=== PATIENT | female | born 1945 | race Caucasian/White ===

== ENCOUNTER → 2017-04-22 | Outpatient (CLI) | payer MEDICARE, OTHER ==
--- NOTE | 2017-04-22 19:49 | Diagnostic Imaging Report ---
AP and frog lateral views of the right hip are performed. INDICATION: Right hip pain. FINDINGS: There is moderate narrowing of the right hip joint space. There is mild subchondral sclerosis seen. No fracture or dislocation is seen. No radiopaque foreign body. Mild narrowing of the symphysis pubis and mild sclerotic changes of the SI joints are compatible with degenerative changes. IMPRESSION: Moderate degenerative changes. Dictated by: Dictated on workstation # [id number]
== END ==
LOC: LAB 15:08
PROVIDERS: ATTEND Internal Medicine
DX: M16.11 Unilateral primary osteoarthritis, right hip (principal)
CPT/HCPCS: 73502

== ENCOUNTER → 2017-04-26 | Outpatient (CLI) | payer MEDICARE, OTHER ==
--- NOTE | 2017-04-26 13:06 | Diagnostic Imaging Report ---
PROCEDURE: CT head without contrast. TECHNIQUE: Multiple contiguous axial images were obtained through the brain without the use of intravenous contrast. INDICATION: Headache. FINDINGS: There is no intracranial hemorrhage, edema or mass effect. There is prominent periventricular and deep white matter hypodensities compatible with chronic microvascular ischemic changes. No extra-axial fluid collection is seen. No hydrocephalus. The calvarium, the paranasal sinuses visualized portions and the orbits appear grossly unremarkable. IMPRESSION: White matter findings suggestive of chronic microvascular ischemic changes. Dictated by: Dictated on workstation # [id number]
== END ==
LOC: RAD 12:38
PROVIDERS: ATTEND Internal Medicine
DX: R51 Headache (principal)
CPT/HCPCS: 70450

== ENCOUNTER → 2017-05-17 | Outpatient (CLI) | payer MEDICARE, OTHER ==
--- NOTE | 2017-05-17 14:52 | Diagnostic Imaging Report ---
EXAMINATION: Bilateral screening mammogram 2D views with tomosynthesis. The current study was also evaluated with a Computer Aided Detection (CAD) system. INDICATION: Screening. PERSONAL HISTORY: No current complaints stated on the questionnaire. COMPARISON: 05/15/2016. FINDINGS: The breasts are composed of scattered fibroglandular densities. There are scattered benign-appearing calcifications and there are biopsy clips seen in the right breast. Allowing for technique and positional differences, no suspicious change is seen. IMPRESSION: No significant change. ACR BI-RADS Category 2: Benign findings. Result letter will be mailed to the patient. Note: At least 10% of breast cancer is not imaged by mammography. Dictated by: Dictated on workstation # [id number]
== END ==
LOC: RAD 10:23
PROVIDERS: ATTEND Internal Medicine
DX: Z12.31 Encounter for screening mammogram for malignant neoplasm of breast (principal)
CPT/HCPCS: 77067

== ENCOUNTER → 2018-08-04 | Outpatient (CLI) | payer MEDICARE, OTHER ==
--- NOTE | 2018-08-04 15:55 | Diagnostic Imaging Report ---
INDICATION: Shortness of breath and chronic cough. TIME OF EXAM: 4:10 PM COMPARISON: No prior studies are available for comparison. FINDINGS: The heart is enlarged. No infiltrate or failure is detected. No effusion or pneumothorax is seen. There is hyperinflation suggestive of COPD. IMPRESSION: Cardiomegaly and COPD. No acute abnormalities detected. Dictated by: Dictated on workstation # [id number]
== END ==
LOC: RAD 15:37
PROVIDERS: ATTEND Nurse Practitioner
DX: J44.9 Chronic obstructive pulmonary disease, unspecified (principal); I51.7 Cardiomegaly
CPT/HCPCS: 71046

== ENCOUNTER 2018-08-20 12:30 | Inpatient (IN) | payer MEDICARE, OTHER | END 2018-08-25 14:10 | disposition home or self-care (01) | LOC: 4TH 08-21 14:45 → ER 12:30 → ICU 14:47 | DX: I09.81 Rheumatic heart failure (principal); I11.0 Hypertensive heart disease with heart failure; I50.41 Acute combined systolic (congestive) and diastolic (congestive) heart failure; I08.3 Combined rheumatic disorders of mitral, aortic and tricuspid valves; J44.1 Chronic obstructive pulmonary disease with (acute) exacerbation; R41.82 Altered mental status, unspecified; F17.210 Nicotine dependence, cigarettes, uncomplicated; R82.90 Unspecified abnormal findings in urine; R80.9 Proteinuria, unspecified; R00.0 Tachycardia, unspecified; E78.00 Pure hypercholesterolemia, unspecified; E03.9 Hypothyroidism, unspecified; S51.821A Laceration with foreign body of right forearm, initial encounter; M54.9 Dorsalgia, unspecified; K59.09 Other constipation; R41.3 Other amnesia; D69.59 Other secondary thrombocytopenia; R73.9 Hyperglycemia, unspecified; N28.9 Disorder of kidney and ureter, unspecified; W19.XXXA Unspecified fall, initial encounter ==

== ENCOUNTER → 2018-09-06 | Outpatient (CLI) | payer MEDICARE, OTHER ==
[~2018-09-06] MED LIST: AMIT25TA9 PO; ASA/1TAB3 PO; ASCO-262 PO; ASPI-999 PO; FAMO20TA3 PO; FURO40TA4 PO; LEVO25TA5 PO; METO-395 PO; POTA20TA8 PO; RT-ALBUINH INH; SIMV40TA4 PO; TIOT4MIS2 IH
--- NOTE | 2018-09-06 20:46 | Diagnostic Imaging Report ---
INDICATION: Digital mammogram bilateral screening with 3D tomosynthesis and CAD. The current study was also evaluated with a Computer Aided Detection (CAD) system. The study was compared to the prior exam of 05/17/2017, 05/15/2016 and 10/31/2014. At this time, there are no current complaints. FINDINGS: The fibroglandular tissue in both breasts is heterogeneously dense. This does limit the sensitivity of this exam. The previous study did show a few microcalcifications in the lateral aspect of the right breast. Those calcifications are again evident and do seem somewhat more numerous than on the prior study. These calcifications are most likely benign but I would recommend that a compression/magnification view of these calcifications be obtained in the CC and ML projections for further study. Also, in the interval since the prior exam, a new group of calcifications has developed in the upper-outer aspect of the right breast. These calcifications should be compressed and magnified in the CC and ML projections as well. There are also a few new microcalcifications in the midportion of the left breast. I would recommend that these also be compressed and magnified in the ML and CC projections. There is no primary or secondary sign of malignancy noted otherwise. Stereotactic clip markers are again seen in both breasts. IMPRESSION: Additional mammographic views of both breasts would be recommended for further study. ACR BI-RADS Category 0: Incomplete. (Needs additional imaging evaluation). Result letter will be mailed to the patient. Note: At least 10% of breast cancer is not imaged by mammography. Dictated by: Dictated on workstation # [id number]
== END ==
LOC: RAD 10:07
PROVIDERS: ATTEND Nurse Practitioner
DX: Z12.31 Encounter for screening mammogram for malignant neoplasm of breast (principal)
CPT/HCPCS: 77067

== ENCOUNTER → 2018-09-14 | Outpatient (CLI) | payer MEDICARE, OTHER ==
--- NOTE | 2018-09-14 21:47 | Diagnostic Imaging Report ---
INDICATION: Bilateral breast calcifications. Patient presents for additional views. Correlation is made with recent screening study from 09/06/2018. 2-D and 3-D bilateral diagnostic mammography was performed. This included bilateral magnification CC and ML views as well as conventional and 90-degree lateral views. The current study was also evaluated with a Computer Aided Detection (CAD) system. FINDINGS: Calcifications in the upper and outer aspect of the right breast appear to be fairly coarse and punctate in appearance. These have increased slightly since prior exam but have a fairly benign appearance. No associated soft tissue mass is seen. Calcifications on the left also appear to be fairly benign. There are numerous vascular and parenchymal calcifications. No mass is seen. IMPRESSION: Benign-appearing calcifications bilaterally. Even so, followup bilateral diagnostic mammography in 6 months is recommended to confirm stability. ACR BI-RADS Category 3: Probably benign findings. Result letter will be mailed to the patient. Note: At least 10% of breast cancer is not imaged by mammography. Dictated by: Dictated on workstation # [id number]
== END ==
LOC: RAD 13:31
PROVIDERS: ATTEND Internal Medicine
DX: N64.89 Other specified disorders of breast (principal); R92.8 Other abnormal and inconclusive findings on diagnostic imaging of breast
CPT/HCPCS: 77066

== ENCOUNTER → 2018-11-09 | Outpatient (CLI) | payer MEDICARE, OTHER ==
[2018-11-09 12:33] LABS: HEMOGLOBIN 14.2 G/DL (11.5-16.0); MEAN PLATELET VOLUME 10.6 FL (7.4-10.4); WHITE BLOOD COUNT 8.7 10^3/uL (4.3-11.0)
[2018-11-09 12:47] LABS: BILIRUBIN,URINE NEGATIVE (NEGATIVE); CLARITY,URINE CLEAR; COLOR,URINE YELLOW; GLUCOSE, URINE (UA) NEGATIVE (NEGATIVE); KETONES,URINE NEGATIVE (NEGATIVE); LEUKOCYTE ESTERASE ,URINE 1+ (NEGATIVE); NITRITE,URINE NEGATIVE (NEGATIVE); PH,URINE 5 (5-9); PROTEIN,URINE 1+ (NEGATIVE); UROBILINOGEN,URINE NORMAL (NORMAL)
[2018-11-09 12:55] LABS: ALBUMIN 4.1 GM/DL (3.2-4.5); BILIRUBIN,TOTAL 0.2 MG/DL (0.1-1.0); CALCIUM 9.3 MG/DL (8.5-10.1); CREATININE SERUM 2.21 MG/DL (0.60-1.30); POTASSIUM 4.4 MMOL/L (3.6-5.0); TOTAL PROTEIN 7.4 GM/DL (6.4-8.2)
[2018-11-09 12:58] LABS: ABG BASE EXCESS -2.9 MMOL/L (-2.5-2.5); ABG OXYGEN SATURATION 92 % (94-100); ABG PCO2 32 MMHG (35-45); ABG PH 7.42 (7.37-7.43); ABG PO2 88 MMHG (79-93); ABG TCO2 22.1 MMOL/L (21.0-31.0)
[2018-11-09 13:05] LABS: ALLENS TEST YES-POS; INSPIRED O2 ROOM AIR; PATIENT TEMP 96.4; VENTILATOR NO
[2018-11-09 13:05] LABS: BACTERIA,URINE FEW /HPF; WBC,URINE 0-2 /HPF
--- NOTE | 2018-11-09 14:31 | Diagnostic Imaging Report ---
INDICATION: Preop, valvular insufficiency. FINDINGS: The heart is enlarged but stable from the comparison study of August 2018. No vascular congestion, edema, pneumonia, effusion, or pneumothorax. IMPRESSION: Unchanged cardiomegaly; otherwise, negative. Dictated by: Dictated on workstation # [id number]
== END ==
LOC: CARD 11:53
PROVIDERS: ATTEND Thoracic Surgery (Cardiothoracic Vascular Surgery)
DX: Z01.810 Encounter for preprocedural cardiovascular examination (principal); Z01.811 Encounter for preprocedural respiratory examination; Z01.812 Encounter for preprocedural laboratory examination; Z11.2 Encounter for screening for other bacterial diseases; I35.1 Nonrheumatic aortic (valve) insufficiency; R82.90 Unspecified abnormal findings in urine
CPT/HCPCS: 36415; 36600; 71046; 80053; 81000; 82805; 85027; 87081; 87088

== ENCOUNTER → 2018-12-01 | Outpatient (CLI) | payer MEDICARE, OTHER ==
--- NOTE | 2018-12-01 15:26 | Diagnostic Imaging Report ---
INDICATION: Back pain. TIME OF EXAM: 11:51 a.m. FINDINGS: Curvature and alignment is normal. Thoracic vertebral bodies show normal height. No compression fracture is seen. Pedicles and paraspinous line are intact. There is a mild generalized degenerative disc disease. IMPRESSION: No acute bony abnormality is detected. Dictated by: Dictated on workstation # [id number]
--- NOTE | 2018-12-01 16:44 | Diagnostic Imaging Report ---
Indication: Back pain. Time of exam: 11:52 AM Curvature and alignment of the lumbar spine are normal. Vertebral heights and disc spaces are well-maintained. No fracture or subluxation is seen. The heart size is normal. The pulmonary vascularity is unremarkable. The lungs are clear. No infiltrate, effusion or pneumothorax is detected. Impression: No acute cardiopulmonary process is detected. Atherosclerotic disease of the abdominal aorta noted. Dictated by: Dictated on workstation # [id number]
== END ==
LOC: RAD 11:40
PROVIDERS: ATTEND Nurse Practitioner
DX: I70.0 Atherosclerosis of aorta (principal); M54.6 Pain in thoracic spine; M54.5 Low back pain
CPT/HCPCS: 72072; 72100

== ENCOUNTER → 2018-12-02 | Outpatient (CLI) | payer MEDICARE, OTHER ==
--- NOTE | 2018-12-02 13:07 | Diagnostic Imaging Report ---
Indication: Hypertension. Renal Doppler ultrasound. Right kidney measures 10.2 x 4.2 x 5.0 cm. Left kidney measures 6.0 x 2.6 x 3.1 cm. There is no mass, calculus or hydronephrosis in either kidney. The renal artery to aortic peak systolic ratio in the right proximal renal artery is 3.7, which is elevated suggesting renal artery stenosis. Velocities ratios of the left kidney are diminished consistent with atrophy. Impression: Atrophic left kidney. Right renal artery stenosis. Dictated by: Dictated on workstation # [id number]
== END ==
LOC: RAD 10:43
PROVIDERS: ATTEND Internal Medicine
DX: I70.1 Atherosclerosis of renal artery (principal); I12.9 Hypertensive chronic kidney disease with stage 1 through stage 4 chronic kidney disease, or unspecified chronic kidney disease; N17.9 Acute kidney failure, unspecified; N18.3 Chronic kidney disease, stage 3 (moderate)
CPT/HCPCS: 76770; 93975

== ENCOUNTER 2019-06-20 08:55 | Day surgery (SDC) | payer MEDICARE, OTHER ==
[2019-06-20] VITALS (12 sets, daily range): BP systolic 146–173; BP diastolic 55–71
[~2019-06-20] VITALS: Ht 170 cm; Wt 78.6 kg
[2019-06-20] MEDS ORDERED: NS IV 1000 ML 1,000 ML IV SCH ×2 (09:15→11:33)
[2019-06-20] MEDS ORDERED: HEParin (CATH LAB) 2,000 ML IV ONE (09:15)
[2019-06-20] MEDS ORDERED: LIDOCAINE 1% INJ 20 ML 20 ML VIAL ONE (09:15)
[2019-06-20] MEDS ORDERED: NS IV 1000 ML 1,000 ML ONE ×2 (09:15→11:00)
[2019-06-20 10:00] LABS: HEMOGLOBIN 13.7 G/DL (11.5-16.0); MEAN PLATELET VOLUME 10.3 FL (7.4-10.4); RED CELL DISTRIBUTION WIDTH 13.4 % (10.0-14.5); WHITE BLOOD COUNT 10.1 10^3/uL (4.3-11.0)
[2019-06-20 10:17] LABS: INR 0.9 (0.8-1.4)
[2019-06-20 10:24] LABS: ALBUMIN 4.3 GM/DL (3.2-4.5); BILIRUBIN,TOTAL 0.4 MG/DL (0.1-1.0); CALCIUM 9.5 MG/DL (8.5-10.1); CREATININE SERUM 1.81 MG/DL (0.60-1.30); POTASSIUM 4.7 MMOL/L (3.6-5.0); TOTAL PROTEIN 7.8 GM/DL (6.4-8.2)
[2019-06-20] MEDS ORDERED: AMLO10TA7 PO (10:27)
[2019-06-20] MEDS ORDERED: OMEP20CA13 PO (10:27)
[2019-06-20] MEDS ORDERED: CHOL200012 PO (10:27)
[2019-06-20] MEDS ORDERED: TRAM50TA2 PO (10:27)
[2019-06-20] MEDS ORDERED: MIDAZOLAM 5 MG/5 ML (VERSED) VIAL ONE (10:32)
[2019-06-20] MEDS ORDERED: HEParin 1000 UNIT/ML (10ML VIAL) FOR BOLUS ONE (10:33)
[2019-06-20] MEDS ORDERED: NITRO DRIP 25000 MCG/D5W 0 ML IV ONE (10:33)
[2019-06-20] MEDS ORDERED: fentaNYL INJECTION 100 MCG/2 ML AMP ONE (10:33)
--- NOTE | 2019-06-20 11:33 | Cardiac Procedure Note-CS/ASA ---
Pre-Procedure Note Pre-Op Procedure Note H&P Reviewed The H&P was reviewed, patient examined and no changes noted. Date H&P Reviewed: Jun 20, 2019 Time H&P Reviewed: 10:45 Conscious Sedation Pre-Proced Time 10:45 ASA Score 3 For ASA 3 and 4: Consider anesthesia and medical clearance. Also, for patients with a history of failed moderate sedation consider anesthesia. Airway Lungs Heart ASA score ASA 1: a normal healthy patient ASA 2: a patient with a mild systemic disease (mid diabetes, controlled hypertension, obesity ASA 3: a patient with a severe systemic disease that limits activity (angina, COPD, prior Myocardial infarction) ASA 4: a patient with an incapacitating disease that is a constant threat to life (CHF, renal failure) ASA 5: a moribund patient not expected to survive 24 hrs. (ruptured aneurysm) ASA 6: a declared brain- patient whose organs are being harvested. For emergent operations, add the letter E after the classification Mallampati Classification Grade 2 Sedation Plan Analgesia, Amnesia, Plan communicated to team members, Discussed options with patient/fam, Discussed risks with patient/fam The patient is an appropriate candidate to undergo the planned procedure, sedation, and anesthesia. The patient immediately re-assessed prior to indication. NAIDA WILEY MD FACP FAC CCDS Jun 20, 2019 11:33 POS
--- NOTE | 2019-06-20 11:38 | Discharge Inst-Cardiology ---
Discharge Inst-Cardiac Discharge Medications Continued Medications: Albuterol Sulfate (Proair Hfa) 1 Puff Puff 2 PUFF INH Q4H PRN for SHORTNESS OF BREATH, INHALER Amitriptyline HCl (Amitriptyline HCl) 25 Mg Tablet 50 MG PO HS, TAB TAKES 2 (25MG) TABLETS Amlodipine Besylate (Amlodipine Besylate) 10 Mg Tablet 10 MG PO DAILY, TAB Ascorbate Calcium (Vitamin C) 500 Mg Tablet 1500 MG PO BID, TAB TAKES 3 (500MG) TABLETS Aspirin (Aspirin) 81 Mg Tab.chew 81 MG PO DAILY, #30 TAB 5 Refills Cholecalciferol (Vitamin D3) (D3-2000) 2,000 Unit Capsule 2000 UNIT PO DAILY, CAP Famotidine (Acid Mechanical Engineering Lecturer (FAMOTIDINE)) 20 Mg Tablet 20 MG PO HS, TAB Furosemide (Furosemide) 40 Mg Tablet 40 MG PO DAILY, #30 TAB 5 Refills Levothyroxine Sodium (Levothyroxine Sodium) 25 Mcg Tablet 25 MCG PO DAILY, TAB Metoprolol Succinate (Metoprolol Succinate) 100 Mg Tab.er.24h 100 MG PO DAILY, #30 TAB 5 Refills Omeprazole (Omeprazole) 20 Mg Capsule.dr 20 MG PO DAILY, CAP Potassium Chloride (Klor-Con M20) 20 Meq Tab.er.prt 20 MEQ PO DAILY, #30 TAB 5 Refills Simvastatin (Simvastatin) 40 Mg Tablet 40 MG PO HS, TAB Tramadol HCl (Tramadol HCl) 50 Mg Tablet 50 MG PO PRN, TAB Orders-Post D/C & Referrals Pneu Vac Indicated: Yes NAIDA WILEY MD FACP FACC CCDS Jun 20, 2019 11:38 POS
--- NOTE | 2019-06-20 11:39 | Discharge Inst-Post CATH ---
Discharge Inst-CATH/EP Post Cardiac Cath/EP D/C Inst Follow Up/Plan F/u with Dr Bowser in 1 week ACTIVITY * Go Home directly and rest. * Limit activity of the leg (or wrist if it was used) for 7 days including aerobics, swimming, jogging, bicycling, etc. * Restrict stair-climbing for 7 days if possible, if not, climb up with your no n-cath leg, then bring together on the same step. * Avoid lifting, pushing, pulling or excessive movement of the affected ext remity for 7 days. * Customary sexual activity may be resumed after 2 days-use caution not to use a position that strains or causes pain to the affected extremity. * No driving for 24 hours. * NO SMOKING. * Avoid straining for bowel movements for 7 days. * Gentle walking on level ground is allowed. * Returning to work will depend on the type of procedure and the results. Your doctor will discuss this with you. CALL YOUR DOCTOR FOR ANY OF THE FOLLOWING: *If bleeding from the puncture site occurs- Apply gentle pressure to site with clean cloth and call your doctor or EMS. * If a knot or lump forms under the skin, increases in size, or causes pain. * If bruising appears to be worsening or moving further down your leg instead of disappearing. * Temperature above 101 F. CARE OF YOUR GROIN INCISION; * Bruising or purple discoloration of the skin near the puncture site is common. * You may shower only, no bathtub bathing for 5 days. Be careful to avoid slipping as your leg may feel stiff. * If a closure device was used on your femoral artery, please see the attached guide regarding care of the device and your leg. * Leave dressing on FOR 24 hours. CARE OF YOUR WRIST INCISION; * Bruising or purple discoloration of the skin near the puncture site is common. * You may shower. * DO NOT submerge wrist. * Leave dressing on FOR 24 hours. NAIDA BOWSER MD FACP FAC CCDS Jun 20, 2019 11:39 POS
[2019-06-20] MEDS ORDERED: PATIENT MAY USE OWN MEDS, ALL PO SCH (11:45)
--- NOTE | 2019-06-20 12:11 | OPERATIVE REPORT ---
DATE OF SERVICE: 06/20/2019 PERIPHERAL ANGIOGRAPHY REPORT The patient is a 73-year-old lady who has a chronic renal failure. She is known to have atrophic left kidney. She was found to have considerable ostial and proximal stenosis of the right renal artery on abdominal aortic ultrasonography. Her blueprint trimmer had recommended consideration of intervention to this vessel. Accordingly, she comes in today for evaluation and treatment. Informed consent was obtained. Vigorous perioperative hydration was carried out to reduce risk of contrast nephropathy. She received a liter of normal saline prior to initiation of the procedure. Normal saline was continued during and afterwards. We used the Modified Seldinger technique to advance a 5-Cymraes sheath into the right femoral artery. A wire was difficult to advance across the aortoiliac bifurcation. We used a 5-Cymraes JR4 catheter to carry out angiography of the right iliac artery, which indicated considerable disease at the ostium of the right common iliac. We were able to advance a Storq wire across this lesion. We advanced a 5-Cymraes pigtail catheter over this wire, the pigtail catheter was placed at the level of L1. We then carried out abdominal aortic angiography. ABDOMEN AORTIC ANGIOGRAPHY: Abdominal aortic angiography indicates severe atherosclerotic disease involving the entire abdominal aorta. There is moderate aneurysmal dilatation of the infrarenal abdominal aorta. The left renal artery is chronically occluded. The left kidney is not visualized. The right renal artery does not seem to have significant disease. The right kidney is visualized and appears to be of normal size. At the aortoiliac bifurcation, there is considerable disease, especially of the right common iliac artery, which exhibits approximately 70% to 80% stenosis. The left common iliac artery seems to have approximately 50% stenosis. There is considerable tortuosity of the iliac arterial system, especially on the right side. CONCLUSIONS: 1. Chronically occluded left renal artery. 2. No significant stenosis of the right renal artery. 3. Severe atherosclerotic disease of the abdominal aorta. 4. Moderate infrarenal abdominal aortic aneurysmal dilatation. 5. Moderately severe disease of the of the aortoiliac bifurcation. The ostial right iliac artery has approximately 70% to 80% stenosis. The left ostial common iliac has approximately 50% stenosis. DISCUSSION AND RECOMMENDATIONS: Based on the results of the study, it appears appropriate to continue a conservative regimen. Risk factor modification has been reviewed. Outpatient followup is advised. Job ID: [id number] DocumentID: [id number] Dictated Date: 06/20/2019 11:21:31 Infrastructure Security Architect Date: 06/20/2019 12:09:20 Dictated By: NAIDA WILEY MD, MA, FACP, FACC,
== END 2019-06-20 17:15 | disposition home or self-care (01) ==
LOC: CATH 08:55 → SDC 11:52 → CATH 17:15
PROVIDERS: ATTEND Internal Medicine Cardiovascular Disease
DX: N28.0 Ischemia and infarction of kidney (principal); I70.0 Atherosclerosis of aorta; I70.8 Atherosclerosis of other arteries; J44.9 Chronic obstructive pulmonary disease, unspecified; I27.20 Pulmonary hypertension, unspecified; I50.30 Unspecified diastolic (congestive) heart failure; N18.4 Chronic kidney disease, stage 4 (severe); Z79.82 Long term (current) use of aspirin; Z82.49 Family history of ischemic heart disease and other diseases of the circulatory system; Z83.3 Family history of diabetes mellitus; Z87.891 Personal history of nicotine dependence
CPT/HCPCS: 36415; 75625; 80053; 80061; 85027; 85610; 85730; 87081; 93005

== ENCOUNTER → 2019-07-14 | Outpatient (CLI) | payer MEDICARE, OTHER ==
[~2019-07-14] MED LIST changes: +AMLO10TA7 PO; +CHOL200012 PO; -METO-395 PO; +MTP100TCR PO; +OMEP-280 PO; +SIMV40TA25 PO; -SIMV40TA4 PO; +TRM50T PO
--- NOTE | 2019-07-14 08:49 | Diagnostic Imaging Report ---
INDICATION: Abdominal aortic aneurysm screening. FINDINGS: Proximal abdominal aorta measures 2.2 cm AP by 3.0 cm transverse. Midabdominal aorta measures 2.1 cm AP by 2.4 cm transverse. Distal abdominal aorta measures 1.8 cm AP by 1.9 cm transverse. Right iliac measures 1.2 x 1.1 cm and left iliac measures 1.2 x 1.1 cm. IMPRESSION: Borderline aneurysmal dilatation to the proximal abdominal aorta. The mid and distal abdominal aorta are normal in caliber. Dictated by: Dictated on workstation # [id number]
== END ==
LOC: CARD 07:40
PROVIDERS: ATTEND Internal Medicine Cardiovascular Disease
DX: I71.4 Abdominal aortic aneurysm, without rupture (principal); I50.32 Chronic diastolic (congestive) heart failure; N18.4 Chronic kidney disease, stage 4 (severe); I27.21 Secondary pulmonary arterial hypertension; I34.0 Nonrheumatic mitral (valve) insufficiency; Z72.0 Tobacco use
CPT/HCPCS: 76775; 93306

== ENCOUNTER → 2019-09-21 | Outpatient (CLI) | payer MEDICARE, OTHER | LOC: CARD 14:27 | PROVIDERS: ATTEND Nurse Practitioner Family | DX: I50.32 Chronic diastolic (congestive) heart failure (principal); I77.89 Other specified disorders of arteries and arterioles; I27.20 Pulmonary hypertension, unspecified; N18.4 Chronic kidney disease, stage 4 (severe); I08.3 Combined rheumatic disorders of mitral, aortic and tricuspid valves | CPT/HCPCS: 93306 ==

== ENCOUNTER → 2020-02-15 | Outpatient (CLI) | payer MEDICARE, OTHER ==
[~2020-02-15] MED LIST changes: -OMEP-280 PO; +OMEP20CA18 PO
== END ==
LOC: LABNPT 06:37
DX: Z01.812 Encounter for preprocedural laboratory examination (principal); Z11.59 Encounter for screening for other viral diseases; I08.3 Combined rheumatic disorders of mitral, aortic and tricuspid valves
CPT/HCPCS: 87635

== ENCOUNTER 2021-01-20 19:08 | Emergency (ER) | payer MEDICARE, OTHER ==
[~2021-01-20] VITALS: Ht 170 cm; Wt 90.0 kg
[~2021-01-20 19:08] MED LIST changes: +AMLO-251 PO; -AMLO10TA7 PO
--- NOTE | 2021-01-20 19:25 | ED Fall/Injury ---
General Stated Complaint: FALL/ R WRIST INJ Source: patient History of Present Illness Date Seen by Provider: Jan 20, 2021 Time Seen by Provider: 19:16 Initial Comments PT ARRIVES VIA POV FROM HOME STATES THAT SOMETIME BETWEEN 0300 AND 0500 THIS AM, SHE TRIPPED OVER A FOOT STOOL, WHILE SHE WAS ON HER WAY TO THE BATHROOM, LANDING ON OUTSTRETCHED RIGHT HAND, AND RIGHT HIP C/O MUCH PAIN TO RIGHT WRIST NO PARESTHESIAS OR MOTOR DEFICITS DID NOT HIT HEAD AND NO LOSS OF CONSCIOUSNESS NO NECK OR BACK PAIN STATES SHE ALWAYS HAS HIP PAIN--"ARTHRITIS" --STATES "BUT IT FEELS BETTER NOW THAN IT HAS IN THE LAST 2 YEARS" --PT WALKS WITH A CANE NO PRIOR INJURY TO RIGHT HAND/WRIST/ARM PT IS RIGHT HANDED TOOK EXTRA STRENGTH TYLENOL AND IT HELPED WITH PAIN PCP: DR. CARSON Allergies and Home Medications Allergies Coded Allergies: No Known Drug Allergies (Unverified , 08/20/18) Home Medications Albuterol Sulfate 1 Puff Puff, 2 PUFF INH Q4H PRN for SHORTNESS OF BREATH, (Reported) Amitriptyline HCl 25 Mg Tablet, 50 MG PO HS, (Reported) TAKES 2 (25MG) TABLETS Amlodipine Besylate 10 Mg Tablet, 10 MG PO DAILY, (Reported) Ascorbate Calcium 500 Mg Tablet, 1,500 MG PO BID, (Reported) TAKES 3 (500MG) TABLETS Aspirin 81 Mg Tab.chew, 81 MG PO DAILY Prescribed by: ANNA RADFORD on 08/24/181511 Cholecalciferol (Vitamin D3) 2,000 Unit Capsule, 2,000 UNIT PO DAILY, (Reported) Famotidine 20 Mg Tablet, 20 MG PO HS, (Reported) Furosemide 40 Mg Tablet, 40 MG PO DAILY Prescribed by: ANNA RADFORD on 08/24/181511 Hydrocodone/Acetaminophen 1 Each Tablet, 1 EACH PO Q4-6 HOURS PRN for PAIN Prescribed by: AMI DURHAM on 01/20/212000 Levothyroxine Sodium 25 Mcg Tablet, 25 MCG PO DAILY, (Reported) Metoprolol Succinate 100 Mg Tab.er.24h, 100 MG PO DAILY Prescribed by: ANNA RADFORD on 08/24/181511 Omeprazole 20 Mg Capsule.dr, 20 MG PO DAILY, (Reported) Potassium Chloride 20 Meq Tab.er.prt, 20 MEQ PO DAILY Prescribed by: ANNA RADFORD on 08/25/18 0951 Simvastatin 40 Mg Tablet, 40 MG PO HS, (Reported) Tramadol HCl 50 Mg Tablet, 50 MG PO PRN, (Reported) Patient Home Medication List Home Medication List Reviewed: Yes Review of Systems Review of Systems Constitutional: no symptoms reported Ears, Nose, Mouth, Throat: no symptoms reported Respiratory: no symptoms reported Cardiovascular: no symptoms reported Gastrointestinal: no symptoms reported Genitourinary: no symptoms reported Musculoskeletal: see HPI Skin: no symptoms reported Psychiatric/Neurological: No Symptoms Reported Past Qsozmjb-Djaujs-Oogyjn Hx Past Med/Social Hx: Reviewed and Corrections made Patient Social History Alcohol Use: Denies Use Smoking Status: Former Smoker (QUIT 2019) Type Used: Cigarettes Recent Hopitalizations: No Immunizations Up To Date Date of Influenza Vaccine: May 30, 2019 Seasonal Allergies Seasonal Allergies: No Past Medical History Surgeries: Yes Tonsillectomy, Tubal Ligation Respiratory: Yes COPD Currently Using CPAP: No Currently Using BIPAP: No Cardiac: Yes (CHF) Coronary Artery Disease, High Cholesterol, Peripheral Vascular, Valvular Heart Disease Neurological: No 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 7.0oz. [id number]; 27.19 BMI Method:Stated General Appearance: WD/WN, no apparent distress, other (WALKS IN ON HER OWN WITH A CANE) Neck: non-tender, full range of motion, normal inspection Cardiovascular: regular rate, rhythm, systolic murmur (2-/6) Respiratory: chest non-tender, normal breath sounds, no respiratory distress, no accessory muscle use Peripheral Pulses: 2+ Dorsalis Pedis (R), 2+ Left Dors-Pedis (L) Gastrointestinal: non tender, soft Back: normal inspection, no CVA tenderness, no vertebral tenderness Extremities: other (PT HAS FOAM TAPE WRAPPED TIGHTLY AROUND RIGHT WRIST, WITH MODERATE SWELLING OF HAND AND FINGERS DISTALLY. MODERATE SWELLING OF WRIST, MODERATE SWELLING OF WRIST AND HAND. DISTAL MOTOR/SENSORY/VASCULAR INTACT. LIMITED ROM OF WRIST. VERY MILD TENDERNESS TO RIGHT HIP--PT STATES IT ALWAYS HURTS. LOWER EXTREMITIES OTHERWISE NORMAL. 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 II-XII nml as tested, no motor/sensory deficits, alert, normal mood/affect, oriented x 3 Skin: normal color, warm/dry, ecchymosis Procedures/Interventions Splinting and Joint Reduction : Arm Sling: Fisher Hand-Made Type: orthoglass Splint Application: Short Arm Progress/Results/Core Measures Results/Orders My Orders Orders - AMI DURHAM DO Forearm, Right, 2 Views (01/20/21 19:19) Wrist, Right, 3 Views Or More (01/20/21 19:19) Hand, Right, 3 Views (01/20/21 19:19) Pelvis With Right Hip 2-3views (01/20/21 19:19) Ed Ortho/Other Supplies Order (01/20/21 19:55) Ortho Glass (01/20/21 19:55) Hydrocodone/Apap 5/325 Tablet (Lortab 5 (01/20/21 20:00) Rx-Hydrocodone/Apap 5-325 Mg (Rx-Vicodin (01/20/21 20:00) Medications Given in ED Current Medications Medications Dose Ordered Sig/Tip Route Start Time Stop Time Status Last Admin Dose Admin Acetaminophen/ Hydrocodone Bitart 1 ea ONCE ONCE PO 01/20/21 20:00 01/20/21 20:01 DC 01/20/21 20:18 1 EA Vital Signs/I&O 01/20/21 19:29 Temp 36.4 Pulse 87 Resp 18 B/P (MAP) 134/55 (81) Pulse Ox 93 O2 Delivery Room Air Diagnostic Imaging Comments XRAYS--ALL PER RADIOLOGIST REPORTS AT 2024 PELVIS AND RIGHT HIP-- FINDINGS: AP view of the pelvis and two views of the right hip demonstrate interval development of degenerative changes of the right hip with loss of the joint space and sclerosis along both sides of the articular surface and lateral osteophytes. Subchondral cysts present. 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 IMPRESSION: There is a mildly displaced radial diaphyseal fracture. RIGHT WRIST-- FINDINGS: 4 views of the right wrist again demonstrate the radial metaphyseal fracture and ulnar styloid fracture. The fracture does not appear to enter the joint space. RIGHT HAND-- FINDINGS: Three views of the right hand demonstrate a transverse fracture through the radial diaphysis and a nondisplaced fracture through the ulnar styloid. Osteopenia is present. IMPRESSION: There is a mildly displaced fracture through the right radial metaphysis and a well aligned ulnar styloid fracture. Reviewed: Reviewed by Me Departure Impression Primary Impression: S/P FALL FROM SANDING Additional Impressions: CLOSED FRACTURE RIGHT DISTAL RADIUS AND ULNAR STYLOID Contusion of right hip Disposition: HOME, SELF-CARE Condition: Stable Departure-Patient Inst. Decision time for Depature: 19:53 Referrals: GRABIEL MANRIQUEZ MD, JOHN D MD (PCP/Family) Primary Care Physician Patient Instructions: Contusion (DC), How to Use a Shoulder Sling, Splint Care ED, Wrist Fracture (DC) Add. Discharge Instructions: ICE TO AREA AT 20 MINUTE INTERVALS WEAR SPLINT AND SLING AT ALL TIMES ELEVATE RIGHT HAND AND ARM MUCH POSSIBLE FOLLOW UP WITH DR. MANRIQUEZ THIS WEEK FOR FURTHER CARE--CALL IN AM TO SCHEDULE APPOINTMENT Scripts Hydrocodone/Acetaminophen (Hydrocodone-Acetamin 5-325 mg) 1 Each Tablet 1 EACH PO Q4-6 HOURS PRN for PAIN, #20 TAB Prov: AMI DURHAM DO 01/20/21 AMI DURHAM DO Jan 20, 2021 19:25
--- NOTE | 2021-01-20 19:59 | Diagnostic Imaging Report ---
INDICATION: Fell, right forearm pain FINDINGS: Two views of the right forearm demonstrate a transverse fracture through the radial diaphysis with mild displacement. IMPRESSION: There is a mildly displaced radial diaphyseal fracture. Dictated by: Dictated on workstation # [id number]
[2021-01-20] MEDS ORDERED: HYDROcodone/APAP 5 MG/325 MG (LORTAB) TAB PO ONE (20:00)
[2021-01-20] MEDS ORDERED: ACHD5005 PO (20:01)
--- NOTE | 2021-01-20 20:03 | Diagnostic Imaging Report ---
INDICATION: Right hip pain. COMPARISON STUDY: Right hip from 04/22/2017. FINDINGS: AP view of the pelvis and two views of the right hip demonstrate interval development of degenerative changes of the right hip with loss of the joint space and sclerosis along both sides of the articular surface and lateral osteophytes. Subchondral cysts present. 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 Dictated by: Dictated on workstation # [id number]
--- NOTE | 2021-01-20 20:05 | Diagnostic Imaging Report ---
INDICATION: Fell, right hand pain FINDINGS: Three views of the right hand demonstrate a transverse fracture through the radial diaphysis and a nondisplaced fracture through the ulnar styloid. Osteopenia is present. IMPRESSION: There is a mildly displaced fracture through the right radial metaphysis and a well aligned ulnar styloid fracture. Dictated by: Dictated on workstation # [id number]
--- NOTE | 2021-01-20 20:18 | Diagnostic Imaging Report ---
INDICATION: Right wrist pain FINDINGS: 4 views of the right wrist again demonstrate the radial metaphyseal fracture and ulnar styloid fracture. The fracture does not appear to enter the joint space. IMPRESSION: A radial metaphyseal normal styloid fractures is again identified. Dictated by: Dictated on workstation # [id number]
[2021-01-20 22:40] VITALS: BP 134/55
== END 2021-01-20 20:40 | disposition home or self-care (01) ==
LOC: EDUNIT# 19:08 → ER 19:09
DX: S52.611A Displaced fracture of right ulna styloid process, initial encounter for closed fracture (principal); S52.501A Unspecified fracture of the lower end of right radius, initial encounter for closed fracture; S70.01XA Contusion of right hip, initial encounter; J44.9 Chronic obstructive pulmonary disease, unspecified; E03.9 Hypothyroidism, unspecified; E78.00 Pure hypercholesterolemia, unspecified; I25.10 Atherosclerotic heart disease of native coronary artery without angina pectoris; I50.9 Heart failure, unspecified; Z79.890 Hormone replacement therapy; Z87.891 Personal history of nicotine dependence; Z79.82 Long term (current) use of aspirin; Z79.899 Other long term (current) drug therapy; W01.0XXA Fall on same level from slipping, tripping and stumbling without subsequent striking against object, initial encounter
CPT/HCPCS: 29105; 73090; 73110; 73130

== ENCOUNTER → 2021-01-22 | Outpatient (CLI) | payer MEDICARE, OTHER ==
[~2021-01-22] MED LIST changes: +ACHD5005 PO
== END ==
LOC: ORTHO 09:45
PROVIDERS: ATTEND Orthopaedic Surgery
DX: S52.531A Colles' fracture of right radius, initial encounter for closed fracture (principal); I13.0 Hypertensive heart and chronic kidney disease with heart failure and stage 1 through stage 4 chronic kidney disease, or unspecified chronic kidney disease; I50.32 Chronic diastolic (congestive) heart failure; N18.4 Chronic kidney disease, stage 4 (severe); I27.21 Secondary pulmonary arterial hypertension; X58.XXXA Exposure to other specified factors, initial encounter
CPT/HCPCS: 29065; G0463

== ENCOUNTER → 2021-02-03 | Outpatient (CLI) | payer MEDICARE, OTHER ==
--- NOTE | 2021-02-03 09:42 | Diagnostic Imaging Report ---
Indication: Fracture recheck. Comparison: 01/20/2021 Findings: 2 views of the right wrist with overlying plaster cast demonstrate the stable appearing distal radial fracture. Alignment is unchanged. Impression: Stable distal radial fracture Dictated by: Dictated on workstation # [id number]
== END ==
LOC: ORTHO 08:40
PROVIDERS: ATTEND Orthopaedic Surgery
DX: S52.531A Colles' fracture of right radius, initial encounter for closed fracture (principal); X58.XXXA Exposure to other specified factors, initial encounter
CPT/HCPCS: 73100

== ENCOUNTER → 2021-02-17 | Outpatient (CLI) | payer MEDICARE, OTHER ==
--- NOTE | 2021-02-17 11:32 | Diagnostic Imaging Report ---
INDICATION: Followup fracture. COMPARISON: 02/03/2021 FINDINGS: Frontal and lateral radiographic views of the right wrist were obtained. In the interim, radiopaque cast material has since been removed. Again identified is nonacute transverse oriented fracture through the distal radius. There is moderate impaction of the posterior fracture site resulting in mild angulation with the apex projecting anteriorly. Overall, alignment is stable. Nondisplaced ulnar styloid fracture is also noted. Radiocarpal joint space remains intact. No unexpected radiopaque foreign bodies are seen. IMPRESSION: 1. Redemonstration nonacute fracture of the right wrist as described above. Dictated by: Dictated on workstation # [id number]
== END ==
LOC: ORTHO 10:50
PROVIDERS: ATTEND Orthopaedic Surgery
DX: S52.531D Colles' fracture of right radius, subsequent encounter for closed fracture with routine healing (principal); S52.614D Nondisplaced fracture of right ulna styloid process, subsequent encounter for closed fracture with routine healing; X58.XXXD Exposure to other specified factors, subsequent encounter
CPT/HCPCS: 29075; 73100; G0463

== ENCOUNTER → 2021-03-03 | Outpatient (CLI) | payer MEDICARE, OTHER ==
--- NOTE | 2021-03-03 11:19 | Diagnostic Imaging Report ---
INDICATION: Right wrist fracture. AP and lateral views of the right wrist are obtained with comparison made to study of 02/17/2021. FINDINGS: Mildly angulated and mildly impacted fracture of distal radius has similar overall alignment. There is mild increasing density which could be due to early stages of callus formation. Otherwise, there is no evidence of new fracture. No intra-articular extension or disruption is identified. There is a nondisplaced fracture at the base of the ulnar styloid process. IMPRESSION: Mild developing callus about distal radial fracture with otherwise no change in alignment. No complication is seen. Dictated by: Dictated on workstation # [id number]
== END ==
LOC: ORTHO 10:25
PROVIDERS: ATTEND Orthopaedic Surgery
DX: S62.101A Fracture of unspecified carpal bone, right wrist, initial encounter for closed fracture (principal); X58.XXXA Exposure to other specified factors, initial encounter
CPT/HCPCS: 73100

== ENCOUNTER 2021-03-11 19:38 | Emergency (ER) | payer MEDICARE, OTHER ==
[~2021-03-11] VITALS: Ht 170 cm; Wt 90.0 kg
--- NOTE | 2021-03-11 20:13 | ED Back Pain ---
General Chief Complaint: Back Problems Stated Complaint: FALL, HIP PAIN Nursing Triage Note: PT ARRIVES TO ED FT3 VIA W/C C/O R HIP PAIN THAT HAS BEEN PROGRESSIVELY WORSENING SINCE SHE SUFFERED A FALL ON January. PT VERBALIZES THAT PAIN RADIATES TO HER BACK, AND THAT SHE HAS NOTICED FOUL SMELLING URINE FOR THE LAST 2-3 DAYS, PT DENIES PAIN WITH URINATION OR URINARY FREQUENCY Source of Information: Patient Exam Limitations: No Limitations History of Present Illness Date Seen by Provider: Mar 11, 2021 Time Seen by Provider: 20:11 Initial Comments Her with low back pain that radiates occasionally all the way down to the ankle on the right side. No fevers or chills. No injury though she did fall several weeks ago. She states that she has had about back for a long time. She also has some foul-smelling urine but denies any dysuria frequency or nausea no fevers or chills. No loss of sensation of her genitals. Location: Lumbar Spine Timing/Duration: Getting Worse, Other (Several weeks) Severity: Moderate Method of Injury: Unknown Associated Symptoms: lower back pain Allergies and Home Medications Allergies Coded Allergies: No Known Drug Allergies (Unverified , 08/20/18) Home Medications Albuterol Sulfate 1 Puff Puff, 2 PUFF INH Q4H PRN for SHORTNESS OF BREATH, (Reported) Amitriptyline HCl 25 Mg Tablet, 50 MG PO HS, (Reported) TAKES 2 (25MG) TABLETS Amlodipine Besylate 10 Mg Tablet, 10 MG PO DAILY, (Reported) Ascorbate Calcium 500 Mg Tablet, 1,500 MG PO BID, (Reported) TAKES 3 (500MG) TABLETS Aspirin 81 Mg Tab.chew, 81 MG PO DAILY Prescribed by: ANNA RADFORD on 08/24/181511 Cholecalciferol (Vitamin D3) 2,000 Unit Capsule, 2,000 UNIT PO DAILY, (Reported) Famotidine 20 Mg Tablet, 20 MG PO HS, (Reported) Furosemide 40 Mg Tablet, 40 MG PO DAILY Prescribed by: ANNA RADFORD on 08/24/181511 Hydrocodone/Acetaminophen 1 Each Tablet, 1 EACH PO Q4-6 HOURS PRN for PAIN Prescribed by: AMI DURHAM on 01/20/212000 Levothyroxine Sodium 25 Mcg Tablet, 25 MCG PO DAILY, (Reported) Metoprolol Succinate 100 Mg Tab.er.24h, 100 MG PO DAILY Prescribed by: ANNA RADFORD on 08/24/18 1512 Omeprazole 20 Mg Capsule.dr, 20 MG PO DAILY, (Reported) Potassium Chloride 20 Meq Tab.er.prt, 20 MEQ PO DAILY Prescribed by: ANNA RADFORD on 08/25/18 0951 Simvastatin 40 Mg Tablet, 40 MG PO HS, (Reported) Tramadol HCl 50 Mg Tablet, 50 MG PO PRN, (Reported) Patient Home Medication List Home Medication List Reviewed: Yes Review of Systems Constitutional: see HPI EENTM: see HPI Respiratory: no symptoms reported Cardiovascular: no symptoms reported Genitourinary: no symptoms reported Musculoskeletal: see HPI, back pain Skin: no symptoms reported Psychiatric/Neurological: No Symptoms Reported Past Voaoimb-Ztcnnk-Qcswrw Hx Patient Social History Tobacco Use?: No Smoking Status: Former Smoker Substance use?: No Alcohol Use?: No Immunizations Up To Date Tetanus Booster (TDap): Unknown Influenza Vaccine Up-to-Date: Yes; Up-to-Date Seasonal Allergies Seasonal Allergies: No Past Medical History Surgery/Hospitalization HX: TUBAL AND TONSILS. 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 7.0oz. 62.669424kf; 31.00 BMI Method:Stated General Appearance: No Apparent Distress, WD/WN HEENT: PERRL/EOMI, TMs Normal Respiratory: No Accessory Muscle Use, No Respiratory Distress Gastrointestinal: Normal Bowel Sounds, Non Tender, Soft; No Tenderness Back: Normal Inspection, Vertebral Tenderness Extremity: Normal Capillary Refill, Normal Inspection Neurologic/Psychiatric: Alert, Oriented x3 Skin: Normal Color, Warm/Dry Progress/Results/Core Measures Results/Orders Lab Results Laboratory Tests Test 03/11/21 20:03 Range/Units Urine Color YELLOW Urine Clarity SL CLOUDY Urine pH 5.5 5-9 Urine Specific [place] 1.020 1.016-1.022 Urine Protein NEGATIVE NEGATIVE Urine Glucose (UA) NEGATIVE NEGATIVE Urine Ketones NEGATIVE NEGATIVE Urine Nitrite NEGATIVE NEGATIVE Urine Bilirubin NEGATIVE NEGATIVE Urine Urobilinogen 0.2 < = 1.0 MG/DL Urine Leukocyte Esterase TRACE H NEGATIVE Urine RBC (Auto) NEGATIVE NEGATIVE Urine RBC NONE /HPF Urine WBC 2-5 /HPF Urine Squamous Epithelial Cells 0-2 /HPF Urine Crystals NONE /LPF Urine Bacteria MODERATE H /HPF Urine Casts PRESENT /LPF Urine Hyaline Casts RARE /LPF Urine Mucus NEGATIVE /LPF Urine Culture Indicated YES My Orders Orders - JESSICA HOBSON APRN Ct Lumbar Spine Wo (03/11/21 20:05) Ua Culture If Indicated (03/11/21 20:05) Ketorolac Injection (Toradol Injection) (03/11/21 20:15) Hydrocodone/Apap 5/325 Tablet (Lortab 5 (03/11/21 20:15) Ketorolac Injection (Toradol Injection) (03/11/21 20:15) Hydrocodone/Apap 5/325 Tablet (Lortab 5 (03/11/21 21:00) Prednisone Tablet (Deltasone Tablet) (03/11/21 21:00) Urine Culture (03/11/21 20:03) Levofloxacin Tablet (Levaquin Tablet) (03/11/21 21:15) Medications Given in ED Current Medications Medications Dose Ordered Sig/Tip Route Start Time Stop Time Status Last Admin Dose Admin Acetaminophen/ Hydrocodone Bitart 1 ea ONCE ONCE PO 03/11/21 20:15 03/11/21 20:16 DC 03/11/21 20:15 1 EA Ketorolac Tromethamine 30 mg ONCE ONCE IM 03/11/21 20:15 03/11/21 20:16 DC 03/11/21 20:15 30 MG Vital Signs/I&O 03/11/21 19:45 Temp 36.7 Pulse 61 Resp 18 B/P (MAP) 134/58 (83) Pulse Ox 97 O2 Delivery Room Air Blood Pressure Mean: 83 Diagnostic Imaging Diagonstic Imaging: CT Comments NAME: ABIGAIL CONNOLLY [facility] REC#: [id number] PT STATUS: REG ER : 1945 PHYSICIAN: JESSICA HOBSON APRN ADMIT DATE: 03/11/21/ER Draft Date of Exam:03/11/21 CT LUMBAR SPINE WO PROCEDURE: CT lumbar spine without contrast. TECHNIQUE: Multiple contiguous axial images were obtained through the lumbar spine without the use of intravenous contrast. Sagittal and coronal reformations were then performed. Auto Exposure Controls were utilized during the CT exam to meet ALARA standards for radiation dose reduction. INDICATION: 75-year-old female, right hip pain that has been progressively worsening since fall on January 20. CORRELATION STUDY: Radiographs 12/01/2018 FINDINGS: Lumbar spinal alignment is anatomic. There is generalized bony demineralization. Lumbar vertebral body heights are maintained. There is no acute appearing compression deformity. While soft tissue assessment is limited, there does appear to be perhaps mild areas of disc bulge through the majority of the lumbar spine most severe at L3-L4 and L4-L5 levels. Likely at least mild bilateral foraminal narrowing is present. More focal moderate narrowing at the L4-L5 level owing to disc bulge particularly in the right foramina. Posterior elements appear to be intact and without evidence for spondylolysis. Scattered mild to moderate hypertrophic facet arthropathy along with ligamentum flavum hypertrophy. This results in what appears to be mild to moderate trefoil-type spinal canal narrowing at L3-L4 and moderate narrowing at L4-L5 levels. Likely disc protrusion to the right of midline at the L5-S1 level. Aortoiliac vascular calcifications. There is at least ectasia of the abdominal aorta, partially visualized. Maximum measurements up to 2.5 cm. Asymmetric atrophic changes of the left kidney which appears rather small. IMPRESSION: 1. No acute bony abnormality about the lumbar spine. 2. Does appear to be multilevel degenerative changes along with ligamentum facet hypertrophy resulting in various degrees of canal and foraminal narrowing. If further assessment is desired, nonemergent follow-up MRI would be recommended. 3. Prominent calcification of the abdominal aorta. There appears to be at least ectasia. The abdominal aorta is incompletely imaged, the visualized maximum dimension is up to 2.5 cm. 4. Rather pronounced atrophic changes of the left kidney. Dictated on workstation # [id number] Dict: 03/11/212032 Trans: 03/11/212047 [facility] [id number] Interpreted by: CARMEN GUZMÁN DO Electronically signed by: Departure Impression Primary Impression: UTI (urinary tract infection) Additional Impression: Lumbar radicular pain Disposition: HOME, SELF-CARE Condition: Stable Departure-Patient Inst. Decision time for Depature: 21:07 Referrals: GRABIEL MANRIQUEZ MD (PCP/Family) Primary Care Physician Patient Instructions: Urinary Tract Infections in Adults, Radiculopathy Add. Discharge Instructions: 1. Steroids and antibiotics and pain medication as directed. Return to ER for any concerns. Follow-up with your doctor next week. All discharge instructions reviewed with patient and/or family. Voiced understanding. Scripts Hydrocodone/Acetaminophen (Hydrocodone-Acetamin 5-325 mg) 1 Each Tablet 1 TAB PO Q6H PRN for PAIN-MODERATE (5-7), #14 TAB Prov: JESSICA HOBSON APRN 03/11/21 Prednisone (Prednisone) 20 Mg Tab 40 MG PO DAILY, #6 TAB 0 Refills Prov: JESSICA HOBSON APRN 03/11/21 JESSICA HOBSON APRN Mar 11, 2021 20:13
[2021-03-11] MEDS ORDERED: KETOROLAC 30 MG/ML VIAL IM ONE (20:15)
[2021-03-11] MEDS ORDERED: HYDROcodone/APAP 5 MG/325 MG (LORTAB) TAB PO ONE ×2 (20:15→21:00)
[2021-03-11] MEDS ORDERED: KETOROLAC 60 MG/2 ML VIAL IM ONE (20:15)
--- NOTE | 2021-03-11 20:49 | Diagnostic Imaging Report ---
PROCEDURE: CT lumbar spine without contrast. TECHNIQUE: Multiple contiguous axial images were obtained through the lumbar spine without the use of intravenous contrast. Sagittal and coronal reformations were then performed. Auto Exposure Controls were utilized during the CT exam to meet ALARA standards for radiation dose reduction. INDICATION: 75-year-old female, right hip pain that has been progressively worsening since fall on January 20. CORRELATION STUDY: Radiographs 12/01/2018 FINDINGS: Lumbar spinal alignment is anatomic. There is generalized bony demineralization. Lumbar vertebral body heights are maintained. There is no acute appearing compression deformity. While soft tissue assessment is limited, there does appear to be perhaps mild areas of disc bulge through the majority of the lumbar spine most severe at L3-L4 and L4-L5 levels. Likely at least mild bilateral foraminal narrowing is present. More focal moderate narrowing at the L4-L5 level owing to disc bulge particularly in the right foramina. Posterior elements appear to be intact and without evidence for spondylolysis. Scattered mild to moderate hypertrophic facet arthropathy along with ligamentum flavum hypertrophy. This results in what appears to be mild to moderate trefoil-type spinal canal narrowing at L3-L4 and moderate narrowing at L4-L5 levels. Likely disc protrusion to the right of midline at the L5-S1 level. Aortoiliac vascular calcifications. There is at least ectasia of the abdominal aorta, partially visualized. Maximum measurements up to 2.5 cm. Asymmetric atrophic changes of the left kidney which appears rather small. IMPRESSION: 1. No acute bony abnormality about the lumbar spine. 2. Does appear to be multilevel degenerative changes along with ligamentum facet hypertrophy resulting in various degrees of canal and foraminal narrowing. If further assessment is desired, nonemergent follow-up MRI would be recommended. 3. Prominent calcification of the abdominal aorta. There appears to be at least ectasia. The abdominal aorta is incompletely imaged, the visualized maximum dimension is up to 2.5 cm. 4. Rather pronounced atrophic changes of the left kidney. Dictated by: Dictated on workstation # [id number]
[2021-03-11 20:53] LABS: BILIRUBIN,URINE NEGATIVE (NEGATIVE); COLOR,URINE YELLOW; GLUCOSE, URINE (UA) NEGATIVE (NEGATIVE); KETONES,URINE NEGATIVE (NEGATIVE); LEUKOCYTE ESTERASE ,URINE TRACE (NEGATIVE); NITRITE,URINE NEGATIVE (NEGATIVE); PH,URINE 5.5 (5-9); PROTEIN,URINE NEGATIVE (NEGATIVE)
[2021-03-11 21:00] LABS: CLARITY,URINE SL CLOUDY
[2021-03-11] MEDS ORDERED: predniSONE 20 MG TAB PO ONE (21:00)
[2021-03-11 21:01] LABS: BACTERIA,URINE MODERATE /HPF; HYALINE CASTS, URINE RARE /LPF; SQUAMOUS EPITHELIAL CELL,UR 0-2 /HPF
[2021-03-11] MEDS ORDERED: ACHD5005 PO (21:08)
[2021-03-11] MEDS ORDERED: PRD20T PO (21:08)
[2021-03-11 21:14] VITALS: BP 134/58
== END 2021-03-11 21:14 | disposition home or self-care (01) ==
LOC: EDUNIT# 19:38 → ER 19:40
DX: N39.0 Urinary tract infection, site not specified (principal); M54.16 Radiculopathy, lumbar region; J44.9 Chronic obstructive pulmonary disease, unspecified; I50.9 Heart failure, unspecified; E78.00 Pure hypercholesterolemia, unspecified; E03.9 Hypothyroidism, unspecified; I25.10 Atherosclerotic heart disease of native coronary artery without angina pectoris; Z79.899 Other long term (current) drug therapy; Z79.890 Hormone replacement therapy; Z79.82 Long term (current) use of aspirin
CPT/HCPCS: 72131; 81000; 87077; 87088

== ENCOUNTER → 2021-03-31 | Outpatient (CLI) | payer MEDICARE, OTHER ==
[~2021-03-31] MED LIST changes: +PRD20T PO
--- NOTE | 2021-03-31 09:39 | Diagnostic Imaging Report ---
EXAMINATION: Right wrist radiographs, 2 views. COMPARISON: March 03, 2021. HISTORY: 75-year-old female, followup wrist fracture. FINDINGS: The bones appear potentially demineralized. There is a redemonstrated distal radial metaphyseal fracture with unchanged fracture alignment. There is a mild interval increase in bone sclerosis and bony callus bridging at the prior fracture site. There is no complete bone remodeling. The joint spaces appear well-preserved. There does appear to be a prior fracture deformity involving the base of the ulnar styloid. IMPRESSION: 1. Partial interval incomplete healing changes at site of distal radial metaphyseal fracture. 2. Remote prior fracture extending through the base of the ulnar styloid. Dictated by: Dictated on workstation # [id number]
== END ==
LOC: ORTHO 08:31
PROVIDERS: ATTEND Orthopaedic Surgery
DX: S52.531D Colles' fracture of right radius, subsequent encounter for closed fracture with routine healing (principal); X58.XXXD Exposure to other specified factors, subsequent encounter
CPT/HCPCS: 73100

== ENCOUNTER 2023-06-16 09:20 | Inpatient (IN) | payer MEDICARE, OTHER ==
[~2023-06-16] VITALS: Ht 170.1 cm; Wt 68.0 kg
[~2023-06-16 09:20] MED LIST changes: +ALBU8.5H6 INH; +FAMO-356 PO; -FAMO20TA3 PO; +POTA-169 PO; -POTA20TA8 PO; -RT-ALBUINH INH
--- NOTE | 2023-06-16 09:40 | ED Respiratory ---
General Chief Complaint: Respiratory Problems Stated Complaint: DIFFICULTY BREATHING Nursing Triage Note: PT TO [facility]. STATES STARTED 2 DAYS AGO. DENIES COUGH OR FEVERS. Source: patient, family Exam Limitations: no limitations History of Present Illness Date Seen by Provider: Jun 16, 2023 Time Seen by Provider: 09:22 Initial Comments 77-year-old female with past medical history of severe aortic regurgitation and COPD most notably coming in due to shortness of breath. She states she has been short of breath for very long time, but worsening over the past 2 days. She is unsure if she is on a water pill, but does states she "urinates all the time". She denies any fluid gain in her legs or anywhere else that she knows of. Also denies any cough, new fever, abdominal pain, vomiting, diarrhea, focal weakness or numbness. Denies any prior history of DVT or PE, no lower extremity swelling or pain, no recent surgery, no recent long travel, no hormone use, no hemoptysis. She quit smoking about 3 months ago. She states she moved into a new home roughly 2 weeks ago, and her daughter noted that the filter for the air was very dirty. Allergies and Home Medications Allergies Coded Allergies: Penicillins (Verified Allergy, Unknown, 06/16/23) Patient Home Medication List Home Medication List Reviewed: Yes Albuterol Sulfate (Ventolin Hfa) 1 Puff Puff, 2 PUFF INH Q4H PRN for SHORTNESS OF BREATH, (Reported) Entered as Reported by: FIORDALIZA WOODWARD on 08/22/18 1112 Amitriptyline HCl (Amitriptyline HCl) 25 Mg Tablet, 50 MG PO HS, (Reported) Entered as Reported by: RICKY JOYCE on 08/20/18 1306 Amlodipine Besylate (Amlodipine Besylate) 10 Mg Tablet, 10 MG PO DAILY, (Reported) Entered as Reported by: MARLEY ASHBY on 06/20/19 1027 Ascorbate Calcium (Vitamin C) 500 Mg Tablet, 1,500 MG PO BID, (Reported) Entered as Reported by: FIORDALIZA WOODWARD on 08/22/18 1112 Aspirin (Aspirin) 81 Mg Tab.chew, 81 MG PO DAILY Prescribed by: ANNA RADFORD on 08/24/18 1512 Cholecalciferol (Vitamin D3) (D3-2000) 2,000 Unit Capsule, 2,000 UNIT PO DAILY, (Reported) Entered as Reported by: MARLEY ASHBY on 06/20/19 1027 Famotidine (Acid [facility] (FAMOTIDINE)) 20 Mg Tablet, 20 MG PO HS, (Reported) Entered as Reported by: FIORDALIZA WOODWARD on 08/22/18 111 Furosemide (Furosemide) 40 Mg Tablet, 40 MG PO DAILY Prescribed by: ANNA RADFORD on 08/24/18 151 Hydrocodone/Acetaminophen (Hydrocodone-Acetamin 5-325 mg) 1 Each Tablet, 1 EACH PO Q4-6 HOURS PRN for PAIN Prescribed by: AMI DURHAM on 01/20/212000 Hydrocodone/Acetaminophen (Hydrocodone-Acetamin 5-325 mg) 1 Each Tablet, 1 TAB PO Q6H PRN for PAIN-MODERATE (5-7) Prescribed by: JESSICA HOBSON on 03/11/212107 Levothyroxine Sodium (Levothyroxine Sodium) 25 Mcg Tablet, 25 MCG PO DAILY, (Reported) Entered as Reported by: RICKY JOYCE on 08/20/18 1306 Metoprolol Succinate (Metoprolol Succinate) 100 Mg Tab.er.24h, 100 MG PO DAILY Prescribed by: ANNA RADFORD on 08/24/18 151 Omeprazole (Omeprazole) 20 Mg Capsule.dr, 20 MG PO DAILY, (Reported) Entered as Reported by: MARLEY ASHBY on 06/20/19 1027 Potassium Chloride (Klor-Con M20) 20 Meq Tab.er.prt, 20 MEQ PO DAILY Prescribed by: ANNA RADFORD on 08/25/18 0951 Prednisone (Prednisone) 20 Mg Tab, 40 MG PO DAILY Prescribed by: JESSICA HOBSON on 03/11/212107 Simvastatin (Simvastatin) 40 Mg Tablet, 40 MG PO HS, (Reported) Entered as Reported by: RICKY JOYCE on 08/20/18 1306 Tramadol HCl (Tramadol HCl) 50 Mg Tablet, 50 MG PO PRN, (Reported) Entered as Reported by: MARLEY ASHBY on 06/20/19 1027 Review of Systems Review of Systems Constitutional: No fever EENTM: no symptoms reported Respiratory: see HPI Cardiovascular: see HPI Gastrointestinal: no symptoms reported Genitourinary: no symptoms reported Musculoskeletal: no symptoms reported Skin: no symptoms reported Psychiatric/Neurological: No Symptoms Reported Hematologic/Lymphatic: No Symptoms Reported Past Mqcbctz-Lbuqwf-Woysbv Hx Patient Social History Tobacco Use?: No Tobacco type used: Cigarettes Smoking Status: Former Smoker Substance use?: No Alcohol Use?: No Pt feels they are or have been: No Immunizations Up To Date Tetanus Booster (TDap): Unknown Influenza Vaccine Up-to-Date: No; Not Current First/Initial COVID19 Vaccinat: YES Second COVID19 Vaccination Dexter: YES Seasonal Allergies Seasonal Allergies: No Past Medical History Surgery/Hospitalization HX: TUBAL AND TONSILS. KIDNEY DISEASE HX, COPD HX, LEAKING MITRAL VALVE Surgeries: Yes Tonsillectomy, Tubal Ligation Respiratory: Yes COPD Currently Using CPAP: No Currently Using BIPAP: No Cardiac: Yes (CHF) Coronary Artery Disease, High Cholesterol, Peripheral Vascular, Valvular Heart Disease Neurological: No NEEDLE MOLDER History: Menopausal Genitourinary: Yes Renal Failure Gastrointestinal: Yes Chronic Constipation Musculoskeletal: Yes (CHRONIC HIP PAIN) Arthritis Endocrine: Yes Hypothyroidsim HEENT: No (GLASSES ) Cancer: No Psychosocial: No Integumentary: No Blood Disorders: No Family Medical History ADDITIONAL PAST MEDICAL HISTORY: -CARDIAC CATH 08/24/18--MILD CAD, MODERATE TO SEVERE MR, PULMONARY ARTERY HTN, EF 50-55% -PERIPHERAL ANGIOGRAM 06/[address] 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 7.0oz. 62.881316nn; 31.00 BMI Method:Stated General Appearance: WD/WN, mild distress Eyes: Bilateral Eye Normal Inspection HEENT: PERRL/EOMI, normal ENT inspection, pharynx normal Neck: non-tender, full range of motion, supple, normal inspection Respiratory: chest non-tender, crackles Cardiovascular: tachycardia Gastrointestinal: normal bowel sounds, non tender, soft; No distended, No guarding, No rebound Extremities: normal range of motion, non-tender, normal inspection, no pedal edema, no calf tenderness, normal capillary refill Neurologic/Psychiatric: no motor/sensory deficits, alert, normal mood/affect, oriented x 3 Skin: normal color, warm/dry Progress/Results/Core Measures Suspected Sepsis SIRS Temperature: Pulse: 111 Respiratory Rate: 28 Laboratory Tests 06/16/23 09:32: White Blood Count 7.7 Blood Pressure 130 /93 Mean: 105 Laboratory Tests 06/16/23 09:32: Creatinine 1.81H, INR Comment 1.2, Platelet Count 94L, Total Bilirubin 1.0 Results/Orders Lab Results Laboratory Tests Test 06/16/23 09:32 Range/Units White Blood Count 7.7 4.3-11.0 10^3/uL Red Blood Count 3.73 L 3.80-5.11 10^6/uL Hemoglobin 13.7 11.5-16.0 g/dL Hematocrit 42 35-52 % Mean Corpuscular Volume 113 H 80-99 fL Mean Corpuscular Hemoglobin 37 H 25-34 pg Mean Corpuscular Hemoglobin Concent 33 32-36 g/dL Red Cell Distribution Width 17.8 H 10.0-14.5 % Platelet Count 94 L 130-400 10^3/uL Mean Platelet Volume 12.3 H 9.0-12.2 fL Immature Granulocyte % (Auto) 0 % Neutrophils (%) (Auto) 76 H 42-75 % Lymphocytes (%) (Auto) 16 12-44 % Monocytes (%) (Auto) 7 0-12 % Eosinophils (%) (Auto) 0 0-10 % Basophils (%) (Auto) 1 0-10 % Neutrophils # (Auto) 5.8 1.8-7.8 10^3/uL Lymphocytes # (Auto) 1.3 1.0-4.0 10^3/uL Monocytes # (Auto) 0.5 0.0-1.0 10^3/uL Eosinophils # (Auto) 0.0 0.0-0.3 10^3/uL Basophils # (Auto) 0.1 0.0-0.1 10^3/uL Immature Granulocyte # (Auto) 0.0 0.0-0.1 10^3/uL Percent Immature Platelet Fraction 8.2 H 0.0-7.6 % Prothrombin Time 15.7 H 12.2-14.7 SEC INR Comment 1.2 0.8-1.4 Activated Partial Thromboplast Time 32 24-35 SEC D-Dimer 6.12 H 0.00-0.49 UG/ML Sodium Level 141 135-145 MMOL/L Potassium Level 4.3 3.6-5.0 MMOL/L Chloride Level 117 H 98-107 MMOL/L Carbon Dioxide Level 11 L 21-32 MMOL/L Anion Gap 13 5-14 MMOL/L Blood Urea Nitrogen 21 H 7-18 MG/DL Creatinine 1.81 H 0.60-1.30 MG/DL Estimat Glomerular Filtration Rate 28 BUN/Creatinine Ratio 12 Glucose Level 148 H 70-105 MG/DL Calcium Level 9.6 8.5-10.1 MG/DL Corrected Calcium 9.6 8.5-10.1 MG/DL Magnesium Level 1.9 1.6-2.4 MG/DL Total Bilirubin 1.0 0.1-1.0 MG/DL Aspartate Amino Transf (AST/SGOT) 23 5-34 U/L Alanine Aminotransferase (ALT/SGPT) 16 0-55 U/L Alkaline Phosphatase 108 40-136 U/L Troponin I 0.214 H <0.028 NG/ML B-Type Natriuretic Peptide 4180.6 H <100.0 PG/ML Total Protein 7.1 6.4-8.2 GM/DL Albumin 4.0 3.2-4.5 GM/DL Lipase 16 8-78 U/L Smear Scan YES My Orders Orders - RACHAEL STOKES MD Ekg-Prn For Chest Pain Or Rhyt (06/16/23 09:36) Cbc And Automated Diff (06/16/23 09:35) Magnesium (06/16/23 09:35) Chest 1 View, Ap/Pa Only (06/16/23:35) Ekg Tracing (06/16/23 09:35) Comprehensive Metabolic Panel (06/16/23:35) Protime With Inr (06/16/23:35) Partial Thromboplastin Time (06/16/23:35) O2 (06/16/23:35) Monitor-Rhythm Ecg Trace Only (06/16/23:35) Ed Iv/Invasive Line Start (06/16/23 09:35) Lipase (06/16/23 09:35) Bnp Parmer (06/16/23 09:35) Fibrin Degradation Products (06/16/23 09:35) Troponin I Parmer (06/16/23 09:35) Furosemide Injection (Furosemide Injec (06/16/23 09:45) Ipratropium/Albuterol Inh Soln (Ipratrop (06/16/23 09:45) Ekg Tracing (06/16/23 09:42) Enoxaparin Injection (Enoxaparin Injecti (06/16/23 10:15) Aspirin Chewable Tablet (Aspirin Chewabl (06/16/23 10:15) Medications Given in ED Current Medications Medications Dose Ordered Sig/Tip Route Start Time Stop Time Status Last Admin Dose Admin Albuterol/ Ipratropium 3 ml ONCE ONCE INH 06/16/23 09:45 06/16/23 09:46 DC 06/16/23 09:58 3 ML Aspirin 324 mg ONCE ONCE PO 06/16/23 10:15 06/16/23 10:16 DC 06/16/23 10:21 324 MG Enoxaparin Sodium 70 mg ONCE ONCE SC 06/16/23 10:15 06/16/23 10:16 DC 06/16/23 10:21 70 MG Furosemide 40 mg ONCE ONCE IVP 06/16/23 09:45 06/16/23 09:46 DC 06/16/23 09:54 40 MG Vital Signs/I&O 06/16/23 06/16/23 06/16/23 09:25 09:33 09:59 Temp 35.6 Pulse 111 Resp 28 B/P (MAP) 130/93 (105) Pulse Ox 92 94 O2 Delivery Room Air Room Air Room Air Capillary Refill : Less Than 3 Seconds Blood Pressure Mean: 105 Progress Note : Progress Note 69-year-old female with above history coming in due to shortness of breath. ABCs were intact and vitals were stable on presentation although on the monitor she did appear to be in intermittent A-fib with RVR rate around 110. She would then go down to the 90s sometimes in the sinus. She has no history of A-fib that she knows of. In fact, she says she has not seen a doctor in years, and does not take any medicines despite having severe aortic regurgitation known since at least 2019. Chest x-ray ordered and interpreted by me showing no acute abnormalities. She did have some faint crackles, gave her IV Lasix. EKG ordered and interpreted by me initially showing sinus tach, later showing A-fib. An IV was placed and basic labs were obtained and were significant for an NSTEMI with a troponin around 0.2, elevated BNP around 4000, elevated D-dimer greater than 6, and elevated creatinine around 1.8. Based on her creatinine clearance, I did not want to do a CTA. She likely would need a VQ scan at least. I will treat her as if she has a PE with 1 mg/kg of Lovenox for now which can be dosed daily based on her creatinine clearance. I contacted Dr. Branch for consultation. The patient also received aspirin. I then contacted Dr. London who will admit the patient to the stepdown unit under inpatient status for further evaluation and management. ECG Initial ECG Impression Date: Jun 16, 2023 Initial ECG Impression Time: 09:38 Initial ECG Rate: 103 Initial ECG Rhythm: S.Tach Comment Narrow QRS, normal axis, T wave inversions in some of the inferior leads with some lateral ST depression which is nonspecific, no STEMI Diagnostic Imaging Diagonstic Imaging: Xray (chest) Departure Impression Primary Impression: NSTEMI (non-ST elevated myocardial infarction) Additional Impression: SOB (shortness of breath) Disposition: 09 ADMITTED INPATIENT Condition: Stable Admissions Decision to Admit Reason: Admit from ER (General) Decision to Admit/Date: Jun 16, 2023 Time/Decision to Admit Time: 10:15 Departure-Patient Inst. Referrals: NO,LOCAL PHYSICIAN (PCP/Family) Primary Care Physician RACHAEL STOKES MD Jun 16, 2023 09:40
[2023-06-16 09:43] LABS: BASOPHILS # (AUTO) 0.1 10^3/uL (0.0-0.1); BASOPHILS % (AUTO) 1 % (0-10); EOSINOPHILS % (AUTO) 0 % (0-10); HEMOGLOBIN 13.7 g/dL (11.5-16.0)
[2023-06-16 09:45] LABS: HEMATOCRIT 42 % (35-52); LYMPHOCYTES # (AUTO) 1.3 10^3/uL (1.0-4.0); LYMPHOCYTES % (AUTO) 16 % (12-44); MEAN CORPUSCULAR HEMOGLOBIN 37 pg (25-34); MEAN CORPUSCULAR HGB CONC 33 g/dL (32-36); MEAN CORPUSCULAR VOLUME 113 fL (80-99); MEAN PLATELET VOLUME 12.3 fL (9.0-12.2); MONOCYTES # (AUTO) 0.5 10^3/uL (0.0-1.0); MONOCYTES % (AUTO) 7 % (0-12); NEUTROPHILS # (AUTO) 5.8 10^3/uL (1.8-7.8); NEUTROPHILS % (AUTO) 76 % (42-75); PLATELET COUNT 94 10^3/uL (130-400); WHITE BLOOD COUNT 7.7 10^3/uL (4.3-11.0)
[2023-06-16] MEDS ORDERED: RT-Ipratropium/Albuterol NEB 3 ML VIAL INH ONE (09:45)
[2023-06-16] MEDS ORDERED: FUROSEMIDE INJECTION 40 MG/4 ML VIAL IVP ONE (09:45)
[2023-06-16 09:49] LABS: POTASSIUM 4.3 MMOL/L (3.6-5.0)
[2023-06-16 09:50] LABS: CALCIUM 9.6 MG/DL (8.5-10.1)
[2023-06-16 09:51] LABS: INR 1.2 (0.8-1.4); PROTHROMBIN TIME PATIENT 15.7 SEC (12.2-14.7)
[2023-06-16 09:52] LABS: TOTAL PROTEIN 7.1 GM/DL (6.4-8.2)
[2023-06-16 09:55] LABS: CREATININE SERUM 1.81 MG/DL (0.60-1.30)
[2023-06-16 09:58] LABS: MAGNESIUM 1.9 MG/DL (1.6-2.4)
[2023-06-16 10:01] LABS: FIBRIN DEGRADATION PRODUCTS 6.12 UG/ML (0.00-0.49)
[2023-06-16 10:14] LABS: SMEAR SCAN COMMENT YES
[2023-06-16] MEDS ORDERED: ASPIRIN 81 MG CHEWABLE TABLET PO ONE (10:15)
[2023-06-16] MEDS ORDERED: ENOXAPARIN 80 MG/0.8 ML SYRINGE SC ONE (10:15)
--- NOTE | 2023-06-16 10:18 | Diagnostic Imaging Report ---
INDICATION: Chest pain. COMPARISON: 08/25/2018. FINDINGS: Heart size upper limits but stable from prior. Some mild prominence of the venous structures as well as some mild interstitial densities correlate for mild interstitial edema. No consolidating pneumonia. No pleural fluid. No pneumothorax. IMPRESSION: Similar cardiomegaly, however increased venous caliber and suspicion for mild interstitial type edema. Dictated by: Dictated on workstation # [id number]
--- NOTE | 2023-06-16 10:49 | Consultation-Cardiology ---
HPI-Cardiology Cardiology Consultation: Date of Consultation 06/16/23 Time Seen by a Provider: 10:45 Date of Admission 06-16-23 Attending Physician No,Local Physician Admitting Physician Admitting Physician: Attending Physician: Consulting Physician Marc Bowser MD HPI: Chief Complaint: Progressive dyspnea Ms. Valentine is a 77 yr old female who I have seen in the ED d/t progressive dyspnea. She reports she recently moved back to the area from [place], [place]. She is a poor historian. She has a family member at the bedside. She states she started to have increasing dyspnea yesterday that progressed through the night. She denies any c/o CP, palpitations, syncope or near syncope. No c/o LE swelling. She reports she has not established care with a PCP since moving back 3 months ago She reports she has not had cardiology f/u since 2019. She states she does not take any Rx medications at home. Review of Systems-Cardiology Review of Systems Constitutional: No chills, No fever, No malaise Eyes: No vision change Ears/Nose/Throat: No epistaxis, No recent hearing loss Respiratory: As described under HPI Cardiovascular: As described under HPI Gastrointestinal: diarrhea; No nausea, No vomiting Genitourinary: No dysuria, No hematuria Musculoskeletal: back pain Skin: No rash on exposed areas, No ulcerations on exposed areas Psychiatric/Neurological: No seizure, No focal weakness, No syncope Hematologic: No bleeding abnormalities IGO-Lgvhgr-Cppkur Hx Patient Social History Smoking Status: Former Smoker 2nd Hand Smoke Exposure: Yes Alcohol Use?: No Pt feels they are or have been: No Tobacco type used: Cigarettes Immunizations Up To Date Tetanus Booster (TDap): Unknown Date of Influenza Vaccine: May 30, 2019 Past Medical History PMH As described under Assessment. Family Medical History Family Medical History: She reports her mother had CAD with CABG. She reports her sister had a CVA. Allergies and Home Medications Allergies Coded Allergies: Penicillins (Verified Allergy, Unknown, 06/16/23) Patient Home Medication List Albuterol Sulfate (Ventolin Hfa) 1 Puff Puff, 2 PUFF INH Q4H PRN for SHORTNESS OF BREATH, (Reported) Entered as Reported by: FIORDALIZA WOODWARD on 08/22/18 1112 Amitriptyline HCl (Amitriptyline HCl) 25 Mg Tablet, 50 MG PO HS, (Reported) Entered as Reported by: RICKY JOYCE on 08/20/18 1306 Amlodipine Besylate (Amlodipine Besylate) 10 Mg Tablet, 10 MG PO DAILY, (Reported) Entered as Reported by: MARLEY ASHBY on 06/20/19 1027 Ascorbate Calcium (Vitamin C) 500 Mg Tablet, 1,500 MG PO BID, (Reported) Entered as Reported by: FIORDALIZA WOODWARD on 08/22/18 111 Aspirin (Aspirin) 81 Mg Tab.chew, 81 MG PO DAILY Prescribed by: ANNA RADFORD on 08/24/18 151 Cholecalciferol (Vitamin D3) (D3-2000) 2,000 Unit Capsule, 2,000 UNIT PO DAILY, (Reported) Entered as Reported by: MARLEY ASHBY on 06/20/19 1027 Famotidine (Acid Pole [employer] (FAMOTIDINE)) 20 Mg Tablet, 20 MG PO HS, (Reported) Entered as Reported by: FIORDALIZA WOODWARD on 08/22/18 111 Furosemide (Furosemide) 40 Mg Tablet, 40 MG PO DAILY Prescribed by: ANNA RADFORD on 08/24/18 151 Hydrocodone/Acetaminophen (Hydrocodone-Acetamin 5-325 mg) 1 Each Tablet, 1 EACH PO Q4-6 HOURS PRN for PAIN Prescribed by: AMI DURHAM on 01/20/212000 Hydrocodone/Acetaminophen (Hydrocodone-Acetamin 5-325 mg) 1 Each Tablet, 1 TAB PO Q6H PRN for PAIN-MODERATE (5-7) Prescribed by: JESSICA HOBSON on 03/11/212107 Levothyroxine Sodium (Levothyroxine Sodium) 25 Mcg Tablet, 25 MCG PO DAILY, ( Reported) Entered as Reported by: RICKY JOYCE on 08/20/18 1306 Metoprolol Succinate (Metoprolol Succinate) 100 Mg Tab.er.24h, 100 MG PO DAILY Prescribed by: ANNA RADFORD on 08/24/18 151 Omeprazole (Omeprazole) 20 Mg Capsule.dr, 20 MG PO DAILY, (Reported) Entered as Reported by: MARLEY ASHBY on 06/20/19 102 Potassium Chloride (Klor-Con M20) 20 Meq Tab.er.prt, 20 MEQ PO DAILY Prescribed by: ANNA RADFORD on 08/25/18 0951 Prednisone (Prednisone) 20 Mg Tab, 40 MG PO DAILY Prescribed by: JESSICA HOBSON on 03/11/212107 Simvastatin (Simvastatin) 40 Mg Tablet, 40 MG PO HS, (Reported) Entered as Reported by: RICKY JOYCE on 08/20/18 1306 Tramadol HCl (Tramadol HCl) 50 Mg Tablet, 50 MG PO PRN, (Reported) Entered as Reported by: MARLEY ASHBY on 06/20/19 1027 Physical Exam-Cardiology Physical Exam Vital Signs/I&O 06/16/23 06/16/23 06/16/23 06/16/23 09:25 09:33 09:59 11:04 Temp 35.6 Pulse 111 88 Resp 28 18 B/P (MAP) 130/93 (105) 133/78 Pulse Ox 92 94 91 O2 Delivery Room Air Room Air Room Air Room Air Capillary Refill : Less Than 3 Seconds Constitutional: AAO x 3, well-developed, well-nourished HEENT: PERRL, hearing is well preserved Neck: No carotid bruit; carotid pulses are 2 + bilaterally Respiratory: No accessory muscle use, No respiratory distress; chest expansion is symmetric, chest is bilaterally symmetric, other (diminished lower lobes bilat) Cardiovascular: regular rate-rhythm; No JVD; S1 and S2, systolic murmur Gastrointestinal: No tender; soft; No guarding; audible bowel sounds Extremities: no lower extremity edema bilateral Neurologic/Psychiatric: other (moves all extremities) Skin: No rash on exposed areas, No ulcerations on exposed areas Data Review Labs Laboratory Tests 06/16/23 09:32: White Blood Count 7.7, Red Blood Count 3.73L, Hemoglobin 13.7, Hematocrit 42, Mean Corpuscular Volume 113H, Mean Corpuscular Hemoglobin 37H, Mean Corpuscular Hemoglobin Concent 33, Red Cell Distribution Width 17.8H, Platelet Count 94L, Mean Platelet Volume 12.3H, Immature Granulocyte % (Auto) 0, Neutrophils (%) (Auto) 76H, Lymphocytes (%) (Auto) 16, Monocytes (%) (Auto) 7, Eosinophils (%) (Auto) 0, Basophils (%) (Auto) 1, Neutrophils # (Auto) 5.8, Lymphocytes # (Auto) 1.3, Monocytes # (Auto) 0.5, Eosinophils # (Auto) 0.0, Basophils # (Auto) 0.1, Immature Granulocyte # (Auto) 0.0, Percent Immature Platelet Fraction 8.2H, Prothrombin Time 15.7H, INR Comment 1.2, Activated Partial Thromboplast Time 32, D-Dimer 6.12H, Sodium Level 141, Potassium Level 4.3, Chloride Level 117H, Carbon Dioxide Level 11L, Anion Gap 13, Blood Urea Nitrogen 21H, Creatinine 1.81H, Estimat Glomerular Filtration Rate 28, BUN/Creatinine Ratio 12, Glucose Level 148H, Calcium Level 9.6, Corrected Calcium 9.6, Magnesium Level 1.9, Total Bilirubin 1.0, Aspartate Amino Transf (AST/SGOT) 23, Alanine Aminotransferase (ALT/SGPT) 16, Alkaline Phosphatase 108, Troponin I 0.214H, B-Type Natriuretic Peptide 4180.6H, Total Protein 7.1, Albumin 4.0, Lipase 16, Smear Scan YES Radiology NAME: [facility] REC#: [id number] PT STATUS: REG ER : 1945 PHYSICIAN: RACHAEL STOKES MD ADMIT DATE: 06/16/23/ER Draft Date of Exam:06/16/23 CHEST 1 VIEW, AP/PA ONLY INDICATION: Chest pain. COMPARISON: 08/25/2018. FINDINGS: Heart size upper limits but stable from prior. Some mild prominence of the venous structures as well as some mild interstitial densities correlate for mild interstitial edema. No consolidating pneumonia. No pleural fluid. No pneumothorax. IMPRESSION: Similar cardiomegaly, however increased venous caliber and suspicion for mild interstitial type edema. Dictated on workstation # [id number] Dict: 06/16/23 1001 Trans: 06/16/23 1018 [id number] Interpreted by: NATASHA MENDOZA Electronically signed by: A/P-Cardiology Assessment/Admission Diagnosis Progressive TOMAS - likely d/t acute on chronic diastolic CHF/valvular dz Advanced valvular heart disease and pulm hypertension. - Echo of 08/21/18: Mod to severe MRand TR, modAI, LVEF 45-50%, pulmonary hypertension with PASP 70 mmHg. Echo of 09/21/19: mod conc LVH, [id number]%, grade 1 reynoso dysfunction, mod dilated LA, mod MR, severe AI, mod TR, RVSP 44 mmHg. Has mod to sev MR and AI. Dr Nieto at [facility] - she reports she was told she is not a surgical candidate - Echocardiogram of 09-21-2019 showed LVEF 60-65%. Grade 1 diastolic dysfunction. LA mod dilated. Mod MR. Severe AoR. Mod TR. RVSP 44 mmHg - was seen at [facility] in [place] in 2019 - she reports no intervention that she can recall AAA Sono of July 14, 2019 showed borderline aneurysmal dilatation to the prox abd aorta. Mid and distal abd aorta are normal COPD Card cath of 08/23/18: mild CAD, mod to sev MR, pulmonary hypertension with mean pulmonary artery pressure 36 mmHg, LVEDP 8 mmHg, LVEF 50-55% CKD 4. Worsening of renal function post diuretic therapy and post card cath (Cr on 08/31/18 was 2.1 and eGFR was 25) previously followed with Dr. English of [facility] - has not seen anyone recently Renal artery stenosis Renal u/s of November 2018 showed atrophic left kidney with right renal artery stenosis. Abd aortic angio of 06/20/19 showed chronically occluded L renal artery, no significant stenosis of the R renal artery, severe atherosclerosis of the abd aorta mod infrarenal AAA, mod-sev dz of the aortoiliac bifurcation (70-80 ostial R iliac and approx 50% ostial L iliac) Not suitable for LOUANN-inhib or ARB due to above-noted renal issues Hypertension Cigarette smoking - quit 3 weeks ago Carotid u/s of July 10, 2019 shows less than 40% R ICA stenosis. 60-79% L ICA stenosis Thrombocytopenia Discussion and Recomendations Progressive TOMAS - treat HF with diuretics ? PE - management per medical services - d/t CKD she is not a suitable candidate for IV dye - advise VQ scan - advise OAC with Eliquis d/t CKD if allowed by Dr. London Thrombocytopenia - advise consideration of hematology consult H/O Severe aortic stenosis - previously had been a non-surgical candidate - has had no follow up in several years - echocardiogram today Advise continuation of ASA d/t known h/o CAD and carotid dz Advise continuation of smoking cessation Monitor lab closely Further recs will be based on her hospital course We would like to thank medical services for this consult ANNA RADFORD Jun 16, 2023 10:49
[2023-06-16 11:39] VITALS: BP 135/118
[2023-06-16] MEDS ORDERED: MILK OF MAGNESIA 400 MG/5 ML 30 ML UDC PO PRN (11:45)
[2023-06-16] MEDS ORDERED: ONDANSETRON 4 MG ORAL DISSOLVE TABLET PO PRN (11:45)
[2023-06-16] MEDS ORDERED: ONDANSETRON INJECTION 4 MG/2 ML (SDV) IV PRN (11:45)
[2023-06-16] MEDS ORDERED: BISACODYL 10 MG SUPPOSITORY PR PRN (11:45)
[2023-06-16] MEDS ORDERED: CALCIUM CARBONATE 500 MG CHEW TABLET PO PRN (11:45)
[2023-06-16] MEDS ORDERED: MELATONIN 3 MG TABLET PO PRN (11:45)
[2023-06-16] MEDS ORDERED: ENOXAPARIN 100 MG/1 ML SYRINGE SC SCH (11:45)
[2023-06-16] MEDS ORDERED: ANTACID SUSPENSION 30 ML UDC PO PRN (11:45)
[2023-06-16] MEDS ORDERED: LACTULOSE SYRUP 10GM/15ML 30ML UDC PO PRN (11:45)
[2023-06-16 12:00] VITALS: BP 125/83
[2023-06-16] MEDS ORDERED: ENOXAPARIN 80 MG/0.8 ML SYRINGE SC SCH (12:00)
[2023-06-16] MEDS ORDERED: FLU HIGH DOSE (65+ YOA) 240 MCG/0.7 ML 2023-24 (FLUZONE) IM ONE (12:15)
[2023-06-16 14:01] VITALS: BP 125/83
[2023-06-16] MEDS ORDERED: RT-Ipratropium/Albuterol NEB 3 ML VIAL INH PRN (14:15)
[2023-06-16] MEDS ORDERED: ASPI325T32 PO (14:43)
[2023-06-16] MEDS ORDERED: CHOL20002 PO (14:43)
[2023-06-16] MEDS ORDERED: ACET-3075 PO (14:43)
[2023-06-16] MEDS ORDERED: FERR-84 PO (14:43)
[2023-06-16] MEDS ORDERED: POTA99CA PO (14:43)
[2023-06-16 16:00] VITALS: BP 122/82
--- NOTE | 2023-06-16 16:23 | History & Physical-Hospitalist ---
History of Present Illness HPI/Chief Complaint Kvng Valentine (Beanie) is a 77 year old female with PMH HTN, HLD, CKD 4, COPD, tobacco abuse, who presented with shortness of breath. Her symptoms started a couple days ago. She says they have slowly worsened. She has had chest pain across her chest without radiation. She denies nausea and vomiting. She reports diaphoresis associated with symptoms. She has not taken any medications for many years. She does not have a primary doctor. She quit smoking a few weeks ago. Source: patient Exam Limitations: no limitations Date Seen 06/16/23 Time Seen by a Provider: 11:30 Attending Physician No,Local Physician PCP Admitting Physician: Torri Figueroa MD Attending Physician: Torri Figueroa MD Referring Physician Date of Admission Jun 16, 2023 at 11:07 Home Medications & Allergies Home Medications Reviewed patient Home Medication Reconciliation performed by pharmacy medication reconciliations infectious waste technician and/or nursing. Patients Allergies have been reviewed. Allergies Allergies Coded Allergies Penicillins (Verified Allergy, Unknown, 06/16/23) Past Xsvyxqc-Nsyzeo-Vbirtn Hx Patient Social History Tobacco Use?: No Tobacco type used: Cigarettes Smoking Status: Former Smoker Smokeless Tobacco Frequency: Former User Use of E-Cig and/or Vaping dev: No Substance use?: No Alcohol Use?: No Pt feels they are or have been: No Immunizations Up To Date Date of Influenza Vaccine: May 30, 2019 First/Initial COVID19 Vaccinat: YES Second COVID19 Vaccination Dexter: YES Tetanus Booster (TDap): Less Than 5 Years Seasonal Allergies Seasonal Allergies: No Current Status Advance Directives: Yes Advance Directive Location: Home Communicates: Verbally Primary Language: Kenyan Preferred Spoken Language: Kenyan Is interpretation needed?: No Implanted or Applied Medical D: None Past Medical History Surgeries: Tonsillectomy, Tubal Ligation COPD Currently Using CPAP: No Currently Using BIPAP: No Coronary Artery Disease, High Cholesterol, Peripheral Vascular, 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 7.0oz. [id number]; 24.19 BMI Method:Stated General Appearance: No Apparent Distress, WD/WN HEENT: PERRL/EOMI, Pharynx Normal Neck: Normal Inspection, Supple Respiratory: Lungs Clear, Normal Breath Sounds, No Respiratory Distress Cardiovascular: Regular Rate, Rhythm, Systolic Murmur Gastrointestinal: Normal Bowel Sounds, Non Tender, Soft Extremity: Normal Inspection; No Inflammation; Pedal Edema Neurologic/Psychiatric: Alert, No Motor/Sensory Deficits, Normal Mood/Affect Skin: Normal Color, Warm/Dry Results Results/Procedures Labs Laboratory Tests 06/16/23 09:32 Patient resulted labs reviewed. Imaging: Reviewed Imaging Report Assessment/Plan Admission Diagnosis NSTEMI Admission Status: Inpatient Order (span 2 midnights) Reason for Inpatient Admission: Possible PE Assessment and Plan NSTEMI Atrial fibrillation Dyspnea Possible pulmonary embolism Elevated d-dimer HTN HLD Cardiology consulted EKG with AFib, mild ST depression Troponin elevated, trend D-dimer elevated CT angio deferred due to renal failure VQ scan ordered Given Lovenox in ER Starting Eliquis ASA daily Echo ordered CKD 4 Metabolic acidosis Begin sodium bicarb Avoid nephrotoxins Monitor Thrombocytopenia Appears chronic, monitor Tobacco abuse Recent cessation Nicotine patch offered, refused Diagnosis/Problems Diagnosis/Problems (1) NSTEMI (non-ST elevation myocardial infarction) Status: Acute (2) SOB (shortness of breath) Status: Acute (3) Elevated d-dimer Status: Acute (4) HTN (hypertension) (5) CKD (chronic kidney disease) stage 4, GFR 15-29 ml/min Status: Chronic (6) Metabolic acidosis Status: Acute (7) Tobacco abuse Status: Chronic (8) Thrombocytopenia Status: Acute (9) COPD (chronic obstructive pulmonary disease) Status: Chronic (10) Afib Status: Acute Qualifiers: Atrial fibrillation type: paroxysmal Qualified Codes: I48.0 - Paroxysmal atrial fibrillation (11) Valvular heart disease Status: Chronic TORRI FIGUEROA MD Jun 16, 2023 16:23
--- NOTE | 2023-06-16 17:26 | Diagnostic Imaging Report ---
Indication: Elevated D-dimer, shortness of air. Perfusion imaging performed following administration of 5.5 mCi technetium 99 MAA. Findings: There is no pleural-based wedged configured or suspicious perfusion defects to suggest pulmonary arterial embolism. Impression: No suspicious defect, low probability. Dictated by: Dictated on workstation # [id number]
[2023-06-16 19:52] VITALS: BP 110/91
[2023-06-16] MEDS: APIXABAN 5 MG TABLET PO SCH (21:25)
[2023-06-16] MEDS: SENNOSIDES 8.6 MG TABLET PO SCH (21:27)
[2023-06-16] MEDS: DOCUSATE SODIUM 100 MG CAPSULE PO SCH (21:27)
[2023-06-16] MEDS: SODIUM BICARBONATE 650 MG TABLET PO SCH (21:28)
[2023-06-16] MEDS: RT-Ipratropium/Albuterol NEB 3 ML VIAL INH SCH (22:13)
--- NOTE | 2023-06-16 22:46 | Consultation-Cardiology ---
HPI-Cardiology Cardiology Consultation: Date of Consultation 06/16/23 Time Seen by a Provider: 17:45 Date of Admission Attending Physician No,Local Physician Admitting Physician Admitting Physician: Torri London MD Attending Physician: Torri London MD Consulting Physician NAIDA WILEY MD, MA, FACP, FACC, [facility], CCDS HPI: Chief Complaint: Progressive dyspnea Ms. Valentine is a 77 yr old female who I have seen in the ED d/t progressive dyspnea. She reports she recently moved back to the area from [place], [place]. She is a poor historian. She has a family member at the bedside. She states she started to have increasing dyspnea yesterday that progressed through the night. She denies any c/o CP, palpitations, syncope or near syncope. No c/o LE swelling. She reports she has not established care with a PCP since moving back 3 months ago She reports she has not had cardiology f/u since 2019. She states she does not take any Rx medications at home. Review of Systems-Cardiology Review of Systems Constitutional: No chills, No fever, No malaise Eyes: No vision change Ears/Nose/Throat: No epistaxis, No recent hearing loss Respiratory: As described under HPI Cardiovascular: As described under HPI Gastrointestinal: diarrhea; No nausea, No vomiting Genitourinary: No dysuria, No hematuria Musculoskeletal: back pain Skin: No rash on exposed areas, No ulcerations on exposed areas Psychiatric/Neurological: No seizure, No focal weakness, No syncope Hematologic: No bleeding abnormalities WWB-Redfuo-Yiulmk Hx Patient Social History Smoking Status: Former Smoker 2nd Hand Smoke Exposure: Yes Alcohol Use?: No Pt feels they are or have been: No Tobacco type used: Cigarettes Immunizations Up To Date Tetanus Booster (TDap): Unknown Date of Influenza Vaccine: May 30, 2019 Past Medical History PMH As described under Assessment. Family Medical History Family Medical History: She reports her mother had CAD with CABG. She reports her sister had a CVA. Allergies and Home Medications Allergies Coded Allergies: Penicillins (Verified Allergy, Unknown, 06/16/23) Patient Home Medication List Home Medication List Reviewed: Yes Acetaminophen/Diphenhydramine (Tylenol Pm Ex-Strength Caplet) 500 Mg-25 Mg Tablet, 2 EACH PO HS, (Reported) Entered as Reported by: ARMANI BOYD on 06/16/231442 Last Action: Reviewed Aspirin (Aspirin EC) 325 Mg Tablet.dr, 1,625 MG PO BID, (Reported) Entered as Reported by: ARMANI BOYD on 06/16/231442 Last Action: Reviewed Cholecalciferol (Vitamin D3) (Vitamin D3) 50 Mcg (2000 Unit) Capsule, 50 MCG PO DAILY, (Reported) Entered as Reported by: ARMANI BOYD on 06/16/231442 Last Action: Reviewed Ferrous Sulfate (Iron) 325 Mg (65 Mg Iron) Tablet, 325 MG PO DAILY, (Reported) Entered as Reported by: ARMANI BOYD on 06/16/231442 Last Action: Reviewed Potassium Citrate (Potassium) 99 Mg Capsule, 99 MG PO DAILY, (Reported) Entered as Reported by: ARMANI BOYD on 06/16/231442 Last Action: Reviewed Discontinued Medications Albuterol Sulfate (Ventolin Hfa) 1 Puff Puff, 2 PUFF INH Q4H PRN for SHORTNESS OF BREATH, (Reported) Discontinued Reason: No Longer Taking Entered as Reported by: FIORDALIZA WOODWARD on 08/22/18 111 Last Action: Discontinued Amitriptyline HCl (Amitriptyline HCl) 25 Mg Tablet, 50 MG PO HS, (Reported) Discontinued Reason: No Longer Taking Entered as Reported by: RICKY JOYCE on 08/20/18 1306 Last Action: Discontinued Amlodipine Besylate (Amlodipine Besylate) 10 Mg Tablet, 10 MG PO DAILY, (Reported) Discontinued Reason: No Longer Taking Entered as Reported by: MARLEY ASHBY on 06/20/19 1027 Last Action: Discontinued Ascorbate Calcium (Vitamin C) 500 Mg Tablet, 1,500 MG PO BID, (Reported) Discontinued Reason: No Longer Taking Entered as Reported by: FIORDALIZA WOODWARD on 08/22/18 1112 Last Action: Discontinued Aspirin (Aspirin) 81 Mg Tab.chew, 81 MG PO DAILY Discontinued Reason: No Longer Taking Prescribed by: ANNA RADFORD on 08/24/18 1512 Last Action: Discontinued Cholecalciferol (Vitamin D3) (D3-2000) 2,000 Unit Capsule, 2,000 UNIT PO DAILY, (Reported) Discontinued Reason: No Longer Taking Entered as Reported by: MARLEY ASHBY on 06/20/19 1027 Last Action: Discontinued Famotidine (Acid [employer] (FAMOTIDINE)) 20 Mg Tablet, 20 MG PO HS, (Reported) Discontinued Reason: No Longer Taking Entered as Reported by: FIORDALIZA WOODWARD on 08/22/18 1112 Last Action: Discontinued Furosemide (Furosemide) 40 Mg Tablet, 40 MG PO DAILY Discontinued Reason: No Longer Taking Prescribed by: ANNA RADFORD on 08/24/181511 Last Action: Discontinued Hydrocodone/Acetaminophen (Hydrocodone-Acetamin 5-325 mg) 1 Each Tablet, 1 EACH PO Q4-6 HOURS PRN for PAIN Discontinued Reason: No Longer Taking Prescribed by: AMI DURHAM on 01/20/212000 Last Action: Discontinued Hydrocodone/Acetaminophen (Hydrocodone-Acetamin 5-325 mg) 1 Each Tablet, 1 TAB PO Q6H PRN for PAIN-MODERATE (5-7) Discontinued Reason: No Longer Taking Prescribed by: JESSICA HOBSON on 03/11/212107 Last Action: Discontinued Levothyroxine Sodium (Levothyroxine Sodium) 25 Mcg Tablet, 25 MCG PO DAILY, (Reported) Discontinued Reason: No Longer Taking Entered as Reported by: RICKY JOYCE on 08/20/18 130 Last Action: Discontinued Metoprolol Succinate (Metoprolol Succinate) 100 Mg Tab.er.24h, 100 MG PO DAILY Discontinued Reason: No Longer Taking Prescribed by: ANNA RADFORD on 08/24/181511 Last Action: Discontinued Omeprazole (Omeprazole) 20 Mg Capsule.dr, 20 MG PO DAILY, (Reported) Discontinued Reason: No Longer Taking Entered as Reported by: MARLEY ASHBY on 06/20/19 1027 Last Action: Discontinued Potassium Chloride (Klor-Con M20) 20 Meq Tab.er.prt, 20 MEQ PO DAILY Discontinued Reason: No Longer Taking Prescribed by: ANNA RADFORD on 08/25/18 0951 Last Action: Discontinued Prednisone (Prednisone) 20 Mg Tab, 40 MG PO DAILY Discontinued Reason: No Longer Taking Prescribed by: JESSICA HOBSON on 03/11/212107 Last Action: Discontinued Simvastatin (Simvastatin) 40 Mg Tablet, 40 MG PO HS, (Reported) Discontinued Reason: No Longer Taking Entered as Reported by: RICKY JOYCE on 08/20/18 1306 Last Action: Discontinued Tramadol HCl (Tramadol HCl) 50 Mg Tablet, 50 MG PO PRN, (Reported) Discontinued Reason: No Longer Taking Entered as Reported by: MARLEY ASHBY on 06/20/19 1027 Last Action: Discontinued Physical Exam-Cardiology Physical Exam Vital Signs/I&O 06/16/23 06/16/23 06/16/23 06/16/23 11:04 11:24 11:39 12:00 Temp 36.0 Pulse 88 109 101 92 Resp 18 16 25 B/P (MAP) 133/78 135/118 (124) 125/83 (97) Pulse Ox 91 99 O2 Delivery Room Air Room Air Room Air 06/16/23 06/16/23 06/16/23 06/16/23 12:22 12:50 14:01 16:00 Temp 36.7 Pulse 86 92 89 Resp 22 B/P (MAP) 122/82 (95) Pulse Ox 99 94 O2 Delivery Room Air Room Air 06/16/23 06/16/23 06/16/23 06/16/23 19:00 19:45 19:52 22:13 Temp 36.5 Pulse 96 98 Resp 23 B/P (MAP) 110/91 (97) Pulse Ox 96 92 96 O2 Delivery Room Air Room Air Room Air Capillary Refill : Less Than 3 Seconds Constitutional: AAO x 3, well-developed, well-nourished HEENT: PERRL, hearing is well preserved Neck: No carotid bruit; carotid pulses are 2 + bilaterally Respiratory: No accessory muscle use, No respiratory distress; chest expansion is symmetric, chest is bilaterally symmetric, other (diminished lower lobes bilat) Cardiovascular: regular rate-rhythm; No JVD; S1 and S2, systolic murmur Gastrointestinal: No tender; soft; No guarding; audible bowel sounds Extremities: no lower extremity edema bilateral Neurologic/Psychiatric: other (moves all extremities) Skin: No rash on exposed areas, No ulcerations on exposed areas Data Review Labs Laboratory Tests 06/16/23 09:32: White Blood Count 7.7, Red Blood Count 3.73L, Hemoglobin 13.7, Hematocrit 42, Mean Corpuscular Volume 113H, Mean Corpuscular Hemoglobin 37H, Mean Corpuscular Hemoglobin Concent 33, Red Cell Distribution Width 17.8H, Platelet Count 94L, Mean Platelet Volume 12.3H, Immature Granulocyte % (Auto) 0, Neutrophils (%) (Auto) 76H, Lymphocytes (%) (Auto) 16, Monocytes (%) (Auto) 7, Eosinophils (%) (Auto) 0, Basophils (%) (Auto) 1, Neutrophils # (Auto) 5.8, Lymphocytes # (Auto) 1.3, Monocytes # (Auto) 0.5, Eosinophils # (Auto) 0.0, Basophils # (Auto) 0.1, Immature Granulocyte # (Auto) 0.0, Percent Immature Platelet Fraction 8.2H, Prothrombin Time 15.7H, INR Comment 1.2, Activated Partial Thromboplast Time 32, D-Dimer 6.12H, Sodium Level 141, Potassium Level 4.3, Chloride Level 117H, Carbon Dioxide Level 11L, Anion Gap 13, Blood Urea Nitrogen 21H, Creatinine 1.81H, Estimat Glomerular Filtration Rate 28, BUN/Creatinine Ratio 12, Glucose Level 148H, Calcium Level 9.6, Corrected Calcium 9.6, Magnesium Level 1.9, Total Bilirubin 1.0, Aspartate Amino Transf (AST/SGOT) 23, Alanine Aminotransferase (ALT/SGPT) 16, Alkaline Phosphatase 108, Troponin I 0.214H, B-Type Natriuretic Peptide 4180.6H, Total Protein 7.1, Albumin 4.0, Lipase 16, Smear Scan YES 06/16/23 15:29: Troponin I 0.222H A/P-Cardiology Assessment/Admission Diagnosis Acute pulm embolism - Echo of 06/16/23 shows acute cor pulmonale, mod regurg of aortic and mitral and tricuspid valves, severe pulm htn, normal LV function Minimally elevated troponin due to PE (type 2 TX) AAA Sono of July 14, 2019 showed borderline aneurysmal dilatation to the prox abd aorta. Mid and distal abd aorta are normal COPD Card cath of 08/23/18: mild CAD, mod to sev MR, pulmonary hypertension with mean pulmonary artery pressure 36 mmHg, LVEDP 8 mmHg, LVEF 50-55% CKD 4. Worsening of renal function post diuretic therapy and post card cath (Cr on 08/31/18 was 2.1 and eGFR was 25) previously followed with Dr. English of [facility] - has not seen anyone recently Renal artery stenosis Renal u/s of November 2018 showed atrophic left kidney with right renal artery stenosis. Abd aortic angio of 06/20/19 showed chronically occluded L renal artery, no significant stenosis of the R renal artery, severe atherosclerosis of the abd aorta mod infrarenal AAA, mod-sev dz of the aortoiliac bifurcation (70-80 ostial R iliac and approx 50% ostial L iliac) Not suitable for LOUANN-inhib or ARB due to above-noted renal issues Hypertension Cigarette smoking - quit 3 weeks ago Carotid u/s of July 10, 2019 shows less than 40% R ICA stenosis. 60-79% L ICA stenosis Thrombocytopenia Discussion and Recomendations PE - management per medical services - d/t CKD she is not a suitable candidate for IV dye - advise VQ scan - advise OAC with Eliquis d/t CKD if allowed by Dr. London Progressive TOMAS - treat HF with diuretics Thrombocytopenia - advise consideration of hematology consult Advise continuation of ASA d/t known h/o CAD and carotid dz Advise continuation of smoking cessation Monitor lab closely Further recs will be based on her hospital course NAIDA WILEY MD FACP FACC CCDS Jun 16, 2023 22:46
[2023-06-16 23:44] VITALS: BP 133/93
[2023-06-17] VITALS (7 sets, daily range): BP systolic 91–117; BP diastolic 56–87
[2023-06-17 04:45] LABS: BASOPHILS # (AUTO) 0.1 10^3/uL (0.0-0.1); BASOPHILS % (AUTO) 1 % (0-10); HEMOGLOBIN 12.8 g/dL (11.5-16.0); MONOCYTES # (AUTO) 0.4 10^3/uL (0.0-1.0); MONOCYTES % (AUTO) 5 % (0-12)
[2023-06-17 04:47] LABS: EOSINOPHILS # (AUTO) 0.1 10^3/uL (0.0-0.3); EOSINOPHILS % (AUTO) 1 % (0-10); HEMATOCRIT 39 % (35-52); LYMPHOCYTES # (AUTO) 0.5 10^3/uL (1.0-4.0); LYMPHOCYTES % (AUTO) 6 % (12-44); MEAN CORPUSCULAR HEMOGLOBIN 37 pg (25-34); MEAN CORPUSCULAR HGB CONC 33 g/dL (32-36); MEAN CORPUSCULAR VOLUME 111 fL (80-99); NEUTROPHILS % (AUTO) 87 % (42-75); PLATELET COUNT 78 10^3/uL (130-400); WHITE BLOOD COUNT 8.1 10^3/uL (4.3-11.0)
[2023-06-17 05:06] LABS: POTASSIUM 3.5 MMOL/L (3.6-5.0)
[2023-06-17 05:07] LABS: CALCIUM 8.6 MG/DL (8.5-10.1)
[2023-06-17 05:11] LABS: PHOSPHORUS 3.3 MG/DL (2.3-4.7)
[2023-06-17 05:12] LABS: CREATININE SERUM 1.69 MG/DL (0.60-1.30)
[2023-06-17 05:16] LABS: ANISOCYTOSIS MODERATE; BAND NEUTROPHILS 0 %; BASOPHILS % (MANUAL) 0 %; EOSINOPHILS % (MANUAL) 0 %; LYMPHOCYTES % (MANUAL) 4 %; MONOCYTES % (MANUAL) 2 %; NEUTROPHILS % (MANUAL) 94 %; POLYCHROMASIA SLIGHT
[2023-06-17] MEDS: RT-Ipratropium/Albuterol NEB 3 ML VIAL INH SCH ×2 (07:32→21:09)
[2023-06-17] MEDS ORDERED: FUROSEMIDE INJECTION 40 MG/4 ML VIAL IVP SCH (09:00)
[2023-06-17] MEDS ORDERED: ASPIRIN 81 MG CHEWABLE TABLET PO SCH (09:00)
[2023-06-17] MEDS: APIXABAN 5 MG TABLET PO SCH ×2 (09:00→19:58)
[2023-06-17] MEDS: SODIUM BICARBONATE 650 MG TABLET PO SCH ×3 (09:00→19:58)
[2023-06-17] MEDS: ACETAMINOPHEN 325 MG TABLET PO PRN (09:01)
[2023-06-17] MEDS: ASPIRIN 81 MG CHEWABLE TABLET PO SCH (09:01)
[2023-06-17] MEDS: SENNOSIDES 8.6 MG TABLET PO SCH ×2 (09:01→19:58)
[2023-06-17] MEDS: DOCUSATE SODIUM 100 MG CAPSULE PO SCH ×2 (09:01→19:58)
[2023-06-17] MEDS ORDERED: ENOXAPARIN 80 MG/0.8 ML SYRINGE SC SCH (10:00)
--- NOTE | 2023-06-17 14:24 | Progress Note - Hospitalist ---
Subjective HPI/CC On Admission Date Seen by Provider: Jun 17, 2023 Time Seen by Provider: 10:20 Kvng Valentine (Beanie) is a 77 year old female with PMH HTN, HLD, CKD 4, COPD, tobacco abuse, who presented with shortness of breath. Her symptoms started a couple days ago. She says they have slowly worsened. She has had chest pain across her chest without radiation. She denies nausea and vomiting. She reports diaphoresis associated with symptoms. She has not taken any medications for many years. She does not have a primary doctor. She quit smoking a few weeks ago. Subjective/Events-last exam She is still short of breath. She denies pain. She has no other complaints. Objective Exam Vital Signs Vital Signs Date Time Temp Pulse Resp B/P (MAP) Pulse Ox O2 Delivery O2 Flow Rate FiO2 06/17/23 12:24 110 06/17/23 11:50 36.4 58 113/56 (75) 96 Room Air Capillary Refill : Less Than 3 Seconds General Appearance: No Apparent Distress, WD/WN Respiratory: Lungs Clear, No Respiratory Distress Cardiovascular: Regular Rate, Rhythm, No Murmur Gastrointestinal: Normal Bowel Sounds, Soft Extremity: Normal Inspection, No Pedal Edema Neurologic/Psychiatric: Alert, Normal Mood/Affect Skin: Normal Color, Warm/Dry Results/Procedures Lab Laboratory Tests 06/17/23 04:38 Patient resulted labs reviewed. Imaging: Reviewed Imaging Report Assessment/Plan Assessment and Plan Assess & Plan/Chief Complaint NSTEMI Atrial fibrillation Dyspnea Presumed pulmonary embolism Elevated d-dimer HTN HLD Cardiology following EKG with AFib, mild ST depression Troponin elevated, trend D-dimer elevated CT angio deferred due to renal failure VQ scan with low probability PE Echo with normal EF, severely elevated PASP Continue Eliquis due to likely PE despite low probability VQ scan ASA daily Supplemental oxygen as needed CKD 4 Metabolic acidosis Continue sodium bicarb Avoid nephrotoxins Monitor Thrombocytopenia Appears chronic, monitor Tobacco abuse Recent cessation Nicotine patch offered, refused Diagnosis/Problems Diagnosis/Problems (1) NSTEMI (non-ST elevation myocardial infarction) Status: Acute (2) SOB (shortness of breath) Status: Acute (3) Elevated d-dimer Status: Acute (4) HTN (hypertension) (5) CKD (chronic kidney disease) stage 4, GFR 15-29 ml/min Status: Chronic (6) Metabolic acidosis Status: Acute (7) Tobacco abuse Status: Chronic (8) Thrombocytopenia Status: Acute (9) COPD (chronic obstructive pulmonary disease) Status: Chronic (10) Afib Status: Acute Qualifiers: Atrial fibrillation type: paroxysmal Qualified Codes: I48.0 - Paroxysmal atrial fibrillation (11) Valvular heart disease Status: Chronic PATRICK FIGUEROA MD Jun 17, 2023 14:24
--- NOTE | 2023-06-17 15:05 | Physical Therapy Evaluation ---
PT Evaluation-General Medical Diagnosis Admission Date Jun 16, 2023 at 11:07 Medical Diagnosis: NSTEMI Onset Date: Jun 16, 2023 Therapy Diagnosis Therapy Diagnosis: debility Height/Weight Height (Feet): 5 Height (Inches): 7.00 Weight (Pounds): 138 Weight (Ounces): 7.0 Precautions Precautions/Isolations: Fall Prevention, Standard Precautions Referral Physician: Surya Reason for Referral: Evaluation/Treatment Medical History Pertinent Medical History: CAD, COPD, Hypothroidism, PVD, Smoking Current History ER secondary to difficulty breathing Reviewed History: Yes Social History Home: Single Level Current Living Status: Alone Prior Prior Level of Function SCALE: Activities may be completed with or without assistive devices. 4-Ochdbcwmqq-hdipbfg completes the activity by him/herself with no assistance from a helper. 5-Set-up or Clean-up Assistance-helper sets up or cleans up; patient completes activity. [place] assists only prior to or following the activity. 4-Supervision or Touching Assistance-helper provides verbal cues and/or touching/steadying and/or contact guard assistance as patient completes activity. Assistance may be provided throughout the activity or intermittently. 3-Partial/Moderate Assistance-helper does LESS THAN HALF the effort. [place] lifts, holds or supports trunk or limbs, but provides less than half the effort. 2-Substantial/Maximal Assistance-helper does MORE THAN HALF the effort. [place] lifts or holds trunk or limbs and provides more than half the effort. 2-Yeqbcbbsl-nkrafy does ALL the effort. Patient does none of the effort to complete the activity. Or, the assistance of 2 or more helpers is required for the patient to complete the activity. If activity was not attempted, code reason: 7-Patient Refused. 9-Not Applicable-not attempted and the patient did not perform the activity before the current illness, exacerbation or injury. 10-Not Attempted due to Environmental Limitations-(lack of equipment, weather restraints, etc.). 88-Not Attempted due to Medical Conditions or Safety Concerns. Bed Mobility: 6 Transfers (B,C,W/C): 6 Gait: 6 Indoor Mobility (Ambulation): Independent Prior Devices Use: Walker (4WW PRN) PT Evaluation-Current Subjective Patient agrees to PT. ROM/Strength ROM Lower Extremities bilateral LE WFL Strength Lower Extremities 4/5 grossly bilateral LE all planes Integumentary/Posture Bowel Incontinence: No Bladder Incontinence: No Posture kyphotic Neuromuscular (Tone, Coordination, Reflexes) grossly intact Sensory Vision: Wears Glasses Hearing: Functional Transfers Lying to Sitting/Side of Bed(Q: 6 Sit to Stand (QC): 6 Chair/Vmd-zu-Kyujo Xfer(QC): 6 Toilet Transfer (QC): 6 Gait Mode of Locomotion: Walk Anticipated Mode of Locomotion: Walk Walk 10 feet (QC): 6 Walk 50 ft with 2 Turns(QC): 6 Walk 150 ft (QC): 6 Distance: 200' Gait Assistive Device: Walker 4 Wheeled Comments/Gait Description slow, steady, functional gait sequence Balance Sitting Static: Normal Sitting Dynamic: Normal Standing Static: Normal Standing Dynamic: Normal Assessment/Needs Patient is currently at independent LOF with all gross motor skills safely and does not require skilled PT intervention at this time. Rehab Potential: Fair PT Plan Treatment/Plan Treatment Plan: Discontinue PT Treatment Duration: Jun 17, 2023 Frequency: 1 time per week Estimated Hrs Per Day: .25 hour per day Patient and/or Family Agrees t: Yes Time Time In: 1445 Time Out: 1500 DATE: Jun 17, 2023 Total Billed Treatment Time: 15 Total Billed Treatment 1 visit EVMod 15 min DAVE THAO PT Jun 17, 2023 15:05
--- NOTE | 2023-06-17 15:54 | Diagnostic Imaging Report ---
PROCEDURE: US Venous Lower Ext Ismael. TECHNIQUE: Multiple real-time grayscale images were obtained over the lower extremities in various projections, bilaterally. Additional duplex Doppler and color Doppler images were also obtained. INDICATION: Elevated D-dimer, leg swelling. The veins of the lower extremities have good color filling and compressibility. There is phasic flow and a normal response to augmentation. IMPRESSION: Negative venous Doppler lower extremities. Dictated by: Dictated on workstation # [id number]
--- NOTE | 2023-06-17 16:45 | Progress Note - Cardiology ---
Cardiology SOAP Progress Note Subjective: Still short of breath No cp or palp or syncope No n/v/d Gen weakness and malaise No focal weakness Objective: I&O/Vital Signs 06/17/23 06/17/23 06/17/23 06/17/23 06:57 07:32 08:50 09:06 Temp 36.6 Pulse 95 112 Resp 24 B/P (MAP) 116/75 (89) Pulse Ox 96 93 O2 Delivery Room Air Room Air Room Air 06/17/23 06/17/23 11:50 12:24 Temp 36.4 Pulse 100 110 Resp 58 B/P (MAP) 113/56 (75) Pulse Ox 96 O2 Delivery Room Air 06/17/23 00:00 Intake Total 440 ml Balance 440 ml Weight (Pounds): 138 Weight (Ounces): 7.0 Weight (Calculated Kilograms): 62.012215 Constitutional: AAO x 3, well-developed, well-nourished Respiratory: No accessory muscle use, No respiratory distress; chest expansion is symmetric, chest is bilaterally symmetric, other (diminished lower lobes bilat) Cardiovascular: regular rate-rhythm; No JVD; S1 and S2, systolic murmur Gastrointestional: No tender; soft; No guarding; audible bowel sounds Extremities: no lower extremity edema bilateral Neurologic/Psychiatric: other (moves all extremities) Skin: No rash on exposed areas, No ulcerations on exposed areas Results/Procedures: Labs Laboratory Tests 06/17/23 04:38: White Blood Count 8.1, Red Blood Count 3.48L, Hemoglobin 12.8, Hematocrit 39, Mean Corpuscular Volume 111H, Mean Corpuscular Hemoglobin 37H, Mean Corpuscular Hemoglobin Concent 33, Red Cell Distribution Width 17.4H, Platelet Count 78L, Mean Platelet Volume 12.0, Immature Granulocyte % (Auto) 0, Neutrophils (%) (A uto) 87H, Lymphocytes (%) (Auto) 6L, Monocytes (%) (Auto) 5, Eosinophils (%) (Auto) 1, Basophils (%) (Auto) 1, Neutrophils # (Auto) 7.0, Lymphocytes # (Auto) 0.5L, Monocytes # (Auto) 0.4, Eosinophils # (Auto) 0.1, Basophils # (Auto) 0.1, Immature Granulocyte # (Auto) 0.0, Neutrophils % (Manual) 94, Lymphocytes % (Manual) 4, Monocytes % (Manual) 2, Eosinophils % (Manual) 0, Basophils % (Manual) 0, Band Neutrophils 0, Percent Immature Platelet Fraction 7.8H, Polychromasia SLIGHT, Anisocytosis MODERATE, Macrocytosis MODERATE, Sodium Level 140, Potassium Level 3.5L, Chloride Level 114H, Carbon Dioxide Level 14L, Anion Gap 12, Blood Urea Nitrogen 22H, Creatinine 1.69H, Estimat Glomerular Filtration Rate 31, BUN/Creatinine Ratio 13, Glucose Level 173H, Calcium Level 8.6, Phosphorus Level 3.3 Laboratory Tests 06/16/23 09:32 06/17/23 04:38 A/P: Assessment: Acute pulm embolism - Echo of 06/16/23 shows LVEF 60-65%, acute cor pulmonale, mod regurg of aortic and mitral and tricuspid valves, severe pulm htn (110-115 mmHg) Minimally elevated troponin due to PE (type 2 FL) Thrombocytopenia of undetermined etiology Hypokalemia due to diuretic therapy AAA Sono of July 14, 2019 showed borderline aneurysmal dilatation to the prox abd aorta. Mid and distal abd aorta are normal COPD Card cath of 08/23/18: mild CAD, mod to sev MR, pulmonary hypertension with mean pulmonary artery pressure 36 mmHg, LVEDP 8 mmHg, LVEF 50-55% CKD 4. Worsening of renal function post diuretic therapy and post card cath (Cr on 08/31/18 was 2.1 and eGFR was 25) previously followed with Dr. English of [facility] - has not seen anyone recently Renal artery stenosis Renal u/s of November 2018 showed atrophic left kidney with right renal artery stenosis. Abd aortic angio of 06/20/19 showed chronically occluded L renal artery, no significant stenosis of the R renal artery, severe atherosclerosis of the abd aorta mod infrarenal AAA, mod-sev dz of the aortoiliac bifurcation (70-80 ostial R iliac and approx 50% ostial L iliac) Not suitable for LOUANN-inhib or ARB due to above-noted renal issues Hypertension Cigarette smoking - quit 3 weeks ago Carotid u/s of July 10, 2019 shows less than 40% R ICA stenosis. 60-79% L ICA stenosis Plan: * D/c Lovenox because of thrombocytopenia * Continue apixaban in PE treatment dose * D/c diuretic * Replenish K * Monitor labs closely * Discussed with NAIDA Hill MD FACP FAC CCDS Jun 17, 2023 16:45
[2023-06-17] MEDS ORDERED: POTASSIUM CHLORIDE 20 MEQ TABLET PO NR ×2 (17:00→18:00)
[2023-06-17] MEDS ORDERED: DIGOXIN INJECTION 0.25 MG/ML 2 ML AMPULE ONE (17:29)
[2023-06-17] MEDS ORDERED: DIGOXIN INJECTION 0.25 MG/ML 2 ML AMPULE IV ONE (17:30)
[2023-06-17] MEDS ORDERED: DIGOXIN INJECTION 0.25 MG/ML 2 ML AMPULE IV NR (19:45)
[2023-06-18] VITALS (11 sets, daily range): BP systolic 92–121; BP diastolic 58–77
[2023-06-18 05:18] LABS: BASOPHILS # (AUTO) 0.1 10^3/uL (0.0-0.1); BASOPHILS % (AUTO) 1 % (0-10); EOSINOPHILS # (AUTO) 0.1 10^3/uL (0.0-0.3); EOSINOPHILS % (AUTO) 2 % (0-10); HEMATOCRIT 41 % (35-52); HEMOGLOBIN 13.3 g/dL (11.5-16.0); LYMPHOCYTES # (AUTO) 0.8 10^3/uL (1.0-4.0); LYMPHOCYTES % (AUTO) 14 % (12-44); MEAN CORPUSCULAR HEMOGLOBIN 37 pg (25-34); MEAN CORPUSCULAR HGB CONC 33 g/dL (32-36); MEAN CORPUSCULAR VOLUME 112 fL (80-99); MONOCYTES # (AUTO) 0.6 10^3/uL (0.0-1.0); MONOCYTES % (AUTO) 10 % (0-12); NEUTROPHILS # (AUTO) 4.5 10^3/uL (1.8-7.8); NEUTROPHILS % (AUTO) 74 % (42-75); PLATELET COUNT 72 10^3/uL (130-400); WHITE BLOOD COUNT 6.1 10^3/uL (4.3-11.0)
[2023-06-18 05:33] LABS: POTASSIUM 4.4 MMOL/L (3.6-5.0)
[2023-06-18 05:34] LABS: CALCIUM 8.4 MG/DL (8.5-10.1)
[2023-06-18 05:38] LABS: CREATININE SERUM 1.55 MG/DL (0.60-1.30)
[2023-06-18] MEDS: DOCUSATE SODIUM 100 MG CAPSULE PO SCH ×2 (08:42→21:05)
[2023-06-18] MEDS: ASPIRIN 81 MG CHEWABLE TABLET PO SCH (08:43)
[2023-06-18] MEDS: SENNOSIDES 8.6 MG TABLET PO SCH ×2 (08:43→21:05)
[2023-06-18] MEDS: APIXABAN 5 MG TABLET PO SCH ×2 (08:43→21:05)
[2023-06-18] MEDS: SODIUM BICARBONATE 650 MG TABLET PO SCH ×3 (08:43→21:05)
[2023-06-18] MEDS: RT-Ipratropium/Albuterol NEB 3 ML VIAL INH SCH ×2 (08:57→20:48)
[2023-06-18] MEDS ORDERED: DIGOXIN 0.125 MG TABLET PO ONE (09:45)
--- NOTE | 2023-06-18 09:45 | Progress Note - Cardiology ---
Cardiology SOAP Progress Note Subjective: No cp or palp or syncope Notes improvement of shortness of breath No n/v/d No focal weakness Gen weakness better Objective: I&O/Vital Signs 06/17/23 06/18/23 06/18/23 06/18/23 23:42 00:00 00:04 01:00 Temp 35.9 Pulse 90 91 Resp 16 B/P (MAP) 97/68 (78) Pulse Ox 99 O2 Delivery Nasal Cannula Nasal Cannula O2 Flow Rate 2.00 2.00 06/18/23 06/18/23 06/18/23 06/18/23 01:00 02:00 03:00 03:52 Temp 36.5 Pulse 82 89 79 Resp 18 18 16 B/P (MAP) 121/74 (90) 104/65 (78) 95/66 (76) Pulse Ox 97 99 98 O2 Delivery Nasal Cannula Nasal Cannula Nasal Cannula O2 Flow Rate 2.00 2.00 2.00 06/18/23 06/18/23 06/18/23 06/18/23 04:00 05:00 06:00 07:00 Pulse 79 86 78 80 Resp 17 12 18 B/P (MAP) 92/58 (69) 99/69 (79) 101/66 (78) Pulse Ox 97 100 97 O2 Delivery Nasal Cannula Nasal Cannula Nasal Cannula O2 Flow Rate 2.00 2.00 2.00 06/18/23 06/18/23 06/18/23 06/18/23 08:00 08:00 08:57 09:07 Temp 36.4 Pulse 77 Resp 16 B/P (MAP) 119/76 (90) Pulse Ox 97 93 97 94 O2 Delivery Nasal Cannula Room Air Nasal Cannula Room Air O2 Flow Rate 2.00 2.00 0.00 06/18/23 09:11 O2 Delivery Room Air 06/18/23 00:00 Intake Total 575 ml Output Total 200 ml Balance 375 ml Weight (Pounds): 138 Weight (Ounces): 7.0 Weight (Calculated Kilograms): 62.661237 Constitutional: AAO x 3, well-developed, well-nourished Respiratory: No accessory muscle use, No respiratory distress; chest expansion is symmetric, chest is bilaterally symmetric, other (diminished lower lobes bilat) Cardiovascular: regular rate-rhythm; No JVD; S1 and S2, systolic murmur Gastrointestional: No tender; soft; No guarding; audible bowel sounds Extremities: no lower extremity edema bilateral Neurologic/Psychiatric: other (moves all extremities) Skin: No rash on exposed areas, No ulcerations on exposed areas Results/Procedures: Labs Laboratory Tests 06/18/23 05:07: White Blood Count 6.1, Red Blood Count 3.63L, Hemoglobin 13.3, Hematocrit 41, Mean Corpuscular Volume 112H, Mean Corpuscular Hemoglobin 37H, Mean Corpuscular Hemoglobin Concent 33, Red Cell Distribution Width 17.4H, Platelet Count 72L, Mean Platelet Volume 12.0, Immature Granulocyte % (Auto) 0, Neutrophils (%) (Auto) 74, Lymphocytes (%) (Auto) 14, Monocytes (%) (Auto) 10, Eosinophils (%) (Auto) 2, Basophils (%) (Auto) 1, Neutrophils # (Auto) 4.5, Lymphocytes # (Auto) 0.8L, Monocytes # (Auto) 0.6, Eosinophils # (Auto) 0.1, Basophils # (Auto) 0.1, Immature Granulocyte # (Auto) 0.0, Sodium Level 142, Potassium Level 4.4, Chloride Level 114H, Carbon Dioxide Level 17L, Anion Gap 11, Blood Urea Nitrogen 21H, Creatinine 1.55H, Estimat Glomerular Filtration Rate 34, BUN/Creatinine Ratio 14, Glucose Level 127H, Calcium Level 8.4L Laboratory Tests 06/17/23 04:38 06/18/23 05:07 A/P: Assessment: Acute pulm embolism - Echo of 06/16/23 shows LVEF 60-65%, acute cor pulmonale, mod regurg of aortic and mitral and tricuspid valves, severe pulm htn (110-115 mmHg) Minimally elevated troponin due to PE (type 2 MD) Thrombocytopenia of undetermined etiology COPD Card cath of 08/23/18: mild CAD, mod to sev MR, pulmonary hypertension with mean pulmonary artery pressure 36 mmHg, LVEDP 8 mmHg, LVEF 50-55% CKD 4. previously followed with Dr. English of [facility] - has not seen anyone recently Renal artery stenosis - Renal u/s of November 2018 showed atrophic left kidney with right renal artery stenosis. - Abd aortic angio of 06/20/19 showed chronically occluded L renal artery, no significant stenosis of the R renal artery, severe atherosclerosis of the abd aorta mod infrarenal AAA, mod-sev dz of the aortoiliac bifurcation (70-80 ostial R iliac and approx 50% ostial L iliac) - AAA Sono of July 14, 2019 showed borderline aneurysmal dilatation to the prox abd aorta. Mid and distal abd aorta are normal Not suitable for LOUANN-inhib or ARB due to above-noted renal issues H/o hypertension Cigarette smoking - quit 3 weeks ago Carotid u/s of July 10, 2019 shows less than 40% R ICA stenosis, 60-79% L ICA stenosis Plan: * Continue apixaban in PE treatment dose * BB and dig added to control heart rate during A Fib episodes * Increase ambulation * Monitor labs closely * Monitor thrombocytopenia, Hospitalist service managing * Discussed with Dr London * Dr Martinez covering Card svce beginning tomorrow NAIDA WILEY MD [facility] CCDS Jun 18, 2023 09:45
[2023-06-18] MEDS ORDERED: DIGO125T18 PO (10:50)
[2023-06-18] MEDS ORDERED: NF-SODBICA PO (10:50)
[2023-06-18] MEDS ORDERED: MTP25TSR PO (10:50)
[2023-06-18] MEDS ORDERED: APIX5TAB PO (10:50)
[2023-06-18] MEDS ORDERED: ASPI81TA64 PO (10:50)
--- NOTE | 2023-06-18 10:58 | Progress Note - Hospitalist ---
Subjective HPI/CC On Admission Date Seen by Provider: Jun 18, 2023 Time Seen by Provider: 09:05 Kvng Valentine (Beanie) is a 77 year old female with PMH HTN, HLD, CKD 4, COPD, tobacco abuse, who presented with shortness of breath. Her symptoms started a couple days ago. She says they have slowly worsened. She has had chest pain acro ss her chest without radiation. She denies nausea and vomiting. She reports diaphoresis associated with symptoms. She has not taken any medications for many years. She does not have a primary doctor. She quit smoking a few weeks ago. Subjective/Events-last exam She is feeling well. She has no complaints. She is hoping to go home soon. She denies chest pain. She denies shortness of breath. Objective Exam Vital Signs Vital Signs Date Time Temp Pulse Resp B/P (MAP) Pulse Ox O2 Delivery O2 Flow Rate FiO2 06/18/23 09:11 Room Air 06/18/23 09:07 94 0.00 06/18/23 08:00 36.4 77 16 119/76 (90) Capillary Refill : Less Than 3 Seconds General Appearance: No Apparent Distress, WD/WN Respiratory: Lungs Clear, No Respiratory Distress Cardiovascular: No Murmur, Irregularly Irregular Gastrointestinal: Normal Bowel Sounds, Soft Extremity: Normal Inspection, No Pedal Edema Neurologic/Psychiatric: Alert, Normal Mood/Affect Skin: Normal Color, Warm/Dry Results/Procedures Lab Laboratory Tests 06/18/23 05:07 Patient resulted labs reviewed. Imaging: Reviewed Imaging Report Assessment/Plan Assessment and Plan Assess & Plan/Chief Complaint Atrial fibrillation with RVR Presumed pulmonary embolism Elevated d-dimer Severe pulmonary HTN Acute respiratory failure with hypoxia, resolved NSTEMI, type II HTN HLD Continue Eliquis for presumed PE CTA deferred due to renal failure Cardiology following Continue aspirin, likely type II NSTEMI due to PE Started on Metoprolol and Digoxin for AFib rate control, improved Supplemental oxygen as needed, now on room air Add on lipid panel CKD 4 Metabolic acidosis Stop home potassium Continue sodium bicarb Avoid nephrotoxins Monitor Thrombocytopenia Appears acute on chronic, monitor Tobacco abuse Recent cessation Nicotine patch offered, refused Diagnosis/Problems Diagnosis/Problems (1) Pulmonary embolism Status: Acute (2) NSTEMI (non-ST elevation myocardial infarction) Status: Acute (3) SOB (shortness of breath) Status: Acute (4) Elevated d-dimer Status: Acute (5) HTN (hypertension) (6) CKD (chronic kidney disease) stage 4, GFR 15-29 ml/min Status: Chronic (7) Metabolic acidosis Status: Acute (8) Tobacco abuse Status: Chronic (9) Thrombocytopenia Status: Acute (10) COPD (chronic obstructive pulmonary disease) Status: Chronic (11) Afib Status: Acute Qualifiers: Atrial fibrillation type: paroxysmal Qualified Codes: I48.0 - Paroxysmal atrial fibrillation (12) Valvular heart disease Status: Chronic (13) Severe pulmonary hypertension Status: Acute PATRICK FIGUEROA MD Jun 18, 2023 10:58
[2023-06-18 11:12] LABS: CHOLESTEROL 142 MG/DL (< 200); HDL CHOLESTEROL 29 MG/DL (40-60); TRIGLYCERIDES 114 MG/DL (<150); VLDL CHOLESTEROL 23 MG/DL (5-40)
--- NOTE | 2023-06-18 15:56 | Occupational Therapy Eval ---
OT Evaluation-General/PLF Medical Diagnosis Admission Date Jun 16, 2023 at 11:07 Medical Diagnosis: NSTEMI Onset Date: Jun 16, 2023 Therapy Diagnosis Therapy Diagnosis: decr activity tolerance Height/Weight Height (Feet): 5 Height (Inches): 7.00 Weight (Pounds): 138 Weight (Ounces): 7.0 Precautions Precautions/Isolations: Fall Prevention, Standard Precautions Referral Physician: Surya Referral Reason: Evaluation/Treatment Medical History Pertinent Medical History: Atrial Fib, CAD, COPD, Hypothroidism, PVD, Renal Insufficiency, Smoking Additional Medical History Mitral valve leaking. Hyperlipidemia. Severe aortic regurgitation. Chronic hip pain. Current History Difficulty breathing. NSTEMI. PE. Weakness Reviewed History: Yes Social History Home: Single Level Current Living Status: Alone Family close by to help ADL-Prior Level of Function SCALE: Activities may be completed with or without assistive devices. 0-Yeispywkom-muwomyq completes the activity by him/herself with no assistance from a helper. 5-Set-up or Clean-up Assistance-helper sets up or cleans up; patient completes activity. [place] assists only prior to or following the activity. 4-Supervision or Touching Assistance-helper provides verbal cues and/or touching/steadying and/or contact guard assistance as patient completes activity. Assistance may be provided throughout the activity or intermittently. 3-Partial/Moderate Assistance-helper does LESS THAN HALF the effort. [place] lifts, holds or supports trunk or limbs, but provides less than half the effort. 2-Substantial/Maximal Assistance-helper does MORE THAN HALF the effort. [place] lifts or holds trunk or limbs and provides more than half the effort. 1-Gghugmrpk-gpogrq does ALL the effort. Patient does none of the effort to complete the activity. Or, the assistance of 2 or more helpers is required for the patient to complete the activity. If activity was not attempted, code reason: 7-Patient Refused. 9-Not Applicable-not attempted and the patient did not perform the activity before the current illness, exacerbation or injury. 10-Not Attempted due to Environmental Limitations-(lack of equipment, weather restraints, etc.). 88-Not Attempted due to Medical Conditions or Safety Concerns. ADL PLOF Comments Pt reported that she is able to care for herself and her home without assistance. She did give up driving. Self Care: Independent Functional Cognition: Independent OT Current Status Subjective Pt seen in room, up in bed, agreeable to OT. No pain reported Appearance Alert, cooperative Mental Status/Objective Attachments: Telemetry Current Glasses/Contacts: Yes Hand Dominance: Right Upper Extremity ROM Grossly WFL bilat Upper Extremity Strength Grossly WFL bilat ADL-Treatment ADL-Current Pt currently is able to feed herself without difficulty. She has bathroom privileges so is toileting herself. She walked 200 feet with 4WW with PT and transfers independently. She said that she is able to dress herself and tie her shoes. No skilled OT needs identified. Pt left up in bed, all needs met. Education OT Patient Education: Purpose of tx/functional activities, Rehab process Teaching Recipient: Patient Teaching Methods: Discussion Response to Teaching: Verbalize Understanding OT Snf Goals Forensic Psychologist Goals Time Frame: Jun 18, 2023 DC OT 1=Demonstrate adherence to instructed precautions during ADL tasks. 2=Patient will verbalize/demonstrate understanding of assistive devices/modifications for ADL. 3=Patient will improve strength/tolerance for activity to enable patient to perform ADL's. OT Education/Plan Problem List/Assessment Assessment: No Skilled OT Needs ID'd Pt is independent in mobility and self care. No skilled OT needs identified Discharge Recommendations Plan/Recommendations: Discontinue OT Treatment Plan/Plan of Care Treatment,Training & Education: No Patient would benefit from OT for education, treatment and training to promote independence in ADL's, mobility, safety and/or upper extremity function for ADL's. Plan of Care: OTHER (DC OT) Treatment Duration: Jun 18, 2023 Frequency: 1 time per week Estimated Hrs Per Day: .25 hour per day Agreement: Yes Rehab Potential: Good Time Start Time: 15:04 Stop Time: 15:11 DATE: Jun 18, 2023 Total Time Billed (hr/min): 7 Billed Treatment Time visit, 7 minutes OT evaluation low intensity FLORES YEPEZ OT Jun 18, 2023 15:56
[2023-06-18] MEDS ORDERED: POTASSIUM CHLORIDE 20 MEQ TABLET PO NR (17:00)
[2023-06-19] VITALS: BP 98/57
[2023-06-19 04:00] VITALS: BP 98/65
[2023-06-19 04:08] LABS: BASOPHILS % (AUTO) 1 % (0-10); EOSINOPHILS # (AUTO) 0.1 10^3/uL (0.0-0.3); EOSINOPHILS % (AUTO) 2 % (0-10); HEMATOCRIT 39 % (35-52); HEMOGLOBIN 12.8 g/dL (11.5-16.0); LYMPHOCYTES # (AUTO) 1.1 10^3/uL (1.0-4.0); LYMPHOCYTES % (AUTO) 16 % (12-44); MEAN CORPUSCULAR HEMOGLOBIN 37 pg (25-34); MEAN CORPUSCULAR HGB CONC 33 g/dL (32-36); MEAN CORPUSCULAR VOLUME 111 fL (80-99); MEAN PLATELET VOLUME 12.7 fL (9.0-12.2); MONOCYTES # (AUTO) 0.7 10^3/uL (0.0-1.0); MONOCYTES % (AUTO) 11 % (0-12); NEUTROPHILS # (AUTO) 4.8 10^3/uL (1.8-7.8); NEUTROPHILS % (AUTO) 70 % (42-75); PLATELET COUNT 85 10^3/uL (130-400); WHITE BLOOD COUNT 6.8 10^3/uL (4.3-11.0)
[2023-06-19 04:20] LABS: POTASSIUM 4.3 MMOL/L (3.6-5.0)
[2023-06-19 04:21] LABS: CALCIUM 8.4 MG/DL (8.5-10.1)
[2023-06-19 04:26] LABS: CREATININE SERUM 1.58 MG/DL (0.60-1.30)
[2023-06-19] MEDS ORDERED: DIGOXIN 0.125 MG TABLET PO SCH (09:00)
--- NOTE | 2023-06-19 09:22 | Tele-ICU Progress Note ---
Progress Note video rounds completed 77 y/o female with COPD and smoking hx presents to ED with SOB and a fib. Considering PEbut VQ shows low prob, which is highly reliable when negative Being followed by cardiology for CAD and a fib Currently on apixaban PE: comfortably lying bed HR varaible, a fib, intermittent sinus BP: 86/69 O2 sat: 98% IMP: A fib, SOB PLAN: cardiology following On apixabanLaboratory Tests 06/16/23 09:32: Red Blood Count 3.73L, Mean Corpuscular Volume 113H, Mean Corpuscular Hemoglobin 37H, Red Cell Distribution Width 17.8H, Platelet Count 94L, Mean Platelet Volume 12.3H, Neutrophils (%) (Auto) 76H, Percent Immature Platelet Fraction 8.2H, Prothrombin Time 15.7H, D-Dimer 6.12H, Chloride Level 117H, Carbon Dioxide Level 11L, Blood Urea Nitrogen 21H, Creatinine 1.81H, Glucose Level 148H, Troponin I 0.214H, B-Type Natriuretic Peptide 4180.6H 06/16/23 15:29: Troponin I 0.222H 06/17/23 04:38: Red Blood Count 3.48L, Mean Corpuscular Volume 111H, Mean Corpuscular Hemoglobin 37H, Red Cell Distribution Width 17.4H, Platelet Count 78L, Neutrophils (%) (Auto) 87H, Percent Immature Platelet Fraction 7.8H, Chloride Level 114H, Carbon Dioxide Level 14L, Blood Urea Nitrogen 22H, Creatinine 1.69H, Glucose Level 173H , Lymphocytes (%) (Auto) 6L, Lymphocytes # (Auto) 0.5L, Potassium Level 3.5L 06/18/23 05:07: Red Blood Count 3.63L, Mean Corpuscular Volume 112H, Mean Corpuscular Hemoglobin 37H, Red Cell Distribution Width 17.4H, Platelet Count 72L, Chloride Level 114H, Carbon Dioxide Level 17L, Blood Urea Nitrogen 21H, Creatinine 1.55H, Glucose Level 127H, Lymphocytes # (Auto) 0.8L, Calcium Level 8.4L, HDL Cholesterol 29L 06/19/23 03:50: Red Blood Count 3.50L, Mean Corpuscular Volume 111H, Mean Corpuscular Hemoglobin 37H, Red Cell Distribution Width 17.2H, Platelet Count 85L, Mean Platelet Volume 12.7H, Chloride Level 109H, Carbon Dioxide Level 17L, Blood Urea Nitrogen 28H, Creatinine 1.58H, Glucose Level 120H, Calcium Level 8.4L Focused Exam Height, Weight, BMI Height: 5'7.00" Weight: 138lbs. 7.0oz. 62.739277sb; 23.25 BMI Method:Stated Labs Laboratory Tests 06/19/23 03:50 Results Results/Procedures Labs Laboratory Tests 06/18/23 05:07 06/19/23 03:50 Patient resulted labs reviewed. Imaging: Reviewed Imaging Report Results Labs Labs Laboratory Tests 06/19/23 03:50: White Blood Count 6.8, Red Blood Count 3.50L, Hemoglobin 12.8, Hematocrit 39, Mean Corpuscular Volume 111H, Mean Corpuscular Hemoglobin 37H, Mean Corpuscular Hemoglobin Concent 33, Red Cell Distribution Width 17.2H, Platelet Count 85L, Mean Platelet Volume 12.7H, Immature Granulocyte % (Auto) 0, Neutrophils (%) (Auto) 70, Lymphocytes (%) (Auto) 16, Monocytes (%) (Auto) 11, Eosinophils (%) (Auto) 2, Basophils (%) (Auto) 1, Neutrophils # (Auto) 4.8, Lymphocytes # (Auto) 1.1, Monocytes # (Auto) 0.7, Eosinophils # (Auto) 0.1, Basophils # (Auto) 0.0, Immature Granulocyte # (Auto) 0.0, Sodium Level 137, Potassium Level 4.3, Chloride Level 109H, Carbon Dioxide Level 17L, Anion Gap 11, Blood Urea Nitrogen 28H, Creatinine 1.58H, Estimat Glomerular Filtration Rate 33, BUN/Creatinine Ratio 18, Glucose Level 120H, Calcium Level 8.4L JIM KARIMI MD Jun 19, 2023 09:22
[2023-06-19] MEDS: ACETAMINOPHEN 325 MG TABLET PO PRN (09:41)
[2023-06-19] MEDS: ASPIRIN 81 MG CHEWABLE TABLET PO SCH (09:42)
[2023-06-19] MEDS: APIXABAN 5 MG TABLET PO SCH (09:42)
[2023-06-19] MEDS: SODIUM BICARBONATE 650 MG TABLET PO SCH (09:42)
[2023-06-19] MEDS: RT-Ipratropium/Albuterol NEB 3 ML VIAL INH SCH (09:51)
[2023-06-19] MEDS: SENNOSIDES 8.6 MG TABLET PO SCH (09:52)
[2023-06-19] MEDS: DOCUSATE SODIUM 100 MG CAPSULE PO SCH (09:52)
[2023-06-19 11:10] VITALS: BP 98/65
--- NOTE | 2023-06-19 19:51 | Discharge Summary ---
Discharge Summary Hospital Course Problems/Dx: (1) Pulmonary embolism Status: Acute (2) NSTEMI (non-ST elevation myocardial infarction) Status: Acute (3) SOB (shortness of breath) Status: Acute (4) Elevated d-dimer Status: Acute (5) HTN (hypertension) (6) CKD (chronic kidney disease) stage 4, GFR 15-29 ml/min Status: Chronic (7) Metabolic acidosis Status: Acute (8) Tobacco abuse Status: Chronic (9) Thrombocytopenia Status: Acute (10) COPD (chronic obstructive pulmonary disease) Status: Chronic (11) Afib Status: Acute Qualifiers: Qualified Codes: I48.0 - Paroxysmal atrial fibrillation (12) Valvular heart disease Status: Chronic (13) Severe pulmonary hypertension Status: Acute Hospital Course Date of Admission: Jun 16, 2023 at 11:07 Admission Diagnosis : NSTEMI Family Physician/Provider: Tran Porras Physician Date of Discharge: 06/19/23 Discharge Diagnosis: Presumed pulmonary embolism, NSTEMI, AFib with RVR Hospital Course: Kvng Nguyễn is a 77 year old female who presented with shortness of breath and was admitted with suspected pulmonary embolism. She was found to have an elevated troponin. Cardiology was consulted and assisted with her care. Her troponin level remained stable. This was thought to be a type II VA due to pu lmonary embolism. She had an elevated d-dimer. Her echo showed severe pulmonary hypertension. She was unable to undergo CT angio due to chronic kidney disease. She had a VQ scan which indicated low risk for PE. Despite her low probability VQ scan, all other workup indicated pulmonary embolism. She was treated with Lovenox and then transitiioned to [facility]. Her course was complicated by AFib with RVR. She was started on Metoprolol and Digoxin. She was also started on sodium bicarb due to metabolic acidosis associated with renal failure. She also had thrombocytopenia which was slighty lower than her chronically low platelet levels. She has not been taking any medications and has not been following with a physician. She was referred to [facility] to establish care. She will also follow up with Dr. Bowser. She was discharged home in stable condition. Labs and Pending Lab Test: Laboratory Tests 06/19/23 03:50: White Blood Count 6.8, Red Blood Count 3.50L, Hemoglobin 12.8, Hematocrit 39, Mean Corpuscular Volume 111H, Mean Corpuscular Hemoglobin 37H, Mean Corpuscular Hemoglobin Concent 33, Red Cell Distribution Width 17.2H, Platelet Count 85L, Mean Platelet Volume 12.7H, Immature Granulocyte % (Auto) 0, Neutrophils (%) (Auto) 70, Lymphocytes (%) (Auto) 16, Monocytes (%) (Auto) 11, Eosinophils (%) (Auto) 2, Basophils (%) (Auto) 1, Neutrophils # (Auto) 4.8, Lymphocytes # (Auto) 1.1, Monocytes # (Auto) 0.7, Eosinophils # (Auto) 0.1, Basophils # (Auto) 0.0, Immature Granulocyte # (Auto) 0.0, Sodium Level 137, Potassium Level 4.3, Chloride Level 109H, Carbon Dioxide Level 17L, Anion Gap 11, Blood Urea Nitrogen 28H, Creatinine 1.58H, Estimat Glomerular Filtration Rate 33, BUN/Creatinine Ratio 18, Glucose Level 120H, Calcium Level 8.4L Home Meds Active Eliquis (Apixaban) 5 Mg Tablet 5 Mg PO BID 30 Days TAKE 2 TABLETS BID X 7 DAYS, THEN 1 TABLET BID Digox (Digoxin) 125 Mcg (0.125 Mg) Tablet 0.125 Mg PO DAILY 30 Days Metoprolol Succinate 25 Mg Tab.er.24h 25 Mg PO DAILY 30 Days Children's Aspirin (Aspirin) 81 Mg Tab.chew 81 Mg PO DAILY 30 Days Sodium Bicarbonate 650 Mg Tablet 650 Mg PO TID 30 Days Reported Tylenol Pm Ex-Strength Caplet (Acetaminophen/Diphenhydramine) 500 Mg-25 Mg Tablet 2 Each PO HS Iron (Ferrous Sulfate) 325 Mg (65 Mg Iron) Tablet 325 Mg PO DAILY Vitamin D3 (Cholecalciferol (Vitamin D3)) 50 Mcg (2000 Unit) Capsule 50 Mcg PO DAILY Assessment/Pt Instructions Take medications as prescribed. Establish with a primary care physician. Return with worsening shortness of breath, chest pain, or if you feel like you are getting worse. Discharge Planning: >30 minutes discharge planning Discharge Instructions Discharge Diet: Low Sodium Diet Activity as Tolerated: Yes Consultations Cardiology Discharge Physical Examination Vital Signs Vital Signs Date Time Temp Pulse Resp B/P (MAP) Pulse Ox O2 Delivery O2 Flow Rate FiO2 06/19/23 11:10 36.6 79 23 98/65 96 Room Air 2.00 General Appearance: No Apparent Distress, WD/WN Respiratory: Lungs Clear, No Respiratory Distress Cardiovascular: Regular Rate, Rhythm, No Murmur Gastrointestinal: Normal Bowel Sounds, Soft Extremity: Normal Inspection, Pedal Edema Skin: Normal Color, Warm/Dry Neurologic/Psychiatric: Alert, Normal Mood/Affect Allergies: Coded Allergies: Penicillins (Verified Allergy, Unknown, 06/16/23) Discharge Summary Date of Admission Jun 16, 2023 at 11:07 Date of Discharge Jun 19, 2023 at 11:15 Discharge Date: Jun 19, 2023 Discharge Time: 11:15 Admission Diagnosis NSTEMI Consults/Procedures Consulations Cardiology Discharge Diagnosis Atrial fibrillation with RVR Presumed pulmonary embolism Elevated d-dimer Severe pulmonary HTN Acute respiratory failure with hypoxia, resolved NSTEMI, type II HTN HLD CKD 4 Metabolic acidosis Thrombocytopenia Tobacco abuse (1) Pulmonary embolism Status: Acute (2) NSTEMI (non-ST elevation myocardial infarction) Status: Acute (3) SOB (shortness of breath) Status: Acute (4) Elevated d-dimer Status: Acute (5) HTN (hypertension) (6) CKD (chronic kidney disease) stage 4, GFR 15-29 ml/min Status: Chronic (7) Metabolic acidosis Status: Acute (8) Tobacco abuse Status: Chronic (9) Thrombocytopenia Status: Acute (10) COPD (chronic obstructive pulmonary disease) Status: Chronic (11) Afib Status: Acute Qualifiers: Qualified Codes: I48.0 - Paroxysmal atrial fibrillation (12) Valvular heart disease Status: Chronic (13) Severe pulmonary hypertension Status: Acute PATRICK FIGUEROA MD Jun 19, 2023 19:50
[2023-06-23] MEDS ORDERED: APIXABAN 5 MG TABLET PO SCH (21:00)
== END 2023-06-19 11:15 | disposition home or self-care (01) | DRG 175 ==
LOC: EDUNIT# 09:20 → ER 09:23 → CSD 11:07 → ICU 06-17 18:00
PROVIDERS: ADMIT Internal Medicine; ATTEND Internal Medicine
DX: I26.99 Other pulmonary embolism without acute cor pulmonale (principal); I21.A1 Myocardial infarction type 2; J96.01 Acute respiratory failure with hypoxia; I50.33 Acute on chronic diastolic (congestive) heart failure; E87.21 Acute metabolic acidosis; I13.0 Hypertensive heart and chronic kidney disease with heart failure and stage 1 through stage 4 chronic kidney disease, or unspecified chronic kidney disease; N18.4 Chronic kidney disease, stage 4 (severe); I27.20 Pulmonary hypertension, unspecified; I08.3 Combined rheumatic disorders of mitral, aortic and tricuspid valves; J44.9 Chronic obstructive pulmonary disease, unspecified; I70.1 Atherosclerosis of renal artery; I70.0 Atherosclerosis of aorta; I70.8 Atherosclerosis of other arteries; I65.23 Occlusion and stenosis of bilateral carotid arteries; D69.6 Thrombocytopenia, unspecified; I48.91 Unspecified atrial fibrillation; E87.6 Hypokalemia; I25.10 Atherosclerotic heart disease of native coronary artery without angina pectoris; E78.00 Pure hypercholesterolemia, unspecified; K59.09 Other constipation; E03.9 Hypothyroidism, unspecified; Z87.891 Personal history of nicotine dependence; Z23 Encounter for immunization; Z79.52 Long term (current) use of systemic steroids; Z79.82 Long term (current) use of aspirin
CPT/HCPCS: 36415; 71045; 78580; 80048; 80053; 80061; 83690; 83735; 83880; 84100; 84484; 85007; 85025; 85027; 85379; 85610; 85730; 90662; 93005; 93041; 93306; 93970; 94640; 94760; 96372; 96374

== ENCOUNTER 2023-07-06 07:33 | Inpatient (IN) | payer MEDICARE, OTHER ==
[~2023-07-06] VITALS: Ht 170.2 cm; Wt 72.2 kg
[~2023-07-06 07:33] MED LIST changes: +ACET-3075 PO; +APIX5TAB PO; +ASPI325T32 PO; +ASPI81TA64 PO; +CHOL20002 PO; +DIGO125T18 PO; +FERR-84 PO; +MTP25TSR PO; +NF-SODBICA PO; +POTA99CA PO
--- NOTE | 2023-07-06 07:47 | ED General ---
General Chief Complaint: Respiratory Problems Stated Complaint: SOB Nursing Triage Note: PT TO RM 5 BY WC WITH COMPLAINT OF WORSENING SOA. STATES PT HAS BEEN SOA FOR A WEEK AND WORSENED THIS MORNING. Source of Information: Patient, Family, Old Records Exam Limitations: Other (Mildly disoriented/confused) History of Present Illness Date Seen by Provider: Jul 06, 2023 Time Seen by Provider: 07:34 Initial Comments This 77-year-old woman presents to the emergency room via private vehicle accompanied by her niece with complaints of confusion and significant shortness of breath. She has not been feeling well for couple of days, and symptoms became more severe this morning. She had been admitted on June 16 for NSTEMI. She is noted to be significantly short of air on arrival with oxygen saturations of 85 to 91% on room air. She does not normally require oxygen support at home. She does have some wheezing as well. Review of her chart reve als multiple medical problems including COPD, mild coronary artery disease, left renal artery stenosis with total occlusion and atrophic left kidney, atrial fibrillation on anticoagulation, moderate to severe mitral regurgitation, mild aortic stenosis with mild to moderate aortic regurgitation, severe tricuspid regurgitation, and pulmonary artery hypertension. Echocardiogram on June 16 revealed EF of 60 to 65% with the above valvular disease descriptions. Pulmonary artery pressure was 110 to 115 mmHg. Patient is also confused today which is not her baseline according to her niece. Patient's niece is Dawna Black who has medical power of assistant city attorney. Dawna's number is [phone]. Patient denies cough or fever. She reports some mild edema in her legs. On prior admission she had a significantly elevated D-dimer. VQ scan and lower extremity Doppler studies did not reveal any pulmonary embolus. Patient denies any chest pain. She reports recently moving back from [place] and not being able to establish with a primary care provider yet. They were trying to get in with Dr. Oseguera but have not been excepted by his office at this point. Dr. Bowser is her primary negative assembler. Patient is alert and conversational but somewhat disoriented. Her niece provides much of the history. Chart from prior admission was reviewed. Allergies and Home Medications Allergies Coded Allergies: Penicillins (Verified Allergy, Unknown, 06/16/23) Patient Home Medication List Home Medication List Reviewed: Yes Acetaminophen/Diphenhydramine (Tylenol Pm Ex-Strength Caplet) 500 Mg-25 Mg Tablet, 2 EACH PO HS PRN for SLEEP, (Reported) Entered as Reported by: ARMANI BOYD on 06/16/231442 Last Action: Reviewed Apixaban (Eliquis) 5 Mg Tablet, 5 MG PO BID, (Reported) Entered as Reported by: ARMANI BOYD on 07/06/231342 Last Action: Reviewed Aspirin (Aspirin) 81 Mg Tab.chew, 81 MG PO DAILY, (Reported) Entered as Reported by: ARMANI BOYD on 07/06/231342 Last Action: Continued Cholecalciferol (Vitamin D3) (Vitamin D3) 50 Mcg (2000 Unit) Capsule, 50 MCG PO DAILY, (Reported) Entered as Reported by: ARMANI BOYD on 06/16/231442 Last Action: Reviewed Digoxin (Digoxin) 125 Mcg (0.125 Mg) Tablet, 125 MCG PO DAILY, (Reported) Entered as Reported by: ARMANI BOYD on 07/06/231342 Last Action: Continued Ferrous Sulfate (Iron) 325 Mg (65 Mg Iron) Tablet, 325 MG PO DAILY, (Reported) Entered as Reported by: ARMANI BOYD on 06/16/231442 Last Action: Reviewed Metoprolol Succinate (Metoprolol Succinate) 25 Mg Tab.er.24h, 25 MG PO DAILY, (Reported) Entered as Reported by: ARMANI BOYD on 07/06/231342 Last Action: Reviewed Sodium Bicarbonate (Sodium Bicarbonate) 650 Mg Tablet, 650 MG PO TID, (Reported) Entered as Reported by: ARMANI BOYD on 07/06/231342 Last Action: Continued Discontinued Medications Apixaban (Eliquis) 5 Mg Tablet, 5 MG PO BID Discontinued Reason: No Longer Taking Prescribed by: PATRICK FIGUEROA on 06/18/231049 Last Action: Discontinued Aspirin (Children's Aspirin) 81 Mg Tab.chew, 81 MG PO DAILY Discontinued Reason: No Longer Taking Prescribed by: PATRICK FIGUEROA on 06/18/231049 Last Action: Discontinued Digoxin (Digox) 125 Mcg (0.125 Mg) Tablet, 0.125 MG PO DAILY Discontinued Reason: No Longer Taking Prescribed by: PATRICK FIGUEROA on 06/18/231049 Last Action: Discontinued Metoprolol Succinate (Metoprolol Succinate) 25 Mg Tab.er.24h, 25 MG PO DAILY Discontinued Reason: No Longer Taking Prescribed by: PATRICK FIGUEROA on 06/18/23 105 Last Action: Discontinued Sodium Bicarbonate (Sodium Bicarbonate) 650 Mg Tablet, 650 MG PO TID Discontinued Reason: No Longer Taking Prescribed by: PATRICK FIGUEROA on 06/18/23 105 Last Action: Discontinued Review of Systems Review of Systems Constitutional: no symptoms reported EENTM: no symptoms reported Respiratory: see HPI Cardiovascular: see HPI Gastrointestinal: no symptoms reported Genitourinary: no symptoms reported : No Musculoskeletal: no symptoms reported Skin: no symptoms reported Psychiatric/Neurological: See HPI Hematologic/Lymphatic: No Symptoms Reported Immunological/Allergic: no symptoms reported Past Ekozxss-Ffloee-Disezi Hx Patient Social History Tobacco Use?: No Smoking Status: Former Smoker Use of E-Cig and/or Vaping dev: No Substance use?: No Alcohol Use?: No Pt feels they are or have been: No Immunizations Up To Date Tetanus Booster (TDap): Unknown First/Initial COVID19 Vaccinat: YES Second COVID19 Vaccination Dexter: YES Third COVID19 Vaccination Date: YES Seasonal Allergies Seasonal Allergies: No Past Medical History Surgery/Hospitalization HX: TUBAL AND TONSILS. 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 BOWSER--RIGHT RENAL ARTERY STENOSIS, COMPLETE CHRONIC OCCLUSION OF LEFT RENAL ARTERY WITH ATROPHIC LEFT KINDEY, SEVERE DIFFUSE ASVD OF ABDOMINAL AORTA, MODERATE ABDOMINAL AORTIC ANEURYSM PT HAS BEEN DETERMINED TO NOT BE A SURGICAL CANDIDATE FOR VALVULAR HEART SURGERY Physical Exam Vital Signs Vital Signs - First Documented Capillary Refill : Height, Weight, BMI Height: 5'7.00" Weight: 138lbs. 7.0oz. 62.924819ap; 23.25 BMI Method:Stated General Appearance: No Apparent Distress, WD/WN HEENT: PERRL/EOMI, Normal ENT Inspection Neck: Normal Inspection Respiratory: No Accessory Muscle Use, No Respiratory Distress, Decreased Breath Sounds, Wheezing Cardiovascular: No Murmur, Irregularly Irregular, Other (Rate controlled, trace lower extremity edema) Progress/Results/Core Measures Suspected Sepsis SIRS Temperature: Pulse: 97 Respiratory Rate: 30 Laboratory Tests 07/06/23 07:40: White Blood Count 8.2 Blood Pressure 125 /85 Mean: 98 Laboratory Tests 07/06/23 07:40: Creatinine 1.64H, Platelet Count 91L, Total Bilirubin 2.0H Results/Orders Lab Results Laboratory Tests Test 07/06/23 07:40 07/06/23 09:42 Range/Units White Blood Count 8.2 4.3-11.0 10^3/uL Red Blood Count 3.61 L 3.80-5.11 10^6/uL Hemoglobin 13.3 11.5-16.0 g/dL Hematocrit 42 35-52 % Mean Corpuscular Volume 116 H 80-99 fL Mean Corpuscular Hemoglobin 37 H 25-34 pg Mean Corpuscular Hemoglobin Concent 32 32-36 g/dL Red Cell Distribution Width 16.5 H 10.0-14.5 % Platelet Count 91 L 130-400 10^3/uL Mean Platelet Volume 13.1 H 9.0-12.2 fL Immature Granulocyte % (Auto) 1 % Neutrophils (%) (Auto) 76 H 42-75 % Lymphocytes (%) (Auto) 14 12-44 % Monocytes (%) (Auto) 8 0-12 % Eosinophils (%) (Auto) 0 0-10 % Basophils (%) (Auto) 1 0-10 % Neutrophils # (Auto) 6.2 1.8-7.8 10^3/uL Lymphocytes # (Auto) 1.2 1.0-4.0 10^3/uL Monocytes # (Auto) 0.7 0.0-1.0 10^3/uL Eosinophils # (Auto) 0.0 0.0-0.3 10^3/uL Basophils # (Auto) 0.1 0.0-0.1 10^3/uL Immature Granulocyte # (Auto) 0.1 0.0-0.1 10^3/uL Percent Immature Platelet Fraction 11.2 H 0.0-7.6 % Sodium Level 143 135-145 MMOL/L Potassium Level 4.3 3.6-5.0 MMOL/L Chloride Level 106 98-107 MMOL/L Carbon Dioxide Level 21 21-32 MMOL/L Anion Gap 16 H 5-14 MMOL/L Blood Urea Nitrogen 22 H 7-18 MG/DL Creatinine 1.64 H 0.60-1.30 MG/DL Estimat Glomerular Filtration Rate 32 BUN/Creatinine Ratio 13 Glucose Level 139 H 70-105 MG/DL Calcium Level 8.8 8.5-10.1 MG/DL Corrected Calcium 9.1 8.5-10.1 MG/DL Magnesium Level 2.3 1.6-2.4 MG/DL Total Bilirubin 2.0 H 0.1-1.0 MG/DL Aspartate Amino Transf (AST/SGOT) 34 5-34 U/L Alanine Aminotransferase (ALT/SGPT) 20 0-55 U/L Alkaline Phosphatase 119 40-136 U/L Troponin I 0.151 H 0.147 H <0.028 NG/ML C-Reactive Protein High Sensitivity 2.25 H 0.00-0.50 MG/DL B-Type Natriuretic Peptide 4977.8 H <100.0 PG/ML Total Protein 6.9 6.4-8.2 GM/DL Albumin 3.6 3.2-4.5 GM/DL Digoxin Level 1.00 0.80-2.00 NG/ML Influenza Type A (RT-PCR) Not Detected Not Detecte Influenza Type B (RT-PCR) Not Detected Not Detecte SARS-CoV-2 RNA (RT-PCR) Not Detected Not Detecte Procalcitonin 0.08 <0.10 NG/ML My Orders Orders - THEA RÍOS MD Ekg Tracing (07/06/23 07:40) Bnp Robson (07/06/23 07:44) Cbc And Automated Diff (07/06/23 07:44) Comprehensive Metabolic Panel (07/06/23 07:44) Hs C Reactive Protein (07/06/23 07:44) Magnesium (07/06/23 07:44) Troponin I Robson (07/06/23 07:44) Covid 19 Inhouse Test (07/06/23 07:44) Influenza A And B By Pcr (07/06/23 07:44) Ed Iv/Invasive Line Start (07/06/23 07:44) Monitor-Rhythm Ecg Trace Only (07/06/23 07:44) O2 (07/06/23 07:44) Chest 1 View, Ap/Pa Only (07/06/23 07:46) Furosemide Injection (Furosemide Injec (07/06/23 08:45) Potassium Chloride (Tablet) (Potassium C (07/06/23 08:45) Ipratropium/Albuterol Inh Soln (Ipratrop (07/06/23 08:45) Svn Small Volume Nebulizer (07/06/23 08:38) Ua Culture If Indicated (07/06/23 08:39) Troponin I Robson (07/06/23 09:40) Digoxin (07/06/23 09:21) Ed Admission (Communication) (07/06/23 09:21) Code/Resuscitation (07/06/23 09:21) Medications Given in ED Vital Signs/I&O 07/06/23 07/06/23 07/06/23 07/06/23 07:34 07:34 07:34 09:10 Temp 35.5 Pulse 97 Resp 30 B/P (MAP) 125/85 (98) Pulse Ox 92 95 O2 Delivery Nasal Cannula Nasal Cannula Nasal Cannula Nasal Cannula O2 Flow Rate 2.00 2.00 2.00 Capillary Refill : Blood Pressure Mean: 98 Progress Note #1: Progress Note Patient was interviewed and examined. Labs were reviewed and interpreted by me. CBC was notable for decrease in platelets at 91. Chemistry was notable for creatinine elevation at 1.64 and BUN of 22. Glucose was mildly elevated at 139. Troponin was elevated at 0.151 which was a decrease from prior admission. A 2- hour repeat was 0.147 which demonstrated stability. CRP was negligibly elevated at 2.25. BNP was notably elevated at 4977.8. COVID and influenza swabs were negative. ECG demonstrated atrial fibrillation with some minimal ST depression as noted below. Chest x-ray showed signs of failure. X-ray was viewed by me and radiologist's report reviewed as below. Progress Note #2: Time: 09:22 Progress Note Based on the workup in the ER today and prior history, patient appears to have some degree of congestive heart failure, likely caused by moderate to severe valvular disease. Prior notations states she is not a valvular surgical candidate. She is receiving Lasix 40 mg IV with oral potassium 10 mEq in the ER. DuoNeb treatment is being administered. I have discussed the case with Dr. Wang, admitting hospitalist. She accepts admission. I discussed CODE STATUS with patient. Although her niece had stated patient previously requested DNR, Abigail currently states she would prefer initial resuscitation efforts to be attempted, but she does not want to be maintained long-term on life support. She would like to discuss with her niece further when Dawna returns to the hospital. Until then, she will remain full code based on my most recent conversation. Patient's disorientation may also play a role in her decision making, but she does seem much more lucid now than she did upon arrival when she was hypoxic. Patient is presently stable on 2 L nasal cannula. Progress Note #3: Time: 10:15 Progress Note Discussed with Dr. Bowser, negative assembler. Patient may eat. No other orders given at this time. ECG Initial ECG Impression Date: Jul 06, 2023 Initial ECG Impression Time: 07:45 Initial ECG Rate: 82 Initial ECG Rhythm: A Fib/Flutter Comment Atrial fibrillation with no ST elevation. ST depression is minimal and most noted in lead I, V4, V5, and V6. No significant abnormal intervals or axis deviation. Diagnostic Imaging Diagonstic Imaging: Xray Plain Films/CT/US/NM/MRI: chest Comments NAME: ABGIAIL CONNOLLY [facility] REC#: [id number] PT STATUS: REG ER : 1945 PHYSICIAN: THEA RÍOS MD ADMIT DATE: 07/06/23/ER Draft Date of Exam:07/06/23 CHEST 1 VIEW, AP/PA ONLY Clinical indication: Patient complains of worsening shortness of air for a week and worse this morning. EXAM: Portable chest x-ray upright view. COMPARISON: Chest x-ray dated 06/16/2023. FINDINGS: There is cardiomegaly with mild pulmonary vascular congestion again noted. There are increased lung markings throughout both lungs. There is slight progression of mild right basilar atelectasis versus infiltrate. There is no pleural effusion or pneumothorax. IMPRESSION: 1: Again seen cardiomegaly with mild pulmonary vascular congestion which can be seen with congestive heart failure. 2: There is development of mild right basilar atelectasis versus infiltrate. Dictated on workstation # [id number] Dict: 07/06/23823 Trans: 07/06/23831 [id number] Interpreted by: MILAGROS GUPTA MD Departure Communication (Admissions) Time/Spoke to Admitting Phy: 09:05 Dr. Wang Time/Spoke to Consulting Phy: 10:15 Dr. Bowser Impression Primary Impression: Congestive heart failure Qualified Codes: I50.9 - Heart failure, unspecified Additional Impressions: Valvular heart disease COPD exacerbation Hypoxia Disposition: ADMITTED INPATIENT Condition: Improved Admissions Decision to Admit Reason: Admit from ER (General) Decision to Admit/Date: Jul 06, 2023 Time/Decision to Admit Time: 09:05 Departure-Patient Inst. Referrals: NO,LOCAL PHYSICIAN (PCP/Family) Primary Care Physician THEA RÍOS MD Jul 06, 2023 07:47
[2023-07-06 07:51] LABS: HEMOGLOBIN 13.3 g/dL (11.5-16.0)
[2023-07-06 07:53] LABS: BASOPHILS # (AUTO) 0.1 10^3/uL (0.0-0.1); BASOPHILS % (AUTO) 1 % (0-10); EOSINOPHILS % (AUTO) 0 % (0-10); HEMATOCRIT 42 % (35-52); LYMPHOCYTES # (AUTO) 1.2 10^3/uL (1.0-4.0); LYMPHOCYTES % (AUTO) 14 % (12-44); MEAN CORPUSCULAR HEMOGLOBIN 37 pg (25-34); MEAN CORPUSCULAR HGB CONC 32 g/dL (32-36); MEAN CORPUSCULAR VOLUME 116 fL (80-99); MEAN PLATELET VOLUME 13.1 fL (9.0-12.2); MONOCYTES # (AUTO) 0.7 10^3/uL (0.0-1.0); MONOCYTES % (AUTO) 8 % (0-12); NEUTROPHILS # (AUTO) 6.2 10^3/uL (1.8-7.8); NEUTROPHILS % (AUTO) 76 % (42-75); WHITE BLOOD COUNT 8.2 10^3/uL (4.3-11.0)
[2023-07-06 07:54] LABS: PLATELET COUNT 91 10^3/uL (130-400)
[2023-07-06 08:00] LABS: ALBUMIN 3.6 GM/DL (3.2-4.5); POTASSIUM 4.3 MMOL/L (3.6-5.0)
[2023-07-06 08:01] LABS: CALCIUM 8.8 MG/DL (8.5-10.1)
[2023-07-06 08:03] LABS: TOTAL PROTEIN 6.9 GM/DL (6.4-8.2)
[2023-07-06 08:06] LABS: CREATININE SERUM 1.64 MG/DL (0.60-1.30)
[2023-07-06 08:09] LABS: MAGNESIUM 2.3 MG/DL (1.6-2.4)
--- NOTE | 2023-07-06 08:32 | Diagnostic Imaging Report ---
Clinical indication: Patient complains of worsening shortness of air for a week and worse this morning. EXAM: Portable chest x-ray upright view. COMPARISON: Chest x-ray dated 06/16/2023. FINDINGS: There is cardiomegaly with mild pulmonary vascular congestion again noted. There are increased lung markings throughout both lungs. There is slight progression of mild right basilar atelectasis versus infiltrate. There is no pleural effusion or pneumothorax. IMPRESSION: 1: Again seen cardiomegaly with mild pulmonary vascular congestion which can be seen with congestive heart failure. 2: There is development of mild right basilar atelectasis versus infiltrate. Dictated by: Dictated on workstation # [id number]
[2023-07-06] MEDS ORDERED: FUROSEMIDE INJECTION 40 MG/4 ML VIAL IVP ONE (08:45)
[2023-07-06] MEDS ORDERED: POTASSIUM CHLORIDE 10 MEQ TABLET PO ONE (08:45)
[2023-07-06] MEDS ORDERED: RT-Ipratropium/Albuterol NEB 3 ML VIAL INH ONE (08:45)
--- NOTE | 2023-07-06 10:33 | Consultation-Cardiology ---
HPI-Cardiology Cardiology Consultation: Date of Consultation 07/06/23 Time Seen by a Provider: 11:30 Date of Admission 07-06-23 Attending Physician No,Local Physician Admitting Physician Admitting Physician: Attending Physician: Consulting Physician ANNA ZUNIGA HPI: Chief Complaint: Progressive dyspnea Ms. Valentine is a 77 yr old female admitted to 508 from the ED with c/o progressive dyspnea and confusion over the course of the last few days per the ED report. She is a poor historian and states she does not know for sure why she is here. She reports she has been more short of air and increasing fatigue. No c/o CP or palpitations. No c/o LE swelling. She states he niece makes sure she takes all of her medications so she believes she has been taking them. There is no family at the bedside. Review of Systems-Cardiology Review of Systems Constitutional: No chills, No fever; malaise Eyes: No vision change Ears/Nose/Throat: No epistaxis, No recent hearing loss Respiratory: As described under HPI Cardiovascular: As described under HPI Gastrointestinal: No diarrhea, No nausea, No vomiting Genitourinary: No dysuria, No hematuria : No Skin: No rash on exposed areas, No ulcerations on exposed areas Psychiatric/Neurological: No seizure, No focal weakness, No syncope Hematologic: No bleeding abnormalities ILK-Hnmube-Uqatzy Hx Patient Social History Smoking Status: Former Smoker 2nd Hand Smoke Exposure: Yes Alcohol Use?: No Pt feels they are or have been: No Immunizations Up To Date Tetanus Booster (TDap): Unknown Date of Influenza Vaccine: May 30, 2019 Past Medical History PMH As described under Assessment. Family Medical History Family Medical History: She reports her mother had CAD with CABG. She reports her sister had a CVA. Allergies and Home Medications Allergies Coded Allergies: Penicillins (Verified Allergy, Unknown, 06/16/23) Patient Home Medication List Acetaminophen/Diphenhydramine (Tylenol Pm Ex-Strength Caplet) 500 Mg-25 Mg Tablet, 2 EACH PO HS PRN for SLEEP, (Reported) Entered as Reported by: ARMANI BOYD on 06/16/23 1443 Last Action: Reviewed Apixaban (Eliquis) 5 Mg Tablet, 5 MG PO BID, (Reported) Entered as Reported by: ARMANI BOYD on 07/06/23 1343 Last Action: Reviewed Aspirin (Aspirin) 81 Mg Tab.chew, 81 MG PO DAILY, (Reported) Entered as Reported by: ARMANI BOYD on 07/06/231342 Last Action: Continued Cholecalciferol (Vitamin D3) (Vitamin D3) 50 Mcg (2000 Unit) Capsule, 50 MCG PO DAILY, (Reported) Entered as Reported by: ARMANI BOYD on 06/16/231442 Last Action: Reviewed Digoxin (Digoxin) 125 Mcg (0.125 Mg) Tablet, 125 MCG PO DAILY, (Reported) Entered as Reported by: ARMANI BOYD on 07/06/231342 Last Action: Continued Ferrous Sulfate (Iron) 325 Mg (65 Mg Iron) Tablet, 325 MG PO DAILY, (Reported) Entered as Reported by: ARMANI BOYD on 06/16/231442 Last Action: Reviewed Metoprolol Succinate (Metoprolol Succinate) 25 Mg Tab.er.24h, 25 MG PO DAILY, (Reported) Entered as Reported by: ARMANI BOYD on 07/06/231342 Last Action: Reviewed Sodium Bicarbonate (Sodium Bicarbonate) 650 Mg Tablet, 650 MG PO TID, (Reported) Entered as Reported by: ARMANI BOYD on 07/06/231342 Last Action: Continued Discontinued Medications Apixaban (Eliquis) 5 Mg Tablet, 5 MG PO BID Discontinued Reason: No Longer Taking Prescribed by: PATRICK FIGUEROA on 06/18/231049 Last Action: Discontinued Aspirin (Children's Aspirin) 81 Mg Tab.chew, 81 MG PO DAILY Discontinued Reason: No Longer Taking Prescribed by: PATRICK FIGUEROA on 06/18/231049 Last Action: Discontinued Digoxin (Digox) 125 Mcg (0.125 Mg) Tablet, 0.125 MG PO DAILY Discontinued Reason: No Longer Taking Prescribed by: PATRICK FIGUEROA on 06/18/231049 Last Action: Discontinued Metoprolol Succinate (Metoprolol Succinate) 25 Mg Tab.er.24h, 25 MG PO DAILY Discontinued Reason: No Longer Taking Prescribed by: PATRICK FIGUEROA on 06/18/231049 Last Action: Discontinued Sodium Bicarbonate (Sodium Bicarbonate) 650 Mg Tablet, 650 MG PO TID Discontinued Reason: No Longer Taking Prescribed by: PATRICK FIGUEROA on 06/18/231049 Last Action: Discontinued Physical Exam-Cardiology Physical Exam Vital Signs/I&O 07/06/23 07/06/23 07/06/23 07/06/23 07:34 07:34 07:34 09:10 Temp 35.5 Pulse 97 Resp 30 B/P (MAP) 125/85 (98) Pulse Ox 92 95 O2 Delivery Nasal Cannula Nasal Cannula Nasal Cannula Nasal Cannula O2 Flow Rate 2.00 2.00 2.00 07/06/23 07/06/23 07/06/23 07/06/23 10:40 11:04 11:04 11:57 Temp 36.3 Pulse 101 108 118 113 Resp 12 36 17 B/P (MAP) 116/99 133/62 (85) 123/97 (106) Pulse Ox 93 95 95 O2 Delivery Nasal Cannula Nasal Cannula Nasal Cannula O2 Flow Rate 3.00 2.00 3.50 07/06/23 13:00 Pulse 106 Capillary Refill : Constitutional: AAO x 3 (poor historian - she does not recall her hospital admission from earlier this month) HEENT: PERRL, hearing is well preserved Neck: carotid bruit, carotid pulses are 2 + bilaterally Respiratory: No accessory muscle use, No respiratory distress; chest expansion is symmetric, chest is bilaterally symmetric, other (diminished lower lobes with prolonged exp phase) Cardiovascular: irregularly irregular, S1 and S2 Gastrointestinal: No tender; soft; No guarding; audible bowel sounds Extremities: no lower extremity edema bilateral Neurologic/Psychiatric: other (moves all extremities) Skin: No rash on exposed areas, No ulcerations on exposed areas Data Review Labs Laboratory Tests 07/06/23 07:40: White Blood Count 8.2, Red Blood Count 3.61L, Hemoglobin 13.3, Hematocrit 42, Mean Corpuscular Volume 116H, Mean Corpuscular Hemoglobin 37H, Mean Corpuscular Hemoglobin Concent 32, Red Cell Distribution Width 16.5H, Platelet Count 91L, Mean Platelet Volume 13.1H, Immature Granulocyte % (Auto) 1, Neutrophils (%) (Auto) 76H, Lymphocytes (%) (Auto) 14, Monocytes (%) (Auto) 8, Eosinophils (%) (Auto) 0, Basophils (%) (Auto) 1, Neutrophils # (Auto) 6.2, Lymphocytes # (Auto) 1.2, Monocytes # (Auto) 0.7, Eosinophils # (Auto) 0.0, Basophils # (Auto) 0.1, Immature Granulocyte # (Auto) 0.1, Percent Immature Platelet Fraction 11.2H, Sodium Level 143, Potassium Level 4.3, Chloride Level 106, Carbon Dioxide Level 21, Anion Gap 16H, Blood Urea Nitrogen 22H, Creatinine 1.64H, Estimat Glomerular Filtration Rate 32, BUN/Creatinine Ratio 13, Glucose Level 139H, Calcium Level 8.8, Corrected Calcium 9.1, Magnesium Level 2.3, Total Bilirubin 2.0H, Aspartate Amino Transf (AST/SGOT) 34, Alanine Aminotransferase (ALT/SGPT) 20, Alkaline Ph osphatase 119, Troponin I 0.151H, C-Reactive Protein High Sensitivity 2.25H, B- Type Natriuretic Peptide 4977.8H, Total Protein 6.9, Albumin 3.6, Digoxin Level 1.00, Influenza Type A (RT-PCR) Not Detected, Influenza Type B (RT-PCR) Not Detected, SARS-CoV-2 RNA (RT-PCR) Not Detected 07/06/23 09:42: Troponin I 0.147H, Procalcitonin 0.08 Radiology NAME: ABIGAIL VALENTINE [facility] REC#: [id number] PT STATUS: REG ER : 1945 PHYSICIAN: THEA RÍOS MD ADMIT DATE: 07/06/23/ER Draft Date of Exam:07/06/23 CHEST 1 VIEW, AP/PA ONLY Clinical indication: Patient complains of worsening shortness of air for a week and worse this morning. EXAM: Portable chest x-ray upright view. COMPARISON: Chest x-ray dated 06/16/2023. FINDINGS: There is cardiomegaly with mild pulmonary vascular congestion again noted. There are increased lung markings throughout both lungs. There is slight progression of mild right basilar atelectasis versus infiltrate. There is no pleural effusion or pneumothorax. IMPRESSION: 1: Again seen cardiomegaly with mild pulmonary vascular congestion which can be seen with congestive heart failure. 2: There is development of mild right basilar atelectasis versus infiltrate. Dictated on workstation # [id number] Dict: 07/06/23 0824 Trans: 07/06/23 0832 [id number] Interpreted by: MILAGROS GUPTA MD Electronically signed by: ECG Impression ECG Initial ECG Impression: Atrial Fibrillation A/P-Cardiology Assessment/Admission Diagnosis Hypoxia - multi-factorial d/t acute on chronic exacerbation of COPD, pulmonary HTN, recent PE, diastolic CHF Recent Acute pulm embolism on 06-17-23 - Echo of 06/16/23 shows LVEF 60-65%, acute cor pulmonale, mod regurg of aortic and mitral and tricuspid valves, severe pulm htn (110-115 mmHg) - has been maintained on Eliquis Chronic minimally elevated troponin following PE in early Jun 2023 and hypoxia (type 2 CT) PAF - first dx on tele during hospitalization on 06-17-23 - currently in a-fib Thrombocytopenia of undetermined etiology - management per medical services COPD Card cath of 08/23/18: mild CAD, mod to sev MR, pulmonary hypertension with mean pulmonary artery pressure 36 mmHg, LVEDP 8 mmHg, LVEF 50-55% CKD 4. previously followed with Dr. English of [facility] - has not seen anyone recently Renal artery stenosis - Renal u/s of November 2018 showed atrophic left kidney with right renal artery stenosis. - Abd aortic angio of 06/20/19 showed chronically occluded L renal artery, no significant stenosis of the R renal artery, severe atherosclerosis of the abd aorta mod infrarenal AAA, mod-sev dz of the aortoiliac bifurcation (70-80 ostial R iliac and approx 50% ostial L iliac) - AAA Sono of July 14, 2019 showed borderline aneurysmal dilatation to the prox abd aorta. Mid and distal abd aorta are normal Not suitable for LOUANN-inhib or ARB due to above-noted renal issues H/o hypertension Cigarette smoking - quit approx 2 months ago Carotid u/s of July 10, 2019 shows less than 40% R ICA stenosis, 60-79% L ICA stenosis Discussion and Recomendations Hypoxia - multi-factorial for reasons noted above PAF - currently a-fib - HR not well controlled - has not had medications - start Toprol XL 50mg (hold Digoxin for now and augment BB regimen) - continue OAC Recent dx with PE in early Jun 2023 - continue OAC - management per medical services Acute on chronic exacerbation of COPD - management per medical services Diastolic CHF - treat with diuretics CKD 4 - monitor lab closely Thrombocytopenia - management per medical services Carotid stenosis - low dose ASA Further recs will be based on her hospital course We would like to thank medical services for this consult ANNA RADFORD Jul 06, 2023 10:33
[2023-07-06] MEDS ORDERED: ONDANSETRON INJECTION 4 MG/2 ML (SDV) IV PRN (10:45)
[2023-07-06] MEDS ORDERED: MILK OF MAGNESIA 400 MG/5 ML 30 ML UDC PO PRN (10:45)
[2023-07-06] MEDS ORDERED: ANTACID SUSPENSION 30 ML UDC PO PRN (10:45)
[2023-07-06] MEDS ORDERED: BISACODYL 10 MG SUPPOSITORY PR PRN (10:45)
[2023-07-06] MEDS ORDERED: CALCIUM CARBONATE 500 MG CHEW TABLET PO PRN (10:45)
[2023-07-06 11:04] VITALS: BP 133/62
--- NOTE | 2023-07-06 11:27 | History & Physical-Hospitalist ---
SEGUNDO REESE 07/06/23 1127: History of Present Illness HPI/Chief Complaint Pt is a 77 y/o female who presents to the ER with worsening SOB and confusion. She is joined by her niece who gives much of her hx d/t confusion. Pt presented to the hospital on 06/16 with an NSTEMI and her niece states that she has not been the same since. She states that the pt has been feeling sick for the last week with increasingly worsening sxs this AM. In the ER, her O2 was 85-91% on room air and she was struggling to breath with an elevated respiratory rate. States that she is not on O2 at home normally. Denies any sick contacts. Denies cough or fever. Pt reports that she has been feeling weak with increasing dyspnea and shakiness. Niece states that she has had some diarrhea the last few days but pt denies any abd pain or blood in stool. Denies vomiting or nausea. In the ER, pt was given Lasix 40 mg IV and duonab and denies any improvement in how she feels. Niece thinks she has more color in her face compared to when she first came in. Pt has a Pmhx significant for COPD, Afib, renal artery stenosis of L renal artery- CKD, MR, , severe TR, pulmonary HTN, HTN, NSTEMI. Source: patient, family Exam Limitations: no limitations Date Seen 07/06/23 Time Seen by a Provider: 11:15 Attending Physician No,Local Physician PCP Admitting Physician: Elayne Wang MD Attending Physician: Elayne Wang MD Referring Physician Date of Admission Jul 06, 2023 at 10:37 Home Medications & Allergies Home Medications Reviewed patient Home Medication Reconciliation performed by pharmacy medication reconciliations orthophotography technician and/or nursing. Patients Allergies have been reviewed. Allergies Allergies Coded Allergies Penicillins (Verified Allergy, Unknown, 06/16/23) Past Ixdjqfg-Diyrgq-Qvdvzq Hx Patient Social History Tobacco Use?: No Smoking Status: Former Smoker (quit 1 year ago) Use of E-Cig and/or Vaping dev: No Substance use?: No Alcohol Use?: No Pt feels they are or have been: No Immunizations Up To Date Date of Influenza Vaccine: May 30, 2019 First/Initial COVID19 Vaccinat: YES Second COVID19 Vaccination Dexter: YES Tetanus Booster (TDap): Less Than 5 Years Seasonal Allergies Seasonal Allergies: No Current Status status: No Advance Directives: No Primary Language: Nepalese Preferred Spoken Language: Nepalese Past Medical History Surgeries: Tonsillectomy, Tubal Ligation Pulmonary Embolism, COPD Currently Using CPAP: No Currently Using BIPAP: No Coronary Artery Disease, Heart Attack (NSTEMI 06/16/2023), Heart Murmur, High Cholesterol, Irregular Heartbeat, Palpitations, Peripheral Vascular, Valvular Heart Disease 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 WILEY--RIGHT RENAL ARTERY STENOSIS, COMPLETE CHRONIC OCCLUSION OF LEFT RENAL ARTERY WITH ATROPHIC LEFT KINDEY, SEVERE DIFFUSE ASVD OF ABDOMINAL AORTA, MODERATE ABDOMINAL AORTIC ANEURYSM PT HAS BEEN DETERMINED TO NOT BE A SURGICAL CANDIDATE FOR VALVULAR HEART SURGERY Review of Systems ROS-Unable to Obtain: aided by niece d/t confusion Constitutional: No chills, No fever; weakness EENTM: No hearing loss, No blurred vision, No vision loss Respiratory: dyspnea on exertion; No hemoptysis; orthopnea, short of breath, wheezing Cardiovascular: No chest pain; edema, palpitations Gastrointestinal: No abdominal pain; diarrhea; No melena, No nausea, No vomiting Genitourinary: No dysuria, No frequency : No Musculoskeletal: back pain, joint pain Skin: No pruritus, No rash Psychiatric/Neurological: Denies Emotional Problems, Denies Headache Physical Exam Physical Exam Vital Signs Vital Signs - First Documented Capillary Refill : Height, Weight, BMI Height: 5'7.00" Weight: 138lbs. 7.0oz. [id number]; 23.25 BMI Method:Stated General Appearance: Chronically ill, Mild Distress Eyes: Bilateral Eye Normal Inspection HEENT: Normal ENT Inspection, Pharynx Normal Neck: Normal Inspection, Non Tender Respiratory: Chest Non Tender, Accessory Muscle Use, Crackles, Respiratory Distress Cardiovascular: Diastolic Murmur, Systolic Murmur, Gallop/S3, Irregularly Irregular Gastrointestinal: Normal Bowel Sounds, Non Tender, Soft Extremity: No Calf Tenderness, Pedal Edema (1+ b/l) Neurologic/Psychiatric: Alert, No Motor/Sensory Deficits, Normal Mood/Affect, Disoriented Skin: Normal Color, Warm/Dry Lymphatic: No Adenopathy Results Results/Procedures Labs Laboratory Tests 07/06/23 07:40 Patient resulted labs reviewed. Imaging: Reviewed Imaging Report Assessment/Plan Admission Diagnosis Acute hypoxic respiratory failure secondary to COPD and/or CHF. Possible pneumonia Admission Status: Inpatient Order (span 2 midnights) Reason for Inpatient Admission: Acute hypoxic respiratory failure secondary to COPD and/or CHF. Possible pneumonia Assessment and Plan Acute hypoxic respiratory failure - secondary to COPD and/or CHF. - Unclear if developing a R lower lobe pneumonia- diff on Xray = atelectasis vs pneumonia. Normal WBC and obtaining procalcitonin to determine whether antibiotics should be added - Obtain ABG - Continue O2 via nasal cannula maintain O2 sat 90-92% - Continue duoneb - Add methylprednisone 62.5 mg IV Hx of STEMI/PE - Troponin elevated today at 0.151 but trending down from when she was last in the hospital 06/16 for an NSTEMI. Delayed clearance likely d/t renal failure - Cardiology consulted, appreciate recommendations CHF - Continue Lasix 40 mg IV/d - Continue metoprolol 25 mg PO/d - Cardiology consulted, appreciate recommendations Afib - Continue metoprolol 25 mg PO/d - Continue Eliquis 5 mg PO BID - Cardiology consulted, appreciate recommendations ELAYNE WANG MD 07/06/23 1507: Assessment/Plan Assessment and Plan Pt admitted with multifacotiral acute hypoxic respiratory failure. Has baseline COPD and appears to be slightly fluid overloaded. Will start on steroids and continue IV lasix. Cardiology consulted. Continue home meds when med rec done. MAT protocol. Checked procalcitonin and it's negative so will defer abx for now as she is afebrile and has no leukocytosis. If that changes will have a low threshold for abx. Supervisory-Addendum Brief Verification & Attestation Participated in pt care: history, MDM, physical Personally performed: exam, history, MDM, supervision of care Care discussed with: Medical Student Procedures: n/a Results interpretation: Verified all documentation Verification and Attestation of Medical Student E/M Service A medical student performed and documented this service in my presence. I reviewed and verified all information documented by the medical student and made modifications to such information, when appropriate. I personally performed the physical exam and medical decision making. Elayne Wang, Jul 06, 2023,15:03 SEGUNDO REESE Jul 06, 2023 11:27 ELAYNE WANG MD Jul 06, 2023 15:07
[2023-07-06] MEDS ORDERED: FLU HIGH DOSE (65+ YOA) 240 MCG/0.7 ML 2023-24 (FLUZONE) IM ONE (11:30)
[2023-07-06 11:57] VITALS: BP 123/97
[2023-07-06] MEDS ORDERED: ASPIRIN 81 MG CHEWABLE TABLET PO NR (12:15)
[2023-07-06] MEDS ORDERED: APIXABAN 5 MG TABLET PO NR (12:15)
--- NOTE | 2023-07-06 12:48 | Physical Therapy Evaluation ---
PT Evaluation-General Medical Diagnosis Admission Date Jul 06, 2023 at 10:37 Medical Diagnosis: CHF Onset Date: Jul 06, 2023 Therapy Diagnosis Therapy Diagnosis: generalized weakness/debility Height/Weight Height (Feet): 5 Height (Inches): 7.00 Weight (Pounds): 138 Weight (Ounces): 7.0 Precautions Precautions/Isolations: Fall Prevention, Standard Precautions, Pressure Ulcer Referral Physician: Felipe Reason for Referral: Evaluation/Treatment Medical History Pertinent Medical History: Atrial Fib, CAD, COPD, Hypothroidism, VA, PVD, Renal Insufficiency, Smoking Current History ER secondary to confusion and SOA/hypoxia Reviewed History: Yes Social History Home: Apartment Current Living Status: Alone Entry Into Home: Level Entry Prior Prior Level of Function SCALE: Activities may be completed with or without assistive devices. 5-Jkwgrjxxuy-ebpezvt completes the activity by him/herself with no assistance from a helper. 5-Set-up or Clean-up Assistance-helper sets up or cleans up; patient completes activity. [place] assists only prior to or following the activity. 4-Supervision or Touching Assistance-helper provides verbal cues and/or poppy anel/steadying and/or contact guard assistance as patient completes activity. Assistance may be provided throughout the activity or intermittently. 3-Partial/Moderate Assistance-helper does LESS THAN HALF the effort. [place] lifts, holds or supports trunk or limbs, but provides less than half the effort. 2-Substantial/Maximal Assistance-helper does MORE THAN HALF the effort. [place] lifts or holds trunk or limbs and provides more than half the effort. 3-Lgvyoliwz-kkmfdy does ALL the effort. Patient does none of the effort to complete the activity. Or, the assistance of 2 or more helpers is required for the patient to complete the activity. If activity was not attempted, code reason: 7-Patient Refused. 9-Not Applicable-not attempted and the patient did not perform the activity before the current illness, exacerbation or injury. 10-Not Attempted due to Environmental Limitations-(lack of equipment, weather restraints, etc.). 88-Not Attempted due to Medical Conditions or Safety Concerns. Bed Mobility: 6 Transfers (B,C,W/C): 6 Gait: 6 Indoor Mobility (Ambulation): Independent Prior Devices Use: Walker PT Evaluation-Current Subjective Patient agrees to therapy. Objective Patient Orientation: Person, Confused, Place, Situation Attachments: Oxygen (3L) ROM/Strength ROM Lower Extremities bilateral LE WFL Strength Lower Extremities 3/5 grossly bilateral LE all planes Integumentary/Posture Bowel Incontinence: No Bladder Incontinence: No Posture WFL Neuromuscular (Tone, Coordination, Reflexes) slightly diminished coordination Sensory Vision: Wears Glasses Hearing: Functional Transfers Sit to Lying (QC): 4 Lying to Sitting/Side of Bed(Q: 4 Sit to Stand (QC): 4 Gait Mode of Locomotion: Walk Anticipated Mode of Locomotion: Walk Walk 10 feet (QC): 88 Walk 50 ft with 2 Turns(QC): 88 Distance: 3 side steps Gait Assistive Device: FWW Balance Sitting Static: Normal Sitting Dynamic: Normal Standing Static: Fair Standing Dynamic: Fair Assessment/Needs Patient will benefit from skilled PT to address functional strength and mobility to improve current LOF to safely return to home at maximum LOF. Rehab Potential: Fair PT Instrument Shop Supervisor Goals Senior Care Goals PT Instrument Shop Supervisor Goals Time Frame: Jul 17, 2023 Roll Left & Right (QC): 6 Sit to Lying (QC): 6 Lying-Sitting on Side/Bed(QC): 6 Sit to Stand (QC): 6 Chair/Fcy-mu-Uptsb Xfer(QC): 6 Toilet Transfer (QC): 6 Walk 10 feet (QC): 5 Walk 50ft with 2 Turns (QC): 5 Walk 150 ft (QC): 5 PT Plan Problem List Problem List: Activity Tolerance, Functional Strength, Safety, Balance, Gait, Transfer, Bed Mobility Treatment/Plan Treatment Plan: Continue Plan of Care Treatment Plan: Bed Mobility, Education, Functional Activity Gely, Functional Strength, Gait, Safety, Therapeutic Exercise, Transfers Treatment Duration: Jul 17, 2023 Frequency: 5 times per week Estimated Hrs Per Day: .25 hour per day Time Time In: 1230 Time Out: 1241 DATE: Jul 06, 2023 Total Billed Treatment Time: 11 Total Billed Treatment 1 visit [facility] 11 min DAVE THAO PT Jul 06, 2023 12:48
--- NOTE | 2023-07-06 12:55 | Occupational Therapy Eval ---
OT Evaluation-General/PLF Medical Diagnosis Admission Date Jul 06, 2023 at 10:37 Medical Diagnosis: CHF Onset Date: Jul 06, 2023 Therapy Diagnosis Therapy Diagnosis: weakness, confusion, low activity tolerance Height/Weight Height (Feet): 5 Height (Inches): 7.00 Weight (Pounds): 138 Weight (Ounces): 7.0 Precautions Precautions/Isolations: Fall Prevention, Standard Precautions, Pressure Ulcer Referral Physician: Felipe Referral Reason: Self Care, Evaluation/Treatment Medical History Pertinent Medical History: Atrial Fib, CAD, COPD, Hypothroidism, AR, PVD, Renal Insufficiency, Smoking Additional Medical History Recent hospitalization 06/16-06/19 and DC home w/ discharge dx acute respiratory failure with hypoxia, NSTEMI unknown is patient seen for f/u appointment 07/02/23 Current History Unable to repeat back 1 minute lapse BLUE. SOCK. BED w/o cues. Unable to report day of week (Wednesday) and delayed month Reviewed History: Yes Social History Home: Apartment ([facility] [place]) Current Living Status: Alone Entry Into Home: Level Entry ADL-Prior Level of Function SCALE: Activities may be completed with or without assistive devices. 4-Eqkzzyjokb-etqnduc completes the activity by him/herself with no assistance from a helper. 5-Set-up or Clean-up Assistance-helper sets up or cleans up; patient completes activity. [place] assists only prior to or following the activity. 4-Supervision or Touching Assistance-helper provides verbal cues and/or touching/steadying and/or contact guard assistance as patient completes activi ty. Assistance may be provided throughout the activity or intermittently. 3-Partial/Moderate Assistance-helper does LESS THAN HALF the effort. [place] lifts, holds or supports trunk or limbs, but provides less than half the effort. 2-Substantial/Maximal Assistance-helper does MORE THAN HALF the effort. [place] lifts or holds trunk or limbs and provides more than half the effort. 9-Pgcnhyouz-igobmm does ALL the effort. Patient does none of the effort to complete the activity. Or, the assistance of 2 or more helpers is required for the patient to complete the activity. If activity was not attempted, code reason: 7-Patient Refused. 9-Not Applicable-not attempted and the patient did not perform the activity before the current illness, exacerbation or injury. 10-Not Attempted due to Environmental Limitations-(lack of equipment, weather restraints, etc.). 88-Not Attempted due to Medical Conditions or Safety Concerns. ADL PLOF Comments reports having caregiver, also reports no need for assistance Self Care: Independent Functional Cognition: Independent Drive Self: No OT Current Status Subjective Therapy returning from earlier attempt, patient agrees to participate and wishes to nap after Pain Numeric Pain Scale: 0-No Pain Mental Status/Objective Patient Orientation: Person ( [facility]), Confused, Place ([facility]), Situation Attachments: Oxygen, Telemetry Current Glasses/Contacts: Yes Hand Dominance: Right Upper Extremity ROM BUE ROM WFLS Upper Extremity Coordination intact Upper Extremity Strength +3/5 grossly, fatiques quickly, 02 86-92% ADL-Treatment Eating (QC): 5 Oral Hygiene (QC): 5 Shower/Bathe Self (QC): 7 Upper Body Dressing (QC): 4 Lower Body Dressing (QC): 4 On/Off Footwear (QC): 4 Toileting Hygiene (QC): 4 slow responses, delayed problem solving Education OT Patient Education: Correct positioning, Modified ADL techniques, Progress toward Goal/Update tx plan, Purpose of tx/functional activities, Reviewed precautions, Rehab process, Safety issues, Transfer techniques, Use of adapted equipment Teaching Recipient: Patient Teaching Methods: Demonstration, Discussion Response to Teaching: Reinforcement Needed OT Electrophysiologist Goals Electrophysiologist Goals Eating (QC): 6 Oral Hygiene (QC): 6 Toileting Hygiene (QC): 6 Shower/Bathe Self (QC): 6 Upper Body Dressing (QC): 6 Lower Body Dressing (QC): 6 On/Off Footwear (QC): 6 1=Demonstrate adherence to instructed precautions during ADL tasks. 2=Patient will verbalize/demonstrate understanding of assistive devices/modifications for ADL. 3=Patient will improve strength/tolerance for activity to enable patient to perform ADL's. OT Education/Plan Problem List/Assessment Assessment: Decreased Activ Tolerance, Decreased Safety Aware, Impaired Cognition, Impaired Coordination, Impaired Self-Care Skills Discharge Recommendations Plan/Recommendations: Continue POC Therapy Discharge Recommendati: Post Acute OT Treatment Plan/Plan of Care Treatment,Training & Education: Yes Patient would benefit from OT for education, treatment and training to promote independence in ADL's, mobility, safety and/or upper extremity function for ADL's. Plan of Care: ADL Retraining, Functional Mobility, Group Exercise/Act as Ind, UE Funct Exercise/Act Treatment Duration: Jul 16, 2023 Frequency: 3 times per week (3-5 times per week) Estimated Hrs Per Day: .25 hour per day Agreement: Yes Rehab Potential: Fair remain in bed w/ all needs met Time Start Time: 12:40 Stop Time: 12:58 DATE: Jul 06, 2023 Total Time Billed (hr/min): 18 Billed Treatment Time EVM 18 min RONALD CHEEMA OT Jul 06, 2023 12:55
[2023-07-06] MEDS ORDERED: methylPREDNISolone INJ 125 MG VIAL IVP NR (13:30)
[2023-07-06] MEDS ORDERED: MTP25TSR PO (13:43)
[2023-07-06] MEDS ORDERED: ASPI-999 PO (13:43)
[2023-07-06] MEDS ORDERED: DIGO125T3 PO (13:43)
[2023-07-06] MEDS ORDERED: APIX5TAB PO (13:43)
[2023-07-06] MEDS ORDERED: NF-SODBICA PO (13:43)
--- NOTE | 2023-07-06 14:55 | Consultation-Cardiology ---
HPI-Cardiology Cardiology Consultation: Date of Consultation 07/06/23 Time Seen by a Provider: 14:45 Date of Admission Attending Physician No,Local Physician Admitting Physician Admitting Physician: Elayne Wang MD Attending Physician: Elayne Wang MD Consulting Physician NAIDA WILEY MD, MA, FACP, FACC, FSCAI, CCDS HPI: Chief Complaint: Progressive dyspnea Ms. Valentine is a 77 yr old female admitted to 508 from the ED with c/o progressive dyspnea and confusion over the course of the last few days per the ED report. She is a poor historian and states she does not know for sure why she is here. She reports she has been more short of air and increasing fatigue. No c/o CP or palpitations. No c/o LE swelling. She states he niece makes sure she takes all of her medications so she believes she has been taking them. Ther e is no family at the bedside. Review of Systems-Cardiology Review of Systems Constitutional: No chills, No fever; malaise Eyes: No vision change Ears/Nose/Throat: No epistaxis, No recent hearing loss Respiratory: As described under HPI Cardiovascular: As described under HPI Gastrointestinal: No diarrhea, No nausea, No vomiting Genitourinary: No dysuria, No hematuria : No Skin: No rash on exposed areas, No ulcerations on exposed areas Psychiatric/Neurological: No seizure, No focal weakness, No syncope Hematologic: No bleeding abnormalities DVE-Rsfgwv-Aahmvq Hx Patient Social History Smoking Status: Former Smoker (quit 1 year ago) 2nd Hand Smoke Exposure: Yes Alcohol Use?: No Pt feels they are or have been: No Immunizations Up To Date Tetanus Booster (TDap): Unknown Date of Influenza Vaccine: May 30, 2019 Past Medical History PMH As described under Assessment. Family Medical History Family Medical History: She reports her mother had CAD with CABG. She reports her sister had a CVA. Allergies and Home Medications Allergies Coded Allergies: Penicillins (Verified Allergy, Unknown, 06/16/23) Patient Home Medication List Home Medication List Reviewed: Yes Acetaminophen/Diphenhydramine (Tylenol Pm Ex-Strength Caplet) 500 Mg-25 Mg Tablet, 2 EACH PO HS PRN for SLEEP, (Reported) Entered as Reported by: ARMANI BOYD on 06/16/23 7718 Last Action: Reviewed Apixaban (Eliquis) 5 Mg Tablet, 5 MG PO BID, (Reported) Entered as Reported by: ARMANI BOYD on 07/06/231342 Last Action: Reviewed Aspirin (Aspirin) 81 Mg Tab.chew, 81 MG PO DAILY, (Reported) Entered as Reported by: ARMANI BOYD on 07/06/231342 Last Action: Reviewed Cholecalciferol (Vitamin D3) (Vitamin D3) 50 Mcg (2000 Unit) Capsule, 50 MCG PO DAILY, (Reported) Entered as Reported by: ARMANI BOYD on 06/16/231442 Last Action: Reviewed Digoxin (Digoxin) 125 Mcg (0.125 Mg) Tablet, 125 MCG PO DAILY, (Reported) Entered as Reported by: ARMANI BOYD on 07/06/231342 Last Action: Reviewed Ferrous Sulfate (Iron) 325 Mg (65 Mg Iron) Tablet, 325 MG PO DAILY, (Reported) Entered as Reported by: ARMANI BOYD on 06/16/231442 Last Action: Reviewed Metoprolol Succinate (Metoprolol Succinate) 25 Mg Tab.er.24h, 25 MG PO DAILY, (Reported) Entered as Reported by: ARMANI BOYD on 07/06/231342 Last Action: Reviewed Sodium Bicarbonate (Sodium Bicarbonate) 650 Mg Tablet, 650 MG PO TID, (Reported) Entered as Reported by: ARMANI BOYD on 07/06/231342 Last Action: Reviewed Discontinued Medications Apixaban (Eliquis) 5 Mg Tablet, 5 MG PO BID Discontinued Reason: No Longer Taking Prescribed by: PATRICK FIGUEROA on 06/18/231049 Last Action: Discontinued Aspirin (Children's Aspirin) 81 Mg Tab.chew, 81 MG PO DAILY Discontinued Reason: No Longer Taking Prescribed by: PATRICK FIGUEROA on 06/18/231049 Last Action: Discontinued Digoxin (Digox) 125 Mcg (0.125 Mg) Tablet, 0.125 MG PO DAILY Discontinued Reason: No Longer Taking Prescribed by: PATRICK FIGUEROA on 06/18/231049 Last Action: Discontinued Metoprolol Succinate (Metoprolol Succinate) 25 Mg Tab.er.24h, 25 MG PO DAILY Discontinued Reason: No Longer Taking Prescribed by: PATRICK FIGUEROA on 06/18/231049 Last Action: Discontinued Sodium Bicarbonate (Sodium Bicarbonate) 650 Mg Tablet, 650 MG PO TID Discontinued Reason: No Longer Taking Prescribed by: PATRICK FIGUEROA on 06/18/23 1050 Last Action: Discontinued Physical Exam-Cardiology Physical Exam Vital Signs/I&O 07/06/23 07/06/23 07/06/23 07/06/23 07:34 07:34 07:34 09:10 Temp 35.5 Pulse 97 Resp 30 B/P (MAP) 125/85 (98) Pulse Ox 92 95 O2 Delivery Nasal Cannula Nasal Cannula Nasal Cannula Nasal Cannula O2 Flow Rate 2.00 2.00 2.00 07/06/23 07/06/23 07/06/23 07/06/23 10:40 11:04 11:04 11:57 Temp 36.3 Pulse 101 108 118 113 Resp 12 36 17 B/P (MAP) 116/99 133/62 (85) 123/97 (106) Pulse Ox 93 95 95 O2 Delivery Nasal Cannula Nasal Cannula Nasal Cannula O2 Flow Rate 3.00 2.00 3.50 07/06/23 13:00 Pulse 106 Capillary Refill : Constitutional: AAO x 3 (poor historian - she does not recall her hospital admission from earlier this month) HEENT: PERRL, hearing is well preserved Neck: carotid bruit, carotid pulses are 2 + bilaterally Respiratory: No accessory muscle use, No respiratory distress; chest expansion is symmetric, chest is bilaterally symmetric, other (diminished lower lobes with prolonged exp phase) Cardiovascular: irregularly irregular, S1 and S2 Gastrointestinal: No tender; soft; No guarding; audible bowel sounds Extremities: no lower extremity edema bilateral Neurologic/Psychiatric: other (moves all extremities) Skin: No rash on exposed areas, No ulcerations on exposed areas Data Review Labs Laboratory Tests 07/06/23 07:40: White Blood Count 8.2, Red Blood Count 3.61L, Hemoglobin 13.3, Hematocrit 42, Mean Corpuscular Volume 116H, Mean Corpuscular Hemoglobin 37H, Mean Corpuscular Hemoglobin Concent 32, Red Cell Distribution Width 16.5H, Platelet Count 91L, Mean Platelet Volume 13.1H, Immature Granulocyte % (Auto) 1, Neutrophils (%) (Auto) 76H, Lymphocytes (%) (Auto) 14, Monocytes (%) (Auto) 8, Eosinophils (%) (Auto) 0, Basophils (%) (Auto) 1, Neutrophils # (Auto) 6.2, Lymphocytes # (Auto) 1.2, Monocytes # (Auto) 0.7, Eosinophils # (Auto) 0.0, Basophils # (Auto) 0.1, Immature Granulocyte # (Auto) 0.1, Percent Immature Platelet Fraction 11.2H, Sodium Level 143, Potassium Level 4.3, Chloride Level 106, Carbon Dioxide Level 21, Anion Gap 16H, Blood Urea Nitrogen 22H, Creatinine 1.64H, Estimat Glomerular Filtration Rate 32, BUN/Creatinine Ratio 13, Glucose Level 139H, Calcium Level 8.8, Corrected Calcium 9.1, Magnesium Level 2.3, Total Bilirubin 2.0H, Aspartate Amino Transf (AST/SGOT) 34, Alanine Aminotransferase (ALT/SGPT) 20, Alkaline Phosphatase 119, Troponin I 0.151H, C-Reactive Protein High Sensitivity 2.25H, B-Type Natriuretic Peptide 4977.8H, Total Protein 6.9, Albumin 3.6, Digoxin Level 1.00, Influenza Type A (RT-PCR) Not Detected, Influenza Type B (RT-PCR) Not Detected, SARS-CoV-2 RNA (RT-PCR) Not Detected 07/06/23 09:42: Troponin I 0.147H, Procalcitonin 0.08 A/P-Cardiology Assessment/Admission Diagnosis Hypoxia - multi-factorial d/t acute on chronic exacerbation of COPD, pulmonary HTN, recent PE, diastolic CHF Recent Acute pulm embolism on 06-17-23 - Echo of 06/16/23 shows LVEF 60-65%, acute cor pulmonale, mod regurg of aortic and mitral and tricuspid valves, severe pulm htn (110-115 mmHg) - has been maintained on Eliquis Chronic minimally elevated troponin following PE in early Jun 2023 and hypoxia (type 2 [place]) PAF - first dx on tele during hospitalization on 06-17-23 - currently in a-fib Thrombocytopenia of undetermined etiology - management per medical services COPD Card cath of 08/23/18: mild CAD, mod to sev MR, pulmonary hypertension with mean pulmonary artery pressure 36 mmHg, LVEDP 8 mmHg, LVEF 50-55% CKD 4. previously followed with Dr. English of [facility] - has not seen anyone recently Renal artery stenosis - Renal u/s of November 2018 showed atrophic left kidney with right renal artery stenosis. - Abd aortic angio of 11/12/19 showed chronically occluded L renal artery, no significant stenosis of the R renal artery, severe atherosclerosis of the abd aorta mod infrarenal AAA, mod-sev dz of the aortoiliac bifurcation (70-80 ostial R iliac and approx 50% ostial L iliac) - AAA Sono of July 14, 2019 showed borderline aneurysmal dilatation to the prox abd aorta. Mid and distal abd aorta are normal Not suitable for LOUANN-inhib or ARB due to above-noted renal issues H/o hypertension Cigarette smoking - quit approx 2 months ago Carotid u/s of July 10, 2019 shows less than 40% R ICA stenosis, 60-79% L ICA stenosis Discussion and Recomendations Hypoxia - multi-factorial for reasons noted above PAF - currently a-fib - HR not well controlled - has not had medications - start Toprol XL 50mg (hold Digoxin for now and augment BB regimen) - continue OAC Recent dx with PE in early Jun 2023 - continue OAC - management per medical services Acute on chronic exacerbation of COPD - management per medical services Diastolic CHF - treat with diuretics CKD 4 - monitor lab closely Thrombocytopenia - management per medical services Carotid stenosis - low dose ASA Further recs will be based on her hospital course We would like to thank medical services for this consult NAIDA WILEY MD FACP FACC CCDS Jul 06, 2023 14:55
[2023-07-06 16:00] VITALS: BP 111/65
[2023-07-06 16:29] VITALS: BP 123/97
[2023-07-06] MEDS ORDERED: RT-Ipratropium/Albuterol NEB 3 ML VIAL INH PRN (16:45)
[2023-07-06] MEDS: methylPREDNISolone INJ 125 MG VIAL IVP SCH (18:18)
[2023-07-06] MEDS: RT-Ipratropium/Albuterol NEB 3 ML VIAL INH SCH ×2 (18:31→21:30)
[2023-07-06 20:01] VITALS: BP 108/69
[2023-07-06] MEDS: FUROSEMIDE INJECTION 40 MG/4 ML VIAL IV SCH (21:21)
[2023-07-06] MEDS: SODIUM BICARBONATE 650 MG TABLET PO SCH (21:21)
[2023-07-06] MEDS: APIXABAN 5 MG TABLET PO SCH (21:21)
[2023-07-06 22:00] VITALS: BP 109/80
[2023-07-06 23:44] LABS: CLARITY,URINE CLEAR; COLOR,URINE YELLOW; GLUCOSE, URINE (UA) NEGATIVE (NEGATIVE); KETONES,URINE NEGATIVE (NEGATIVE); NITRITE,URINE NEGATIVE (NEGATIVE); PH,URINE 5.5 (5-9); PROTEIN,URINE TRACE (NEGATIVE)
[2023-07-06 23:45] LABS: AMORPHOUS SEDIMENT,UR RARE AMOR URATES /LPF; BACTERIA,URINE NEGATIVE /HPF; BILIRUBIN,URINE NEGATIVE (NEGATIVE); LEUKOCYTE ESTERASE ,URINE NEGATIVE (NEGATIVE)
[2023-07-07] VITALS: BP 109/70
[2023-07-07] MEDS: methylPREDNISolone INJ 125 MG VIAL IVP SCH ×5 (00:11→23:25)
[2023-07-07] MEDS: ACETAMINOPHEN 325 MG TABLET PO PRN ×3 (00:14→16:20)
[2023-07-07] MEDS: RT-Ipratropium/Albuterol NEB 3 ML VIAL INH SCH ×6 (02:15→22:26)
[2023-07-07 04:00] VITALS: BP 109/67
[2023-07-07 04:46] LABS: HEMOGLOBIN 12.1 g/dL (11.5-16.0); MEAN PLATELET VOLUME 12.8 fL (9.0-12.2); WHITE BLOOD COUNT 4.6 10^3/uL (4.3-11.0)
[2023-07-07 05:24] LABS: CALCIUM 8.6 MG/DL (8.5-10.1); CREATININE SERUM 1.77 MG/DL (0.60-1.30); POTASSIUM 3.2 MMOL/L (3.6-5.0)
[2023-07-07 08:00] VITALS: BP 126/73
--- NOTE | 2023-07-07 08:24 | Progress Note - Cardiology ---
Cardiology SOAP Progress Note Subjective: Drowsy this morning, but does awaken and answers questions She denies any pain, but when asked if her breathing is better she states "I don't know" Breathing appears less labored this morning Objective: I&O/Vital Signs 07/07/23 07/07/23 07/08/23 07/08/23 22:26 23:13 00:00 00:05 Temp 36.8 Pulse 137 93 Resp 19 B/P (MAP) 92/68 (76) Pulse Ox 96 98 O2 Delivery Nasal Cannula Nasal Cannula O2 Flow Rate 5.00 2.00 07/08/23 07/08/23 07/08/23 07/08/23 00:25 03:16 04:00 06:25 Pulse 109 86 Resp 15 B/P (MAP) 105/73 (84) Pulse Ox 99 99 98 O2 Delivery Nasal Cannula Nasal Cannula Nasal Cannula O2 Flow Rate 3.00 3.00 4.00 07/08/23 07/08/23 07/08/23 08:08 08:10 08:10 Temp 36.0 Pulse 100 86 Resp 22 B/P (MAP) 90/65 (73) Pulse Ox 96 96 O2 Delivery Nasal Cannula Nasal Cannula O2 Flow Rate 3.00 3.00 07/07/23 23:59 Intake Total 350 ml Output Total 1700 ml Balance -1350 ml Weight (Pounds): 138 Weight (Ounces): 7.0 Weight (Calculated Kilograms): 62.775233 Constitutional: AAO x 3 (poor historian) Respiratory: No accessory muscle use, No respiratory distress; chest expansion is symmetric, chest is bilaterally symmetric, other (diminished lower lobes with prolonged exp phase) Cardiovascular: irregularly irregular, S1 and S2 Gastrointestional: No tender; soft; No guarding; audible bowel sounds Extremities: no lower extremity edema bilateral Neurologic/Psychiatric: other (moves all extremities) Skin: No rash on exposed areas, No ulcerations on exposed areas Results/Procedures: Labs Laboratory Tests 07/07/23 09:56: Arterial Blood pH 7.56H, Arterial Blood Partial Pressure CO2 38, Arterial Blood Partial Pressure O2 67L, Arterial Blood HCO3 34H, Arterial Blood Total CO2 35.2H , Arterial Blood Oxygen Saturation 94, Arterial Blood Base Excess 11.0H, Blood Gas Ventilator Setting NO, Blood Gas Inspired Oxygen 2 07/08/23 04:05: White Blood Count 14.6H, Red Blood Count 3.27L, Hemoglobin 11.8, Hematocrit 37, Mean Corpuscular Volume 113H, Mean Corpuscular Hemoglobin 36H, Mean Corpuscular Hemoglobin Concent 32, Red Cell Distribution Width 15.7H, Platelet Count 76L, Mean Platelet Volume 12.9H, Percent Immature Platelet Fraction 12.7H, Sodium Level 138, Potassium Level 3.6, Chloride Level 99, Carbon Dioxide Level 26, Anion Gap 13, Blood Urea Nitrogen 37H, Creatinine 1.87H, Estimat Glomerular Filtration Rate 27, BUN/Creatinine Ratio 20, Glucose Level 202H, Calcium Level 8.7 A/P: Assessment: Hypoxia - multi-factorial d/t acute on chronic exacerbation of COPD, pulmonary HTN, recent PE, diastolic CHF Recent Acute pulm embolism on 06-17-23 - Echo of 06/16/23 shows LVEF 60-65%, acute cor pulmonale, mod regurg of aortic and mitral and tricuspid valves, severe pulm htn (110-115 mmHg) - has been maintained on Eliquis Chronic minimally elevated troponin following PE in early Jun 2023 and hypoxia (type 2 [place]) PAF - first dx on tele during hospitalization on 06-17-23 - currently in SR with controlled rate Thrombocytopenia of undetermined etiology - management per medical services COPD Card cath of 08/23/18: mild CAD, mod to sev MR, pulmonary hypertension with mean pulmonary artery pressure 36 mmHg, LVEDP 8 mmHg, LVEF 50-55% CKD 4. previously followed with Dr. English of [facility] - has not seen anyone recently Renal artery stenosis - Renal u/s of November 2018 showed atrophic left kidney with right renal artery stenosis. - Abd aortic angio of 06/20/19 showed chronically occluded L renal artery, no significant stenosis of the R renal artery, severe atherosclerosis of the abd aorta mod infrarenal AAA, mod-sev dz of the aortoiliac bifurcation (70-80 ostial R iliac and approx 50% ostial L iliac) - AAA Sono of July 14, 2019 showed borderline aneurysmal dilatation to the prox abd aorta. Mid and distal abd aorta are normal Not suitable for LOUANN-inhib or ARB due to above-noted renal issues H/o hypertension Cigarette smoking - quit approx 2 months ago Carotid u/s of July 10, 2019 shows less than 40% R ICA stenosis, 60-79% L ICA stenosis ?Dementia Plan: Hypoxia - multi-factorial for reasons noted above - improving PAF - currently SR - continue Toprol XL - continue OAC Recent dx with PE in early Jun 2023 - continue OAC - management per medical services Acute on chronic exacerbation of COPD - management per medical services Diastolic CHF - treat with diuretics - improving CKD 4 - monitor lab closely Thrombocytopenia - management per medical services - platelet count down from yesterday Carotid stenosis - low dose ASA Continue to monitor lab closely ANNA RADFORD Jul 07, 2023 08:24
[2023-07-07] MEDS ORDERED: DIGOXIN 0.125 MG TABLET PO SCH (09:00)
[2023-07-07] MEDS ORDERED: ASPIRIN 81 MG CHEWABLE TABLET PO SCH (09:00)
[2023-07-07] MEDS ORDERED: POTASSIUM CHLORIDE 20 MEQ TABLET PO ONE (09:15)
[2023-07-07] MEDS: ASPIRIN 81 MG CHEWABLE TABLET PO SCH (09:32)
[2023-07-07] MEDS: APIXABAN 5 MG TABLET PO SCH ×2 (09:32→20:53)
[2023-07-07] MEDS: SODIUM BICARBONATE 650 MG TABLET PO SCH ×2 (09:32→13:10)
[2023-07-07] MEDS: FUROSEMIDE INJECTION 40 MG/4 ML VIAL IV SCH ×2 (09:32→20:53)
[2023-07-07 10:12] LABS: ABG OXYGEN SATURATION 94 % (94-100); ABG PCO2 38 MMHG (35-45); ABG PH 7.56 (7.37-7.43); ABG PO2 67 MMHG (79-93); ABG TCO2 35.2 MMOL/L (21.0-31.0)
[2023-07-07 10:13] LABS: INSPIRED O2 2; VENTILATOR NO
--- NOTE | 2023-07-07 10:19 | Progress Note - Hospitalist ---
SEGUNDO REESE 07/07/23 1019: Subjective HPI/CC On Admission Date Seen by Provider: Jul 07, 2023 Time Seen by Provider: 10:13 Pt is a 77 y/o female who presents to the ER with worsening SOB and confusion. She is joined by her niece who gives much of her hx d/t confusion. Pt presented to the hospital on 06/16 with an NSTEMI and her niece states that she has not been the same since. She states that the pt has been feeling sick for the last week with increasingly worsening sxs this AM. In the ER, her O2 was 85-91% on room air and she was struggling to breath with an elevated respiratory rate. States that she is not on O2 at home normally. Denies any sick contacts. Denies cough or fever. Pt reports that she has been feeling weak with increasing dyspnea and shakiness. Niece states that she has had some diarrhea the last few days but pt denies any abd pain or blood in stool. Denies vomiting or nausea. In the ER, pt was given Lasix 40 mg IV and duonab and denies any improvement in how she feels. Niece thinks she has more color in her face compared to when she first came in. Pt has a Pmhx significant for COPD, Afib, renal artery stenosis of L renal artery- CKD, MR, , severe TR, pulmonary HTN, HTN, NSTEMI. Subjective/Events-last exam Pt is drowsy this morning and is more confused than when she was seen in the ER yesterday. Does not know why she is here in the hospital, where she lives, and asks the same questions repeatedly during a conversation. She often repeats herself. She states that she thinks her breathing is no different than yesterday, although she appears far less out of breath this AM compared to yesterday. Nurse states that she gets short of breath when moving around. Denies CP. She is normally joined by her niece, Dawna, but she is not present this morning. Objective Exam Vital Signs Vital Signs Date Time Temp Pulse Resp B/P (MAP) Pulse Ox O2 Delivery O2 Flow Rate FiO2 07/07/23 09:44 93 Nasal Cannula 2.00 07/07/23 08:00 80 36 126/73 (90) 07/07/23 03:59 36.5 Capillary Refill : General Appearance: Anxious, Chronically ill, Other (very confused) HEENT: PERRL/EOMI, Normal ENT Inspection Neck: Normal Inspection, Non Tender Respiratory: No Respiratory Distress, Crackles, Decreased Breath Sounds Cardiovascular: Diastolic Murmur, Systolic Murmur, Gallop/S3, Irregularly Irregular Gastrointestinal: Normal Bowel Sounds, Non Tender, Soft Extremity: Normal Inspection, Non Tender, No Calf Tenderness, No Pedal Edema Neurologic/Psychiatric: Disoriented, Other (very confused. often repeating herself. ) Skin: Normal Color, Warm/Dry Lymphatic: No Adenopathy Results/Procedures Lab Laboratory Tests 07/07/23 03:40 Patient resulted labs reviewed. Imaging: Reviewed Imaging Report Assessment/Plan Assessment and Plan Assess & Plan/Chief Complaint Acute hypoxic respiratory failure secondary to COPD and/or CHF. - ABG ordered - O2 via nasal cannula if needed - Continue duoneb - Continue methylprednisone 62.5 mg IV - Continue Lasix 40 mg IV BID - Continue metoprolol 25 mg PO/d - Cardiology consulted, appreciate recommendations Hx of STEMI/PE - Troponin elevated but trending down from when she was last in the hospital 06/16 for an NSTEMI. Delayed clearance likely d/t renal failure - Cardiology consulted, appreciate recommendations Afib - Continue metoprolol 25 mg PO/d - Continue Eliquis 5 mg PO BID - Cardiology consulted, appreciate recommendations JAYLYN WANG MD 07/07/23 1133: Assessment/Plan Assessment and Plan Assess & Plan/Chief Complaint Pt more confused this morning. Speaking clearly but not sure on where she is or why she is here. When explained to her she seems to understand. No family at bedside. 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 Spoke with Dr Bowser, will continue diuresis. Wean oxygen as able. Supervisory-Addendum Brief Verification & Attestation Participated in pt care: history, MDM, physical Personally performed: exam, history, MDM, supervision of care Care discussed with: Medical Student Procedures: n/a Results interpretation: Verified all documentation Verification and Attestation of Medical Student E/M Service A medical student performed and documented this service in my presence. I reviewed and verified all information documented by the medical student and made modifications to such information, when appropriate. I personally performed the physical exam and medical decision making. Jaylyn Wang, Jul 07, 2023,11:28 SEGUNDO REESE Jul 07, 2023 10:19 JAYLYN WANG MD Jul 07, 2023 11:33
--- NOTE | 2023-07-07 11:53 | Occupational Ther Daily Note ---
OT Current Status-Daily Note Subjective Remains mildly confused, agrees to therapy, questions where he niece is Pain Location: No Pain Reported Mental Status/Objective Patient Orientation: Person, Place (Mahendra Waddell) Attachments: IV, Oxygen, Telemetry Does not know why she is here ADL-Treatment Dons sock in bed, transfers from bed to BSC to recliner CGA. Perform toilet hygiene and clothing management CGA, limited safety awareness and problem solving Therapy Code Descriptions/Definitions Functional [place] Measure: 0=Not Assessed/NA 4=Minimal Assistance 1=Total Assistance 5=Supervision or Setup 2=Maximal Assistance 6=Modified [place] 3=Moderate Assistance 7=Complete IndependenceSCALE: Activities may be completed with or without assistive devices. 8-Chnvjuabzz-wmhktjn completes the activity by him/herself with no assistance from a helper. 5-Set-up or Clean-up Assistance-helper sets up or cleans up; patient completes activity. [place] assists only prior to or following the activity. 4-Supervision or Touching Assistance-helper provides verbal cues and/or touching/steadying and/or contact guard assistance as patient completes activity. Assistance may be provided throughout the activity or intermittently. 3-Partial/Moderate Assistance-helper does LESS THAN HALF the effort. [place] lifts, holds or supports trunk or limbs, but provides less than half the effort. 2-Substantial/Maximal Assistance-helper does MORE THAN HALF the effort. [place] lifts or holds trunk or limbs and provides more than half the effort. 9-Iyqogvcxg-zcpzss does ALL the effort. Patient does none of the effort to complete the activity. Or, the assistance of 2 or more helpers is required for the patient to complete the activity. If activity was not attempted, code reason: 7-Patient Refused. 9-Not Applicable-not attempted and the patient did not perform the activity before the current illness, exacerbation or injury. 10-Not Attempted due to Environmental Limitations-(lack of equipment, weather restraints, etc.). 88-Not Attempted due to Medical Conditions or Safety Concerns. Eating (QC): 5 Oral Hygiene (QC): 5 (set up denture care) On/Off Footwear: 5 Toileting Hygiene (QC): 4 Toilet Transfer (QC): 4 Education OT Patient Education: Correct positioning, Modified ADL techniques, Progress toward Goal/Update tx plan, Purpose of tx/functional activities, Reviewed precautions, Rehab process, Safety issues, Transfer techniques Teaching Recipient: Patient Teaching Methods: Demonstration, Discussion Response to Teaching: Reinforcement Needed OT Residential Goals Character Impersonator Goals Eating (QC): 6 Oral Hygiene (QC): 6 Toileting Hygiene (QC): 6 Shower/Bathe Self (QC): 6 Upper Body Dressing (QC): 6 Lower Body Dressing (QC): 6 On/Off Footwear (QC): 6 1=Demonstrate adherence to instructed precautions during ADL tasks. 2=Patient will verbalize/demonstrate understanding of assistive devices/modifications for ADL. 3=Patient will improve strength/tolerance for activity to enable patient to perform ADL's. OT Education/Plan Discharge Recommendations Plan/Recommendations: Continue POC Treatment Plan/Plan of Care Patient would benefit from OT for education, treatment and training to promote independence in ADL's, mobility, safety and/or upper extremity function for ADL's. Plan of Care: ADL Retraining, Functional Mobility, Group Exercise/Act as Ind, UE Funct Exercise/Act Treatment Duration: Jul 16, 2023 Frequency: 3 times per week (3-5 times per week) Estimated Hrs Per Day: .25 hour per day Agreement: Yes Rehab Potential: Fair Time Start Time: 11:30 Stop Time: 11:46 DATE: Jul 07, 2023 Total Time Billed (hr/min): 16 Billed Treatment Time ADL 16 min RONALD CHEEMA OT Jul 07, 2023 11:53
[2023-07-07 12:00] VITALS: BP 107/74
--- NOTE | 2023-07-07 13:17 | Progress Note - Cardiology ---
Cardiology SOAP Progress Note Subjective: Gen malaise present No cp No palp No syncope Shortness of breath better Objective: I&O/Vital Signs 07/07/23 07/07/23 07/07/23 07/07/23 02:15 03:59 04:00 07:00 Temp 36.5 Pulse 92 81 B/P (MAP) 109/67 (91) Pulse Ox 96 93 O2 Delivery Nasal Cannula Nasal Cannula O2 Flow Rate 4.00 2.00 07/07/23 07/07/23 07/07/23 07/07/23 07:03 08:00 08:00 09:44 Pulse 80 Resp 36 B/P (MAP) 126/73 (90) Pulse Ox 99 95 91 93 O2 Delivery Nasal Cannula Nasal Cannula Nasal Cannula Nasal Cannula O2 Flow Rate 2.00 3.00 3.00 2.00 07/07/23 12:00 Pulse 61 B/P (MAP) 107/74 (90) Pulse Ox 94 O2 Delivery Nasal Cannula O2 Flow Rate 3.00 07/06/23 23:59 Intake Total 750 ml Output Total 2400 ml Balance -1650 ml Weight (Pounds): 138 Weight (Ounces): 7.0 Weight (Calculated Kilograms): 62.430679 Constitutional: No AAO x 3 (poor historian); other (mildly confused) Respiratory: No accessory muscle use, No respiratory distress; chest expansion is symmetric, chest is bilaterally symmetric, other (diminished lower lobes with prolonged exp phase) Cardiovascular: irregularly irregular, S1 and S2 Gastrointestional: No tender; soft; No guarding; audible bowel sounds Extremities: no lower extremity edema bilateral Neurologic/Psychiatric: other (moves all extremities) Skin: No rash on exposed areas, No ulcerations on exposed areas Results/Procedures: Labs Laboratory Tests 07/06/23 23:20: Urine Color YELLOW, Urine Clarity CLEAR, Urine pH 5.5, Urine Specific [place] 1.010L, Urine Protein TRACEH, Urine Glucose (UA) NEGATIVE, Urine Ketones NEGATIVE, Urine Nitrite NEGATIVE, Urine Bilirubin NEGATIVE, Urine Urobilinogen 0.2, Urine Leukocyte Esterase NEGATIVE, Urine RBC (Auto) TRACEH, Urine RBC NONE, Urine WBC NONE, Urine Squamous Epithelial Cells 2-5, Urine Crystals PRESENTH, Urine Amorphous Sediment RARE SHANE URATESH, Urine Bacteria NEGATIVE, Urine Casts PRESENT, Urine Hyaline Casts 2-5H, Urine Mucus SMALLH, Urine Culture Indicated NO 07/07/23 03:40: White Blood Count 4.6, Red Blood Count 3.29L, Hemoglobin 12.1, Hematocrit 38, Mean Corpuscular Volume 114H, Mean Corpuscular Hemoglobin 37H, Mean Corpuscular Hemoglobin Concent 32, Red Cell Distribution Width 15.8H, Platelet Count 75L, Mean Platelet Volume 12.8H, Percent Immature Platelet Fraction 12.5H, Sodium Level 141, Potassium Level 3.2L, Chloride Level 103, Carbon Dioxide Level 26, Anion Gap 12, Blood Urea Nitrogen 29H, Creatinine 1.77H, Estimat Glomerular Filtration Rate 29, BUN/Creatinine Ratio 16, Glucose Level 198H, Calcium Level 8.6 07/07/23 09:56: Arterial Blood pH 7.56H, Arterial Blood Partial Pressure CO2 38, Arterial Blood Partial Pressure O2 67L, Arterial Blood HCO3 34H, Arterial Blood Total CO2 35.2H , Arterial Blood Oxygen Saturation 94, Arterial Blood Base Excess 11.0H, Blood Gas Ventilator Setting NO, Blood Gas Inspired Oxygen 2 Laboratory Tests 07/06/23 07:40 07/07/23 03:40 A/P: Assessment: Hypoxia - multi-factorial d/t acute on chronic exacerbation of COPD, pulmonary HTN, recent PE, diastolic CHF Recent Acute pulm embolism on 06-17-23 - Echo of 06/16/23 shows LVEF 60-65%, acute cor pulmonale, mod regurg of aortic and mitral and tricuspid valves, severe pulm htn (110-115 mmHg) - has been maintained on Eliquis Chronic minimally elevated troponin following PE in early Jun 2023 and hypoxia (type 2 OK) PAF - first dx on tele during hospitalization on 06-17-23 - currently in SR with controlled rate Thrombocytopenia of undetermined etiology - management per medical services COPD Card cath of 08/23/18: mild CAD, mod to sev MR, pulmonary hypertension with mean pulmonary artery pressure 36 mmHg, LVEDP 8 mmHg, LVEF 50-55% CKD 4. previously followed with Dr. English of [facility] - has not seen anyone recently Renal artery stenosis - Renal u/s of November 2018 showed atrophic left kidney with right renal artery stenosis. - Abd aortic angio of 06/20/19 showed chronically occluded L renal artery, no significant stenosis of the R renal artery, severe atherosclerosis of the abd aorta mod infrarenal AAA, mod-sev dz of the aortoiliac bifurcation (70-80 ostial R iliac and approx 50% ostial L iliac) - AAA Sono of July 14, 2019 showed borderline aneurysmal dilatation to the prox abd aorta. Mid and distal abd aorta are normal Not suitable for LOUANN-inhib or ARB due to above-noted renal issues H/o hypertension Cigarette smoking - quit approx 2 months ago Carotid u/s of July 10, 2019 shows less than 40% R ICA stenosis, 60-79% L ICA stenosis ?Dementia Plan: Hypoxia - multi-factorial for reasons noted above - improving PAF - currently SR - continue Toprol XL - continue OAC Recent dx with PE in early Jun 2023 - continue OAC - management per medical services Acute on chronic exacerbation of COPD - management per medical services Diastolic CHF - treat with diuretics - improving CKD 4 - monitor lab closely Thrombocytopenia - management per medical services - platelet count down from yesterday Carotid stenosis - low dose ASA Replenisk K. Continue to monitor lab closely Discussed with NAIDA Tobias MD FACP FACC CCDS Jul 07, 2023 13:17
--- NOTE | 2023-07-07 15:59 | Physical Therapy Daily Note ---
PT Daily Note-Current Subjective Patient lying supine in bed upon PT arrival, agreeable to treatment. Patient rates pain at 0/10 currently. Pain Section J - Health Conditions 1. Rarely or not at all 2. Occasionally 3. Frequently 4. Almost constantly 8. Unable to answer Pain Effect on Sleep: 1 Pain Interference with Therapy: 1 Pain Interference w/Day-to-Day: 1 Transfers SCALE: Activities may be completed with or without assistive devices. 5-Wfvjarrhnc-amnzcfj completes the activity by him/herself with no assistance from a helper. 5-Set-up or Clean-up Assistance-helper sets up or cleans up; patient completes activity. [place] assists only prior to or following the activity. 4-Supervision or Touching Assistance-helper provides verbal cues and/or touching/steadying and/or contact guard assistance as patient completes activity. Assistance may be provided throughout the activity or intermittently. 3-Partial/Moderate Assistance-helper does LESS THAN HALF the effort. [place] lif ts, holds or supports trunk or limbs, but provides less than half the effort. 2-Substantial/Maximal Assistance-helper does MORE THAN HALF the effort. [place] lifts or holds trunk or limbs and provides more than half the effort. 9-Xzsnlijpv-datdji does ALL the effort. Patient does none of the effort to complete the activity. Or, the assistance of 2 or more helpers is required for the patient to complete the activity. If activity was not attempted, code reason: 7-Patient Refused. 9-Not Applicable-not attempted and the patient did not perform the activity before the current illness, exacerbation or injury. 10-Not Attempted due to Environmental Limitations-(lack of equipment, weather restraints, etc.). 88-Not Attempted due to Medical Conditions or Safety Concerns. Roll Left & Right (QC): 4 Sit to Lying (QC): 4 Lying to Sitting/Side of Bed(Q: 4 Sit to Stand (QC): 4 Gait Training Does the Patient Walk?: Yes Distance: 50' Walk 10 feet (QC): 4 Walk 50 ft with 2 Turns(QC): 4 Gait Assistive Device: None Assessment Current Status: Fair Progress Patient performed all observed bed mobility and transfers with SBA. Patient ambulates 50 feet in the room with CGA, no Assistive device, and verbal cues for safety, progression, balance and conservation of energy. Patient in bed post t reatment with all needs met, nursing notified, call light in hand. PT Nursing Home Goals Clipper Machine Operator Goals PT Nursing Home Goals Time Frame: Jul 17, 2023 Roll Left & Right (QC): 6 Sit to Lying (QC): 6 Lying-Sitting on Side/Bed(QC): 6 Sit to Stand (QC): 6 Chair/Eii-yl-Bizcu Xfer(QC): 6 Toilet Transfer (QC): 6 Walk 10 feet (QC): 5 Walk 50ft with 2 Turns (QC): 5 Walk 150 ft (QC): 5 PT Plan Treatment/Plan Treatment Plan: Continue Plan of Care Treatment Plan: Bed Mobility, Education, Functional Activity Gely, Functional Strength, Gait, Safety, Therapeutic Exercise, Transfers Treatment Duration: Jul 17, 2023 Frequency: 5 times per week Estimated Hrs Per Day: .25 hour per day Safety Risks/Education Patient Education: Gait Training, Transfer Techniques Teaching Recipient: Patient Teaching Methods: Demonstration, Discussion Response to Teaching: Verbalize Understanding, Return Demonstration Time Time In: 1503 Time Out: 1515 DATE: Jul 07, 2023 Total Billed Treatment Time: 12 Total Billed Treatment Visit, GT MARSHA DARLING PT Jul 07, 2023 15:59
[2023-07-07 16:00] VITALS: BP 106/78
[2023-07-07 20:00] VITALS: BP 89/67
[2023-07-07] MEDS: MELATONIN 3 MG TABLET PO PRN (23:25)
[2023-07-08] VITALS (10 sets, daily range): BP systolic 86–152; BP diastolic 54–77
[2023-07-08] MEDS: RT-Ipratropium/Albuterol NEB 3 ML VIAL INH SCH ×5 (03:16→18:58)
[2023-07-08 04:14] LABS: HEMOGLOBIN 11.8 g/dL (11.5-16.0); MEAN PLATELET VOLUME 12.9 fL (9.0-12.2); WHITE BLOOD COUNT 14.6 10^3/uL (4.3-11.0)
[2023-07-08 04:30] LABS: POTASSIUM 3.6 MMOL/L (3.6-5.0)
[2023-07-08 04:31] LABS: CALCIUM 8.7 MG/DL (8.5-10.1)
[2023-07-08 04:36] LABS: CREATININE SERUM 1.87 MG/DL (0.60-1.30)
[2023-07-08] MEDS: methylPREDNISolone INJ 125 MG VIAL IVP SCH (05:57)
[2023-07-08] MEDS: APIXABAN 5 MG TABLET PO SCH ×2 (08:10→19:32)
[2023-07-08] MEDS: FUROSEMIDE INJECTION 40 MG/4 ML VIAL IV SCH (08:10)
[2023-07-08] MEDS: ASPIRIN 81 MG CHEWABLE TABLET PO SCH (08:10)
--- NOTE | 2023-07-08 08:29 | Progress Note - Cardiology ---
Cardiology SOAP Progress Note Subjective: More alert this morning Assisted to sit up for breakfast C/O gen fatigue Continues to c/o shortness of breath Objective: I&O/Vital Signs 07/08/23 07/09/23 07/09/23 07/09/23 23:39 03:32 07:11 08:30 Temp 36.6 36.0 36.2 Pulse 99 91 77 Resp 18 18 16 B/P (MAP) 123/77 (92) 105/65 (78) 133/75 (94) Pulse Ox 96 94 99 O2 Delivery Nasal Cannula Nasal Cannula Nasal Cannula Nasal Cannula O2 Flow Rate 2.00 2.00 1.00 1.00 2.00 2.00 07/09/23 07/09/23 09:38 10:28 B/P (MAP) Pulse Ox 95 O2 Delivery Nasal Cannula O2 Flow Rate 1.00 07/08/23 23:59 Intake Total 1080 ml Output Total 0 ml Balance 1080 ml Weight (Pounds): 138 Weight (Ounces): 7.0 Weight (Calculated Kilograms): 62.253908 Constitutional: other Respiratory: chest expansion is symmetric, chest is bilaterally symmetric, other Cardiovascular: irregularly irregular, S1 and S2 Gastrointestional: soft, audible bowel sounds Extremities: no lower extremity edema bilateral Neurologic/Psychiatric: other Skin: No rash on exposed areas, No ulcerations on exposed areas Results/Procedures: Labs Laboratory Tests 07/09/23 05:19: White Blood Count 16.0H, Red Blood Count 3.32L, Hemoglobin 12.1, Hematocrit 39, Mean Corpuscular Volume 117H, Mean Corpuscular Hemoglobin 36H, Mean Corpuscular Hemoglobin Concent 31L, Red Cell Distribution Width 15.9H, Platelet Count 87L, Mean Platelet Volume 12.7H, Percent Immature Platelet Fraction 11.1H, Sodium Level 138, Potassium Level 3.6, Chloride Level 102, Carbon Dioxide Level 27, Anion Gap 9, Blood Urea Nitrogen 45H, Creatinine 1.85H, Estimat Glomerular Filtration Rate 28, BUN/Creatinine Ratio 24, Glucose Level 176H, Calcium Level 8.7, Magnesium Level 2.0, Digoxin Level 0.86 A/P: Assessment: Hypoxia - multi-factorial d/t acute on chronic exacerbation of COPD, pulmonary HTN, recent PE, diastolic CHF - Recent Acute pulm embolism on 06-17-23 - Echo of 06/16/23 shows LVEF 60-65%, acute cor pulmonale, mod regurg of aortic and mitral and tricuspid valves, severe pulm htn (110-115 mmHg) - has been maintained on Eliquis Chronic minimally elevated troponin following PE in early Jun 2023 and hypoxia (type 2 HI) PAF - first dx on tele during hospitalization on 06-17-23 - currently in SR with controlled rate Thrombocytopenia of undetermined etiology - management per medical services COPD Card cath of 08/23/18: mild CAD, mod to sev MR, pulmonary hypertension with mean pulmonary artery pressure 36 mmHg, LVEDP 8 mmHg, LVEF 50-55% CKD 4. previously followed with Dr. English of [facility] - has not seen anyone recently Renal artery stenosis - Renal u/s of November 2018 showed atrophic left kidney with right renal artery stenosis. - Abd aortic angio of 06/20/19 showed chronically occluded L renal artery, no significant stenosis of the R renal artery, severe atherosclerosis of the abd aorta mod infrarenal AAA, mod-sev dz of the aortoiliac bifurcation (70-80 ostial R iliac and approx 50% ostial L iliac) - AAA Sono of July 14, 2019 showed borderline aneurysmal dilatation to the prox abd aorta. Mid and distal abd aorta are normal Not suitable for LOUANN-inhib or ARB due to above-noted renal issues H/o hypertension Cigarette smoking - quit approx 2 months ago Carotid u/s of July 10, 2019 shows less than 40% R ICA stenosis, 60-79% L ICA stenosis ?Dementia Plan: Hypoxia - multi-factorial for reasons noted above - improving PAF - rates controlled - continue OAC Recent dx with PE in early Jun 2023 - continue OAC - management per medical services Acute on chronic exacerbation of COPD - management per medical services Diastolic CHF - worsening renal function - change to oral starting tomorrow CKD 4 - monitor lab closely Thrombocytopenia - management per medical services - platelet count down from yesterday Carotid stenosis - low dose ASA Replenisk K. Continue to monitor lab closely ANNA RADFORD Jul 08, 2023 08:29
--- NOTE | 2023-07-08 11:14 | Progress Note - Hospitalist ---
SEGUNDO REESE 07/08/23 1114: Subjective HPI/CC On Admission Date Seen by Provider: Jul 08, 2023 Time Seen by Provider: 11:09 Pt is a 77 y/o female who presents to the ER with worsening SOB and confusion. She is joined by her niece who gives much of her hx d/t confusion. Pt presented to the hospital on 06/16 with an NSTEMI and her niece states that she has not been the same since. She states that the pt has been feeling sick for the last week with increasingly worsening sxs this AM. In the ER, her O2 was 85-91% on room air and she was struggling to breath with an elevated respiratory rate. States that she is not on O2 at home normally. Denies any sick contacts. Denies cough or fever. Pt reports that she has been feeling weak with increasing dyspnea and shakiness. Niece states that she has had some diarrhea the last few days but pt denies any abd pain or blood in stool. Denies vomiting or nausea. In the ER, pt was given Lasix 40 mg IV and duonab and denies any improvement in how she feels. Niece thinks she has more color in her face compared to when she first came in. Pt has a Pmhx significant for COPD, Afib, renal artery stenosis of L renal artery- CKD, MR, , severe TR, pulmonary HTN, HTN, NSTEMI. Subjective/Events-last exam Pt is alert and far less confused today than she was yesterday morning. She is still fairly disoriented at times and reports medical hx which is not always accurate. She reports continued dyspnea although she states that it is improved from when she first came into the ER. She states that she gets significantly out of breath when getting up to go to the bathroom. Was able to walk 50 steps in the room with PT without a device. Objective Exam Vital Signs Vital Signs Date Time Temp Pulse Resp B/P (MAP) Pulse Ox O2 Delivery O2 Flow Rate FiO2 07/08/23 08:10 86 07/08/23 08:10 96 Nasal Cannula 3.00 07/08/23 08:08 36.0 22 90/65 (73) Capillary Refill : General Appearance: No Apparent Distress, Chronically ill HEENT: PERRL/EOMI, Normal ENT Inspection Neck: Normal Inspection, Non Tender, Supple Respiratory: Chest Non Tender, Crackles, Expiration Cardiovascular: Gallop/S3, Irregularly Irregular Gastrointestinal: Normal Bowel Sounds, Non Tender, Soft Extremity: Normal Inspection, Non Tender, No Calf Tenderness, No Pedal Edema Neurologic/Psychiatric: Alert, No Motor/Sensory Deficits, Normal Mood/Affect, Disoriented Skin: Normal Color, Warm/Dry Lymphatic: No Adenopathy Results/Procedures Lab Laboratory Tests 07/08/23 04:05 Patient resulted labs reviewed. Imaging: Reviewed Imaging Report Assessment/Plan Assessment and Plan Assess & Plan/Chief Complaint Acute hypoxic respiratory failure secondary to COPD and/or CHF. - O2 via nasal cannula, currently on 4 L - Continue duoneb - Continue methylprednisone 62.5 mg IV for full 5 day course and then convert to prednisone 40 mg PO - Switch Lasix 40 mg from IV to PO BID - Continue metoprolol 25 mg PO/d - PT/OT referral. IRF eval - Cardiology consulted, appreciate recommendations Hx of STEMI/PE - Troponin elevated but trending down from when she was last in the hospital 08/16 for an NSTEMI. Delayed clearance likely d/t renal failure - Cardiology consulted, appreciate recommendations Afib - Continue metoprolol 25 mg PO/d - Continue Eliquis 5 mg PO BID - Cardiology consulted, appreciate recommendations JAYLYN WANG MD 07/08/23 1147: Assessment/Plan Assessment and Plan Assess & Plan/Chief Complaint Pt doing better today. Still SOB but mentation is much improved. Working with PT while I was in the room. No new complaints. Will switch to oral lasix. Continue steroids but switch to prednisone. Transfer to [facility] with tele. Supervisory-Addendum Brief Verification & Attestation Participated in pt care: history, MDM, physical Personally performed: exam, history, MDM, supervision of care Care discussed with: Medical Student Procedures: n/a Results interpretation: Verified all documentation Verification and Attestation of Medical Student E/M Service A medical student performed and documented this service in my presence. I reviewed and verified all information documented by the medical student and made modifications to such information, when appropriate. I personally performed the physical exam and medical decision making. Jaylyn Wang, Jul 08, 2023,11:42 SEGUNDO REESE Jul 08, 2023 11:14 JAYLYN WANG MD Jul 08, 2023 11:47
--- NOTE | 2023-07-08 11:35 | Physical Therapy Daily Note ---
PT Daily Note-Current Subjective Patient agrees to therapy. Patient requires time to wake up and participate. Pain Section J - Health Conditions 1. Rarely or not at all 2. Occasionally 3. Frequently 4. Almost constantly 8. Unable to answer Pain Effect on Sleep: 1 Pain Interference with Therapy: 1 Pain Interference w/Day-to-Day: 1 Transfers SCALE: Activities may be completed with or without assistive devices. 7-Hgryguqaju-pwagwps completes the activity by him/herself with no assistance from a helper. 5-Set-up or Clean-up Assistance-helper sets up or cleans up; patient completes activity. [place] assists only prior to or following the activity. 4-Supervision or Touching Assistance-helper provides verbal cues and/or touching/steadying and/or contact guard assistance as patient completes activity. Assistance may be provided throughout the activity or intermittently. 3-Partial/Moderate Assistance-helper does LESS THAN HALF the effort. [place] lifts, holds or supports trunk or limbs, but provides less than half the effort. 2-Substantial/Maximal Assistance-helper does MORE THAN HALF the effort. [place] l ifts or holds trunk or limbs and provides more than half the effort. 3-Ggmtsieyj-rinukt does ALL the effort. Patient does none of the effort to complete the activity. Or, the assistance of 2 or more helpers is required for the patient to complete the activity. If activity was not attempted, code reason: 7-Patient Refused. 9-Not Applicable-not attempted and the patient did not perform the activity before the current illness, exacerbation or injury. 10-Not Attempted due to Environmental Limitations-(lack of equipment, weather restraints, etc.). 88-Not Attempted due to Medical Conditions or Safety Concerns. Lying to Sitting/Side of Bed(Q: 4 Sit to Stand (QC): 4 Chair/Qsr-uy-Oeeem Xfer(QC): 4 Toilet Transfer (QC): 4 Gait Training Distance: 100' Walk 10 feet (QC): 4 Walk 50 ft with 2 Turns(QC): 4 Gait Assistive Device: FWW extended UE's with FWW use/FWW for stability and energy conservation Assessment Patient requires multiple standing and sitting recovery periods due to SOA. Patient is SBA with all mobility on this date. PT to increase activity as to lerated by patient. PT Fpc Goals Fpc Goals PT Fpc Goals Time Frame: Jul 17, 2023 Roll Left & Right (QC): 6 Sit to Lying (QC): 6 Lying-Sitting on Side/Bed(QC): 6 Sit to Stand (QC): 6 Chair/Hid-rk-Olmbd Xfer(QC): 6 Toilet Transfer (QC): 6 Walk 10 feet (QC): 5 Walk 50ft with 2 Turns (QC): 5 Walk 150 ft (QC): 5 PT Plan Treatment/Plan Treatment Plan: Continue Plan of Care Treatment Plan: Bed Mobility, Education, Functional Activity Gely, Functional Strength, Gait, Safety, Therapeutic Exercise, Transfers Treatment Duration: Jul 17, 2023 Frequency: 5 times per week Estimated Hrs Per Day: .25 hour per day Time Time In: 1035 Time Out: 1058 DATE: Jul 08, 2023 Total Billed Treatment Time: 23 Total Billed Treatment 1 visit FA x 2 23 min DAVE THAO PT Jul 08, 2023 11:35
--- NOTE | 2023-07-08 11:53 | Occupational Ther Daily Note ---
OT Current Status-Daily Note Subjective Slumber sate in bed, easily aroused, slow to mobilize Mental Status/Objective Patient Orientation: Person, Place, Time, Situation Attachments: Oxygen ADL-Treatment toileting tasks w/o FWW d/t patient refusal to use, Education provided for DME and safety, Patient agrees to use w/ ambulation halls Therapy Code Descriptions/Definitions Functional [place] Measure: 0=Not Assessed/NA 4=Minimal Assistance 1=Total Assistance 5=Supervision or Setup 2=Maximal Assistance 6=Modified [place] 3=Moderate Assistance 7=Complete IndependenceSCALE: Activities may be completed with or without assistive devices. 9-Avnqekypwh-nnaacpz completes the activity by him/herself with no assistance from a helper. 5-Set-up or Clean-up Assistance-helper sets up or cleans up; patient completes activity. [place] assists only prior to or following the activity. 4-Supervision or Touching Assistance-helper provides verbal cues and/or touching/steadying and/or contact guard assistance as patient completes activity. Assistance may be provided throughout the activity or intermittently. 3-Partial/Moderate Assistance-helper does LESS THAN HALF the effort. [place] lifts, holds or supports trunk or limbs, but provides less than half the effort. 2-Substantial/Maximal Assistance-helper does MORE THAN HALF the effort. [place] lifts or holds trunk or limbs and provides more than half the effort. 0-Qjqkibott-qfeldq does ALL the effort. Patient does none of the effort to complete the activity. Or, the assistance of 2 or more helpers is required for the patient to complete the activity. If activity was not attempted, code reason: 7-Patient Refused. 9-Not Applicable-not attempted and the patient did not perform the activity before the current illness, exacerbation or injury. 10-Not Attempted due to Environmental Limitations-(lack of equipment, weather restraints, etc.). 88-Not Attempted due to Medical Conditions or Safety Concerns. Eating (QC): 6 Oral Hygiene (QC): 5 Lower Body Dressing (QC): 5 (self limits, delayed mobility to perform no assistance needed, items handed to patient) On/Off Footwear: 5 Toileting Hygiene (QC): 5 Toilet Transfer (QC): 4 (d/t instabiity and refusal to use FWW) Education OT Patient Education: Correct positioning, Modified ADL techniques, Progress toward Goal/Update tx plan, Purpose of tx/functional activities, Reviewed precautions, Rehab process, Safety issues, Transfer techniques, Use of adapted equipment Teaching Recipient: Patient Teaching Methods: Demonstration, Discussion Response to Teaching: Reinforcement Needed OT [facility] Goals [employer] Goals Eating (QC): 6 Oral Hygiene (QC): 6 Toileting Hygiene (QC): 6 Shower/Bathe Self (QC): 6 Upper Body Dressing (QC): 6 Lower Body Dressing (QC): 6 On/Off Footwear (QC): 6 1=Demonstrate adherence to instructed precautions during ADL tasks. 2=Patient will verbalize/demonstrate understanding of assistive devices/modifications for ADL. 3=Patient will improve strength/tolerance for activity to enable patient to perform ADL's. OT Education/Plan Problem List/Assessment Assessment: Decreased Activ Tolerance, Decreased Safety Aware, Impaired Self- Care Skills Discharge Recommendations Plan/Recommendations: Continue POC Treatment Plan/Plan of Care Treatment,Training & Education: Yes Patient would benefit from OT for education, treatment and training to promote independence in ADL's, mobility, safety and/or upper extremity function for ADL's. Plan of Care: ADL Retraining, Functional Mobility, Group Exercise/Act as Ind, UE Funct Exercise/Act Treatment Duration: Jul 16, 2023 Frequency: 3 times per week (3-5 times per week) Estimated Hrs Per Day: .25 hour per day Agreement: Yes Rehab Potential: Fair Time Start Time: 11:00 Stop Time: 11:15 DATE: Jul 08, 2023 Total Time Billed (hr/min): 15 Billed Treatment Time ADL 15 mins RONALD CHEEMA OT Jul 08, 2023 11:53
--- NOTE | 2023-07-08 17:36 | Progress Note - Cardiology ---
Cardiology SOAP Progress Note Subjective: Gen weakness and malaise Shortness of breath better No cp or palp or syncope No n/v/d Objective: I&O/Vital Signs 07/08/23 07/08/23 07/08/23 07/08/23 06:25 08:08 08:10 08:10 Temp 36.0 Pulse 100 86 Resp 22 B/P (MAP) 90/65 (73) Pulse Ox 98 96 96 O2 Delivery Nasal Cannula Nasal Cannula Nasal Cannula O2 Flow Rate 4.00 3.00 3.00 07/08/23 07/08/23 07/08/23 07/08/23 11:12 12:00 12:56 13:30 Temp 36.0 36.7 Pulse 95 84 Resp 20 17 B/P (MAP) 92/61 (71) 86/64 (71) 103/54 (70) Pulse Ox 99 93 94 O2 Delivery Nasal Cannula Nasal Cannula Nasal Cannula O2 Flow Rate 3.00 1.00 1.00 07/08/23 07/08/23 14:17 16:19 Temp 36.5 Pulse 80 Resp 20 B/P (MAP) 146/63 (90) Pulse Ox 92 93 O2 Delivery Nasal Cannula Nasal Cannula O2 Flow Rate 1.00 1.00 07/07/23 23:59 Intake Total 350 ml Output Total 1700 ml Balance -1350 ml Weight (Pounds): 138 Weight (Ounces): 7.0 Weight (Calculated Kilograms): 62.847673 Constitutional: other Respiratory: chest expansion is symmetric, chest is bilaterally symmetric, other Cardiovascular: irregularly irregular, S1 and S2 Gastrointestional: soft, audible bowel sounds Extremities: no lower extremity edema bilateral Neurologic/Psychiatric: other Skin: No rash on exposed areas, No ulcerations on exposed areas Results/Procedures: Labs Laboratory Tests 07/08/23 04:05: White Blood Count 14.6H, Red Blood Count 3.27L, Hemoglobin 11.8, Hematocrit 37, Mean Corpuscular Volume 113H, Mean Corpuscular Hemoglobin 36H, Mean Corpuscular Hemoglobin Concent 32, Red Cell Distribution Width 15.7H, Platelet Count 76L, Mean Platelet Volume 12.9H, Percent Immature Platelet Fraction 12.7H, Sodium Level 138, Potassium Level 3.6, Chloride Level 99, Carbon Dioxide Level 26, Anion Gap 13, Blood Urea Nitrogen 37H, Creatinine 1.87H, Estimat Glomerular Filtration Rate 27, BUN/Creatinine Ratio 20, Glucose Level 202H, Calcium Level 8.7 Laboratory Tests 07/07/23 03:40 07/08/23 04:05 A/P: Assessment: Hypoxia - multi-factorial d/t acute on chronic exacerbation of COPD, pulmonary HTN, recent PE, diastolic CHF - Recent acute pulm embolism (on 06-17-23) - Echo of 06/16/23 shows LVEF 60-65%, acute cor pulmonale, mod regurg of aortic and mitral and tricuspid valves, severe pulm htn (110-115 mmHg) - has been maintained on Eliquis Pulm HTN - echo of 07/08/23: LVEF 60-65%, mild conc LVH, biatrial enlargement, mod MR, mod TR, mild to mod AI, PASP 120-125 mmHg Chronic minimally elevated troponin following PE in early Jun 2023 and hypoxia (type 2 [place]) PAF - first dx on tele during hospitalization on 06-17-23 - currently in SR with controlled rate Thrombocytopenia of undetermined etiology - management per medical services COPD Card cath of 08/23/18: mild CAD, mod to sev MR, pulmonary hypertension with mean pulmonary artery pressure 36 mmHg, LVEDP 8 mmHg, LVEF 50-55% CKD 4. previously followed with Dr. English of [facility] - has not seen anyone recently Renal artery stenosis - Renal u/s of November 2018 showed atrophic left kidney with right renal artery stenosis. - Abd aortic angio of 06/20/19 showed chronically occluded L renal artery, no significant stenosis of the R renal artery, severe atherosclerosis of the abd aorta mod infrarenal AAA, mod-sev dz of the aortoiliac bifurcation (70-80 ostial R iliac and approx 50% ostial L iliac) - AAA Sono of July 14, 2019 showed borderline aneurysmal dilatation to the prox abd aorta. Mid and distal abd aorta are normal Not suitable for LOUANN-inhib or ARB due to above-noted renal issues H/o hypertension Cigarette smoking - quit approx 2 months ago Carotid u/s of July 10, 2019 shows less than 40% R ICA stenosis, 60-79% L ICA stenosis ?Dementia Plan: Hypoxia - multi-factorial for reasons noted above - improving PAF - rates controlled - continue OAC Recent dx with PE in early Jun 2023 - continue OAC - management per medical services Acute on chronic exacerbation of COPD - management per medical services Diastolic CHF - worsening renal function - change to oral starting tomorrow CKD 4 - monitor lab closely Thrombocytopenia - management per medical services Carotid stenosis - low dose ASA Replenisk K. Continue to monitor lab closely NAIDA WILEY MD FACP [facility] CCDS Jul 08, 2023 17:36
[2023-07-08] MEDS: FUROSEMIDE 40 MG TABLET PO SCH (17:42)
[2023-07-08] MEDS: ACETAMINOPHEN 325 MG TABLET PO PRN (17:43)
[2023-07-08] MEDS: MELATONIN 3 MG TABLET PO PRN (23:44)
[2023-07-09 03:32] VITALS: BP 105/65
[2023-07-09 05:48] LABS: HEMOGLOBIN 12.1 g/dL (11.5-16.0); MEAN PLATELET VOLUME 12.7 fL (9.0-12.2)
[2023-07-09 05:55] LABS: POTASSIUM 3.6 MMOL/L (3.6-5.0)
[2023-07-09 05:56] LABS: CALCIUM 8.7 MG/DL (8.5-10.1)
[2023-07-09 06:01] LABS: CREATININE SERUM 1.85 MG/DL (0.60-1.30)
[2023-07-09] MEDS: FUROSEMIDE 40 MG TABLET PO SCH (06:34)
[2023-07-09] MEDS ORDERED: predniSONE 20 MG TABLET PO SCH (07:00)
[2023-07-09 07:11] VITALS: BP 133/75
[2023-07-09] MEDS ORDERED: RT-Ipratropium/Albuterol NEB 3 ML VIAL INH SCH (08:00)
[2023-07-09] MEDS: ACETAMINOPHEN 325 MG TABLET PO PRN (08:44)
[2023-07-09] MEDS: APIXABAN 5 MG TABLET PO SCH (08:44)
[2023-07-09] MEDS: ASPIRIN 81 MG CHEWABLE TABLET PO SCH (08:44)
--- NOTE | 2023-07-09 10:08 | Progress Note - Cardiology ---
Cardiology SOAP Progress Note Subjective: Lying in bed C/O fatigue No c/o CP, SOB or palpitations Objective: I&O/Vital Signs 07/08/23 07/09/23 07/09/23 07/09/23 23:39 03:32 07:11 08:30 Temp 36.6 36.0 36.2 Pulse 99 91 77 Resp 18 18 16 B/P (MAP) 123/77 (92) 105/65 (78) 133/75 (94) Pulse Ox 96 94 99 O2 Delivery Nasal Cannula Nasal Cannula Nasal Cannula Nasal Cannula O2 Flow Rate 2.00 2.00 1.00 1.00 2.00 2.00 07/09/23 07/09/23 09:38 10:28 B/P (MAP) Pulse Ox 95 O2 Delivery Nasal Cannula O2 Flow Rate 1.00 07/08/23 23:59 Intake Total 1080 ml Output Total 0 ml Balance 1080 ml Weight (Pounds): 138 Weight (Ounces): 7.0 Weight (Calculated Kilograms): 62.253705 Constitutional: other Respiratory: chest expansion is symmetric, chest is bilaterally symmetric, other Cardiovascular: irregularly irregular, S1 and S2 Gastrointestional: soft, audible bowel sounds Extremities: no lower extremity edema bilateral Neurologic/Psychiatric: other Skin: No rash on exposed areas, No ulcerations on exposed areas Results/Procedures: Labs Laboratory Tests 07/09/23 05:19: White Blood Count 16.0H, Red Blood Count 3.32L, Hemoglobin 12.1, Hematocrit 39, Mean Corpuscular Volume 117H, Mean Corpuscular Hemoglobin 36H, Mean Corpuscular Hemoglobin Concent 31L, Red Cell Distribution Width 15.9H, Platelet Count 87L, Mean Platelet Volume 12.7H, Percent Immature Platelet Fraction 11.1H, Sodium Level 138, Potassium Level 3.6, Chloride Level 102, Carbon Dioxide Level 27, Anion Gap 9, Blood Urea Nitrogen 45H, Creatinine 1.85H, Estimat Glomerular Filtration Rate 28, BUN/Creatinine Ratio 24, Glucose Level 176H, Calcium Level 8.7, Magnesium Level 2.0, Digoxin Level 0.86 A/P: Assessment: Hypoxia - multi-factorial d/t acute on chronic exacerbation of COPD, pulmonary HTN, recent PE, diastolic CHF - Recent acute pulm embolism (on 06-17-23) - Echo of 06/16/23 shows LVEF 60-65%, acute cor pulmonale, mod regurg of aortic and mitral and tricuspid valves, severe pulm htn (110-115 mmHg) - has been maintained on Eliquis Pulm HTN - echo of 07/08/23: LVEF 60-65%, mild conc LVH, biatrial enlargement, mod MR, mod TR, mild to mod AI, PASP 120-125 mmHg Chronic minimally elevated troponin following PE in early Jun 2023 and hypoxia (type 2 [place]) PAF - first dx on tele during hospitalization on 06-17-23 - currently in SR with controlled rate Thrombocytopenia of undetermined etiology - management per medical services COPD Card cath of 08/23/18: mild CAD, mod to sev MR, pulmonary hypertension with mean pulmonary artery pressure 36 mmHg, LVEDP 8 mmHg, LVEF 50-55% CKD 4. previously followed with Dr. English of [facility] - has not seen anyone recently Renal artery stenosis - Renal u/s of November 2018 showed atrophic left kidney with right renal artery stenosis. - Abd aortic angio of 06/20/19 showed chronically occluded L renal artery, no significant stenosis of the R renal artery, severe atherosclerosis of the abd aorta mod infrarenal AAA, mod-sev dz of the aortoiliac bifurcation (70-80 ostial R iliac and approx 50% ostial L iliac) - AAA Sono of July 14, 2019 showed borderline aneurysmal dilatation to the prox abd aorta. Mid and distal abd aorta are normal Not suitable for LOUANN-inhib or ARB due to above-noted renal issues H/o hypertension Cigarette smoking - quit approx 2 months ago Carotid u/s of July 10, 2019 shows less than 40% R ICA stenosis, 60-79% L ICA stenosis ?Dementia Plan: PAF - rates controlled - continue OAC Recent dx with PE in early Jun 2023 - continue OAC - management per medical services Acute on chronic exacerbation of COPD - management per medical services Diastolic CHF - clinically improving CKD 4 - monitor lab closely Thrombocytopenia - management per medical services Plan is to transfer to IRU today per medical services ANNA RADFORD Jul 09, 2023 10:08
--- NOTE | 2023-07-09 10:10 | Discharge Summary ---
Diagnosis/Chief Complaint Date of Admission Jul 06, 2023 at 10:37 Date of Discharge Discharge Date: Jul 09, 2023 Admission Diagnosis Acute hypoxic respiratory failure secondary to COPD and/or CHF. Possible pneumonia Primary Care No,Local Physician Discharge Summary Discharge Physical Exam Allergies: Coded Allergies: Penicillins (Verified Allergy, Unknown, 06/16/23) Vitals & I&Os Vital Signs Date Time Temp Pulse Resp B/P (MAP) Pulse Ox O2 Delivery O2 Flow Rate FiO2 07/09/23 10:28 07/09/23 09:38 95 Nasal Cannula 1.00 07/09/23 07:11 36.2 77 16 General Appearance: No Apparent Distress, WD/WN, Chronically ill Respiratory: Lungs Clear, No Respiratory Distress Cardiovascular: Regular Rate, Rhythm, No Murmur Neurologic/Psychiatric: Alert, Oriented x3 Hospital Course Patient was admitted to the hospital secondary to mixed respiratory failure but mostly due to CHF exacerbation. She was treated with IV diuretics and did well. She was seen in consultation by cardiology. She does have a history of COPD so was started on steroids as well. She was seen by physical therapy and Occupational Therapy and was somewhat dyspneic with exertion and deemed an appropriate candidate for inpatient rehab. She was discharged there in stable condition to continue with intensive therapies with the goal of returning to home. Labs (last 24 hrs) Patient resulted labs reviewed. Pending Labs Imaging: Reviewed Imaging Report Discussion & Recommendations Discharge Planning: >30 minutes discharge planning Discharge Home Medications: Active Scripts Active Reported Sodium Bicarbonate 650 Mg Tablet 650 Mg PO TID Metoprolol Succinate 25 Mg Tab.er.24h 25 Mg PO DAILY Digoxin 125 Mcg (0.125 Mg) Tablet 125 Mcg PO DAILY Aspirin 81 Mg Tab.chew 81 Mg PO DAILY Eliquis (Apixaban) 5 Mg Tablet 5 Mg PO BID Tylenol Pm Ex-Strength Caplet (Acetaminophen/Diphenhydramine) 500 Mg-25 Mg Tablet 2 Each PO HS PRN Iron (Ferrous Sulfate) 325 Mg (65 Mg Iron) Tablet 325 Mg PO DAILY Vitamin D3 (Cholecalciferol (Vitamin D3)) 50 Mcg (2000 Unit) Capsule 50 Mcg PO DAILY Instructions to patient/family Please see electronic discharge instructions given to patient. JAYLYN YOO MD Jul 09, 2023 10:10
--- NOTE | 2023-07-09 17:32 | Progress Note - Cardiology ---
Cardiology SOAP Progress Note Subjective: Weakness and malaise No shortness of breath at rest No n/v/d No cp or palp or syncope Objective: I&O/Vital Signs 07/09/23 07/09/23 07/09/23 07/09/23 07:11 08:30 09:38 10:28 Temp 36.2 Pulse 77 Resp 16 B/P (MAP) 133/75 (94) Pulse Ox 99 95 O2 Delivery Nasal Cannula Nasal Cannula Nasal Cannula O2 Flow Rate 1.00 1.00 1.00 07/08/23 23:59 Intake Total 1080 ml Output Total 0 ml Balance 1080 ml Weight (Pounds): 138 Weight (Ounces): 7.0 Weight (Calculated Kilograms): 62.168754 Constitutional: other Respiratory: chest expansion is symmetric, chest is bilaterally symmetric, other Cardiovascular: irregularly irregular, S1 and S2 Gastrointestional: soft, audible bowel sounds Extremities: no lower extremity edema bilateral Neurologic/Psychiatric: other Skin: No rash on exposed areas, No ulcerations on exposed areas Results/Procedures: Labs Laboratory Tests 07/09/23 05:19: White Blood Count 16.0H, Red Blood Count 3.32L, Hemoglobin 12.1, Hematocrit 39, Mean Corpuscular Volume 117H, Mean Corpuscular Hemoglobin 36H, Mean Corpuscular Hemoglobin Concent 31L, Red Cell Distribution Width 15.9H, Platelet Count 87L, Mean Platelet Volume 12.7H, Percent Immature Platelet Fraction 11.1H, Sodium Level 138, Potassium Level 3.6, Chloride Level 102, Carbon Dioxide Level 27, Anion Gap 9, Blood Urea Nitrogen 45H, Creatinine 1.85H, Estimat Glomerular Filtration Rate 28, BUN/Creatinine Ratio 24, Glucose Level 176H, Calcium Level 8.7, Magnesium Level 2.0, Digoxin Level 0.86 A/P: Assessment: Hypoxia - multi-factorial d/t acute on chronic exacerbation of COPD, pulmonary HTN, recent PE, diastolic CHF - Recent acute pulm embolism (on 06-17-23) - Echo of 06/16/23 shows LVEF 60-65%, acute cor pulmonale, mod regurg of aortic and mitral and tricuspid valves, severe pulm htn (110-115 mmHg) - has been maintained on Eliquis Pulm HTN - echo of 07/08/23: LVEF 60-65%, mild conc LVH, biatrial enlargement, mod MR, mod TR, mild to mod AI, PASP 120-125 mmHg Chronic minimally elevated troponin following PE in early Jun 2023 and hypoxia (type 2 DE) PAF - first dx on tele during hospitalization on 06-17-23 - currently in SR with controlled rate Thrombocytopenia of undetermined etiology - management per medical services COPD Card cath of 08/23/18: mild CAD, mod to sev MR, pulmonary hypertension with mean pulmonary artery pressure 36 mmHg, LVEDP 8 mmHg, LVEF 50-55% CKD 4. previously followed with Dr. English of [facility] - has not seen anyone recently Renal artery stenosis - Renal u/s of November 2018 showed atrophic left kidney with right renal artery stenosis. - Abd aortic angio of 06/20/19 showed chronically occluded L renal artery, no si gnificant stenosis of the R renal artery, severe atherosclerosis of the abd aorta mod infrarenal AAA, mod-sev dz of the aortoiliac bifurcation (70-80 ostial R iliac and approx 50% ostial L iliac) - AAA Sono of July 14, 2019 showed borderline aneurysmal dilatation to the prox abd aorta. Mid and distal abd aorta are normal Not suitable for LOUANN-inhib or ARB due to above-noted renal issues H/o hypertension Cigarette smoking - quit approx 2 months ago Carotid u/s of July 10, 2019 shows less than 40% R ICA stenosis, 60-79% L ICA stenosis ?Dementia Plan: PAF - rates controlled - continue OAC Recent dx with PE in early Jun 2023 - continue OAC - management per medical services Acute on chronic exacerbation of COPD - management per medical services Diastolic CHF - clinically improving CKD 4 - monitor lab closely Thrombocytopenia - management per medical services Plan is to transfer to IRU today per medical services NAIDA WILEY MD FACP FAC CCDS Jul 09, 2023 17:32
== END 2023-07-09 10:33 | DRG 280 ==
LOC: EDUNIT# 07:33 → ER 07:34 → CSD 10:37 → 4TH 07-08 12:22
PROVIDERS: ADMIT Family Medicine; ATTEND Family Medicine
DX: I13.0 Hypertensive heart and chronic kidney disease with heart failure and stage 1 through stage 4 chronic kidney disease, or unspecified chronic kidney disease (principal); I50.33 Acute on chronic diastolic (congestive) heart failure; I21.4 Non-ST elevation (NSTEMI) myocardial infarction; J96.01 Acute respiratory failure with hypoxia; J44.1 Chronic obstructive pulmonary disease with (acute) exacerbation; N18.4 Chronic kidney disease, stage 4 (severe); I25.10 Atherosclerotic heart disease of native coronary artery without angina pectoris; I48.0 Paroxysmal atrial fibrillation; I70.1 Atherosclerosis of renal artery; I08.3 Combined rheumatic disorders of mitral, aortic and tricuspid valves; I27.20 Pulmonary hypertension, unspecified; E78.00 Pure hypercholesterolemia, unspecified; M25.559 Pain in unspecified hip; G89.29 Other chronic pain; M19.90 Unspecified osteoarthritis, unspecified site; E03.9 Hypothyroidism, unspecified; I70.0 Atherosclerosis of aorta; I71.40 Abdominal aortic aneurysm, without rupture, unspecified; D69.6 Thrombocytopenia, unspecified; I65.23 Occlusion and stenosis of bilateral carotid arteries; N26.1 Atrophy of kidney (terminal); Z87.891 Personal history of nicotine dependence; Z86.711 Personal history of pulmonary embolism; Z88.0 Allergy status to penicillin; Z79.899 Other long term (current) drug therapy
CPT/HCPCS: 36415; 36600; 71045; 80048; 80053; 80162; 81000; 82805; 83735; 83880; 84145; 84484; 85025; 85027; 86141; 87636; 93005; 93041; 93306; 94640; 94760

== ENCOUNTER 2023-07-09 10:25 | Inpatient (IN) | payer MEDICARE, OTHER ==
[~2023-07-09] VITALS: Ht 170.2 cm; Wt 71.6 kg
[~2023-07-09 10:25] MED LIST changes: +DIGO125T3 PO
[2023-07-09 10:50] VITALS: BP 129/60
[2023-07-09] MEDS ORDERED: FLU HIGH DOSE (65+ YOA) 240 MCG/0.7 ML 2023-24 (FLUZONE) IM ONE (11:15)
--- NOTE | 2023-07-09 11:56 | PM&R Post Admission Assessment ---
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 Patient does have some confusion in addition during the morning she needs to be told why she is in the hospital and needing inpatient rehab. She does have a history of diastolic congestive heart failure and COPD with atrial fibrillation and chronic kidney disease so she will require close monitoring for jigh risk for decompensation. Medical course summary: Pt is a 77 y/o female who presents to the ER with worsening SOB and confusion. She is joined by her niece who gives much of her hx d/t confusion. Pt presented to the hospital on 06/16 with an NSTEMI and her niece states that she has not been the same since. She states that the pt has been feeling sick for the last week with increasingly worsening sxs this AM. In the ER, her O2 was 85-91% on room air and she was struggling to breath with an elevated respiratory rate. States that she is not on O2 at home normally. Denies any sick contacts. Denies cough or fever. Pt reports that she has been feeling weak with increasing dyspnea and shakiness. Niece states that she has had some diarrhea the last few days but pt denies any abd pain or blood in stool. Denies vomiting or nausea. In the ER, pt was given Lasix 40 mg IV and duonab and denies any improvement in how she feels. Niece thinks she has more color in her face compared to when she first came in. Past Utdmqfp-Lszqje-Sdvrlz Hx Past Med/Social Hx: Reviewed Nursing Past Med/Soc Hx, Reviewed and Corrections made Patient Social History Marrital Status: single Employed/Student: retired Alcohol Use: Denies Use Smoking Status: Current Everyday Smoker Type Used: Cigarettes 2nd Hand Smoke Exposure: Yes Recent Hopitalizations: No Immunizations Up To Date Tetanus Booster (TDap): Unknown Date of Influenza Vaccine: May 30, 2019 Seasonal Allergies Seasonal Allergies: No Past Medical History Surgeries: Tonsillectomy, Tubal Ligation Respiratory: COPD Currently Using CPAP: No Currently Using BIPAP: No Cardiac: Coronary Artery Disease, Heart Attack, Heart Murmur, High Cholesterol, Irregular Heartbeat, Palpitations, Peripheral Vascular, Valvular Heart Disease Menopausal Genitourinary: Renal Failure Gastrointestinal: Chronic Constipation Musculoskeletal: Arthritis History of Blood Disorders: No Family History No Pertinent Family Hx ADDITIONAL PAST MEDICAL HISTORY: -CARDIAC CATH 08/24/18--MILD CAD, MODERATE TO SEVERE MR, PULMONARY ARTERY HTN, EF 50-55% -PERIPHERAL ANGIOGRAM 06/[address] WILEY--RIGHT RENAL ARTERY STENOSIS, COMPLETE CHRONIC OCCLUSION OF LEFT RENAL ARTERY WITH ATROPHIC LEFT KINDEY, SEVERE DIFFUSE ASVD OF ABDOMINAL AORTA, MODERATE ABDOMINAL AORTIC ANEURYSM PT HAS BEEN DETERMINED TO NOT BE A SURGICAL CANDIDATE FOR VALVULAR HEART SURGERY PM&R Allergy/Meds/Data Review Allergies Coded Allergies: Penicillins (Verified Allergy, Unknown, 06/16/23) Home Medications Scheduled Apixaban (Eliquis), 5 MG PO BID, (Reported) Aspirin (Aspirin), 81 MG PO DAILY, (Reported) Cholecalciferol (Vitamin D3) (Vitamin D3), 50 MCG PO DAILY, (Reported) Digoxin (Digoxin), 125 MCG PO DAILY, (Reported) Ferrous Sulfate (Iron), 325 MG PO DAILY, (Reported) Metoprolol Succinate (Metoprolol Succinate), 25 MG PO DAILY, (Reported) Sodium Bicarbonate (Sodium Bicarbonate), 650 MG PO TID, (Reported) Scheduled PRN Acetaminophen/Diphenhydramine (Tylenol Pm Ex-Strength Caplet), 2 EACH PO HS PRN for SLEEP, (Reported) Discontinued Medications Apixaban (Eliquis), 5 MG PO BID Discontinued Reason: No Longer Taking Aspirin (Children's Aspirin), 81 MG PO DAILY Discontinued Reason: No Longer Taking Digoxin (Digox), 0.125 MG PO DAILY Discontinued Reason: No Longer Taking Metoprolol Succinate (Metoprolol Succinate), 25 MG PO DAILY Discontinued Reason: No Longer Taking Sodium Bicarbonate (Sodium Bicarbonate), 650 MG PO TID Discontinued Reason: No Longer Taking Current Medications Current Medications Reviewed Review of Systems Constitutional: see HPI, malaise, weakness EENTM: no symptoms reported Respiratory: dyspnea on exertion Cardiovascular: no symptoms reported Gastrointestinal: no symptoms reported Genitourinary: no symptoms reported Musculoskeletal: back pain, joint pain Skin: no symptoms reported Psychiatric/Neurological: Anxiety, Depressed, Other (Confusion) All Other Systems Reviewed Negative Unless Noted: Yes Physical Exam Physical Exam Vital Signs Vital Signs - First Documented 07/09/23 10:50 Temp 36.3 Pulse 96 Resp 20 B/P (MAP) 129/60 (83) Pulse Ox 96 O2 Delivery Nasal Cannula O2 Flow Rate 1.00 Capillary Refill : Height, Weight, BMI Height: 5'7.00" Weight: 138lbs. 7.0oz. 62.161941he; 24.06 BMI Method:Stated General Appearance: No Apparent Distress, WD/WN, Chronically ill Eyes: Bilateral Eye Normal Inspection, Bilateral Eye PERRL HEENT: PERRL/EOMI, Normal ENT Inspection, Pharynx Normal Neck: Full Range of Motion, Normal Inspection, Non Tender, Supple, Carotid Bruit Respiratory: Chest Non Tender, Lungs Clear, No Accessory Muscle Use, No Respiratory Distress, Decreased Breath Sounds Cardiovascular: No Edema, No Gallop, No JVD, No Murmur, Normal Peripheral Pulses, Irregularly Irregular Gastrointestinal: Normal Bowel Sounds, No Organomegaly, No Pulsatile Mass, Non Tender, Soft Back: Normal Inspection, No CVA Tenderness, No Vertebral Tenderness Extremity: Normal Capillary Refill, Normal Inspection, Normal Range of Motion, Non Tender, No Calf Tenderness, No Pedal Edema Neurologic/Psychiatric: Alert, Normal Mood/Affect, medication nurse II-XII Norm as Tested, Abnormal Gait, Disoriented, Motor Weakness ( generalized) Skin: Normal Color, Warm/Dry Lymphatic: No Adenopathy PM&R Medical Assessment & Plan REHAB/MEDICAL ASSESSMENT AND PLAN: REHAB IMPAIRMENT GROUP: Neurological condition ETIOLOGIC DIAGNOSIS: Neuromuscular disorders The comorbidities that impact the patients function and/or functional outcome by: continued confusion, COPD, atrial fibrillation, chronic kidney disease, advanced age, continued debility REHAB PLAN: The patient is being admitted to our comprehensive inpatient rehabilitation facility and can tolerate the intensity of service consisting of at least: 180 minutes of therapy a day, 5 out of 7 days a week Rehab treatment will consist of: [ PT and OT will focus on regaining function with use of assistive devices in order to return back to independent living and clear confusion The patient/family has a good understanding of our discharge process and will benefit from an interdisciplinary inpatient rehabilitation program. The patient has potential to make improvement and is in need of at least two of the following multidisciplinary therapies including but not limited to physical, occupational, speech, and prosthetics and orthotics. Additionally the patient will need services from respiratory, nutritional services, wound care, psychology, etc. (Customize this to each patient). Given the patients complex condition and risk of further medical complications, rehabilitation services cannot be safely or effectively provided at a lower level of care such as a jail facility. BARRIERS TO DISCHARGE: confusion ESTIMATED LOS: 7 days DISPOSITION: home RELEVANT CHANGES SINCE PREADMISSION SCREENING: I have compared the patients medical and functional status at the time of the preadmission screening and there are: no changes PROGNOSIS: good REHABILITATION GOALS: 1. [ PT and OT will focus on regaining function with use of assistive devices in order to return back to independent living and clear confusion All the above goals were reviewed with the patient and he/she is in agreement. By signing this document, I acknowledge that I have personally performed a full physical examination on this patient within 24 hours of admission to this inpatient rehabilitation facility and have determined the patient to be able to tolerate the above course of treatment at an intensive level for a reasonable period of time. I will be completing a detailed individualized Plan of Care for this patient by day #4 of the patients stay based upon the Preadmission Screen, the Post-Admission Evaluation, and the therapy evaluations. Admission Dx/Comorbidities: (1) Myopathy ICD Codes: G72.9 - Myopathy, unspecified (2) COPD exacerbation Status: Acute ICD Codes: J44.1 - Chronic obstructive pulmonary disease with (acute) exacerbation (3) Valvular heart disease Status: Chronic ICD Codes: I38 - Endocarditis, valve unspecified (4) Hypoxia Status: Acute ICD Codes: R09.02 - Hypoxemia (5) Congestive heart failure Status: Acute ICD Codes: I50.9 - Heart failure, unspecified (6) Severe pulmonary hypertension Status: Acute ICD Codes: I27.20 - Pulmonary hypertension, unspecified (7) Afib Status: Acute ICD Codes: I48.91 - Unspecified atrial fibrillation (8) NSTEMI (non-ST elevation myocardial infarction) Status: Acute ICD Codes: I21.4 - Non-ST elevation (NSTEMI) myocardial infarction (9) Tobacco abuse Status: Chronic ICD Codes: Z72.0 - Tobacco use Assessment/Plan Assessment and Plan Assess & Plan/Chief Complaint Assessment: Altered mental status Critical illness myopathy Atrial fibrillation NSTEMI Oral anticoagulation Hyperglycemia Carotid stenosis Chronic constipation Chronic kidney disease stage IV Pulmonary hypertension COPD Plan: PT and OT Home meds Aggressive rehab Speech therapy to help with cognition AKUA POLO DO Jul 09, 2023 11:56
[2023-07-09] MEDS ORDERED: guaiFENesin/CODEINE 10ML UDC PO PRN (12:00)
[2023-07-09] MEDS ORDERED: CALCIUM CARBONATE 500 MG CHEW TABLET PO PRN (12:00)
[2023-07-09] MEDS ORDERED: MILK OF MAGNESIA 400 MG/5 ML 30 ML UDC PO PRN (12:00)
[2023-07-09] MEDS ORDERED: ANTACID SUSPENSION 30 ML UDC PO PRN (12:00)
[2023-07-09] MEDS ORDERED: DOCUSATE SODIUM 100 MG CAPSULE PO PRN (12:00)
[2023-07-09] MEDS ORDERED: ONDANSETRON INJECTION 4 MG/2 ML (SDV) IV PRN (12:00)
[2023-07-09] MEDS ORDERED: ACETAMINOPHEN 325 MG TABLET PO PRN (12:00)
[2023-07-09] MEDS ORDERED: BISACODYL 10 MG SUPPOSITORY PR PRN ×2 (12:00)
[2023-07-09] MEDS ORDERED: ONDANSETRON 4 MG ORAL DISSOLVE TABLET PO PRN (12:00)
[2023-07-09] MEDS ORDERED: LOPERAMIDE 2 MG CAPSULE PO PRN (12:00)
[2023-07-09] MEDS ORDERED: MELATONIN 3 MG TABLET PO PRN (12:00)
[2023-07-09] MEDS ORDERED: LACTULOSE SYRUP 10GM/15ML 30ML UDC PO PRN (12:00)
[2023-07-09] MEDS ORDERED: Sodium Phosphate/Sodium Biphosphate ADULT enema PR PRN (12:00)
--- NOTE | 2023-07-09 12:07 | Occupational Therapy Eval ---
OT Evaluation-General/PLF Medical Diagnosis Admission Date Jul 09, 2023 at 10:25 Medical Diagnosis: Critical Illness Myopathy Onset Date: Jul 06, 2023 Therapy Diagnosis Therapy Diagnosis: decreased ADL status, weakness Height/Weight Height (Feet): 5 Height (Inches): 7.00 Weight (Pounds): 138 Weight (Ounces): 7.0 Precautions Precautions/Isolations: Fall Prevention, Standard Precautions Referral Physician: Lala Referral Reason: Evaluation/Treatment Medical History Pertinent Medical History: Atrial Fib, CAD, COPD, Hypothroidism, [place], PVD, Renal Insufficiency, Smoking Additional Medical History COPD, Afib, renal artery stenosis of L renal artery, CKD, HTN, NSTEMI, arthritis Current History 07/05/23 ED with worsening SOB and confusion, recent admit with NSTEMI (06/16). Pt transferred to ARU 07/09/23. Social History Home: Apartment Current Living Status: Alone Entry Into Home: Stairs With Railing Steps Into Home: 1 (curb) ADL-Prior Level of Function SCALE: Activities may be completed with or without assistive devices. 0-Jrkbcjjjot-lehzhtw completes the activity by him/herself with no assistance from a helper. 5-Set-up or Clean-up Assistance-helper sets up or cleans up; patient completes activity. [place] assists only prior to or following the activity. 4-Supervision or Touching Assistance-helper provides verbal cues and/or touching/steadying and/or contact guard assistance as patient completes activity. Assistance may be provided throughout the activity or intermittently. 3-Partial/Moderate Assistance-helper does LESS THAN HALF the effort. [place] lifts, holds or supports trunk or limbs, but provides less than half the effort. 2-Substantial/Maximal Assistance-helper does MORE THAN HALF the effort. [place] lifts or holds trunk or limbs and provides more than half the effort. 4-Tckzmuaex-mdwjcy does ALL the effort. Patient does none of the effort to complete the activity. Or, the assistance of 2 or more helpers is required for the patient to complete the activity. If activity was not attempted, code reason: 7-Patient Refused. 9-Not Applicable-not attempted and the patient did not perform the activity before the current illness, exacerbation or injury. 10-Not Attempted due to Environmental Limitations-(lack of equipment, weather restraints, etc.). 88-Not Attempted due to Medical Conditions or Safety Concerns. ADL PLOF Comments Pt reports IND with ADLs and functional mobility using 4WW at PLOF. Her niece assists with bills, medication management, and grocery shopping. Pt reports IND with cleaning and simple cooking tasks (mainly microwave meals). She has a walk in shower with SC. Self Care: Independent Functional Cognition: Needed Some Help DME/Equipment Comments 4WW, SC OT Current Status Subjective Pt agreeable to OT tx. Noted difficulty retaining new information, asking the same question multiple times throughout tx. Mental Status/Objective Patient Orientation: Person, Place, Time Current Glasses/Contacts: Yes Hearing Aids: Yes Dentures/Partials: Yes Upper Extremity ROM WFL, BUE shoulder flexion to approx 160 degrees Upper Extremity Coordination WFL Upper Extremity Sensation WFL Upper Extremity Strength Grossly 3/5 BUE shoulder, 4-/5 elbow, fair centrifugal extractor operator strength ADL-Treatment Eating (QC): 5 Oral Hygiene (QC): 5 (Assist squeezing fixodent onto dentures.) Shower/Bathe Self (QC): 4 (CGA sponge bath) Upper Body Dressing (QC): 4 (SBA) Lower Body Dressing (QC): 4 (CGA) On/Off Footwear (QC): 4 (SBA) Toileting Hygiene (QC): 4 (CGA) Other Treatments Pt transferred supine to sit EOB, SBA. Pt used 4WW to transfer from EOB to w/c, CGA. Pt completed sponge bath and dressing at recliner as outlined above. Pt on 1L O2 via NC throughout tx, O2 saturation remained above 90% with activity on 1L. [id number] OT/PT cotreat due to skill of 2 clinicians required which a rehab assistant could not perform in order to coordinate UE/LEs, decrease fall risk, and due to pt's limitations in strength, activity tolerance, transfers/mobility. OT focused on UE placement, cues for sequencing and safety and ADLs, PT focused on LE placement, gross overall movement, transfers and mobility. Pt completed functional mobility around [facility] common area/2nd floor using 4WW, including car transfers, even/uneven surface, steps, curb steps. Pt took rest breaks as needed. Pt required CGA-SBA with all mobility/transfers, assistance with managing O2 tank. Pt returned to her room, transferring to recliner. Post tx, pt in recliner, call light in reach and all needs met, chair alarm activated. Education OT Patient Education: Correct positioning, Energy conservation, Modified ADL techniques, Progress toward Goal/Update tx plan, Purpose of tx/functional activities, Rehab process Teaching Recipient: Patient Teaching Methods: Discussion Response to Teaching: Verbalize Understanding, Reinforcement Needed BIMS CAM BIMS Expression of Ideas and Wants: Without Difficulty Understanding Verbal Content: Usually Understands (slight MARY'S IGLOO) Brief Interview/Mental Status: Yes IRF STACIE BIMS: IRF STACIE BIMS Response (Comments) Value Repitition of Three Words Three 3 Recalls Socks Yes, No Cue Required 2 Recalls Blue Yes, No Cue Required 2 Recalls Bed No, Could Not Recall 0 Year Correct 3 Month Accurate Within 5 Days 2 Day Incorrect or No Answer 0 Total 12 Patient Normally Able to Recal: Current Session, That he/she in a hsp Should Staff Asses. Mental St.: No Memory/Recall Ability: Current Season, That He[facility]She in Hospit[facility] Mental Status Change/Baseline: 1 Inattention: 0 Disorganized thinkin Altered level of consciousness: 0 OT Short Term Goals Short Term Goals Time Frame: Jul 14, 2023 Shower/bathe self: 5 Upper body dressin Lower body dressin Putting on/taking off footwear: 5 OT Usp Goals Usp Goals Time Frame: Jul 30, 2023 Eating (QC): 6 Oral Hygiene (QC): 6 Toileting Hygiene (QC): 6 Shower/Bathe Self (QC): 6 Upper Body Dressing (QC): 6 Lower Body Dressing (QC): 6 On/Off Footwear (QC): 6 Additional Goals: 1-Demonstrate ADL Tasks, 2-Verbalize Understanding, 3- ImproveStrength/Gely 1=Demonstrate adherence to instructed precautions during ADL tasks. 2=Patient will verbalize/demonstrate understanding of assistive devices/modifications for ADL. 3=Patient will improve strength/tolerance for activity to enable patient to perform ADL's. OT Education/Plan Problem List/Assessment Assessment: Decreased Activ Tolerance, Decreased Safety Aware, Decreased UE Strength, Impaired Cognition, Impaired Funct Balance, Impaired I ADL's, Impaired Self-Care Skills Discharge Recommendations Plan/Recommendations: Continue POC Treatment Plan/Plan of Care Patient would benefit from OT for education, treatment and training to promote independence in ADL's, mobility, safety and/or upper extremity function for ADL's. Plan of Care: ADL Retraining, Functional Mobility, Group Exercise/Act as Ind, UE Funct Exercise/Act Treatment Duration: Jul 30, 2023 Frequency: At least 5 of 7 days/Wk (IRF) Estimated Hrs Per Day: Other (75 mins per day) Agreement: Yes Rehab Potential: Good Time Start Time: 10:25 Stop Time: 12:00 DATE: Jul 09, 2023 Total Time Billed (hr/min): 80 Billed Treatment Time 5502-0792 OT eval/tx; 6822-1461 Cotreat 45' 1, EVM (15'), ADL (20'), FA 3 (45') VIKTOR MICHAELS OT Jul 09, 2023 12:07
--- NOTE | 2023-07-09 13:04 | ST Cognitive Linguistic Eval ---
Speech Evaluation-General Medical Diagnosis Critical Illness Myopathy Onset Date: Jul 06, 2023 Therapy Diagnosis Therapy Diagnosis: Mental Status change Precautions Precautions: Fall Precautions/Isolations: Standard Precautions Referral Referring Physician: Lala Reason for Referral: Evaluation/Treatment Medical History Pertinent Medical History: Atrial Fib, CAD, COPD, Hypothroidism, [place], PVD, Renal Insufficiency, Smoking Current History 07/05/23 ED with worsening SOB and confusion, recent admit with NSTEMI (06/16). Pt transferred to ARU 07/09/23. Social History Home: Apartment Current Living Status: Alone Speech PLF-Current Status Prior Level of Function Pt reports that she no longer drives and her niece (Dawna) does her grocery shopping and organizes her medications. 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 Pt moved to [place], [place] recently and has yet to unpack. Subjective Pt was sitting in bedside chair and agreeable to session. Language Eval: Auditory Comprehends Simple Yes/No Ques: Functional Follows 1-Step Commands: Functional Follows Complex Directions: Moderate Follows General Conversations: Functional The pt followed simple directions and answered yes/no questions, but demonstrated poor auditory comprehension of various instructions to complete cognitive tasks. Language Eval: Verbal Language Completes Spontaneous Greeting: Functional Word Finding: Mild Requests Basic Needs: Functional States Basic Personal Info: Functional Expresses Complex Ideas: Mild The pt was able to participate in basic conversation with intact verbal fluency and syntax. No anomia or paraphasic errors present. Pt repeated 2/2 sentences accurately and labeled 3/3 pictures without difficulty. Speech was intelligible. No dysarthria present. Voice was appropriate for age/gender. Language Evaluation: Writing Copies/Traces: Functional Cognitive Patient Orientation Pt was oriented to month, JENNY, hospital name, and city. Pt was not oriented to date or year. Pt unable to state reason for hospitalization, stating that she "had no idea." Objective Cognitive Domain Attention: Moderate Memory: Moderate Executive Functions: Moderate Visuospatial Skills: Moderate Clock Drawing Severity Rating: Moderate Objective Formal/Standardized Tests [place] Cognitive Assessment (MoCA) Results The pt was administered the MoCA with the following results: Visuospatial/Executive: 2/5 (Pt completes copying chair task, but unable to complete number/letter tracing and clock drawing. Stating that "it doesn't matter.") Namin/3 Immediate memory (not included in the final score): 3/5; x2 trials (pt says clock and crocodile x2) Attention: 3/6 (Pt completes reading list of digits forwards and backwards and listening for "A," but was unable to complete simple calculations) Language: 2/3 (repeated 2/2 sentences; generated 5 words beginning with s in 1 min, N=11) Abstraction: 0/2 (Pt states differences instead of similarities) Delayed recall: 0/5 (did not improve with multiple choice options or with category cue) Orientation: 4/6 (not oriented to date or year) Total score: 14/30, moderate (N=26/30 or better) Impression The pt presents with moderate cognitive-linguistic impairments in the areas of visuospatial/executive tasks, immediate and delayed recall, attention, and orientation. Speech Intermediate Goals Intermediate Goals Pt will complete simple reasoning tasks to improve problem solving and orientation tasks with 80% accuracy and min cues. Pt will demonstrate recall of functional information following an immediate, short-term, and long-term delay with 80% accuracy and min cues. Pt will demonstrate the ability to follow multi-step directions related to functional living environment with 85% accuracy and min cues. Speech-Plan Patient/Family Goals Patient/Family Goals: To return home Treatment Plan Speech Therapy Treatment Plan: Continue Plan of Care Treatment Duration: Jul 09, 2023 Frequency: At least 5 of 7 days/Wk (IRF) Estimated Hrs Per Day: .5 hour per day Rehab Potential: Fair Barriers to Learning: Self-limiting Pt/Family Agrees to Plan: Yes Time Speech Therapy Time In: 13:00 Speech Therapy Time Out: 13:30 DATE: Jul 09, 2023 Total Billed Time: 30 Billed Treatment Time 1 SPSNDCOMP 30 min Ayesha [place] Jul 09, 2023 13:04
--- NOTE | 2023-07-09 14:15 | Physical Therapy Evaluation ---
PT Evaluation-General Medical Diagnosis Admission Date Jul 09, 2023 at 10:25 Medical Diagnosis: Critical Illness Myopathy Onset Date: Jul 06, 2023 Therapy Diagnosis Therapy Diagnosis: debility, endurance deficit, mild mobility impairment Height/Weight Height (Feet): 5 Height (Inches): 7.00 Weight (Pounds): 138 Weight (Ounces): 7.0 Precautions Precautions/Isolations: Fall Prevention, Standard Precautions O2 precautions Weight Bear Status Right Lower Extremity: Right Full Weight Bearing Left Lower Extremity: Left Full Weight Bearing Referral Physician: Lala Reason for Referral: Evaluation/Treatment Medical History Pertinent Medical History: Atrial Fib, Arthritis, CAD, COPD, Hypothroidism, [place], OA, PVD, Renal Insufficiency, Smoking Additional Medical History mitral and tricuspid valve regurgitation - not a surgical candidate, HLD, chronic constipation. Hx heart cath 2018. Smoker. NSTEMI 06/16/23. Pulmonary HTN. Current History Patient presented to the ER /c SOB and confusion 07/06/23. Social History Home: Apartment (duplex) Current Living Status: Alone Entry Into Home: Stairs With Railing PT Steps Into Home: 1 (curb) Prior Prior Level of Function SCALE: Activities may be completed with or without assistive devices. 2-Xbylhxrzsg-mtusswi completes the activity by him/herself with no assistance from a helper. 5-Set-up or Clean-up Assistance-helper sets up or cleans up; patient completes activity. [place] assists only prior to or following the activity. 4-Supervision or Touching Assistance-helper provides verbal cues and/or touching/steadying and/or contact guard assistance as patient completes activity. Assistance may be provided throughout the activity or intermittently. 3-Partial/Moderate Assistance-helper does LESS THAN HALF the effort. [place] lifts, holds or supports trunk or limbs, but provides less than half the effort. 2-Substantial/Maximal Assistance-helper does MORE THAN HALF the effort. [place] lifts or holds trunk or limbs and provides more than half the effort. 7-Nlcshjxjj-jnkbbi does ALL the effort. Patient does none of the effort to complete the activity. Or, the assistance of 2 or more helpers is required for the patient to complete the activity. If activity was not attempted, code reason: 7-Patient Refused. 9-Not Applicable-not attempted and the patient did not perform the activity before the current illness, exacerbation or injury. 10-Not Attempted due to Environmental Limitations-(lack of equipment, weather restraints, etc.). 88-Not Attempted due to Medical Conditions or Safety Concerns. Bed Mobility: 6 Transfers (B,C,W/C): 6 Gait: 6 (4WW) Stairs: 6 Wheelchair Mobility: 9 Indoor Mobility (Ambulation): Independent Stairs: Independent Prior Devices Use: Walker (4 wheeled-walker) Does NOT have home O2. Sleeps in a regular bed. Has a shower chair. No longer drives. Has a niece that checks on her frequently and does the shopping. Patient cooks (mostly with air fryer) and does the housekeeping. PT Evaluation-Current Subjective Patient c/o fatigue. Does not understand how she got weak this quickly and does not recall why she came to the hospital. Pain Section J - Health Conditions 1. Rarely or not at all 2. Occasionally 3. Frequently 4. Almost constantly 8. Unable to answer Pain Effect on Sleep: 1 Pain Interference with Therapy: 1 Pain Interference w/Day-to-Day: 1 Pt/Family Goals To get stronger and return to her duplex. Objective Patient Orientation: Person Attachments: Oxygen, IV Cannot recall why she came to hospital. Frequent redirection that she is on 2nd floor/ARU at [facility]. Wearing O2 at 1L. Sats 92-95%. ROM/Strength ROM Upper Extremities defer to OT ROM Lower Extremities WFL (B) LE Strength Upper Extremities Defer to OT Strength Lower Extremities MMT sitting in W/C: (B) knees flexion/extension 4/5, hip flexion 3+/5 (B), ankle 4/5 (B), hip abd/add 4/5 (B). Sensory Vision: Wears Glasses Hearing: Functional Sensation Right Lower Extremit: Intact Sensation Left Lower Extremity: Intact Transfers Roll Left & Right (QC): 6 Sit to Lying (QC): 6 Lying to Sitting/Side of Bed(Q: 6 Sit to Stand (QC): 4 (cues for hand placement) Chair/Koz-sv-Qumac Xfer(QC): 4 (CGA /c 4WW) Toilet Transfer (QC): 4 Car Transfer (QC): 3 (Min (A) and cues to sit on seat and not floorboard) Gait Does the Patient Walk?: Yes Walk 10 feet (QC): 4 (CGA /c 4WW and O2 assist) Walk 50 ft with 2 Turns(QC): 4 (CGA /c O2 assist and 4WW) Walk 150 ft (QC): 4 (CGA /c O2 assist and 4WW) Walking 10ft/uneven surface-QC: 4 (/c FWW and O2 assist) Distance: 76', 402' Comments/Gait Description 4-wheeled walker Wheelchair Training Does the Pt Use a Wheelchair?: No Wheel 50 ft with 2 turns (QC): 9 Wheel 150 ft (QC): 9 Stairs 1 Step (curb) (QC): 1 (Min (A) of 2 for safety) 4 Steps (QC): 4 (CGA /c (B) rails ) 12 Steps (QC): 88 (unable due to fatigue) Balance Sitting Static: Good Sitting Dynamic: Good Standing Static: Good Standing Dynamic: Good Picking up an Object (QC): 3 (Min (A) /s AD) Special Test Comments Elderly Mobility Scale: 07/28. Treatment Co-treatment with OT [id number] to work on higher level gait/balance activities. Assessment/Needs Rehab Potential: Good PT Care Home Goals Care Home Goals PT Warp Hauler Goals Time Frame: Jul 23, 2023 Roll Left to Right (QC): 6 Sit to Lying (QC): 6 Lying-Sitting on Side/Bed(QC): 6 Sit to Stand (QC): 6 Chair/Qqo-jg-Zjyum Xfer(QC): 6 Toilet/Commode Transfer (QC): 6 Car Transfer (QC): 6 Does the Patient Walk: Yes Walk 10 feet (QC): 6 (/c 4WW) Walk 10ft-Uneven Surface(QC): 6 (/c 4WW) Walk 50ft with 2 Turns (QC): 6 (/c 4WW) Walk 150 ft (QC): 6 (/c 4WW) Does the Pt use WC or Scooter?: No Wheel 50 feet with 2 turns (QC: 9 Wheel 150 feet: 9 1 Step (curb) (QC): 6 (/c 4WW) 4 Steps (QC): 6 (/c (B) rails) 12 Steps (QC): 6 (/c (B) rails) Picking up an Object (QC): 6 Elderly Mobility Scale: 15/20 PT Plan Problem List Problem List: Activity Tolerance, Functional Strength, Safety, Balance, Gait, Transfer Treatment/Plan Treatment Plan: Continue Plan of Care Treatment Plan: Concurrent Therapy, Education, Functional Activity Gely, Functional Strength, Group Therapy, Gait, Safety, Therapeutic Exercise, Transfers Treatment Duration: Jul 23, 2023 Frequency: At least 5 of 7 days/Wk (IRF) Estimated Hrs Per Day: Other (75 minutes per day) Patient and/or Family Agrees t: Yes Safety Risks/Education Safety Risk Comments: Energy conservation/SOB Teaching Recipient: Patient Teaching Methods: Discussion Response to Teaching: Reinforcement Needed Discharge Recommendations Therapy Discharge Recommendati: Meals on Wheels, Homemaker Support, Home & Family, Post Acute PT Time Time In: 1100 Time Out: 1200 DATE: Jul 09, 2023 Total Billed Treatment Time: 60 Total Billed Treatment 1 EVM 15' from 3195-1852. [place] from 3649-1585 with OT -- 2GT, 1 FA Nguyen Wilburn PT Jul 09, 2023 14:15
--- NOTE | 2023-07-09 14:55 | Physical Therapy Daily Note ---
PT Daily Note-Current Subjective Patient has finished lunch and is fatigued. Agreeable to work with therapy. Pain Section J - Health Conditions 1. Rarely or not at all 2. Occasionally 3. Frequently 4. Almost constantly 8. Unable to answer Pain Effect on Sleep: 1 Pain Interference with Therapy: 1 Pain Interference w/Day-to-Day: 1 Appearance Resting in recliner with feet elevated. O2 at 1L per nc. Mental Status Attachments: Oxygen Transfers SCALE: Activities may be completed with or without assistive devices. 0-Jjgsynpigh-tlsempf completes the activity by him/herself with no assistance from a helper. 5-Set-up or Clean-up Assistance-helper sets up or cleans up; patient completes activity. [place] assists only prior to or following the activity. 4-Supervision or Touching Assistance-helper provides verbal cues and/or touching/steadying and/or contact guard assistance as patient completes activity. Assistance may be provided throughout the activity or intermittently. 3-Partial/Moderate Assistance-helper does LESS THAN HALF the effort. [place] lif ts, holds or supports trunk or limbs, but provides less than half the effort. 2-Substantial/Maximal Assistance-helper does MORE THAN HALF the effort. [place] lifts or holds trunk or limbs and provides more than half the effort. 0-Ilzzgjlit-ybzhue does ALL the effort. Patient does none of the effort to complete the activity. Or, the assistance of 2 or more helpers is required for the patient to complete the activity. If activity was not attempted, code reason: 7-Patient Refused. 9-Not Applicable-not attempted and the patient did not perform the activity before the current illness, exacerbation or injury. 10-Not Attempted due to Environmental Limitations-(lack of equipment, weather restraints, etc.). 88-Not Attempted due to Medical Conditions or Safety Concerns. Sit to Lying (QC): 6 ( without railing after treatment.) Sit to Stand (QC): 4 (SBA from recliner.) Chair/Irk-mz-Llamq Xfer(QC): 4 (SBA-CGA /c 4WW) Weight Bearing Right Lower Extremity: Right Full Weight Bearing Left Lower Extremity: Left Full Weight Bearing Gait Training Walk 150 ft (QC): 4 (SBA-CGA /c O2 tank assist using FWW, no rest break, but mod SOB during gait. O2 sats 93-95% following gait. ) Treatments Discussed energy conservation and pursed lip breathing while walking or performing any upright activity -- will need reinforcement. Patient states "I'd rather just pant". Assessment Needs reinforcement of energy conservation techniques. O2 sats remain in mid- 90's despite moderate SOB with upright tasks and 1L O2. PT Nursing Home Goals Shop Lead Goals PT Shop Lead Goals Time Frame: Jul 23, 2023 Roll Left & Right (QC): 6 Sit to Lying (QC): 6 Lying-Sitting on Side/Bed(QC): 6 Sit to Stand (QC): 6 Chair/Pvv-eb-Azwei Xfer(QC): 6 Toilet Transfer (QC): 6 Car Transfer (QC): 6 Does the Patient Walk: Yes Walk 10 feet (QC): 6 (/c 4WW) Walk 50ft with 2 Turns (QC): 6 (/c 4WW) Walk 150 ft (QC): 6 (/c 4WW) Walking 10ft on Uneven Surface: 6 (/c 4WW) 1 Step (curb) (QC): 6 (/c 4WW) 4 Steps (QC): 6 (/c (B) rails) 12 Steps (QC): 6 (/c (B) rails) Picking up an Object (QC): 6 Does the Pt use WC or Scooter?: No Wheel 50 feet with 2 turns (QC: 9 Wheel 150 feet: 9 PT Plan Treatment/Plan Treatment Plan: Continue Plan of Care Treatment Plan: Concurrent Therapy, Education, Functional Activity Gely, Functional Strength, Group Therapy, Gait, Safety, Therapeutic Exercise, Transfers Treatment Duration: Jul 23, 2023 Frequency: At least 5 of 7 days/Wk (IRF) Estimated Hrs Per Day: Other (75 minutes per day) Patient and/or Family Agrees t: Yes Time Time In: 1335 Time Out: 1350 DATE: Jul 09, 2023 Total Billed Treatment Time: 15 Total Billed Treatment 1, GT Nguyen Wilburn PT Jul 09, 2023 14:55
[2023-07-09] MEDS: FUROSEMIDE 40 MG TABLET PO SCH (16:57)
[2023-07-09] MEDS: SENNA W/DOCUSATE TABLET PO SCH (19:43)
[2023-07-09] MEDS: DOCUSATE SODIUM 100 MG CAPSULE PO SCH (19:44)
[2023-07-09 19:51] VITALS: BP 109/65
[2023-07-09] MEDS: APIXABAN 5 MG TABLET PO SCH (20:03)
[2023-07-09] MEDS: RT-Ipratropium/Albuterol NEB 3 ML VIAL INH SCH (21:11)
[2023-07-10] MEDS: predniSONE 20 MG TABLET PO SCH (06:16)
[2023-07-10] MEDS: FUROSEMIDE 40 MG TABLET PO SCH ×2 (06:16→16:48)
[2023-07-10 06:27] LABS: BASOPHILS % (AUTO) 0 % (0-10); EOSINOPHILS % (AUTO) 0 % (0-10); MEAN CORPUSCULAR HGB CONC 32 g/dL (32-36)
[2023-07-10 06:29] LABS: HEMATOCRIT 41 % (35-52); HEMOGLOBIN 13.1 g/dL (11.5-16.0); LYMPHOCYTES # (AUTO) 0.7 10^3/uL (1.0-4.0); LYMPHOCYTES % (AUTO) 6 % (12-44); MEAN CORPUSCULAR HEMOGLOBIN 36 pg (25-34); MEAN CORPUSCULAR VOLUME 113 fL (80-99); MEAN PLATELET VOLUME 12.2 fL (9.0-12.2); MONOCYTES # (AUTO) 0.7 10^3/uL (0.0-1.0); MONOCYTES % (AUTO) 6 % (0-12); NEUTROPHILS % (AUTO) 88 % (42-75); PLATELET COUNT 89 10^3/uL (130-400); WHITE BLOOD COUNT 12.5 10^3/uL (4.3-11.0)
[2023-07-10 06:41] LABS: ALBUMIN 3.4 GM/DL (3.2-4.5); POTASSIUM 3.7 MMOL/L (3.6-5.0)
[2023-07-10 06:42] LABS: CALCIUM 8.6 MG/DL (8.5-10.1)
[2023-07-10 06:43] LABS: TOTAL PROTEIN 6.1 GM/DL (6.4-8.2)
[2023-07-10 06:45] LABS: BILIRUBIN,TOTAL 0.8 MG/DL (0.1-1.0)
[2023-07-10 06:47] LABS: CREATININE SERUM 2.07 MG/DL (0.60-1.30)
--- NOTE | 2023-07-10 06:57 | Individualized Plan of Care ---
Individualized Plan of Care Rehab Nursing IPOC Order Admission Date Jul 09, 2023 at 10:25 Current Orders Orders Admission Arrival Bed Request (07/09/23 10:37) Flu High Dose Quad [id number] (Fluzone Hi (07/09/23 11:15) Admission Order(Inpt,Obs,Sdc) (07/09/23 11:52) Vital Signs: Per Unit Policy ( 08,16,00 (07/09/23 11:52) Lenin Gallardojames 09, (07/09/23 11:52) Sequential Compression Device [id number] (07/09/23 11:52) Vp Genetic-Inpt Rehab Con (07/09/23 11:52) Rehab Nursing Orders-Ipoc (07/09/23 11:52) Physical Therapy Rehab Orders (07/09/23 11:52) Occupational Therapy Rehab Ord (07/09/23 11:52) Speech Therapy Rehab Orders (07/09/23 11:52) Cbc And Automated Diff (07/10/23 06:00) Comprehensive Metabolic Panel (07/10/23 06:00) Precautions (Aru) (07/09/23 11:52) Weekly Weight WEEK (07/09/23 11:52) Rehab-Intensity Of Therapy (07/09/23 11:52) Initiate Admission Nursing Pro .admission (07/09/23 11:52) Calcium Carbonate Chew Tablet (Calcium C (07/09/23 12:00) Diphenhydramine Tablet (Diphenhydramine (07/09/23 12:00) Docusate Sodium Capsule (Docusate Sodium (07/09/23 21:00) Docusate Sodium Capsule (Docusate Sodium (07/09/23 12:00) Bisacodyl Suppository (Bisacodyl Supposi (07/09/23 12:00) Lactulose Oral Solution (Enulose Oral So (07/09/23 12:00) Na Phos/Na Biphos Adult Enema (Na Phos/N (07/09/23 12:00) Guaifenesin/Codeine Syrup (Guaifenesin/C (07/09/23 12:00) Loperamide Capsule (Loperamide Capsule) (07/09/23 12:00) Melatonin Tablet (Melatonin Tablet) (07/09/23 12:00) Polyethylene Glycol Powder (Polyethylen (07/09/23 21:00) Ondansetron Oral Dissolve Tab (Ondanset (07/09/23 12:00) Senna W/Docusate Tablet (Senna W/Docusat (07/09/23 21:00) Acetaminophen Tablet (Acetaminophen Ta (07/09/23 12:00) Initiate Admission Nursing Pro .admission (07/09/23 11:52) Code/Resuscitation (07/09/23 11:54) Sodium 2g (2000 Mg) (07/09/23 Lunch) Apixaban Tablet (Apixaban Tablet) (07/09/23 21:00) Aspirin Chewable Tablet (Aspirin Chewabl (07/10/23 09:00) Bisacodyl Suppository (Bisacodyl Supposi (07/09/23 12:00) Furosemide Tablet (Furosemide Tablet) (07/09/23 17:00) Ipratropium/Albuterol Inh Soln (Ipratrop (07/09/23 21:00) Melatonin Tablet (Melatonin Tablet) (07/09/23 12:00) Milk Of Magnesia Oral Susp (Milk Of Magn (07/09/23 12:00) Polyethylene Glycol Powder (Polyethylen (07/09/23 12:00) Antacid Suspension (Antacid Suspension (07/09/23 12:00) Calcium Carbonate Chew Tablet (Calcium C (07/09/23 12:00) Acetaminophen Tablet (Acetaminophen Ta (07/09/23 12:00) Ondansetron Injection (Ondansetron Inj (07/09/23 12:00) Metoprolol Succinate (Xl) Tab (Metoprolo (07/10/23 09:00) Prednisone Tablet (Prednisone Tablet) (07/10/23 07:00) Consult Cardiology (07/09/23 11:54) Mat Initiate Protocol (07/09/23 11:54) Svn Small Volume Nebulizer (07/09/23 11:54) Svn Small Volume Nebulizer (07/09/23 11:54) Telemetry (07/09/23 11:54) Telemetry Nursing Assessment ( (07/09/23 11:54) Patient Visit (07/09/23 ) Pt Eval Moderate Complexity (07/09/23 ) Gait Training, Ea 15 Min (07/09/23 ) Functional Activities, Ea 15 (07/09/23 ) Patient Visit (07/09/23 ) Gait Training, Ea 15 Min (07/09/23 ) Patient Visit (07/09/23 ) Speech Sound Lang Comp (07/09/23 ) Manual Differential (07/10/23 06:11) Rehab Nursing Orders: Ongoing Assess. of Cognitive Status, Ongoing Assess. of Function Status, Bladder Management, Bladder Scan, Bladder Training, Bowel Management, Bowel Training, Disease Management & Educaiton, DVT Prophylaxis, Fall Prevention, Fluid/Electrolyte/Nutrition Mgmt, Infection Prevention, Medication Management & Education, Management of Risks & Complications, Manageme nt of Skin Intergrity, Nutrition Management, Pain Management, Patient/Family Support, Safety Management Intensity of Therapy to be met Patient to be seen: Min.3h per day/5 of 7d PT IPOC Problem List: Activity Tolerance, Functional Strength, Safety, Balance, Gait, Transfer Treatment Plan: Continue Plan of Care Concurrent Therapy, Education, Functional Activity Gely, Functional Strength, Group Therapy, Gait, Safety, Therapeutic Exercise, Transfers Treatment Duration: Jul 23, 2023 Frequency: At least 5 of 7 days/Wk (IRF) Estimated Hrs Per Day: Other (75 minutes per day) OT IPOC Problems: Decreased Activ Tolerance, Decreased Safety Aware, Decreased UE Strength, Impaired Cognition, Impaired Funct Balance, Impaired I ADL's, Impaired Self-Care Skills OT Treatment, Training and Edu: Yes Plan of Care: ADL Retraining, Functional Mobility, Group Exercise/Act as Ind, UE Funct Exercise/Act Treatment Duration: Jul 30, 2023 Frequency: At least 5 of 7 days/Wk (IRF) Estimated Hrs Per Day: Other (75 mins per day) IPOC Speech Therapy Treatment Plan: Continue Plan of Care Treatment Duration: Jul 09, 2023 Frequency: At least 5 of 7 days/Wk (IRF) Estimated Hrs Per Day: .5 hour per day Vp Genetic/Case Mgmt Vp Genetic/Case Managemen: Discharge Planning Dietitian/Chip Bin Conveyor Tender Dietitian/Chip Bin Conveyor Tender to monitor nutritional status and make changes and/or recommendations as needed and work with speech pathology on dietary upgrades as the occur. Physician IPOC Medical Issues being managed closely and that require the 24 hour availability of a physician: Recent respiratory failure with cardiac dysfunction will require close monitoring from cardiology and internal medicine due to high risk for decompensation Medical Issues: Bowel/Bladder Function, DVT Prophylaxis, Falls Precautions, Fluid/Electrolyte/Nutrition Balance, Infection Protection, Pain Management Brief Synthesis of Preadmission Screen, Post-Admission Evaluation, and Therapy Evaluations: PT and OT will focus on regaining function with use of assistive devices in order to regain function with increase stamina and ambulation and ADLs Medical Prognosis: Good Anticipated Length of Stay: 7 days AKUA POLO DO Jul 10, 2023 06:57
--- NOTE | 2023-07-10 06:57 | PM&R Progress Note ---
Subjective HPI/CC On Admission Date Seen by Provider: Jul 10, 2023 Time Seen by Provider: 11:30 Subjective/Events-last exam 07/10/2023: Patient doing pretty well Confusion seems to be improved Remains on oxygen Lungs are clear Reviewed meds and labs Review of Systems General: Fatigue, Malaise Objective Exam Vital Signs Vital Signs Date Time Temp Pulse Resp B/P (MAP) Pulse Ox O2 Delivery O2 Flow Rate FiO2 07/10/23 12:27 88 07/10/23 09:21 20 130/71 (90) 96 Nasal Cannula 1.50 07/10/23 08:00 36.3 Capillary Refill : General Appearance: No Apparent Distress, WD/WN, Chronically ill HEENT: PERRL/EOMI, Normal ENT Inspection, Pharynx Normal Neck: Full Range of Motion, Normal Inspection, Non Tender, Supple, Carotid Bruit Respiratory: Chest Non Tender, Lungs Clear, No Accessory Muscle Use, No Respiratory Distress, Decreased Breath Sounds Cardiovascular: No Edema, No Gallop, No JVD, No Murmur, Normal Peripheral Pulses, Irregularly Irregular Gastrointestinal: Normal Bowel Sounds, No Organomegaly, No Pulsatile Mass, Non Tender, Soft Back: Normal Inspection, No CVA Tenderness, No Vertebral Tenderness Extremity: Normal Capillary Refill, Normal Inspection, Normal Range of Motion, Non Tender, No Calf Tenderness, No Pedal Edema Neurologic/Psychiatric: Alert, Normal Mood/Affect, legal billing analyst II-XII Norm as Tested, Abnormal Gait, Disoriented, Motor Weakness ( generalized) Skin: Normal Color, Warm/Dry Lymphatic: No Adenopathy Results/Procedures Lab Laboratory Tests 07/10/23 06:11 Patient resulted labs reviewed. FIM Transfers Therapy Code Descriptions/Definitions Functional [place] Measure: 0=Not Assessed/NA 4=Minimal Assistance 1=Total Assistance 5=Supervision or Setup 2=Maximal Assistance 6=Modified [place] 3=Moderate Assistance 7=Complete IndependenceSCALE: Activities may be completed with or without assistive devices. 5-Hormabkoxu-sblnmbn completes the activity by him/herself with no assistance from a helper. 5-Set-up or Clean-up Assistance-helper sets up or cleans up; patient completes activity. [place] assists only prior to or following the activity. 4-Supervision or Touching Assistance-helper provides verbal cues and/or touching/steadying and/or contact guard assistance as patient completes activity. Assistance may be provided throughout the activity or intermittently. 3-Partial/Moderate Assistance-helper does LESS THAN HALF the effort. [place] li fts, holds or supports trunk or limbs, but provides less than half the effort. 2-Substantial/Maximal Assistance-helper does MORE THAN HALF the effort. [place] lifts or holds trunk or limbs and provides more than half the effort. 8-Tmcwbmxnd-kulbph does ALL the effort. Patient does none of the effort to complete the activity. Or, the assistance of 2 or more helpers is required for the patient to complete the activity. If activity was not attempted, code reason: 7-Patient Refused. 9-Not Applicable-not attempted and the patient did not perform the activity before the current illness, exacerbation or injury. 10-Not Attempted due to Environmental Limitations-(lack of equipment, weather restraints, etc.). 88-Not Attempted due to Medical Conditions or Safety Concerns. Roll Left to Right (QC): 6 Sit to Lying (QC): 6 ( without railing after treatment.) Sit to Stand (QC): 4 (SBA from recliner.) Chair/Hsg-ev-Cpoom Xfer(QC): 4 (SBA-CGA /c 4WW) Car Transfer (QC): 3 (Min (A) and cues to sit on seat and not floorboard) Gait Training Does the Patient Walk?: Yes Walk 10 feet (QC): 4 (CGA /c 4WW and O2 assist) Walk 50 ft with 2 Turns(QC): 4 (CGA /c O2 assist and 4WW) Walk 150 ft (QC): 4 (SBA-CGA /c O2 tank assist using FWW, no rest break, but mod SOB during gait. O2 sats 93-95% following gait. ) Walking 10ft/uneven surface-QC: 4 (/c FWW and O2 assist) Wheelchair Training Does the Pt Use a Wheelchair?: No Wheel 50 ft with 2 turns (QC): 9 Wheel 150 ft (QC): 9 Stair Training 1 Step (curb) (QC): 1 (Min (A) of 2 for safety) 4 Steps (QC): 4 (CGA /c (B) rails ) 12 Steps (QC): 88 (unable due to fatigue) Balance Picking up an Object (QC): 3 (Min (A) /s AD) ADL-Treatment Eating (QC): 5 Oral Hygiene (QC): 5 (Assist squeezing fixodent onto dentures.) Shower/Bathe Self (QC): 4 (CGA sponge bath) Upper Body Dressing (QC): 4 (SBA) Lower Body Dressing (QC): 4 (CGA) On/Off Footwear (QC): 4 (SBA) Toileting Hygiene (QC): 4 (CGA) Assessment/Plan Assessment and Plan Assess & Plan/Chief Complaint Assessment: Altered mental status Critical illness myopathy Atrial fibrillation NSTEMI Oral anticoagulation Hyperglycemia Carotid stenosis Chronic constipation Chronic kidney disease stage IV Pulmonary hypertension COPD Plan: PT and OT Home meds Aggressive rehab Speech therapy to help with cognition 07/10/2023: Supportive care Monitor closely (1) Myopathy (2) COPD exacerbation Status: Acute (3) Valvular heart disease Status: Chronic (4) Hypoxia Status: Acute (5) Congestive heart failure Status: Acute (6) Severe pulmonary hypertension Status: Acute (7) Afib Status: Acute (8) NSTEMI (non-ST elevation myocardial infarction) Status: Acute (9) Tobacco abuse Status: Chronic AKUA POLO DO Jul 10, 2023 06:57
[2023-07-10] MEDS: RT-Ipratropium/Albuterol NEB 3 ML VIAL INH SCH ×2 (07:34→21:21)
[2023-07-10 08:00] VITALS: BP 98/54
[2023-07-10 08:14] LABS: BAND NEUTROPHILS 0 %; BASOPHILS % (MANUAL) 0 %; EOSINOPHILS % (MANUAL) 0 %; LYMPHOCYTES % (MANUAL) 7 %; MONOCYTES % (MANUAL) 4 %; NEUTROPHILS % (MANUAL) 89 %
[2023-07-10 08:15] LABS: ANISOCYTOSIS SLIGHT
[2023-07-10] MEDS: APIXABAN 5 MG TABLET PO SCH ×2 (09:13→20:53)
[2023-07-10] MEDS: ASPIRIN 81 MG CHEWABLE TABLET PO SCH (09:13)
[2023-07-10 09:16] VITALS: BP 100/67
[2023-07-10 09:21] VITALS: BP 130/71
[2023-07-10] MEDS: SENNA W/DOCUSATE TABLET PO SCH ×2 (09:27→20:53)
[2023-07-10] MEDS: DOCUSATE SODIUM 100 MG CAPSULE PO SCH ×2 (09:27→20:53)
[2023-07-10] MEDS: ACETAMINOPHEN 325 MG TABLET PO PRN (14:10)
[2023-07-10 19:48] VITALS: BP 117/62
[2023-07-10] MEDS: MELATONIN 3 MG TABLET PO PRN (20:53)
[2023-07-10] MEDS: CALCIUM CARBONATE 500 MG CHEW TABLET PO PRN (21:00)
--- NOTE | 2023-07-11 06:31 | PM&R Progress Note ---
Subjective HPI/CC On Admission Date Seen by Provider: Jul 11, 2023 Time Seen by Provider: 13:00 Subjective/Events-last exam 07/11/2023: Doing well No issues No pain except chronic back pain Labs due tomorrow 07/10/2023: Patient doing pretty well Confusion seems to be improved Remains on oxygen Lungs are clear Reviewed meds and labs Review of Systems General: Fatigue, Malaise Objective Exam Vital Signs Vital Signs Date Time Temp Pulse Resp B/P (MAP) Pulse Ox O2 Delivery O2 Flow Rate FiO2 07/11/23 12:33 84 07/11/23 09:40 36.5 98 30 07/11/23 09:32 Nasal Cannula 1.50 07/11/23 08:00 18 114/71 (85) Capillary Refill : General Appearance: No Apparent Distress, WD/WN, Chronically ill HEENT: PERRL/EOMI, Normal ENT Inspection, Pharynx Normal Neck: Full Range of Motion, Normal Inspection, Non Tender, Supple, Carotid Bruit Respiratory: Chest Non Tender, Lungs Clear, No Accessory Muscle Use, No Respiratory Distress, Decreased Breath Sounds Cardiovascular: No Edema, No Gallop, No JVD, No Murmur, Normal Peripheral Pulses, Irregularly Irregular Gastrointestinal: Normal Bowel Sounds, No Organomegaly, No Pulsatile Mass, Non Tender, Soft Back: Normal Inspection, No CVA Tenderness, No Vertebral Tenderness Extremity: Normal Capillary Refill, Normal Inspection, Normal Range of Motion, Non Tender, No Calf Tenderness, No Pedal Edema Neurologic/Psychiatric: Alert, Normal Mood/Affect, pediatric allergist II-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 FIM Transfers Therapy Code Descriptions/Definitions Functional [place] Measure: 0=Not Assessed/NA 4=Minimal Assistance 1=Total Assistance 5=Supervision or Setup 2=Maximal Assistance 6=Modified [place] 3=Moderate Assistance 7=Complete IndependenceSCALE: Activities may be completed with or without assistive devices. 2-Ldbnywgbjh-wjvzysr completes the activity by him/herself with no assistance from a helper. 5-Set-up or Clean-up Assistance-helper sets up or cleans up; patient completes a ctivity. [place] assists only prior to or following the activity. 4-Supervision or Touching Assistance-helper provides verbal cues and/or touching/steadying and/or contact guard assistance as patient completes activity. Assistance may be provided throughout the activity or intermittently. 3-Partial/Moderate Assistance-helper does LESS THAN HALF the effort. [place] lifts, holds or supports trunk or limbs, but provides less than half the effort. 2-Substantial/Maximal Assistance-helper does MORE THAN HALF the effort. [place] lifts or holds trunk or limbs and provides more than half the effort. 3-Uexhwbnkv-xuiuek does ALL the effort. Patient does none of the effort to complete the activity. Or, the assistance of 2 or more helpers is required for the patient to complete the activity. If activity was not attempted, code reason: 7-Patient Refused. 9-Not Applicable-not attempted and the patient did not perform the activity before the current illness, exacerbation or injury. 10-Not Attempted due to Environmental Limitations-(lack of equipment, weather restraints, etc.). 88-Not Attempted due to Medical Conditions or Safety Concerns. Roll Left to Right (QC): 6 Sit to Lying (QC): 6 ( without railing after treatment.) Sit to Stand (QC): 4 (SBA from recliner.) Chair/Isw-ar-Zujrv Xfer(QC): 4 (SBA-CGA /c 4WW) Car Transfer (QC): 3 (Min (A) and cues to sit on seat and not floorboard) Gait Training Does the Patient Walk?: Yes Walk 10 feet (QC): 4 (CGA /c 4WW and O2 assist) Walk 50 ft with 2 Turns(QC): 4 (CGA /c O2 assist and 4WW) Walk 150 ft (QC): 4 (SBA-CGA /c O2 tank assist using FWW, no rest break, but mod SOB during gait. O2 sats 93-95% following gait. ) Walking 10ft/uneven surface-QC: 4 (/c FWW and O2 assist) Wheelchair Training Does the Pt Use a Wheelchair?: No Wheel 50 ft with 2 turns (QC): 9 Wheel 150 ft (QC): 9 Stair Training 1 Step (curb) (QC): 1 (Min (A) of 2 for safety) 4 Steps (QC): 4 (CGA /c (B) rails ) 12 Steps (QC): 88 (unable due to fatigue) Balance Picking up an Object (QC): 3 (Min (A) /s AD) ADL-Treatment Eating (QC): 5 Oral Hygiene (QC): 5 (Assist squeezing fixodent onto dentures.) Shower/Bathe Self (QC): 4 (CGA sponge bath) Upper Body Dressing (QC): 4 (SBA) Lower Body Dressing (QC): 4 (CGA) On/Off Footwear (QC): 4 (SBA) Toileting Hygiene (QC): 4 (CGA) Assessment/Plan Assessment and Plan Assess & Plan/Chief Complaint Assessment: Altered mental status Critical illness myopathy Atrial fibrillation NSTEMI Oral anticoagulation Hyperglycemia Carotid stenosis Chronic constipation Chronic kidney disease stage IV Pulmonary hypertension COPD Plan: PT and OT Home meds Aggressive rehab Speech therapy to help with cognition 07/10/2023: Supportive care Monitor closely 07/11/2023: Labs due tomorrow No falls (1) Myopathy (2) COPD exacerbation Status: Acute (3) Valvular heart disease Status: Chronic (4) Hypoxia Status: Acute (5) Congestive heart failure Status: Acute (6) Severe pulmonary hypertension Status: Acute (7) Afib Status: Acute (8) NSTEMI (non-ST elevation myocardial infarction) Status: Acute (9) Tobacco abuse Status: Chronic AKUA POLO DO Jul 11, 2023 06:31
[2023-07-11] MEDS: predniSONE 20 MG TABLET PO SCH (06:40)
[2023-07-11] MEDS: FUROSEMIDE 40 MG TABLET PO SCH ×2 (06:40→17:04)
[2023-07-11 08:00] VITALS: BP 114/71
[2023-07-11] MEDS: DOCUSATE SODIUM 100 MG CAPSULE PO SCH ×2 (08:23→20:20)
[2023-07-11] MEDS: APIXABAN 5 MG TABLET PO SCH ×2 (08:23→20:20)
[2023-07-11] MEDS: ASPIRIN 81 MG CHEWABLE TABLET PO SCH (08:23)
[2023-07-11] MEDS: SENNA W/DOCUSATE TABLET PO SCH ×2 (08:27→20:20)
[2023-07-11] MEDS: RT-Ipratropium/Albuterol NEB 3 ML VIAL INH SCH ×2 (09:32→21:04)
[2023-07-11 09:40] VITALS: BP 114/71
[2023-07-11 19:43] VITALS: BP 110/70
[2023-07-11 20:07] VITALS: BP 110/70
[2023-07-11] MEDS: ACETAMINOPHEN 325 MG TABLET PO PRN (20:20)
[2023-07-11] MEDS: MELATONIN 3 MG TABLET PO PRN (20:21)
--- NOTE | 2023-07-12 04:59 | PM&R Progress Note ---
Subjective HPI/CC On Admission Date Seen by Provider: Jul 12, 2023 Time Seen by Provider: 09:00 Subjective/Events-last exam 07/12/2023: Patient doing much better Remains on O2 Labs reviewed No falls 07/11/2023: Doing well No issues No pain except chronic back pain Labs due tomorrow 07/10/2023: Patient doing pretty well Confusion seems to be improved Remains on oxygen Lungs are clear Reviewed meds and labs Review of Systems General: Fatigue, Malaise Objective Exam Vital Signs Vital Signs Date Time Temp Pulse Resp B/P (MAP) Pulse Ox O2 Delivery O2 Flow Rate FiO2 07/12/23 20:48 97 Nasal Cannula 1.50 07/12/23 20:24 36.3 71 16 107/62 (77) 07/11/23 09:40 30 Capillary Refill : General Appearance: No Apparent Distress, WD/WN, Chronically ill HEENT: PERRL/EOMI, Normal ENT Inspection, Pharynx Normal Neck: Full Range of Motion, Normal Inspection, Non Tender, Supple, Carotid Bruit Respiratory: Chest Non Tender, Lungs Clear, No Accessory Muscle Use, No Respiratory Distress, Decreased Breath Sounds Cardiovascular: No Edema, No Gallop, No JVD, No Murmur, Normal Peripheral Pulses, Irregularly Irregular Gastrointestinal: Normal Bowel Sounds, No Organomegaly, No Pulsatile Mass, Non Tender, Soft Back: Normal Inspection, No CVA Tenderness, No Vertebral Tenderness Extremity: Normal Capillary Refill, Normal Inspection, Normal Range of Motion, Non Tender, No Calf Tenderness, No Pedal Edema Neurologic/Psychiatric: Alert, Normal Mood/Affect, event management consultant II-XII Norm as Tested, Abnormal Gait, Disoriented, Motor Weakness ( generalized) Skin: Normal Color, Warm/Dry Lymphatic: No Adenopathy Results/Procedures Lab Laboratory Tests 07/12/23 05:22 Patient resulted labs reviewed. FIM Transfers Therapy Code Descriptions/Definitions Functional [place] Measure: 0=Not Assessed/NA 4=Minimal Assistance 1=Total Assistance 5=Supervision or Setup 2=Maximal Assistance 6=Modified [place] 3=Moderate Assistance 7=Complete IndependenceSCALE: Activities may be completed with or without assistive devices. 2-Wkzfgmacfe-icrfnjo completes the activity by him/herself with no assistance from a helper. 5-Set-up or Clean-up Assistance-helper sets up or cleans up; patient completes activity. [place] assists only prior to or following the activity. 4-Supervision or Touching Assistance-helper provides verbal cues and/or touching/steadying and/or contact guard assistance as patient completes ac tivity. Assistance may be provided throughout the activity or intermittently. 3-Partial/Moderate Assistance-helper does LESS THAN HALF the effort. [place] lifts, holds or supports trunk or limbs, but provides less than half the effort. 2-Substantial/Maximal Assistance-helper does MORE THAN HALF the effort. [place] lifts or holds trunk or limbs and provides more than half the effort. 9-Aukgqcnlh-yogfrm does ALL the effort. Patient does none of the effort to complete the activity. Or, the assistance of 2 or more helpers is required for the patient to complete the activity. If activity was not attempted, code reason: 7-Patient Refused. 9-Not Applicable-not attempted and the patient did not perform the activity before the current illness, exacerbation or injury. 10-Not Attempted due to Environmental Limitations-(lack of equipment, weather restraints, etc.). 88-Not Attempted due to Medical Conditions or Safety Concerns. Roll Left to Right (QC): 6 Sit to Lying (QC): 6 ( without railing after treatment.) Sit to Stand (QC): 4 (SBA from recliner.) Chair/Qvd-ns-Ebujl Xfer(QC): 4 (SBA-CGA /c 4WW) Car Transfer (QC): 3 (Min (A) and cues to sit on seat and not floorboard) Gait Training Does the Patient Walk?: Yes Walk 10 feet (QC): 4 (CGA /c 4WW and O2 assist) Walk 50 ft with 2 Turns(QC): 4 (CGA /c O2 assist and 4WW) Walk 150 ft (QC): 4 (SBA-CGA /c O2 tank assist using FWW, no rest break, but mod SOB during gait. O2 sats 93-95% following gait. ) Walking 10ft/uneven surface-QC: 4 (/c FWW and O2 assist) Wheelchair Training Does the Pt Use a Wheelchair?: No Wheel 50 ft with 2 turns (QC): 9 Wheel 150 ft (QC): 9 Stair Training 1 Step (curb) (QC): 1 (Min (A) of 2 for safety) 4 Steps (QC): 4 (CGA /c (B) rails ) 12 Steps (QC): 88 (unable due to fatigue) Balance Picking up an Object (QC): 3 (Min (A) /s AD) ADL-Treatment Eating (QC): 5 Oral Hygiene (QC): 5 (Assist squeezing fixodent onto dentures.) Shower/Bathe Self (QC): 4 (CGA sponge bath) Upper Body Dressing (QC): 4 (SBA) Lower Body Dressing (QC): 4 (CGA) On/Off Footwear (QC): 4 (SBA) Toileting Hygiene (QC): 4 (CGA) Assessment/Plan Assessment and Plan Assess & Plan/Chief Complaint Assessment: Altered mental status Critical illness myopathy Atrial fibrillation NSTEMI Oral anticoagulation Hyperglycemia Carotid stenosis Chronic constipation Chronic kidney disease stage IV Pulmonary hypertension COPD Plan: PT and OT Home meds Aggressive rehab Speech therapy to help with cognition 07/10/2023: Supportive care Monitor closely 07/11/2023: Labs due tomorrow No falls 07/12/2023: Supportive care Maintain O2 (1) Myopathy (2) COPD exacerbation Status: Acute (3) Valvular heart disease Status: Chronic (4) Hypoxia Status: Acute (5) Congestive heart failure Status: Acute (6) Severe pulmonary hypertension Status: Acute (7) Afib Status: Acute (8) NSTEMI (non-ST elevation myocardial infarction) Status: Acute (9) Tobacco abuse Status: Chronic AKUA POLO DO Jul 12, 2023 04:59
[2023-07-12 05:31] LABS: BASOPHILS % (AUTO) 0 % (0-10); EOSINOPHILS % (AUTO) 0 % (0-10); LYMPHOCYTES # (AUTO) 1.1 10^3/uL (1.0-4.0); MEAN CORPUSCULAR HGB CONC 33 g/dL (32-36); MONOCYTES # (AUTO) 0.5 10^3/uL (0.0-1.0); NEUTROPHILS % (AUTO) 81 % (42-75)
[2023-07-12 05:34] LABS: HEMATOCRIT 38 % (35-52); HEMOGLOBIN 12.4 g/dL (11.5-16.0); LYMPHOCYTES % (AUTO) 12 % (12-44); MEAN CORPUSCULAR HEMOGLOBIN 36 pg (25-34); MEAN CORPUSCULAR VOLUME 111 fL (80-99); MEAN PLATELET VOLUME 12.3 fL (9.0-12.2); MONOCYTES % (AUTO) 6 % (0-12); NEUTROPHILS # (AUTO) 7.4 10^3/uL (1.8-7.8); PLATELET COUNT 83 10^3/uL (130-400); WHITE BLOOD COUNT 9.1 10^3/uL (4.3-11.0)
[2023-07-12 05:41] LABS: ALBUMIN 3.3 GM/DL (3.2-4.5); POTASSIUM 3.5 MMOL/L (3.6-5.0)
[2023-07-12 05:43] LABS: CALCIUM 8.7 MG/DL (8.5-10.1)
[2023-07-12 05:44] LABS: TOTAL PROTEIN 5.7 GM/DL (6.4-8.2)
[2023-07-12 05:46] LABS: BILIRUBIN,TOTAL 0.8 MG/DL (0.1-1.0)
[2023-07-12 05:47] LABS: CREATININE SERUM 1.91 MG/DL (0.60-1.30)
[2023-07-12] MEDS: FUROSEMIDE 40 MG TABLET PO SCH ×2 (06:39→17:06)
[2023-07-12] MEDS: predniSONE 20 MG TABLET PO SCH (06:39)
[2023-07-12] MEDS: RT-Ipratropium/Albuterol NEB 3 ML VIAL INH SCH ×2 (07:02→20:48)
[2023-07-12 07:59] VITALS: BP 118/56
--- NOTE | 2023-07-12 08:10 | Occupational Ther Daily Note ---
OT Current Status-Daily Note Subjective Pt agreeable to OT tx. Pt states she is very tired today. Pt had decreased recall of information, she was unable to recall if she ate breakfast (she had just finished breakfast ~1 hour prior), and asked the same questions several times during tx. Mental Status/Objective Patient Orientation: Person, Confused, Place Attachments: Oxygen (2L) ADL-Treatment Therapy Code Descriptions/Definitions Functional [place] Measure: 0=Not Assessed/NA 4=Minimal Assistance 1=Total Assistance 5=Supervision or Setup 2=Maximal Assistance 6=Modified [place] 3=Moderate Assistance 7=Complete IndependenceSCALE: Activities may be completed with or without assistive devices. 2-Pbwmftzcdm-vziyasr completes the activity by him/herself with no assistance from a helper. 5-Set-up or Clean-up Assistance-helper sets up or cleans up; patient completes activity. [place] assists only prior to or following the activity. 4-Supervision or Touching Assistance-helper provides verbal cues and/or touching/steadying and/or contact guard assistance as patient completes activity. Assistance may be provided throughout the activity or intermittently. 3-Partial/Moderate Assistance-helper does LESS THAN HALF the effort. [place] lifts, holds or supports trunk or limbs, but provides less than half the effort. 2-Substantial/Maximal Assistance-helper does MORE THAN HALF the effort. [place] lifts or holds trunk or limbs and provides more than half the effort. 4-Zfvybfixb-rjvkvm does ALL the effort. Patient does none of the effort to complete the activity. Or, the assistance of 2 or more helpers is required for the patient to complete the activity. If activity was not attempted, code reason: 7-Patient Refused. 9-Not Applicable-not attempted and the patient did not perform the activity before the current illness, exacerbation or injury. 10-Not Attempted due to Environmental Limitations-(lack of equipment, weather restraints, etc.). 88-Not Attempted due to Medical Conditions or Safety Concerns. Eating (QC): 5 Oral Hygiene (QC): 7 Shower/Bathe Self (QC): 4 (supervision) Upper Body Dressing (QC): 5 Lower Body Dressing (QC): 4 (supervision) On/Off Footwear: 5 Other Treatment Pt in recliner, used 4WW to transfer into bathroom, onto MA. Pt doffed clothes, completed shower, then donned clothes. Pt declined toileting and oral care at this time. Pt required frequent rest breaks due to SOB, O2 saturation remained >95% with 2L O2 with activity. Pt returned to recliner using 4WW, OT assisted with O2 tubing management. Post tx, pt in recliner, call light in reach and all needs met, chair alarm activated. Education OT Patient Education: Correct positioning, Energy conservation, Modified ADL techniques, Progress toward Goal/Update tx plan, Purpose of tx/functional act ivities, Rehab process Teaching Recipient: Patient Teaching Methods: Discussion Response to Teaching: Verbalize Understanding OT Short Term Goals Short Term Goals Time Frame: Jul 14, 2023 Shower/bathe self: 5 Upper body dressin Lower body dressin Putting on/taking off footwear: 5 OT Combustion Analyst Goals Combustion Analyst Goals Time Frame: Jul 30, 2023 Acute change in mental status: 1 Inattention: 0 Disorganized thinkin Altered level of consciousness: 0 Eating (QC): 6 Oral Hygiene (QC): 6 Toileting Hygiene (QC): 6 Shower/Bathe Self (QC): 6 Upper Body Dressing (QC): 6 Lower Body Dressing (QC): 6 On/Off Footwear (QC): 6 Additional Goals: 1-Demonstrate ADL Tasks, 2-Verbalize Understanding, 3- ImproveStrength/Gely 1=Demonstrate adherence to instructed precautions during ADL tasks. 2=Patient will verbalize/demonstrate understanding of assistive devices/modifications for ADL. 3=Patient will improve strength/tolerance for activity to enable patient to perform ADL's. OT Education/Plan Problem List/Assessment Assessment: Decreased Activ Tolerance, Decreased Safety Aware, Decreased UE Strength, Impaired Cognition, Impaired Funct Balance, Impaired I ADL's, Impaired Self-Care Skills Discharge Recommendations Plan/Recommendations: Continue POC Treatment Plan/Plan of Care Patient would benefit from OT for education, treatment and training to promote independence in ADL's, mobility, safety and/or upper extremity function for ADL's. Plan of Care: ADL Retraining, Functional Mobility, Group Exercise/Act as Ind, UE Funct Exercise/Act Treatment Duration: Jul 30, 2023 Frequency: At least 5 of 7 days/Wk (IRF) Estimated Hrs Per Day: Other (75 mins per day) Agreement: Yes Rehab Potential: Good Time Start Time: 07:15 Stop Time: 08:30 DATE: Jul 12, 2023 Total Time Billed (hr/min): 75 Billed Treatment Time 1, ADL 5 VIKTOR MICHAELS OT Jul 12, 2023 08:10
[2023-07-12] MEDS: APIXABAN 5 MG TABLET PO SCH ×2 (08:39→20:02)
[2023-07-12] MEDS: ASPIRIN 81 MG CHEWABLE TABLET PO SCH (08:39)
[2023-07-12] MEDS: DOCUSATE SODIUM 100 MG CAPSULE PO SCH ×2 (08:39→20:02)
[2023-07-12] MEDS: SENNA W/DOCUSATE TABLET PO SCH ×2 (08:39→20:02)
[2023-07-12] MEDS: ACETAMINOPHEN 325 MG TABLET PO PRN ×2 (08:44→18:58)
--- NOTE | 2023-07-12 11:38 | Speech Therapy Daily Note ---
Speech Daily Progress Note Subjective Date Seen by Provider: Jul 12, 2023 Time Seen by Provider: 10:15 Pt was sitting in bedside chair. Pt reports fatigue and appears SOB (pt has nasal cannula in correctly). MAINTENANCE PAINTER APPRENTICE informs nrsing of SOB, nrsing states they are aware. Objective During today's session, pt participates card sorting tasks and is required to recall 2 units of information during activity. Pt completes with 60% accuracy and mod verbal cues. Pt participates in immediate recall task with 2 cards and 3 cards. completes with 100% accuracy and 45% accuracy. Assessment Assessment Current Status: Fair Progress Treatment Plan Continue Plan of Care Speech Insurance Underwriter Sales Goals Intermediate Goals Pt will complete simple reasoning tasks to improve problem solving and orientation tasks with 80% accuracy and min cues. Pt will demonstrate recall of functional information following an immediate, short-term, and long-term delay with 80% accuracy and min cues. Pt will demonstrate the ability to follow multi-step directions related to functional living environment with 85% accuracy and min cues. Speech-Plan Treatment Plan Speech Therapy Treatment Plan: Continue Plan of Care Treatment Duration: Jul 09, 2023 Frequency: At least 5 of 7 days/Wk (IRF) Estimated Hrs Per Day: .5 hour per day Rehab Potential: Good Time Speech Therapy Time In: 10:15 Speech Therapy Time Out: 10:45 DATE: Jul 12, 2023 Total Billed Time: 30 Billed Treatment Time 1 SLTS 30 min Ayesha Richmond Jul 12, 2023 11:38
--- NOTE | 2023-07-12 11:47 | Progress Note ---
SEGUNDO REESE 07/12/23 1147: Progress Note Pt is a 77 y/o F admitted on 07/09 with critical illness myopathy Pt is often confused. Remains on O2. Encourage IS Labs trending in right direction, keep monitoring OT/PT, speech therapy JOSEFINA POLO DO 07/13/23 0450: Supervisory-Addendum Brief Verification & Attestation Participated in pt care: history, MDM, physical Personally performed: exam, history, MDM, supervision of care Care discussed with: Medical Student Procedures: n/a Results interpretation: Verified all documentation Verification and Attestation of Medical Student E/M Service A medical student performed and documented this service in my presence. I reviewed and verified all information documented by the medical student and made modifications to such information, when appropriate. I personally performed the physical exam and medical decision making. Josefina Polo, Jul 13, 2023,04:50 SEGUNDO REESE Jul 12, 2023 11:47 JOSEFINA POLO DO Jul 13, 2023 04:50
--- NOTE | 2023-07-12 13:14 | Physical Therapy Daily Note ---
PT Daily Note-Current Subjective Pt sitting in recliner upon arrival. Pt agrees to PT but reports very tired and didn't sleep well. Pain Location: No Pain Reported Section J - Health Conditions 1. Rarely or not at all 2. Occasionally 3. Frequently 4. Almost constantly 8. Unable to answer Pain Effect on Sleep: 1 Pain Interference with Therapy: 1 Pain Interference w/Day-to-Day: 1 Mental Status Patient Orientation: Person, Place Transfers SCALE: Activities may be completed with or without assistive devices. 0-Jbxuguwzfr-fuzqids completes the activity by him/herself with no assistance from a helper. 5-Set-up or Clean-up Assistance-helper sets up or cleans up; patient completes activity. [place] assists only prior to or following the activity. 4-Supervision or Touching Assistance-helper provides verbal cues and/or touching/steadying and/or contact guard assistance as patient completes activity. Assistance may be provided throughout the activity or intermittently. 3-Partial/Moderate Assistance-helper does LESS THAN HALF the effort. [place] lif ts, holds or supports trunk or limbs, but provides less than half the effort. 2-Substantial/Maximal Assistance-helper does MORE THAN HALF the effort. [place] lifts or holds trunk or limbs and provides more than half the effort. 6-Cpvnuhynf-hwjmpu does ALL the effort. Patient does none of the effort to complete the activity. Or, the assistance of 2 or more helpers is required for the patient to complete the activity. If activity was not attempted, code reason: 7-Patient Refused. 9-Not Applicable-not attempted and the patient did not perform the activity before the current illness, exacerbation or injury. 10-Not Attempted due to Environmental Limitations-(lack of equipment, weather restraints, etc.). 88-Not Attempted due to Medical Conditions or Safety Concerns. Weight Bearing Right Lower Extremity: Right Full Weight Bearing Left Lower Extremity: Left Full Weight Bearing Exercises Supine Ex: Ankle pumps, Quad Set, Glut sets, Heel Slides, Hip abd/add Supine Reps: 15 Seated Therapy Exercises: Ankle pumps, Long arc quads, Hip flexion, Hamstring Curls Seated Reps: 15 Treatments SPRAY GUNNER asks if pt needs to use BR & pt stes too tired for tx. SPRAY GUNNER explains that will explore ways to improve pt's sleep. Benefits of Pt explained and why its important. Pt completes Supine & Seated EX. Pt resting in recliner at end of tx as lunch arrives. All needs met, call light in hand. Assessment Current Status: Fair Progress Pt demonstrates poor retention of information given during tx. Pt fatigues easily and needs encouragement to push self during tx. PT Intermediate Goals Credit Or Loans Officer Goals PT Intermediate Goals Time Frame: Jul 23, 2023 Roll Left & Right (QC): 6 Sit to Lying (QC): 6 Lying-Sitting on Side/Bed(QC): 6 Sit to Stand (QC): 6 Chair/Wpc-ya-Gxodb Xfer(QC): 6 Toilet Transfer (QC): 6 Car Transfer (QC): 6 Does the Patient Walk: Yes Walk 10 feet (QC): 6 (/c 4WW) Walk 50ft with 2 Turns (QC): 6 (/c 4WW) Walk 150 ft (QC): 6 (/c 4WW) Walking 10ft on Uneven Surface: 6 (/c 4WW) 1 Step (curb) (QC): 6 (/c 4WW) 4 Steps (QC): 6 (/c (B) rails) 12 Steps (QC): 6 (/c (B) rails) Picking up an Object (QC): 6 Does the Pt use WC or Scooter?: No Wheel 50 feet with 2 turns (QC: 9 Wheel 150 feet: 9 PT Plan Problem List Problem List: Activity Tolerance, Functional Strength Treatment/Plan Treatment Plan: Continue Plan of Care Treatment Plan: Concurrent Therapy, Education, Functional Activity Gely, Functional Strength, Group Therapy, Gait, Safety, Therapeutic Exercise, Transfers Treatment Duration: Jul 23, 2023 Frequency: At least 5 of 7 days/Wk (IRF) Estimated Hrs Per Day: Other (75 minutes per day) Patient and/or Family Agrees t: Yes Safety Risks/Education Patient Education: Transfer Techniques, Correct Positioning, Safety Issues Teaching Recipient: Patient Teaching Methods: Discussion Response to Teaching: Verbalize Understanding Time Time In: 1115 Time Out: 1200 DATE: Jul 12, 2023 Total Billed Treatment Time: 45 Total Billed Treatment 1, FA (15m) & EX x2 (30m) ESTHER OSWALD PTA Jul 12, 2023 13:14
--- NOTE | 2023-07-12 14:11 | Physical Therapy Daily Note ---
PT Daily Note-Current Subjective Pt laying Supine in bed upon arrival. Pt needs encouragement to participate as she states she is very tired this afternoon. Pain Location: No Pain Reported Section J - Health Conditions 1. Rarely or not at all 2. Occasionally 3. Frequently 4. Almost constantly 8. Unable to answer Pain Effect on Sleep: 1 Pain Interference with Therapy: 1 Pain Interference w/Day-to-Day: 1 Mental Status Patient Orientation: Person, Place Transfers SCALE: Activities may be completed with or without assistive devices. 0-Joasnenpfx-jpcofzq completes the activity by him/herself with no assistance from a helper. 5-Set-up or Clean-up Assistance-helper sets up or cleans up; patient completes activity. [place] assists only prior to or following the activity. 4-Supervision or Touching Assistance-helper provides verbal cues and/or touching/steadying and/or contact guard assistance as patient completes activity. Assistance may be provided throughout the activity or intermittently. 3-Partial/Moderate Assistance-helper does LESS THAN HALF the effort. [place] lifts, holds or supports trunk or limbs, but provides less than half the effort. 2-Substantial/Maximal Assistance-helper does MORE THAN HALF the effort. [place] lifts or holds trunk or limbs and provides more than half the effort. 4-Crsnerquv-cehgav does ALL the effort. Patient does none of the effort to complete the activity. Or, the assistance of 2 or more helpers is required for the patient to complete the activity. If activity was not attempted, code reason: 7-Patient Refused. 9-Not Applicable-not attempted and the patient did not perform the activity before the current illness, exacerbation or injury. 10-Not Attempted due to Environmental Limitations-(lack of equipment, weather restraints, etc.). 88-Not Attempted due to Medical Conditions or Safety Concerns. Lying to Sitting/Side of Bed(Q: 4 Sit to Stand (QC): 4 Weight Bearing Right Lower Extremity: Right Full Weight Bearing Left Lower Extremity: Left Full Weight Bearing Gait Training Does the Patient Walk?: Yes Distance: 153' Walk 10 feet (QC): 5 Walk 50 ft with 2 Turns(QC): 4 Walk 150 ft (QC): 4 Gait Persons Needed: 1 Gait Assistive Device: FWW Treatments TF from Supine to EOB to Standing. Pt amb in hallway w/RB as needed. Pt rests in recliner upon returning to room. All needs met, call light in hand. Assessment Current Status: Fair Progress Pt requires encouragement to participate in afternoon session. Pt reports feeling very tired but agrees to participate. Pt demonstrates cognitive deficits as retention is short. PT Penitentiary Goals Research Librarian Goals PT Penitentiary Goals Time Frame: Jul 23, 2023 Roll Left & Right (QC): 6 Sit to Lying (QC): 6 Lying-Sitting on Side/Bed(QC): 6 Sit to Stand (QC): 6 Chair/Caw-oj-Wmgfv Xfer(QC): 6 Toilet Transfer (QC): 6 Car Transfer (QC): 6 Does the Patient Walk: Yes Walk 10 feet (QC): 6 (/c 4WW) Walk 50ft with 2 Turns (QC): 6 (/c 4WW) Walk 150 ft (QC): 6 (/c 4WW) Walking 10ft on Uneven Surface: 6 (/c 4WW) 1 Step (curb) (QC): 6 (/c 4WW) 4 Steps (QC): 6 (/c (B) rails) 12 Steps (QC): 6 (/c (B) rails) Picking up an Object (QC): 6 Does the Pt use WC or Scooter?: No Wheel 50 feet with 2 turns (QC: 9 Wheel 150 feet: 9 PT Plan Problem List Problem List: Activity Tolerance Treatment/Plan Treatment Plan: Continue Plan of Care Treatment Plan: Concurrent Therapy, Education, Functional Activity Gely, Functional Strength, Group Therapy, Gait, Safety, Therapeutic Exercise, Transfers Treatment Duration: Jul 23, 2023 Frequency: At least 5 of 7 days/Wk (IRF) Estimated Hrs Per Day: Other (75 minutes per day) Patient and/or Family Agrees t: Yes Safety Risks/Education Patient Education: Transfer Techniques, Correct Positioning, Safety Issues Teaching Recipient: Patient Teaching Methods: Discussion Response to Teaching: Verbalize Understanding Time Time In: 1330 Time Out: 1400 DATE: Jul 12, 2023 Total Billed Treatment Time: 30 Total Billed Treatment 1, FA (10m) & GT (20m) ESTHER OSWALD TREE SURGEON Jul 12, 2023 14:11
[2023-07-12 20:24] VITALS: BP 107/62
--- NOTE | 2023-07-13 05:00 | PM&R Progress Note ---
Subjective HPI/CC On Admission Date Seen by Provider: Jul 13, 2023 Time Seen by Provider: 12:00 Subjective/Events-last exam 07/13/2023: Patient doing well Memory recall is improved Maintain on oxygen She will follow-up with me as an outpatient 07/12/2023: Patient doing much better Remains on O2 Labs reviewed No falls 07/11/2023: Doing well No issues No pain except chronic back pain Labs due tomorrow 07/10/2023: Patient doing pretty well Confusion seems to be improved Remains on oxygen Lungs are clear Reviewed meds and labs Review of Systems General: Fatigue, Malaise Objective Exam Vital Signs Vital Signs Date Time Temp Pulse Resp B/P (MAP) Pulse Ox O2 Delivery O2 Flow Rate FiO2 07/13/23 21:02 Nasal Cannula 1.00 07/13/23 19:51 36.2 84 16 141/71 (94) 96 07/11/23 09:40 30 Capillary Refill : General Appearance: No Apparent Distress, WD/WN, Chronically ill HEENT: PERRL/EOMI, Normal ENT Inspection, Pharynx Normal Neck: Full Range of Motion, Normal Inspection, Non Tender, Supple, Carotid Bruit Respiratory: Chest Non Tender, Lungs Clear, No Accessory Muscle Use, No Respiratory Distress, Decreased Breath Sounds Cardiovascular: No Edema, No Gallop, No JVD, No Murmur, Normal Peripheral Pulses, Irregularly Irregular Gastrointestinal: Normal Bowel Sounds, No Organomegaly, No Pulsatile Mass, Non Tender, Soft Back: Normal Inspection, No CVA Tenderness, No Vertebral Tenderness Extremity: Normal Capillary Refill, Normal Inspection, Normal Range of Motion, Non Tender, No Calf Tenderness, No Pedal Edema Neurologic/Psychiatric: Alert, Normal Mood/Affect, 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 FIM Transfers Therapy Code Descriptions/Definitions Functional [place] Measure: 0=Not Assessed/NA 4=Minimal Assistance 1=Total Assistance 5=Supervision or Setup 2=Maximal Assistance 6=Modified [place] 3=Moderate Assistance 7=Complete IndependenceSCALE: Activities may be completed with or without assistive devices. 6-Awauhrpzpq-ypwkzts completes the activity by him/herself with no assistance from a helper. 5-Set-up or Clean-up Assistance-helper sets up or cleans up; patient completes activity. [place] assists only prior to or following the activity. 4-Supervision or Touching Assistance-helper provides verbal cues and/or touching/steadying and/or contact guard assistance as patient completes activity. Assistance may be provided throughout the activity or intermittently. 3-Partial/Moderate Assistance-helper does LESS THAN HALF the effort. [place] lifts, holds or supports trunk or limbs, but provides less than half the effort. 2-Substantial/Maximal Assistance-helper does MORE THAN HALF the effort. [place] lifts or holds trunk or limbs and provides more than half the effort. 5-Pxfpcqzgz-ozjetn does ALL the effort. Patient does none of the effort to complete the activity. Or, the assistance of 2 or more helpers is required for the patient to complete the activity. If activity was not attempted, code reason: 7-Patient Refused. 9-Not Applicable-not attempted and the patient did not perform the activity before the current illness, exacerbation or injury. 10-Not Attempted due to Environmental Limitations-(lack of equipment, weather restraints, etc.). 88-Not Attempted due to Medical Conditions or Safety Concerns. Roll Left to Right (QC): 6 Sit to Lying (QC): 6 ( without railing after treatment.) Sit to Stand (QC): 4 Chair/Nni-ai-Rjwbh Xfer(QC): 4 (SBA-CGA /c 4WW) Car Transfer (QC): 3 (Min (A) and cues to sit on seat and not floorboard) Gait Training Does the Patient Walk?: Yes Distance: 153' Walk 10 feet (QC): 5 Walk 50 ft with 2 Turns(QC): 4 Walk 150 ft (QC): 4 Walking 10ft/uneven surface-QC: 4 (/c FWW and O2 assist) Gait Persons Needed: 1 Gait Assistive Device: FWW Wheelchair Training Does the Pt Use a Wheelchair?: No Wheel 50 ft with 2 turns (QC): 9 Wheel 150 ft (QC): 9 Stair Training 1 Step (curb) (QC): 1 (Min (A) of 2 for safety) 4 Steps (QC): 4 (CGA /c (B) rails ) 12 Steps (QC): 88 (unable due to fatigue) Balance Picking up an Object (QC): 3 (Min (A) /s AD) ADL-Treatment Eating (QC): 5 Oral Hygiene (QC): 7 Shower/Bathe Self (QC): 4 (supervision) Upper Body Dressing (QC): 5 Lower Body Dressing (QC): 4 (supervision) On/Off Footwear (QC): 5 Toileting Hygiene (QC): 4 (CGA) Assessment/Plan Assessment and Plan Assess & Plan/Chief Complaint Assessment: Altered mental status Critical illness myopathy Atrial fibrillation NSTEMI Oral anticoagulation Hyperglycemia Carotid stenosis Chronic constipation Chronic kidney disease stage IV Pulmonary hypertension COPD Plan: PT and OT Home meds Aggressive rehab Speech therapy to help with cognition 07/10/2023: Supportive care Monitor closely 07/11/2023: Labs due tomorrow No falls 07/12/2023: Supportive care Maintain O2 07/13/2023: Supportive care Maintain oxygen (1) Myopathy (2) COPD exacerbation Status: Acute (3) Valvular heart disease Status: Chronic (4) Hypoxia Status: Acute (5) Congestive heart failure Status: Acute (6) Severe pulmonary hypertension Status: Acute (7) Afib Status: Acute (8) NSTEMI (non-ST elevation myocardial infarction) Status: Acute (9) Tobacco abuse Status: Chronic AKUA POLO DO Jul 13, 2023 05:00
[2023-07-13] MEDS: FUROSEMIDE 40 MG TABLET PO SCH ×2 (06:20→17:03)
[2023-07-13] MEDS: predniSONE 20 MG TABLET PO SCH (06:20)
[2023-07-13] MEDS: RT-Ipratropium/Albuterol NEB 3 ML VIAL INH SCH ×2 (07:16→21:01)
--- NOTE | 2023-07-13 07:29 | Occupational Ther Daily Note ---
OT Current Status-Daily Note Subjective Pt in recliner, agreeable to OT tx. c/o 7-03/18 shoulder pain, RN notified Mental Status/Objective Attachments: Oxygen (2L) ADL-Treatment Therapy Code Descriptions/Definitions Functional [place] Measure: 0=Not Assessed/NA 4=Minimal Assistance 1=Total Assistance 5=Supervision or Setup 2=Maximal Assistance 6=Modified [place] 3=Moderate Assistance 7=Complete IndependenceSCALE: Activities may be completed with or without assistive devices. 2-Szyarhwrrw-anhtpvq completes the activity by him/herself with no assistance from a helper. 5-Set-up or Clean-up Assistance-helper sets up or cleans up; patient completes activity. [place] assists only prior to or following the activity. 4-Supervision or Touching Assistance-helper provides verbal cues and/or touching/steadying and/or contact guard assistance as patient completes activity. Assistance may be provided throughout the activity or intermittently. 3-Partial/Moderate Assistance-helper does LESS THAN HALF the effort. [place] lifts, holds or supports trunk or limbs, but provides less than half the effort. 2-Substantial/Maximal Assistance-helper does MORE THAN HALF the effort. [place] lifts or holds trunk or limbs and provides more than half the effort. 9-Sicrpwdmd-wborvz does ALL the effort. Patient does none of the effort to complete the activity. Or, the assistance of 2 or more helpers is required for the patient to complete the activity. If activity was not attempted, code reason: 7-Patient Refused. 9-Not Applicable-not attempted and the patient did not perform the activity before the current illness, exacerbation or injury. 10-Not Attempted due to Environmental Limitations-(lack of equipment, weather restraints, etc.). 88-Not Attempted due to Medical Conditions or Safety Concerns. Eating (QC): 6 Oral Hygiene (QC): 5 Other Treatment Pt in recliner eating breakfast, OT noted pt did not have dentures in her mouth. OT encouraged pt to put in dentures due to c/o increased gum pain. Pt agreeable with slight encouragement, as she states she hasn't worn her dentures in a while. Pt used toothbrush to clean her gums, OT handed pt top dentures with fixo dent applied, and pt able to place into her mouth to continue eating. After breakfast, pt removed dentures and brushed gums after set up. Pt donned LB clothing after set up, multiple rest breaks required due to c/o SOB. Pt O2 saturation 97%. Post tx, pt in recliner, call light in reach and all needs met. Education OT Patient Education: Correct positioning, Modified ADL techniques, Progress toward Goal/Update tx plan, Purpose of tx/functional activities, Rehab process Teaching Recipient: Patient Teaching Methods: Discussion Response to Teaching: Verbalize Understanding OT Short Term Goals Short Term Goals Time Frame: Jul 14, 2023 Shower/bathe self: 5 Upper body dressin Lower body dressin Putting on/taking off footwear: 5 OT Manager Of Recruiting Goals Manager Of Recruiting Goals Time Frame: Jul 30, 2023 Acute change in mental status: 1 Inattention: 0 Disorganized thinkin Altered level of consciousness: 0 Eating (QC): 6 Oral Hygiene (QC): 6 Toileting Hygiene (QC): 6 Shower/Bathe Self (QC): 6 Upper Body Dressing (QC): 6 Lower Body Dressing (QC): 6 On/Off Footwear (QC): 6 Additional Goals: 1-Demonstrate ADL Tasks, 2-Verbalize Understanding, 3- ImproveStrength/Gely 1=Demonstrate adherence to instructed precautions during ADL tasks. 2=Patient will verbalize/demonstrate understanding of assistive devices/modifications for ADL. 3=Patient will improve strength/tolerance for activity to enable patient to perform ADL's. OT Education/Plan Problem List/Assessment Assessment: Decreased Activ Tolerance, Decreased UE Strength, Impaired Funct Balance, Impaired I ADL's, Impaired Self-Care Skills Discharge Recommendations Plan/Recommendations: Continue POC Treatment Plan/Plan of Care Patient would benefit from OT for education, treatment and training to promote independence in ADL's, mobility, safety and/or upper extremity function for ADL's. Plan of Care: ADL Retraining, Functional Mobility, Group Exercise/Act as Ind, UE Funct Exercise/Act Treatment Duration: Jul 30, 2023 Frequency: At least 5 of 7 days/Wk (IRF) Estimated Hrs Per Day: Other (75 mins per day) Agreement: Yes Rehab Potential: Good Time Start Time: 07:15 Stop Time: 08:00 DATE: Jul 13, 2023 Total Time Billed (hr/min): 45 Billed Treatment Time 1, ADL 3 VIKTOR MICHAELS OT Jul 13, 2023 07:29
[2023-07-13] MEDS: ACETAMINOPHEN 325 MG TABLET PO PRN (07:58)
[2023-07-13 08:00] VITALS: BP 137/74
[2023-07-13] MEDS: SENNA W/DOCUSATE TABLET PO SCH ×2 (08:00→20:02)
[2023-07-13] MEDS: APIXABAN 5 MG TABLET PO SCH ×2 (08:00→20:01)
[2023-07-13] MEDS: DOCUSATE SODIUM 100 MG CAPSULE PO SCH ×2 (08:00→20:02)
[2023-07-13] MEDS: ASPIRIN 81 MG CHEWABLE TABLET PO SCH (08:00)
[2023-07-13] MEDS ORDERED: POTASSIUM CHLORIDE 20 MEQ TABLET PO NR (09:00)
[2023-07-13] MEDS: CALCIUM CARBONATE 500 MG CHEW TABLET PO PRN ×2 (10:37→14:13)
--- NOTE | 2023-07-13 12:03 | Physical Therapy Daily Note ---
PT Daily Note-Current Subjective Pt sitting in recliner upon arrival. Pt agrees to PT but advises didn't sleep well last night. Pain Location: No Pain Reported Section J - Health Conditions 1. Rarely or not at all 2. Occasionally 3. Frequently 4. Almost constantly 8. Unable to answer Pain Effect on Sleep: 1 Pain Interference with Therapy: 1 Pain Interference w/Day-to-Day: 1 Mental Status Patient Orientation: Person, Place, Situation Attachments: Oxygen (2L) Transfers SCALE: Activities may be completed with or without assistive devices. 9-Kagfzesnjk-rpgddwa completes the activity by him/herself with no assistance from a helper. 5-Set-up or Clean-up Assistance-helper sets up or cleans up; patient completes activity. [place] assists only prior to or following the activity. 4-Supervision or Touching Assistance-helper provides verbal cues and/or touching/steadying and/or contact guard assistance as patient completes activity. Assistance may be provided throughout the activity or intermittently. 3-Partial/Moderate Assistance-helper does LESS THAN HALF the effort. [place] lifts, holds or supports trunk or limbs, but provides less than half the effort. 2-Substantial/Maximal Assistance-helper does MORE THAN HALF the effort. [place] lifts or holds trunk or limbs and provides more than half the effort. 5-Rjtxbyiwe-upzelj does ALL the effort. Patient does none of the effort to complete the activity. Or, the assistance of 2 or more helpers is required for the patient to complete the activity. If activity was not attempted, code reason: 7-Patient Refused. 9-Not Applicable-not attempted and the patient did not perform the activity before the current illness, exacerbation or injury. 10-Not Attempted due to Environmental Limitations-(lack of equipment, weather restraints, etc.). 88-Not Attempted due to Medical Conditions or Safety Concerns. Sit to Stand (QC): 4 Weight Bearing Right Lower Extremity: Right Full Weight Bearing Left Lower Extremity: Left Full Weight Bearing Gait Training Does the Patient Walk?: Yes Distance: 160' Walk 10 feet (QC): 5 Walk 50 ft with 2 Turns(QC): 5 Walk 150 ft (QC): 4 Gait Assistive Device: Walker 4 Wheeled Exercises NuStep Minutes: 12 NuStep Workload: 3 Treatments Nurse gives morning meds. Pt TF to standing & declines need for BR. Pt amb in hallway before using NuStep for 12m at WL 3. Pt takes RB then amb in hallway, returning to room. Pt resting in recliner w/all needs met, call light in hand. Assessment Current Status: Good Progress Pt fatigues occasionally and needs RB. Pt continues to have difficulty w/retention of info given. PT Half-Way Goals Director Of Curriculum And Instruction Goals PT Director Of Curriculum And Instruction Goals Time Frame: Jul 23, 2023 Roll Left & Right (QC): 6 Sit to Lying (QC): 6 Lying-Sitting on Side/Bed(QC): 6 Sit to Stand (QC): 6 Chair/Krm-bk-Irxez Xfer(QC): 6 Toilet Transfer (QC): 6 Car Transfer (QC): 6 Does the Patient Walk: Yes Walk 10 feet (QC): 6 (/c 4WW) Walk 50ft with 2 Turns (QC): 6 (/c 4WW) Walk 150 ft (QC): 6 (/c 4WW) Walking 10ft on Uneven Surface: 6 (/c 4WW) 1 Step (curb) (QC): 6 (/c 4WW) 4 Steps (QC): 6 (/c (B) rails) 12 Steps (QC): 6 (/c (B) rails) Picking up an Object (QC): 6 Does the Pt use WC or Scooter?: No Wheel 50 feet with 2 turns (QC: 9 Wheel 150 feet: 9 PT Plan Problem List Problem List: Activity Tolerance, Safety Treatment/Plan Treatment Plan: Continue Plan of Care Treatment Plan: Concurrent Therapy, Education, Functional Activity Gely, Functional Strength, Group Therapy, Gait, Safety, Therapeutic Exercise, Transfers Treatment Duration: Jul 23, 2023 Frequency: At least 5 of 7 days/Wk (IRF) Estimated Hrs Per Day: Other (75 minutes per day) Patient and/or Family Agrees t: Yes Safety Risks/Education Patient Education: Safety Issues Teaching Recipient: Patient Teaching Methods: Discussion Response to Teaching: Verbalize Understanding Time Time In: 0845 Time Out: 929 DATE: Jul 13, 2023 Total Billed Treatment Time: 45 Total Billed Treatment 1, GT (15m), EX (15m) & FA (15m) ESTHER OSWALD SENIOR PROJECT CONTROLS SPECIALIST Jul 13, 2023 12:03
--- NOTE | 2023-07-13 13:51 | Speech Therapy Daily Note ---
Speech Daily Progress Note Subjective Date Seen by Provider: Jul 13, 2023 Time Seen by Provider: 08:15 Pt sitting in bedside chair upon clinician arrival, pt agreeable to session. Objective During the session, pt participates in delayed recall tasks. Pt is asked to look at a picture for one minute and then answer questions without looking at the picture. Pt completes 9/10 accurately. Pt states " I don't know, I'm not paying attention." However, pt then answers correctly. Assessment Assessment Current Status: Fair Progress Treatment Plan Continue Plan of Care Speech Penitentiary Goals Penitentiary Goals Pt will complete simple reasoning tasks to improve problem solving and orientation tasks with 80% accuracy and min cues. Pt will demonstrate recall of functional information following an immediate, short-term, and long-term delay with 80% accuracy and min cues. Pt will demonstrate the ability to follow multi-step directions related to functional living environment with 85% accuracy and min cues. Speech-Plan Treatment Plan Speech Therapy Treatment Plan: Continue Plan of Care Treatment Duration: Jul 09, 2023 Frequency: At least 5 of 7 days/Wk (IRF) Estimated Hrs Per Day: .5 hour per day Rehab Potential: Good Time Speech Therapy Time In: 08:15 Speech Therapy Time Out: 08:45 DATE: Jul 13, 2023 Total Billed Time: 30 Billed Treatment Time 1 SLTS 30 min Ayesha Richmond Jul 13, 2023 13:51
--- NOTE | 2023-07-13 14:28 | Therapy Group Daily Note ---
Therapy Daily Group Note Patient Education Topic Home Safety, Exercises Exercises LE Seated Exercise, UE Exercise Session Ratio (pt:therapist): 4:1 Goal of Session: Home Safety Strategies, UE/LE Strengthing Goal Met for this Session: Yes Pt Benefit of Group: Contributions to Others, F/U Use of Strategies @Home, Increased Functional Safety, Increased Functional Strength, Improved Cognition, Recognition of Peers, Socialization Other/Notes Pt ambulated using FWW to therapy gym for group. Group consisted of introductions (name, place living, roll-a-dice topic), socialization, B UE/LE seated exercises, B UE activity for visual perception/B UE strengthening and educational topic over home safety. Pt introduced self appropriately and actively listened to peers. Pt able to complete B UE/LE seated exercises with skilled instruction for correct technique and modifications when needed. Pt verbalized understanding of educational topic and gave personal strategies. Pt able to complete activity without difficulty. After session, pt sitting in recliner with call light/phone in reach. All needs met in room. Start Time: 13:05 Stop Time: 14:05 Total Billed Treatment Time: 60 Total Billed Treatment 1-GRP DEVON MARES Jul 13, 2023 14:28
--- NOTE | 2023-07-13 16:01 | Progress Note ---
WILI SANTOS 07/13/23 1601: Progress Note Kvng Nguyễn is a 77 yo F with a PMH of CAD, COPD, diastolic CHF, pulmonary hypertension, recent PE and dementia who was admitted to [facility] on 07/06 for mixed acute hypoxic respiratory failure primarily due to CHF exacerbation. On 07/09 she was transfered to inpatient rehab in stable condition for improve ment of critical illness myopathy with the goal of returning to home and scores of 6 in all categories. Intially, the patient was fully independent (scoring 6) with rolling left to right and sitting to lying. She received scores of of 4 with sitting to stand, bed to chair transfer and all gait training as well as a score of 3 for car transfer. At this time, the patient's scores for walking 10 feet and 50 feet have improved to 5. She is still scoring 4 on all remaining gait training, sitting to stand, and bed to chair transfer. She is still oxygen dependent. JOSEFINA POLO DO 07/14/23 0458: Supervisory-Addendum Brief Verification & Attestation Participated in pt care: history, MDM, physical Personally performed: exam, history, MDM, supervision of care Care discussed with: Medical Student Procedures: n/a Results interpretation: Verified all documentation Verification and Attestation of Medical Student E/M Service A medical student performed and documented this service in my presence. I reviewed and verified all information documented by the medical student and made modifications to such information, when appropriate. I personally performed the physical exam and medical decision making. Josefina Polo Jul 14, 2023,04:58 WILI SANTOS Jul 13, 2023 16:01 JOSEFINA POLO DO Jul 14, 2023 04:58
[2023-07-13 19:51] VITALS: BP 141/71
[2023-07-13] MEDS: POTASSIUM CHLORIDE 10 MEQ TABLET PO SCH (20:01)
[2023-07-13] MEDS: MELATONIN 3 MG TABLET PO PRN (20:02)
--- NOTE | 2023-07-14 06:02 | PM&R Progress Note ---
Subjective HPI/CC On Admission Date Seen by Provider: Jul 14, 2023 Time Seen by Provider: 13:00 Subjective/Events-last exam 07/14/2023: Patient dramatically improved Moving around really well Cognition is improving Remains on oxygen at discharge 07/13/2023: Patient doing well Memory recall is improved Maintain on oxygen She will follow-up with me as an outpatient 07/12/2023: Patient doing much better Remains on O2 Labs reviewed No falls 07/11/2023: Doing well No issues No pain except chronic back pain Labs due tomorrow 07/10/2023: Patient doing pretty well Confusion seems to be improved Remains on oxygen Lungs are clear Reviewed meds and labs Review of Systems General: Fatigue, Malaise Objective Exam Vital Signs Vital Signs Date Time Temp Pulse Resp B/P (MAP) Pulse Ox O2 Delivery O2 Flow Rate FiO2 07/14/23 21:00 95 Nasal Cannula 2.00 07/14/23 20:23 79 28 07/14/23 20:20 36.3 20 101/58 (72) Capillary Refill : General Appearance: No Apparent Distress, WD/WN, Chronically ill HEENT: PERRL/EOMI, Normal ENT Inspection, Pharynx Normal Neck: Full Range of Motion, Normal Inspection, Non Tender, Supple, Carotid Bruit Respiratory: Chest Non Tender, Lungs Clear, No Accessory Muscle Use, No Respiratory Distress, Decreased Breath Sounds Cardiovascular: No Edema, No Gallop, No JVD, No Murmur, Normal Peripheral Pulses, Irregularly Irregular Gastrointestinal: Normal Bowel Sounds, No Organomegaly, No Pulsatile Mass, Non Tender, Soft Back: Normal Inspection, No CVA Tenderness, No Vertebral Tenderness Extremity: Normal Capillary Refill, Normal Inspection, Normal Range of Motion, Non Tender, No Calf Tenderness, No Pedal Edema Neurologic/Psychiatric: Alert, Normal Mood/Affect, 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 FIM Transfers Therapy Code Descriptions/Definitions Functional [place] Measure: 0=Not Assessed/NA 4=Minimal Assistance 1=Total Assistance 5=Supervision or Setup 2=Maximal Assistance 6=Modified [place] 3=Moderate Assistance 7=Complete IndependenceSCALE: Activities may be completed with or without assistive devices. 0-Najazpqgxh-xnzwjgo completes the activity by him/herself with no assistance from a helper. 5-Set-up or Clean-up Assistance-helper sets up or cleans up; patient completes activity. [place] assists only prior to or following the activity. 4-Supervision or Touching Assistance-helper provides verbal cues and/or touching/steadying and/or contact guard assistance as patient completes activity. Assistance may be provided throughout the activity or intermittently. 3-Partial/Moderate Assistance-helper does LESS THAN HALF the effort. [place] lifts, holds or supports trunk or limbs, but provides less than half the effort. 2-Substantial/Maximal Assistance-helper does MORE THAN HALF the effort. [place] lifts or holds trunk or limbs and provides more than half the effort. 6-Rlkkplbld-xqakmj does ALL the effort. Patient does none of the effort to complete the activity. Or, the assistance of 2 or more helpers is required for the patient to complete the activity. If activity was not attempted, code reason: 7-Patient Refused. 9-Not Applicable-not attempted and the patient did not perform the activity before the current illness, exacerbation or injury. 10-Not Attempted due to Environmental Limitations-(lack of equipment, weather restraints, etc.). 88-Not Attempted due to Medical Conditions or Safety Concerns. Roll Left to Right (QC): 6 Sit to Lying (QC): 6 ( without railing after treatment.) Sit to Stand (QC): 4 Chair/Udz-kf-Pkfou Xfer(QC): 4 (SBA-CGA /c 4WW) Car Transfer (QC): 3 (Min (A) and cues to sit on seat and not floorboard) Gait Training Does the Patient Walk?: Yes Distance: 160' Walk 10 feet (QC): 5 Walk 50 ft with 2 Turns(QC): 5 Walk 150 ft (QC): 4 Walking 10ft/uneven surface-QC: 4 (/c FWW and O2 assist) Gait Persons Needed: 1 Gait Assistive Device: Walker 4 Wheeled Wheelchair Training Does the Pt Use a Wheelchair?: No Wheel 50 ft with 2 turns (QC): 9 Wheel 150 ft (QC): 9 Stair Training 1 Step (curb) (QC): 1 (Min (A) of 2 for safety) 4 Steps (QC): 4 (CGA /c (B) rails ) 12 Steps (QC): 88 (unable due to fatigue) Balance Picking up an Object (QC): 3 (Min (A) /s AD) ADL-Treatment Eating (QC): 6 Oral Hygiene (QC): 5 Shower/Bathe Self (QC): 4 (supervision) Upper Body Dressing (QC): 5 Lower Body Dressing (QC): 4 (supervision) On/Off Footwear (QC): 5 Toileting Hygiene (QC): 4 (CGA) Assessment/Plan Assessment and Plan Assess & Plan/Chief Complaint Assessment: Altered mental status Critical illness myopathy Atrial fibrillation NSTEMI Oral anticoagulation Hyperglycemia Carotid stenosis Chronic constipation Chronic kidney disease stage IV Pulmonary hypertension COPD Plan: PT and OT Home meds Aggressive rehab Speech therapy to help with cognition 07/10/2023: Supportive care Monitor closely 07/11/2023: Labs due tomorrow No falls 07/12/2023: Supportive care Maintain O2 07/13/2023: Supportive care Maintain oxygen 07/14/2023: Home oxygen study Supportive care (1) Myopathy (2) COPD exacerbation Status: Acute (3) Valvular heart disease Status: Chronic (4) Hypoxia Status: Acute (5) Congestive heart failure Status: Acute (6) Severe pulmonary hypertension Status: Acute (7) Afib Status: Acute (8) NSTEMI (non-ST elevation myocardial infarction) Status: Acute (9) Tobacco abuse Status: Chronic AKUA POLO DO Jul 14, 2023 06:02
[2023-07-14] MEDS: FUROSEMIDE 40 MG TABLET PO SCH ×2 (06:38→17:33)
[2023-07-14] MEDS: predniSONE 20 MG TABLET PO SCH (06:38)
[2023-07-14 07:18] VITALS: BP 98/57
[2023-07-14] MEDS: RT-Ipratropium/Albuterol NEB 3 ML VIAL INH SCH ×2 (08:49→19:36)
--- NOTE | 2023-07-14 09:35 | Occupational Ther Daily Note ---
OT Current Status-Daily Note Subjective Pt. alert, sitting in recliner. No c/o pain, pt did voiced swelling in R hand nrsg notified. Pt. feeling tired and fatigue. Pt. agreed to therapy. Mental Status/Objective Patient Orientation: Person, Place, Time, Situation Attachments: Oxygen (2L) ADL-Treatment Pt. agreed to shower. Pt. ambulated using 4WW to gather UB/LB dressing by self. Pt required frequent rest breaks due to SOB, O2 saturation remained 97-100% with 2L of O2 during ADLs and exercise. Pt. IND with functional mobility using 4WW. After session, pt in recliner with call light and phone in reach and all needs met. Therapy Code Descriptions/Definitions Functional [place] Measure: 0=Not Assessed/NA 4=Minimal Assistance 1=Total Assistance 5=Supervision or Setup 2=Maximal Assistance 6=Modified [place] 3=Moderate Assistance 7=Complete IndependenceSCALE: Activities may be completed with or without assistive devices. 9-Avbrieiejm-ixuefix completes the activity by him/herself with no assistance from a helper. 5-Set-up or Clean-up Assistance-helper sets up or cleans up; patient completes activity. [place] assists only prior to or following the activity. 4-Supervision or Touching Assistance-helper provides verbal cues and/or touching/steadying and/or contact guard assistance as patient completes activity. Assistance may be provided throughout the activity or intermittently. 3-Partial/Moderate Assistance-helper does LESS THAN HALF the effort. [place] lifts, holds or supports trunk or limbs, but provides less than half the effort. 2-Substantial/Maximal Assistance-helper does MORE THAN HALF the effort. [place] lifts or holds trunk or limbs and provides more than half the effort. 2-Bjteshgwp-pgqqle does ALL the effort. Patient does none of the effort to complete the activity. Or, the assistance of 2 or more helpers is required for the patient to complete the activity. If activity was not attempted, code reason: 7-Patient Refused. 9-Not Applicable-not attempted and the patient did not perform the activity before the current illness, exacerbation or injury. 10-Not Attempted due to Environmental Limitations-(lack of equipment, weather restraints, etc.). 88-Not Attempted due to Medical Conditions or Safety Concerns. Bathing Location: L Arm, R Arm, L Upper Leg, R Upper Leg, L Lower Leg (including foot), R Lower Leg (including foot), Chest, Abdomen, Buttocks, Perineal Area Shower/Bathe Self (QC): 6 (Pt. able to bathe all areas and stands to clean buttocks and akushik areas using grabbars while sitting on shower bench 95% of time.) Upper Body Dressing (QC): 6 (Pt. able to don/doff UB dressing.) Lower Body Dressing (QC): 6 (Pt. able to don/doff LB dressing using grabbars/4WW to hike with no LOB. ) On/Off Footwear: 6 (Pt. able to don/doff socks. ) Other Treatment Pt. given HEP and completed B UE exercises using light resistance theraband 6 exercise 1 set of 10 reps. Completed arm bike for 5 minutes with 5 naqvi resistance going forward/backwards rest breaks in between to increase strength for daily functional task. Skilled instructions for correct technique and modifications when needed. Education OT Patient Education: Exercise program, Home exercise program, Purpose of tx/functional activities Teaching Recipient: Patient Teaching Methods: Demonstration, Discussion Response to Teaching: Verbalize Understanding, Return Demonstration OT Short Term Goals Short Term Goals Time Frame: Jul 14, 2023 Shower/bathe self: 5 Upper body dressin Lower body dressin Putting on/taking off footwear: 5 OT Contract Clerk Automobile Goals [facility] Goals Time Frame: Jul 30, 2023 Acute change in mental status: 1 Inattention: 0 Disorganized thinkin Altered level of consciousness: 0 Eating (QC): 6 Oral Hygiene (QC): 6 Toileting Hygiene (QC): 6 Shower/Bathe Self (QC): 6 Upper Body Dressing (QC): 6 Lower Body Dressing (QC): 6 On/Off Footwear (QC): 6 Additional Goals: 1-Demonstrate ADL Tasks, 2-Verbalize Understanding, 3-ImproveStrength/Gely 1=Demonstrate adherence to instructed precautions during ADL tasks. 2=Patient will verbalize/demonstrate understanding of assistive devices/modifications for ADL. 3=Patient will improve strength/tolerance for activity to enable patient to perform ADL's. OT Education/Plan Problem List/Assessment Assessment: Decreased Safety Aware, Decreased UE Strength, Impaired Funct Balance, Impaired I ADL's, Impaired Self-Care Skills Discharge Recommendations Plan/Recommendations: Continue POC Treatment Plan/Plan of Care Patient would benefit from OT for education, treatment and training to promote independence in ADL's, mobility, safety and/or upper extremity function for ADL's. Plan of Care: ADL Retraining, Functional Mobility, Group Exercise/Act as Ind, UE Funct Exercise/Act Treatment Duration: Jul 30, 2023 Frequency: At least 5 of 7 days/Wk (IRF) Estimated Hrs Per Day: Other (75 mins per day) Agreement: Yes Rehab Potential: Good Time Start Time: 08:15 Stop Time: 09:30 DATE: Jul 14, 2023 Total Time Billed (hr/min): 75 Billed Treatment Time 1 visit- ADL 3 (45 mins) EX 2 (30 mins) DEVON MARES Jul 14, 2023 09:35
[2023-07-14 09:40] VITALS: BP 108/59
[2023-07-14] MEDS: POTASSIUM CHLORIDE 10 MEQ TABLET PO SCH ×2 (09:41→21:54)
[2023-07-14] MEDS: ASPIRIN 81 MG CHEWABLE TABLET PO SCH (09:41)
[2023-07-14] MEDS: SENNA W/DOCUSATE TABLET PO SCH ×3 (09:41→21:54)
[2023-07-14] MEDS: APIXABAN 5 MG TABLET PO SCH ×2 (09:41→21:54)
[2023-07-14] MEDS: DOCUSATE SODIUM 100 MG CAPSULE PO SCH ×3 (09:42→21:54)
--- NOTE | 2023-07-14 11:15 | Speech Therapy Daily Note ---
Speech Daily Progress Note Subjective Date Seen by Provider: Jul 14, 2023 Time Seen by Provider: 10:30 Pt asleep in chair upon clinician arrival. Pt was roused and agreed to participate in session. Objective Naming wholes from parts: Listing items for tasks: 06/24 Pt required constant re-instruction of tasks, throughout each task. Pt states "I don't do this" and required explanation of purpose of therapy. Assessment Assessment Current Status: Fair Progress Treatment Plan Continue Plan of Care Speech Medical Resident Goals Assisted Goals Pt will complete simple reasoning tasks to improve problem solving and orientation tasks with 80% accuracy and min cues. Pt will demonstrate recall of functional information following an immediate, short-term, and long-term delay with 80% accuracy and min cues. Pt will demonstrate the ability to follow multi-step directions related to functional living environment with 85% accuracy and min cues. Speech-Plan Treatment Plan Speech Therapy Treatment Plan: Continue Plan of Care Treatment Duration: Jul 09, 2023 Frequency: At least 5 of 7 days/Wk (IRF) Estimated Hrs Per Day: .5 hour per day Rehab Potential: Good Time Speech Therapy Time In: 10:30 Speech Therapy Time Out: 11:00 DATE: Jul 14, 2023 Total Billed Time: 30 Billed Treatment Time 1 SLTS 30 min Pt states that she is unsure if she wants to return home. Says she feels like a burden to her niece. Informed social insurance adviser and she states she will discuss this with pt. Ayesha Richmond Jul 14, 2023 11:15
[2023-07-14 11:18] VITALS: BP 107/57
--- NOTE | 2023-07-14 13:31 | Physical Therapy Daily Note ---
PT Daily Note-Current Subjective Pt sitting in recliner upon arrival. Pt agrees to PT. Pain Location: No Pain Reported Section J - Health Conditions 1. Rarely or not at all 2. Occasionally 3. Frequently 4. Almost constantly 8. Unable to answer Pain Effect on Sleep: 1 Pain Interference with Therapy: 1 Pain Interference w/Day-to-Day: 1 Mental Status Attachments: Oxygen (2L during tx) Transfers SCALE: Activities may be completed with or without assistive devices. 1-Frvtjwhcmx-vxemaqx completes the activity by him/herself with no assistance from a helper. 5-Set-up or Clean-up Assistance-helper sets up or cleans up; patient completes activity. [place] assists only prior to or following the activity. 4-Supervision or Touching Assistance-helper provides verbal cues and/or touching/steadying and/or contact guard assistance as patient completes activity. Assistance may be provided throughout the activity or intermittently. 3-Partial/Moderate Assistance-helper does LESS THAN HALF the effort. [place] lifts, holds or supports trunk or limbs, but provides less than half the effort. 2-Substantial/Maximal Assistance-helper does MORE THAN HALF the effort. [place] lifts or holds trunk or limbs and provides more than half the effort. 3-Nivqvjhbd-gvjnaa does ALL the effort. Patient does none of the effort to complete the activity. Or, the assistance of 2 or more helpers is required for the patient to complete the activity. If activity was not attempted, code reason: 7-Patient Refused. 9-Not Applicable-not attempted and the patient did not perform the activity before the current illness, exacerbation or injury. 10-Not Attempted due to Environmental Limitations-(lack of equipment, weather restraints, etc.). 88-Not Attempted due to Medical Conditions or Safety Concerns. Roll Left & Right (QC): 6 Sit to Lying (QC): 6 Lying to Sitting/Side of Bed(Q: 6 Sit to Stand (QC): 6 Chair/Vzt-xd-Bttne Xfer(QC): 6 Toilet Transfer (QC): 6 Car Transfer (QC): 6 Weight Bearing Right Lower Extremity: Right Full Weight Bearing Left Lower Extremity: Left Full Weight Bearing Gait Training Does the Patient Walk?: Yes Distance: 150', 125', 75' Walk 10 feet (QC): 5 Walk 50 ft with 2 Turns(QC): 5 Walk 150 ft (QC): 5 Walking 10ft/uneven surface-QC: 5 Gait Assistive Device: Walker 4 Wheeled Wheelchair Training Does the Pt Use a Wheelchair?: No Stair Training Stair Training: Handrails/: 2 handrails #of Steps: 12 1 Step (curb) (QC): 6 4 Steps (QC): 6 12 Steps (QC): 5 Balance Picking up an Object (QC): 6 Special Test Comments uses incinerator plant laborer Treatments Pt completes QC scoring items listed above. Pt returns to room to use BR and rest in recliner at end of tx for lunch. All needs met, call light in hand. Assessment Current Status: Good Progress PT Longterm Goals Finishing Range Feeder Goals PT Finishing Range Feeder Goals Time Frame: Jul 23, 2023 Roll Left & Right (QC): 6 Sit to Lying (QC): 6 Lying-Sitting on Side/Bed(QC): 6 Sit to Stand (QC): 6 Chair/Epi-dj-Elnzs Xfer(QC): 6 Toilet Transfer (QC): 6 Car Transfer (QC): 6 Does the Patient Walk: Yes Walk 10 feet (QC): 6 (/c 4WW) Walk 50ft with 2 Turns (QC): 6 (/c 4WW) Walk 150 ft (QC): 6 (/c 4WW) Walking 10ft on Uneven Surface: 6 (/c 4WW) 1 Step (curb) (QC): 6 (/c 4WW) 4 Steps (QC): 6 (/c (B) rails) 12 Steps (QC): 6 (/c (B) rails) Picking up an Object (QC): 6 Does the Pt use WC or Scooter?: No Wheel 50 feet with 2 turns (QC: 9 Wheel 150 feet: 9 PT Plan Problem List Problem List: Activity Tolerance Treatment/Plan Treatment Plan: Continue Plan of Care Treatment Plan: Concurrent Therapy, Education, Functional Activity Gely, Functional Strength, Group Therapy, Gait, Safety, Therapeutic Exercise, Transfers Treatment Duration: Jul 23, 2023 Frequency: At least 5 of 7 days/Wk (IRF) Estimated Hrs Per Day: Other (75 minutes per day) Patient and/or Family Agrees t: Yes Safety Risks/Education Patient Education: Safety Issues Teaching Methods: Discussion Response to Teaching: Verbalize Understanding Time Time In: 1115 Time Out: 1200 DATE: Jul 14, 2023 Total Billed Treatment Time: 45 Total Billed Treatment 1, GT x2 (25m) & FA (20m) ESTHER OSWALD SENIOR COMMISSIONS ANALYST Jul 14, 2023 13:31
--- NOTE | 2023-07-14 15:56 | Physical Therapy Daily Note ---
PT Daily Note-Current Subjective Pt sitting in recliner after lunch asleep upon arrival. Pt agrees to PT but asks to return to bed at end of tx. Pain Location: No Pain Reported Section J - Health Conditions 1. Rarely or not at all 2. Occasionally 3. Frequently 4. Almost constantly 8. Unable to answer Pain Effect on Sleep: 1 Pain Interference with Therapy: 1 Pain Interference w/Day-to-Day: 1 Mental Status Patient Orientation: Person, Place Attachments: Oxygen (2L) Transfers SCALE: Activities may be completed with or without assistive devices. 7-Iebyufjudn-eqihlqe completes the activity by him/herself with no assistance from a helper. 5-Set-up or Clean-up Assistance-helper sets up or cleans up; patient completes activity. [place] assists only prior to or following the activity. 4-Supervision or Touching Assistance-helper provides verbal cues and/or touching/steadying and/or contact guard assistance as patient completes activity. Assistance may be provided throughout the activity or intermittently. 3-Partial/Moderate Assistance-helper does LESS THAN HALF the effort. [place] lifts, holds or supports trunk or limbs, but provides less than half the effort. 2-Substantial/Maximal Assistance-helper does MORE THAN HALF the effort. [place] lifts or holds trunk or limbs and provides more than half the effort. 7-Xjkdflplg-gzyfpr does ALL the effort. Patient does none of the effort to complete the activity. Or, the assistance of 2 or more helpers is required for the patient to complete the activity. If activity was not attempted, code reason: 7-Patient Refused. 9-Not Applicable-not attempted and the patient did not perform the activity before the current illness, exacerbation or injury. 10-Not Attempted due to Environmental Limitations-(lack of equipment, weather restraints, etc.). 88-Not Attempted due to Medical Conditions or Safety Concerns. Sit to Lying (QC): 6 Sit to Stand (QC): 6 Toilet Transfer (QC): 6 Weight Bearing Right Lower Extremity: Right Full Weight Bearing Left Lower Extremity: Left Full Weight Bearing Gait Training Does the Patient Walk?: Yes Distance: 150' Walk 10 feet (QC): 6 Walk 50 ft with 2 Turns(QC): 6 Walk 150 ft (QC): 6 Gait Assistive Device: FWW Treatments Pt TF to standing and amb in hallway. Pt uses BR then returns to bed to rest. All needs met, call light in hand. Assessment Current Status: Good Progress Pt reports always being tired and needs VC for safety at times shayan. w/O2 line management. PT Nursing Home Goals Commercial Subcontractor Goals PT Commercial Subcontractor Goals Time Frame: Jul 23, 2023 Roll Left & Right (QC): 6 Sit to Lying (QC): 6 Lying-Sitting on Side/Bed(QC): 6 Sit to Stand (QC): 6 Chair/Fuy-qh-Kzhwa Xfer(QC): 6 Toilet Transfer (QC): 6 Car Transfer (QC): 6 Does the Patient Walk: Yes Walk 10 feet (QC): 6 (/c 4WW) Walk 50ft with 2 Turns (QC): 6 (/c 4WW) Walk 150 ft (QC): 6 (/c 4WW) Walking 10ft on Uneven Surface: 6 (/c 4WW) 1 Step (curb) (QC): 6 (/c 4WW) 4 Steps (QC): 6 (/c (B) rails) 12 Steps (QC): 6 (/c (B) rails) Picking up an Object (QC): 6 Does the Pt use WC or Scooter?: No Wheel 50 feet with 2 turns (QC: 9 Wheel 150 feet: 9 PT Plan Problem List Problem List: Activity Tolerance, Safety Treatment/Plan Treatment Plan: Continue Plan of Care Treatment Plan: Concurrent Therapy, Education, Functional Activity Gely, Functional Strength, Group Therapy, Gait, Safety, Therapeutic Exercise, Transfers Treatment Duration: Jul 23, 2023 Frequency: At least 5 of 7 days/Wk (IRF) Estimated Hrs Per Day: Other (75 minutes per day) Patient and/or Family Agrees t: Yes Safety Risks/Education Patient Education: Safety Issues Teaching Recipient: Patient Teaching Methods: Discussion Response to Teaching: Reinforcement Needed Time Time In: 1300 Time Out: 1330 DATE: Jul 14, 2023 Total Billed Treatment Time: 30 Total Billed Treatment 1, FA (15m) & GT (15m) ESTHER OSWALD PTA Jul 14, 2023 15:56
[2023-07-14] MEDS: diphenhydrAMINE 25 MG TABLET PO PRN (18:35)
[2023-07-14 20:20] VITALS: BP 101/58
[2023-07-15] MEDS: predniSONE 20 MG TABLET PO SCH (07:00)
[2023-07-15] MEDS: FUROSEMIDE 40 MG TABLET PO SCH ×2 (07:00→17:33)
[2023-07-15] MEDS: RT-Ipratropium/Albuterol NEB 3 ML VIAL INH SCH ×2 (08:05→19:29)
[2023-07-15] MEDS: APIXABAN 5 MG TABLET PO SCH ×2 (08:55→20:27)
[2023-07-15] MEDS: POTASSIUM CHLORIDE 10 MEQ TABLET PO SCH ×2 (08:55→20:27)
[2023-07-15] MEDS: ASPIRIN 81 MG CHEWABLE TABLET PO SCH (08:55)
[2023-07-15] MEDS: DOCUSATE SODIUM 100 MG CAPSULE PO SCH ×2 (08:55→21:04)
[2023-07-15] MEDS: SENNA W/DOCUSATE TABLET PO SCH ×2 (08:55→21:04)
[2023-07-15 08:57] VITALS: BP 112/79
--- NOTE | 2023-07-15 09:26 | Occupational Ther Daily Note ---
OT Current Status-Daily Note Subjective Pt. laying in bed asleep, woke to name. No c/o pain at this time. Pt. agreed to therapy. Mental Status/Objective Patient Orientation: Person, Place, Time, Situation Attachments: Oxygen (2L) ADL-Treatment Pt. IND with bed mobility from supine to EOB with HOB flat using bed rails. Pt. IND with functional mobility using 4WW. Pt. able to gather LB dressing and fo otwear on recliner and take back to bed to complete dressing. O2 saturation remained 96-97% with 2L of O2 during OT tx. Pt. educated with tubing management was able to wrap line around handle. After session, pt laying in bed with call light and phone in reach and all needs met. Therapy Code Descriptions/Definitions Functional [place] Measure: 0=Not Assessed/NA 4=Minimal Assistance 1=Total Assistance 5=Supervision or Setup 2=Maximal Assistance 6=Modified [place] 3=Moderate Assistance 7=Complete IndependenceSCALE: Activities may be completed with or without assistive devices. 4-Kkfxmrpkjg-ryyuadc completes the activity by him/herself with no assistance from a helper. 5-Set-up or Clean-up Assistance-helper sets up or cleans up; patient completes activity. [place] assists only prior to or following the activity. 4-Supervision or Touching Assistance-helper provides verbal cues and/or touching/steadying and/or contact guard assistance as patient completes activity. Assistance may be provided throughout the activity or intermittently. 3-Partial/Moderate Assistance-helper does LESS THAN HALF the effort. [place] lifts, holds or supports trunk or limbs, but provides less than half the effort. 2-Substantial/Maximal Assistance-helper does MORE THAN HALF the effort. [place] lifts or holds trunk or limbs and provides more than half the effort. 3-Wcfuvmtno-diofih does ALL the effort. Patient does none of the effort to complete the activity. Or, the assistance of 2 or more helpers is required for the patient to complete the activity. If activity was not attempted, code reason: 7-Patient Refused. 9-Not Applicable-not attempted and the patient did not perform the activity before the current illness, exacerbation or injury. 10-Not Attempted due to Environmental Limitations-(lack of equipment, weather restraints, etc.). 88-Not Attempted due to Medical Conditions or Safety Concerns. Oral Hygiene (QC): 6 (Pt. able to complete grooming/oral hygiene while standing at stink while resting R hand on counter to stabilize.) Lower Body Dressing (QC): 6 (Pt. able to don/doff LB dressing and stand to hike using 4WW) On/Off Footwear: 6 (Pt. able to don/doff socks.) Toileting Hygiene (QC): 6 (Pt. able to complete clothing manipulation using 4WW and grabbars and cleanses self while sitting.) Toilet Transfer (QC): 6 (Pt. able to complete toilet transfers using 4WW and grabbars. ) Other Treatment Pt. completed B UE exercises 6 exercises 1 set of 10 reps using light resistance theraband to increase strength for daily functional task. Skilled instruction for correct technique and modifications when needed. BIMS CAM BIMS Expression of Ideas and Wants: Without Difficulty Understanding Verbal Content: Understands Brief Interview/Mental Status: No IRF STACIE BIMS: IRF STACIE BIMS Response (Comments) Value Repitition of Three Words Three 3 Recalls Socks Yes, No Cue Required 2 Recalls Blue Yes, No Cue Required 2 Recalls Bed Yes, After Cueing 1 Year Correct 3 Month Accurate Within 5 Days 2 Day Incorrect or No Answer (Stated it was Wednesday the . After cueing said the . ) 0 Total 13 Patient Normally Able to Recal: Current Session, Location of own room, Staff Names and faces, That he/she in a [facility] Should Staff Asses. 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 2=Patient will verbalize/demonstrate understanding of assistive device s/modifications for ADL. 3=Patient will improve strength/tolerance for activity to enable patient to perform ADL's. OT Education/Plan Problem List/Assessment Assessment: Decreased UE Strength, Impaired Cognition, Impaired Funct Balance, Impaired I ADL's, Impaired Self-Care Skills Discharge Recommendations Plan/Recommendations: Continue POC Treatment Plan/Plan of Care Patient would benefit from OT for education, treatment and training to promote independence in ADL's, mobility, safety and/or upper extremity function for ADL's. Plan of Care: ADL Retraining, Functional Mobility, Group Exercise/Act as Ind, UE Funct Exercise/Act Treatment Duration: Jul 30, 2023 Frequency: At least 5 of 7 days/Wk (IRF) Estimated Hrs Per Day: Other (75 mins per day) Agreement: Yes Rehab Potential: Good Time Start Time: 08:30 Stop Time: 09:30 DATE: Jul 15, 2023 Total Time Billed (hr/min): 60 Billed Treatment Time 1 visit- ADL 3 (45 mins) EX 1 (15 mins) DEVON MARES Jul 15, 2023 09:26
--- NOTE | 2023-07-15 09:42 | Occupational Ther Daily Note ---
OT Current Status-Daily Note Subjective Pt. alert laying in bed. No c/o pain. Pt. agreed to therapy. Mental Status/Objective Patient Orientation: Person, Place, Time, Situation Attachments: Oxygen (2L) ADL-Treatment Therapy Code Descriptions/Definitions Functional [place] Measure: 0=Not Assessed/NA 4=Minimal Assistance 1=Total Assistance 5=Supervision or Setup 2=Maximal Assistance 6=Modified [place] 3=Moderate Assistance 7=Complete IndependenceSCALE: Activities may be completed with or without assistive devices. 6-Vqdoevmmar-pckenjz completes the activity by him/herself with no assistance from a helper. 5-Set-up or Clean-up Assistance-helper sets up or cleans up; patient completes activity. [place] assists only prior to or following the activity. 4-Supervision or Touching Assistance-helper provides verbal cues and/or touching/steadying and/or contact guard assistance as patient completes activity. Assistance may be provided throughout the activity or intermittently. 3-Partial/Moderate Assistance-helper does LESS THAN HALF the effort. [place] lifts, holds or supports trunk or limbs, but provides less than half the effort. 2-Substantial/Maximal Assistance-helper does MORE THAN HALF the effort. [place] lifts or holds trunk or limbs and provides more than half the effort. 5-Knhcbxdst-xagghm does ALL the effort. Patient does none of the effort to complete the activity. Or, the assistance of 2 or more helpers is required for the patient to complete the activity. If activity was not attempted, code reason: 7-Patient Refused. 9-Not Applicable-not attempted and the patient did not perform the activity before the current illness, exacerbation or injury. 10-Not Attempted due to Environmental Limitations-(lack of equipment, weather restraints, etc.). 88-Not Attempted due to Medical Conditions or Safety Concerns. Eating (QC): 6 (Pt. IND with eating with opening all containers/packages and uses regular untensils.) OT Short Term Goals Short Term Goals Time Frame: Jul 14, 2023 Shower/bathe self: 5 Upper body dressin Lower body dressin Putting on/taking off footwear: 5 OT Chcf Goals Chcf Goals Time Frame: Jul 30, 2023 Acute change in mental status: 0 Inattention: 0 Disorganized thinkin Altered level of consciousness: 0 Eating (QC): 6 Oral Hygiene (QC): 6 Toileting Hygiene (QC): 6 Shower/Bathe Self (QC): 6 Upper Body Dressing (QC): 6 Lower Body Dressing (QC): 6 On/Off Footwear (QC): 6 Additional Goals: 1-Demonstrate ADL Tasks, 2-Verbalize Understanding, 3-Impr oveStrength/Gely 1=Demonstrate adherence to instructed precautions during ADL tasks. 2=Patient will verbalize/demonstrate understanding of assistive devices/modifications for ADL. 3=Patient will improve strength/tolerance for activity to enable patient to perform ADL's. OT Education/Plan Problem List/Assessment Assessment: Decreased UE Strength, Impaired Cognition, Impaired Funct Balance, Impaired I ADL's, Impaired Self-Care Skills Discharge Recommendations Plan/Recommendations: Continue POC Treatment Plan/Plan of Care Patient would benefit from OT for education, treatment and training to promote independence in ADL's, mobility, safety and/or upper extremity function for ADL's. Plan of Care: ADL Retraining, Functional Mobility, Group Exercise/Act as Ind, UE Funct Exercise/Act Treatment Duration: Jul 30, 2023 Frequency: At least 5 of 7 days/Wk (IRF) Estimated Hrs Per Day: Other (75 mins per day) Agreement: Yes Rehab Potential: Good Time Start Time: 07:00 Stop Time: 07:15 DATE: Jul 15, 2023 Total Time Billed (hr/min): 15 Billed Treatment Time 1 visit- ADL 1 (15 mins) DEVON MARES Jul 15, 2023 09:42
--- NOTE | 2023-07-15 10:34 | PM&R Progress Note ---
Subjective HPI/CC On Admission Date Seen by Provider: Jul 15, 2023 Time Seen by Provider: 10:30 Subjective/Events-last exam 07/15/2023: Much improved O2 ordered at DC No pain reported Still weak but improved 07/14/2023: Patient dramatically improved Moving around really well Cognition is improving Remains on oxygen at discharge 07/13/2023: Patient doing well Memory recall is improved Maintain on oxygen She will follow-up with me as an outpatient 07/12/2023: Patient doing much better Remains on O2 Labs reviewed No falls 07/11/2023: Doing well No issues No pain except chronic back pain Labs due tomorrow 07/10/2023: Patient doing pretty well Confusion seems to be improved Remains on oxygen Lungs are clear Reviewed meds and labs Review of Systems General: Fatigue, Malaise Objective Exam Vital Signs Vital Signs Date Time Temp Pulse Resp B/P (MAP) Pulse Ox O2 Delivery O2 Flow Rate FiO2 07/15/23 20:41 36.6 86 16 123/70 (87) 95 Nasal Cannula 1.00 07/14/23 20:23 28 Capillary Refill : General Appearance: No Apparent Distress, WD/WN, Chronically ill HEENT: PERRL/EOMI, Normal ENT Inspection, Pharynx Normal Neck: Full Range of Motion, Normal Inspection, Non Tender, Supple, Carotid Bruit Respiratory: Chest Non Tender, Lungs Clear, No Accessory Muscle Use, No Respiratory Distress, Decreased Breath Sounds Cardiovascular: No Edema, No Gallop, No JVD, No Murmur, Normal Peripheral Pulses, Irregularly Irregular Gastrointestinal: Normal Bowel Sounds, No Organomegaly, No Pulsatile Mass, Non Tender, Soft Back: Normal Inspection, No CVA Tenderness, No Vertebral Tenderness Extremity: Normal Capillary Refill, Normal Inspection, Normal Range of Motion, Non Tender, No Calf Tenderness, No Pedal Edema Neurologic/Psychiatric: Alert, Normal Mood/Affect, screen cutter and trimmer II-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 FIM Transfers Therapy Code Descriptions/Definitions Functional [place] Measure: 0=Not Assessed/NA 4=Minimal Assistance 1=Total Assistance 5=Supervision or Setup 2=Maximal Assistance 6=Modified [place] 3=Moderate Assistance 7=Complete IndependenceSCALE: Activities may be completed with or without assistive devices. 1-Bvrirciztq-svtqvhf completes the activity by him/herself with no assistance from a helper. 5-Set-up or Clean-up Assistance-helper sets up or cleans up; patient completes activity. [place] assists only prior to or following the activity. 4-Supervision or Touching Assistance-helper provides verbal cues and/or touching/steadying and/or contact guard assistance as patient completes activity. Assistance may be provided throughout the activity or intermittently. 3-Partial/Moderate Assistance-helper does LESS THAN HALF the effort. [place] lifts, holds or supports trunk or limbs, but provides less than half the effort. 2-Substantial/Maximal Assistance-helper does MORE THAN HALF the effort. [place] lifts or holds trunk or limbs and provides more than half the effort. 7-Irwwenjaj-psahqq does ALL the effort. Patient does none of the effort to complete the activity. Or, the assistance of 2 or more helpers is required for the patient to complete the activity. If activity was not attempted, code reason: 7-Patient Refused. 9-Not Applicable-not attempted and the patient did not perform the activity before the current illness, exacerbation or injury. 10-Not Attempted due to Environmental Limitations-(lack of equipment, weather restraints, etc.). 88-Not Attempted due to Medical Conditions or Safety Concerns. Roll Left to Right (QC): 6 Sit to Lying (QC): 6 Sit to Stand (QC): 6 Chair/Aoi-eo-Emkbi Xfer(QC): 6 Car Transfer (QC): 6 Gait Training Does the Patient Walk?: Yes Distance: 150' Walk 10 feet (QC): 6 Walk 50 ft with 2 Turns(QC): 6 Walk 150 ft (QC): 6 Walking 10ft/uneven surface-QC: 5 Gait Persons Needed: 1 Gait Assistive Device: FWW Wheelchair Training Does the Pt Use a Wheelchair?: No Wheel 50 ft with 2 turns (QC): 9 Wheel 150 ft (QC): 9 Stair Training Stair Training: Handrails/: 2 handrails #of Steps: 12 1 Step (curb) (QC): 6 4 Steps (QC): 6 12 Steps (QC): 5 Balance Picking up an Object (QC): 6 ADL-Treatment Eating (QC): 6 (Pt. IND with eating with opening all containers/packages and uses regular untensils.) Oral Hygiene (QC): 6 (Pt. able to complete grooming/oral hygiene while standing at stink while resting R hand on counter to stabilize.) Bathing Location: L Arm, R Arm, L Upper Leg, R Upper Leg, L Lower Leg (including foot), R Lower Leg (including foot), Chest, Abdomen, Buttocks, Perineal Area Shower/Bathe Self (QC): 6 (Pt. able to bathe all areas and stands to clean buttocks and kaushik areas using grabbars while sitting on shower bench 95% of time.) Upper Body Dressing (QC): 6 (Pt. able to don/doff UB dressing.) Lower Body Dressing (QC): 6 (Pt. able to don/doff LB dressing and stand to hike using 4WW) On/Off Footwear (QC): 6 (Pt. able to don/doff socks.) Toileting Hygiene (QC): 6 (Pt. able to complete clothing manipulation using 4WW and grabbars and cleanses self while sitting.) Toilet Transfer (QC): 6 (Pt. able to complete toilet transfers using 4WW and grabbars. ) Assessment/Plan Assessment and Plan Assess & Plan/Chief Complaint Assessment: Altered mental status Critical illness myopathy Atrial fibrillation NSTEMI Oral anticoagulation Hyperglycemia Carotid stenosis Chronic constipation Chronic kidney disease stage IV Pulmonary hypertension COPD Plan: PT and OT Home meds Aggressive rehab Speech therapy to help with cognition 07/10/2023: Supportive care Monitor closely 07/11/2023: Labs due tomorrow No falls 07/12/2023: Supportive care Maintain O2 07/13/2023: Supportive care Maintain oxygen 07/14/2023: Home oxygen study Supportive care 07/15/2023: Monitor closely DC tomorrow (1) Myopathy (2) COPD exacerbation Status: Acute (3) Valvular heart disease Status: Chronic (4) Hypoxia Status: Acute (5) Congestive heart failure Status: Acute (6) Severe pulmonary hypertension Status: Acute (7) Afib Status: Acute (8) NSTEMI (non-ST elevation myocardial infarction) Status: Acute (9) Tobacco abuse Status: Chronic AKUA POLO DO Jul 15, 2023 10:34
--- NOTE | 2023-07-15 11:12 | Speech Therapy Daily Note ---
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 Pt will demonstrate recall of functional information following an immediate, short-term, and long-term delay with 80% accuracy and min cues. Pt will demonstrate the ability to follow multi-step directions related to functional living environment with 85% accuracy and min cues. Speech-Plan Treatment Plan Speech Therapy Treatment Plan: Continue Plan of Care Treatment Duration: Jul 09, 2023 Frequency: At least 5 of 7 days/Wk (IRF) Estimated Hrs Per Day: .5 hour per day Rehab Potential: Good Time Speech Therapy Time In: 10:30 Speech Therapy Time Out: 11:00 DATE: Jul 15, 2023 Total Billed Time: 30 Billed Treatment Time 1 SLTS 30 min Ayesha Richmond Jul 15, 2023 11:12
--- NOTE | 2023-07-15 13:06 | Physical Therapy Daily Note ---
PT Daily Note-Current Subjective Pt sitting up in bed upon arrival. Pt agrees to PT for QC scoring. Pain Location: No Pain Reported Section J - Health Conditions 1. Rarely or not at all 2. Occasionally 3. Frequently 4. Almost constantly 8. Unable to answer Pain Effect on Sleep: 1 Pain Interference with Therapy: 1 Pain Interference w/Day-to-Day: 1 Mental Status Patient Orientation: Person, Place Attachments: Oxygen (2L) Transfers SCALE: Activities may be completed with or without assistive devices. 4-Kmmtqrnlhv-ztrjujb completes the activity by him/herself with no assistance from a helper. 5-Set-up or Clean-up Assistance-helper sets up or cleans up; patient completes activity. [place] assists only prior to or following the activity. 4-Supervision or Touching Assistance-helper provides verbal cues and/or touching/steadying and/or contact guard assistance as patient completes activity. Assistance may be provided throughout the activity or intermittently. 3-Partial/Moderate Assistance-helper does LESS THAN HALF the effort. [place] lifts, holds or supports trunk or limbs, but provides less than half the effort. 2-Substantial/Maximal Assistance-helper does MORE THAN HALF the effort. [place] lifts or holds trunk or limbs and provides more than half the effort. 9-Epwaxiyww-ybmhyu does ALL the effort. Patient does none of the effort to complete the activity. Or, the assistance of 2 or more helpers is required for the patient to complete the activity. If activity was not attempted, code reason: 7-Patient Refused. 9-Not Applicable-not attempted and the patient did not perform the activity before the current illness, exacerbation or injury. 10-Not Attempted due to Environmental Limitations-(lack of equipment, weather restraints, etc.). 88-Not Attempted due to Medical Conditions or Safety Concerns. Roll Left & Right (QC): 6 Sit to Lying (QC): 6 Lying to Sitting/Side of Bed(Q: 6 Sit to Stand (QC): 6 Chair/Tdc-zs-Nzuva Xfer(QC): 6 Toilet Transfer (QC): 6 Car Transfer (QC): 6 Weight Bearing Right Lower Extremity: Right Full Weight Bearing Left Lower Extremity: Left Full Weight Bearing Gait Training Does the Patient Walk?: Yes Distance: 175' Walk 10 feet (QC): 6 Walk 50 ft with 2 Turns(QC): 6 Walk 150 ft (QC): 6 Walking 10ft/uneven surface-QC: 6 Gait Assistive Device: FWW Wheelchair Training Does the Pt Use a Wheelchair?: No Wheel 50 ft with 2 turns (QC): 9 Wheel 150 ft (QC): 9 Stair Training Stair Training: Handrails/: 2 handrails #of Steps: 4 1 Step (curb) (QC): 6 4 Steps (QC): 6 12 Steps (QC): 7 Stairs: Pattern: Step to Balance Picking up an Object (QC): 6 Treatments Pt completes QC scoring items listed above. Pt returns to room to rest in recliner at end of tx, all needs met & call light in hand. Assessment Current Status: Good Progress Pt needs occasional VC for safety. 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 PT Shelter Goals Time Frame: Jul 23, 2023 Roll Left & Right (QC): 6 Sit to Lying (QC): 6 Lying-Sitting on Side/Bed(QC): 6 Sit to Stand (QC): 6 Chair/Tto-qc-Trlfu Xfer(QC): 6 Toilet Transfer (QC): 6 Car Transfer (QC): 6 Does the Patient Walk: Yes Walk 10 feet (QC): 6 (/c 4WW) Walk 50ft with 2 Turns (QC): 6 (/c 4WW) Walk 150 ft (QC): 6 (/c 4WW) Walking 10ft on Uneven Surface: 6 (/c 4WW) 1 Step (curb) (QC): 6 (/c 4WW) 4 Steps (QC): 6 (/c (B) rails) 12 Steps (QC): 6 (/c (B) rails) Picking up an Object (QC): 6 Does the Pt use WC or Scooter?: No Wheel 50 feet with 2 turns (QC: 9 Wheel 150 feet: 9 PT Plan Treatment/Plan Treatment Plan: Continue Plan of Care Treatment Plan: Concurrent Therapy, Education, Functional Activity Gely, Functional Strength, Group Therapy, Gait, Safety, Therapeutic Exercise, Transfers Treatment Duration: Jul 23, 2023 Frequency: At least 5 of 7 days/Wk (IRF) Estimated Hrs Per Day: Other (75 minutes per day) Patient and/or Family Agrees t: Yes Safety Risks/Education Patient Education: Steps, Safety Issues Teaching Recipient: Patient Teaching Methods: Discussion Response to Teaching: Verbalize Understanding Time Time In: 45 Time Out: 1030 DATE: Jul 15, 2023 Total Billed Treatment Time: 45 Total Billed Treatment 1, GT (20m) & FA x2 (25m) ESTHER OSWALD PTA Jul 15, 2023 13:06
[2023-07-15] MEDS: ACETAMINOPHEN 325 MG TABLET PO PRN (13:13)
--- NOTE | 2023-07-15 15:13 | Physical Therapy Daily Note ---
PT Daily Note-Current Subjective Pt sitting in recliner upon arrival. Pt needs to use BR and agrees to PT. Pain Location: No Pain Reported Section J - Health Conditions 1. Rarely or not at all 2. Occasionally 3. Frequently 4. Almost constantly 8. Unable to answer Pain Effect on Sleep: 1 Pain Interference with Therapy: 1 Pain Interference w/Day-to-Day: 1 Mental Status Patient Orientation: Person, Place, Situation Attachments: Oxygen (2L) Transfers SCALE: Activities may be completed with or without assistive devices. 9-Iwwdbhkboo-pstobop completes the activity by him/herself with no assistance from a helper. 5-Set-up or Clean-up Assistance-helper sets up or cleans up; patient completes activity. [place] assists only prior to or following the activity. 4-Supervision or Touching Assistance-helper provides verbal cues and/or touching/steadying and/or contact guard assistance as patient completes activ ity. Assistance may be provided throughout the activity or intermittently. 3-Partial/Moderate Assistance-helper does LESS THAN HALF the effort. [place] lifts, holds or supports trunk or limbs, but provides less than half the effort. 2-Substantial/Maximal Assistance-helper does MORE THAN HALF the effort. [place] lifts or holds trunk or limbs and provides more than half the effort. 2-Rjchzbxhg-bwrdxy does ALL the effort. Patient does none of the effort to complete the activity. Or, the assistance of 2 or more helpers is required for the patient to complete the activity. If activity was not attempted, code reason: 7-Patient Refused. 9-Not Applicable-not attempted and the patient did not perform the activity before the current illness, exacerbation or injury. 10-Not Attempted due to Environmental Limitations-(lack of equipment, weather restraints, etc.). 88-Not Attempted due to Medical Conditions or Safety Concerns. Sit to Stand (QC): 6 Toilet Transfer (QC): 6 Weight Bearing Right Lower Extremity: Right Full Weight Bearing Left Lower Extremity: Left Full Weight Bearing Gait Training Does the Patient Walk?: Yes Distance: 15' x2 Walk 10 feet (QC): 6 Gait Persons Needed: 1 Gait Assistive Device: FWW Wheelchair Training Does the Pt Use a Wheelchair?: No Treatments Pt TF from recliner to standing and amb to BR. Pt has had incontinence of BM and changes brief & pants. Pt then amb before returning to recliner to rest. All needs met, call light in hand. Assessment Current Status: Good Progress Pt self limits and this therapists only concern is pt will go home and not move around as she lives alone. PT Fpc Goals Merchandise Worker Goals PT Fpc Goals Time Frame: Jul 23, 2023 Roll Left & Right (QC): 6 Sit to Lying (QC): 6 Lying-Sitting on Side/Bed(QC): 6 Sit to Stand (QC): 6 Chair/Qdx-ew-Qmqoz Xfer(QC): 6 Toilet Transfer (QC): 6 Car Transfer (QC): 6 Does the Patient Walk: Yes Walk 10 feet (QC): 6 (/c 4WW) Walk 50ft with 2 Turns (QC): 6 (/c 4WW) Walk 150 ft (QC): 6 (/c 4WW) Walking 10ft on Uneven Surface: 6 (/c 4WW) 1 Step (curb) (QC): 6 (/c 4WW) 4 Steps (QC): 6 (/c (B) rails) 12 Steps (QC): 6 (/c (B) rails) Picking up an Object (QC): 6 Does the Pt use WC or Scooter?: No Wheel 50 feet with 2 turns (QC: 9 Wheel 150 feet: 9 PT Plan Problem List Problem List: Safety Treatment/Plan Treatment Plan: Continue Plan of Care Treatment Plan: Concurrent Therapy, Education, Functional Activity Gely, Functional Strength, Group Therapy, Gait, Safety, Therapeutic Exercise, Transfers Treatment Duration: Jul 23, 2023 Frequency: At least 5 of 7 days/Wk (IRF) Estimated Hrs Per Day: Other (75 minutes per day) Patient and/or Family Agrees t: Yes Safety Risks/Education Patient Education: Safety Issues Teaching Recipient: Patient Teaching Methods: Discussion Response to Teaching: Verbalize Understanding Time Time In: 1300 Time Out: 1330 DATE: Jul 15, 2023 Total Billed Treatment Time: 30 Total Billed Treatment 1, GT (10m) & FA (20m) ESTHER OSWALD PTA Jul 15, 2023 15:13
[2023-07-15 20:41] VITALS: BP 123/70
[2023-07-15] MEDS: diphenhydrAMINE 25 MG TABLET PO PRN (23:25)
[2023-07-16] MEDS ORDERED: MONT-47 PO (05:23)
[2023-07-16] MEDS ORDERED: APIX5TAB PO (05:23)
[2023-07-16] MEDS ORDERED: MTP25TSR PO (05:23)
[2023-07-16] MEDS ORDERED: ASPI-999 PO (05:23)
[2023-07-16] MEDS ORDERED: POTA-160 PO (05:23)
[2023-07-16] MEDS ORDERED: FURO40TA4 PO (05:23)
[2023-07-16] MEDS ORDERED: SENN-271 PO (05:23)
[2023-07-16] MEDS ORDERED: NF-SODBICA PO (05:23)
[2023-07-16] MEDS ORDERED: PRED10TA22 PO (05:23)
[2023-07-16] MEDS ORDERED: FERR-84 PO (05:23)
--- NOTE | 2023-07-16 05:24 | D/C HH Face to Face Order ---
D/C Face to Face Orders Reconcile Patient Problems Problems Reviewed?: Yes Instructions for Patient Via [facility], Patient Instructions/FollowUp: cathy as scheduled Physician to follow Patient: cathy Discharge Diet for Home: No Restrictions Patient Problems: pe copd af Patient Data-Allergies,Ht & Wt Patient Allergies: Coded Allergies: Penicillins (Verified Allergy, Unknown, 06/16/23) Height (Feet): 5 Height (Inches): 7.00 Weight (Pounds): 138 Weight (Ounces): 7.0 Home Health Need/Face to Face Date of Face to Face: Jul 16, 2023 Clinical Findings: Generalized weakness and fatigue, Instability, Muscle weakness I have seen Pt cale-nr-gdsf: Yes Discharged To: Home Diagnosis/Conditions: debility Patient is Homebound due to: Hcandler fall risk due to instabilty, Muscle weakness Homebound Status Due to the above stated illness, injury or surgical procedure (medical condition or diagnosis) and associated clinical findings, the patient is homebound because of his/her inability to leave home except with aid of a supportive device and/or person AND leaving the home requires a considerable and taxing effort or is medically contraindicated. Pt req the following assistanc: Walker Home Health Nursing Orders Home Health Services Order: Nursing Services, International Exchange Coordinator-Evaluate & Treat, Physical Therapy-Evaluate & Treat Certify Stmt I certify that this patient is under my care and that I, a nurse practitioner or a physician; a talent assistant working with me, had a face to face encounter that - meets the physician face to face encounter requirements with this patient as dated. AKUA POLO DO Jul 16, 2023 05:24
--- NOTE | 2023-07-16 05:25 | Discharge Summary ---
Diagnosis/Chief Complaint Date of Admission Jul 09, 2023 at 10:25 Date of Discharge Discharge Date: Jul 16, 2023 Discharge Diagnosis Hypoxia - multi-factorial d/t acute on chronic exacerbation of COPD, pulmonary HTN, recent PE, diastolic CHF Recent Acute pulm embolism on 06-17-23 - Echo of 06/16/23 shows LVEF 60-65%, acute cor pulmonale, mod regurg of aortic and mitral and tricuspid valves, severe pulm htn (110-115 mmHg) - has been maintained on Eliquis Chronic minimally elevated troponin following PE in early Jun 2023 and hypoxia (type 2 [place]) PAF - first dx on tele during hospitalization on 06-17-23 - currently in a-fib Thrombocytopenia of undetermined etiology - management per medical services COPD Card cath of 08/23/18: mild CAD, mod to sev MR, pulmonary hypertension with mean pulmonary artery pressure 36 mmHg, LVEDP 8 mmHg, LVEF 50-55% CKD 4. previously followed with Dr. English of [facility] - has not seen anyone recently Renal artery stenosis - Renal u/s of November 2018 showed atrophic left kidney with right renal artery stenosis. - Abd aortic angio of 06/20/19 showed chronically occluded L renal artery, no significant stenosis of the R renal artery, severe atherosclerosis of the abd aorta mod infrarenal AAA, mod-sev dz of the aortoiliac bifurcation (70-80 ostial R iliac and approx 50% ostial L iliac) - AAA Sono of July 14, 2019 showed borderline aneurysmal dilatation to the prox abd aorta. Mid and distal abd aorta are normal Not suitable for LOUANN-inhib or ARB due to above-noted renal issues H/o hypertension Cigarette smoking - quit approx 2 months ago Carotid u/s of July 10, 2019 shows less than 40% R ICA stenosis, 60-79% L ICA stenosis Discharge Summary Discharge Physical Examination Allergies: Coded Allergies: Penicillins (Verified Allergy, Unknown, 06/16/23) Vitals & I&Os Vital Signs Date Time Temp Pulse Resp B/P (MAP) Pulse Ox O2 Delivery O2 Flow Rate FiO2 07/16/23 10:50 35.8 78 18 137/68 96 Nasal Cannula 2.00 07/14/23 20:23 28 General Appearance: Alert, Oriented X3, Cooperative Respiratory: Clear to Auscultation Cardiovascular: Regular Rate Psych/Mental Status: Mental Status NL, Other (Poor immediate recall) Hospital Course Was the Problem List Reviewed?: Yes Hospital course: Patient hospital course after she was ordered for acute respiratory failure atrial fibrillation severe debility. Cardiology consulted. Patient was able to be weaned down to oxygen and she went home on oxygen supplement. She participated in all therapy. Immediate recall was deficient but she was able to return home with the help of family and all meds were sent into the pharmacy. I will see her in close follow-up. Labs (last 24 hrs) Laboratory Tests 07/10/23 06:11: White Blood Count 12.5H, Red Blood Count 3.61L, Hemoglobin 13.1, Hematocrit 41, Mean Corpuscular Volume 113H, Mean Corpuscular Hemoglobin 36H, Mean Corpuscular Hemoglobin Concent 32, Red Cell Distribution Width 15.5H, Platelet Count 89L, Mean Platelet Volume 12.2, Immature Granulocyte % (Auto) 1, Neutrophils (%) (Auto) 88H, Lymphocytes (%) (Auto) 6L, Monocytes (%) (Auto) 6, Eosinophils (%) (Auto) 0, Basophils (%) (Auto) 0, Neutrophils # (Auto) 11.0H, Lymphocytes # (Auto) 0.7L, Monocytes # (Auto) 0.7, Eosinophils # (Auto) 0.0, Basophils # (Auto) 0.0, Immature Granulocyte # (Auto) 0.1, Neutrophils % (Manual) 89, Lymphocytes % (Manual) 7, Monocytes % (Manual) 4, Eosinophils % (Manual) 0, Basophils % (Manual) 0, Band Neutrophils 0, Percent Immature Platelet Fraction 11.6H, Anisocytosis SLIGHT, Macrocytosis SLIGHT, Sodium Level 138, Potassium Level 3.7, Chloride Level 100, Carbon Dioxide Level 25, Anion Gap 13, Blood Urea Nitrogen 52H, Creatinine 2.07H, Estimat Glomerular Filtration Rate 24, BUN/Creatinine Ratio 25, Glucose Level 158H, Calcium Level 8.6, Corrected Calcium 9.1, Total Bilirubin 0.8, Aspartate Amino Transf (AST/SGOT) 21, Alanine Aminotransferase (ALT/SGPT) 26, Alkaline Phosphatase 90, Total Protein 6.1L, Albumin 3.4 07/12/23 05:22: White Blood Count 9.1, Red Blood Count 3.43L, Hemoglobin 12.4, Hematocrit 38, Mean Corpuscular Volume 111H, Mean Corpuscular Hemoglobin 36H, Mean Corpuscular Hemoglobin Concent 33, Red Cell Distribution Width 14.7H, Platelet Count 83L, Mean Platelet Volume 12.3H, Immature Granulocyte % (Auto) 1, Neutrophils (%) (Auto) 81H, Lymphocytes (%) (Auto) 12, Monocytes (%) (Auto) 6, Eosinophils (%) (Auto) 0, Basophils (%) (Auto) 0, Neutrophils # (Auto) 7.4, Lymphocytes # (Auto) 1.1, Monocytes # (Auto) 0.5, Eosinophils # (Auto) 0.0, Basophils # (Auto) 0.0, Immature Granulocyte # (Auto) 0.1, Percent Immature Platelet Fraction 11.2H, Sodium Level 140, Potassium Level 3.5L, Chloride Level 99, Carbon Dioxide Level 27, Anion Gap 14, Blood Urea Nitrogen 60H, Creatinine 1.91H, Estimat Glomerular Filtration Rate 27, BUN/Creatinine Ratio 31, Glucose Level 151H, Calcium Level 8.7, Corrected Calcium 9.3, Total Bilirubin 0.8, Aspartate Amino Transf (AST/SGOT) 25, Alanine Aminotransferase (ALT/SGPT) 35, Alkaline Phosphatase 79, Total Protein 5.7L, Albumin 3.3 Pending Labs Laboratory Tests 07/10/23 06:11: White Blood Count 12.5, Red Blood Count 3.61, Hemoglobin 13.1, Hematocrit 41, Mean Corpuscular Volume 113, Mean Corpuscular Hemoglobin 36, Mean Corpuscular Hemoglobin Concent 32, Red Cell Distribution Width 15.5, Platelet Count 89, Mean Platelet Volume 12.2, Immature Granulocyte % (Auto) 1, Neutrophils (%) (Auto) 88, Lymphocytes (%) (Auto) 6, Monocytes (%) (Auto) 6, Eosinophils (%) (Auto) 0, Basophils (%) (Auto) 0, Neutrophils # (Auto) 11.0, Lymphocytes # (Auto) 0.7, Monocytes # (Auto) 0.7, Eosinophils # (Auto) 0.0, Basophils # (Auto) 0.0, Immature Granulocyte # (Auto) 0.1, Neutrophils % (Manual) 89, Lymphocytes % (Manual) 7, Monocytes % (Manual) 4, Eosinophils % (Manual) 0, Basophils % (Manual) 0, Band Neutrophils 0, Percent Immature Platelet Fraction 11.6, Anisocytosis SLIGHT, Macrocytosis SLIGHT, Sodium Level 138, Potassium Level 3.7, Chloride Level 100, Carbon Dioxide Level 25, Anion Gap 13, Blood Urea Nitrogen 52, Creatinine 2.07, Estimat Glomerular Filtration Rate 24, BUN/Creatinine Ratio 25, Glucose Level 158, Calcium Level 8.6, Corrected Calcium 9.1, Total Bilirubin 0.8, Aspartate Amino Transf (AST/SGOT) 21, Alanine Aminotransferase (ALT/SGPT) 26, Alkaline Phosphatase 90, Total Protein 6.1, Albumin 3.4 07/12/23 05:22: White Blood Count 9.1, Red Blood Count 3.43, Hemoglobin 12.4, Hematocrit 38, Me an Corpuscular Volume 111, Mean Corpuscular Hemoglobin 36, Mean Corpuscular Hemoglobin Concent 33, Red Cell Distribution Width 14.7, Platelet Count 83, Mean Platelet Volume 12.3, Immature Granulocyte % (Auto) 1, Neutrophils (%) (Auto) 81, Lymphocytes (%) (Auto) 12, Monocytes (%) (Auto) 6, Eosinophils (%) (Auto) 0, Basophils (%) (Auto) 0, Neutrophils # (Auto) 7.4, Lymphocytes # (Auto) 1.1, Monocytes # (Auto) 0.5, Eosinophils # (Auto) 0.0, Basophils # (Auto) 0.0, Immature Granulocyte # (Auto) 0.1, Percent Immature Platelet Fraction 11.2, Sodium Level 140, Potassium Level 3.5, Chloride Level 99, Carbon Dioxide Level 27, Anion Gap 14, Blood Urea Nitrogen 60, Creatinine 1.91, Estimat Glomerular Filtration Rate 27, BUN/Creatinine Ratio 31, Glucose Level 151, Calcium Level 8.7, Corrected Calcium 9.3, Total Bilirubin 0.8, Aspartate Amino Transf (AST/SGOT) 25, Alanine Aminotransferase (ALT/SGPT) 35, Alkaline Phosphatase 79, Total Protein 5.7, Albumin 3.3 Discharge Home Medications: Active Scripts Active Singulair (Montelukast Sodium) 10 Mg Tablet 10 Mg PO DAILY Prednisone 10 Mg Tab.ds.pk 10 Mg PO DAILY Take 4 tabs(60mg)daily,decrease by 1 tab(10MG)daily. Stool Softener-Laxative Tablet (Sennosides/Docusate Sodium) 8.6 Mg-50 Mg Tablet 1 Ea PO BID Furosemide 40 Mg Tablet 40 Mg PO DAILY@07,17 Klor-Con 10 (Potassium Chloride) 10 Meq Tablet.er 10 Meq PO BID Sodium Bicarbonate 650 Mg Tablet 650 Mg PO TID Metoprolol Succinate 25 Mg Tab.er.24h 25 Mg PO DAILY Aspirin 81 Mg Tab.chew 81 Mg PO DAILY Eliquis (Apixaban) 5 Mg Tablet 5 Mg PO BID Iron (Ferrous Sulfate) 325 Mg (65 Mg Iron) Tablet 325 Mg PO DAILY Reported Tylenol Pm Ex-Strength Caplet (Acetaminophen/Diphenhydramine) 500 Mg-25 Mg T ablet 2 Each PO HS PRN Vitamin D3 (Cholecalciferol (Vitamin D3)) 50 Mcg (2000 Unit) Capsule 50 Mcg PO DAILY Instructions to patient/family Please see electronic discharge instructions given to patient. Diagnosis/Problems Diagnosis/Problems (1) Myopathy (2) COPD exacerbation Status: Acute (3) Valvular heart disease Status: Chronic (4) Hypoxia Status: Acute (5) Congestive heart failure Status: Acute (6) Severe pulmonary hypertension Status: Acute (7) Afib Status: Acute (8) NSTEMI (non-ST elevation myocardial infarction) Status: Acute (9) Tobacco abuse Status: Chronic AKUA POLO DO Jul 16, 2023 05:25
[2023-07-16] MEDS: predniSONE 20 MG TABLET PO SCH (06:35)
[2023-07-16] MEDS: FUROSEMIDE 40 MG TABLET PO SCH (06:35)
[2023-07-16] MEDS: RT-Ipratropium/Albuterol NEB 3 ML VIAL INH SCH (07:29)
[2023-07-16 07:44] VITALS: BP 137/68
[2023-07-16] MEDS: APIXABAN 5 MG TABLET PO SCH (08:56)
[2023-07-16] MEDS: DOCUSATE SODIUM 100 MG CAPSULE PO SCH (08:56)
[2023-07-16] MEDS: SENNA W/DOCUSATE TABLET PO SCH (08:56)
[2023-07-16] MEDS: ASPIRIN 81 MG CHEWABLE TABLET PO SCH (08:56)
[2023-07-16] MEDS: POTASSIUM CHLORIDE 10 MEQ TABLET PO SCH (08:56)
[2023-07-16] MEDS: ACETAMINOPHEN 325 MG TABLET PO PRN (10:29)
[2023-07-16 10:50] VITALS: BP 137/68
--- NOTE | 2023-07-16 11:02 | Therapy Team Discharge Summary ---
Therapy Discharge Summary Discharge Recommendations Date of Discharge Physical Therapy Roll Left to Right (QC): 6 Sit to Lying (QC): 6 Lying to Sitting/Side of Bed(Q: 6 Sit to Stand (QC): 6 Chair/Wuz-ri-Ntfsj Xfer(QC): 6 Toilet Transfer (QC): 6 Car Transfer (QC): 6 Does the Patient Walk: Yes Walk 10 feet (QC): 6 Walk 50 ft with 2 Turns(QC): 6 Walk 150 ft (QC): 6 Walking 10ft on uneven surface: 6 Distance: 76', 402' Gait Assistive Device: FWW Does the Pt Use a Wheelchair: No Wheel 50 ft with 2 turns (QC): 9 Wheel 150 ft (QC): 9 #of Steps: 4 1 Step (curb) (QC): 6 4 Steps (QC): 6 12 Steps (QC): 7 Balance Sitting Static: Good Balance Sitting Dynamic: Good Balance-Standing Static: Good Picking up an Object (QC): 6 Occupational Therapy Decreased UE Strength, Impaired Cognition, Impaired Funct Balance, Impaired I ADL's, Impaired Self-Care Skills Eating (QC): 6 (Pt. IND with eating with opening all containers/packages and uses regular untensils.) Oral Hygiene (QC): 6 (Pt. able to complete grooming/oral hygiene while standing at stink while resting R hand on counter to stabilize.) Shower/Bathe Self (QC): 6 (Pt. able to bathe all areas and stands to clean buttocks and kaushik areas using grabbars while sitting on shower bench 95% of time.) Upper Body Dressing (QC): 6 (Pt. able to don/doff UB dressing.) Lower Body Dressing (QC): 6 (Pt. able to don/doff LB dressing and stand to hike using 4WW) On/Off Footwear (QC): 6 (Pt. able to don/doff socks.) Toileting Hygiene (QC): 6 (Pt. able to complete clothing manipulation using 4WW and grabbars and cleanses self while sitting.) Speech-Language Pathology Pt was admitted to ARU on 07/09, after being brought to the ED with worsening SOB and confusion, recent admit with NSTEMI (06/16). Evaluation found cognitive- linguistic deficits in problem solving, orientation, recall of immediate, ST, and LT information, and following multi-step directions. Goals focused on these areas in order to increase independence when d/c to home. Pt made progress with goals, but did not meet max potential. Pt d/c to home with intermittent assistance from nieces. PT Educational Institution Curator Goals Educational Institution Curator Goals PT Prison Goals Time Frame: Jul 23, 2023 Roll Left to Right (QC): 6 Sit to Lying (QC): 6 Lying-Sitting on Side/Bed(QC): 6 Sit to Stand (QC): 6 Chair/Xkg-vx-Jogiy Xfer(QC): 6 Toilet/Commode Transfer (QC): 6 Car Transfer (QC): 6 Does the Patient Walk: Yes Walk 10 feet (QC): 6 (/c 4WW) Walk 10ft-Uneven Surface(QC): 6 (/c 4WW) Walk 50ft with 2 Turns (QC): 6 (/c 4WW) Walk 150 ft (QC): 6 (/c 4WW) Does the Pt use WC or Scooter?: No Wheel 50 feet with 2 turns (QC: 9 Wheel 150 feet: 9 1 Step (curb) (QC): 6 (/c 4WW) 4 Steps (QC): 6 (/c (B) rails) 12 Steps (QC): 6 (/c (B) rails) Picking up an Object (QC): 6 OT Prison Goals Prison Goals Time Frame: Jul 30, 2023 Acute change in mental status: 0 Inattention: 0 Disorganized thinkin Altered level of consciousness: 0 Eating (QC): 6 Oral Hygiene (QC): 6 Toileting Hygiene (QC): 6 Shower/Bathe Self (QC): 6 Upper Body Dressing (QC): 6 Lower Body Dressing (QC): 6 On/Off Footwear (QC): 6 Additional Goals: 1-Demonstrate ADL Tasks, 2-Verbalize Understanding, 3-ImproveStrength/Gely 1=Demonstrate adherence to instructed precautions during ADL tasks. 2=Patient will verbalize/demonstrate understanding of assistive devices/modifications for ADL. 3=Patient will improve strength/tolerance for activity to enable patient to per form ADL's. Speech Prison Goals Educational Institution Curator Goals Pt will complete simple reasoning tasks to improve problem solving and orientation tasks with 80% accuracy and min cues. Pt will demonstrate recall of functional information following an immediate, short-term, and long-term delay with 80% accuracy and min cues. Pt will demonstrate the ability to follow multi-step directions related to functional living environment with 85% accuracy and min cues. Ayesha Richmond Jul 16, 2023 11:02
--- NOTE | 2023-07-16 11:16 | Therapy Team Discharge Summary ---
Therapy Discharge Summary Discharge Recommendations Date of Discharge Therapy D/C Recommendations: Occupational Therapy Home Care Physical Therapy Roll Left to Right (QC): 6 Sit to Lying (QC): 6 Lying to Sitting/Side of Bed(Q: 6 Sit to Stand (QC): 6 Chair/Rkq-dm-Gelfu Xfer(QC): 6 Toilet Transfer (QC): 6 Car Transfer (QC): 6 Does the Patient Walk: Yes Walk 10 feet (QC): 6 Walk 50 ft with 2 Turns(QC): 6 Walk 150 ft (QC): 6 Walking 10ft on uneven surface: 6 Distance: 76', 402' Gait Assistive Device: FWW Does the Pt Use a Wheelchair: No Wheel 50 ft with 2 turns (QC): 9 Wheel 150 ft (QC): 9 #of Steps: 4 1 Step (curb) (QC): 6 4 Steps (QC): 6 12 Steps (QC): 7 Balance Sitting Static: Good Balance Sitting Dynamic: Good Balance-Standing Static: Good Picking up an Object (QC): 6 Occupational Therapy Pt admitted to ARU with critical illness myopathy. At [facility], pt was independent with ADLs and functional mobility using 4WW. Upon initial evaluation, pt required set up with eating and oral care, CGA with showering, LBD, and toileting, and SBA UBD and footwear. OT tx focused on increasing BUE strength and activity tolerance, and increasing independence with ADLs and functional mobility. Pt made good progress towards goals, attaining all LTGS. Pt discharged home, d/c from OT. Decreased UE Strength, Impaired Cognition, Impaired Funct Balance, Impaired I ADL's, Impaired Self-Care Skills Eating (QC): 6 (Pt. IND with eating with opening all containers/packages and uses regular untensils.) Oral Hygiene (QC): 6 (Pt. able to complete grooming/oral hygiene while standing at stink while resting R hand on counter to stabilize.) Shower/Bathe Self (QC): 6 (Pt. able to bathe all areas and stands to clean buttocks and kaushik areas using grabbars while sitting on shower bench 95% of time.) Upper Body Dressing (QC): 6 (Pt. able to don/doff UB dressing.) Lower Body Dressing (QC): 6 (Pt. able to don/doff LB dressing and stand to hike using 4WW) On/Off Footwear (QC): 6 (Pt. able to don/doff socks.) Toileting Hygiene (QC): 6 (Pt. able to complete clothing manipulation using 4WW and grabbars and cleanses self while sitting.) PT Satellite Dish Technician Goals Fdc Goals PT Fdc Goals Time Frame: Jul 23, 2023 Roll Left to Right (QC): 6 Sit to Lying (QC): 6 Lying-Sitting on Side/Bed(QC): 6 Sit to Stand (QC): 6 Chair/Efq-wf-Oehag Xfer(QC): 6 Toilet/Commode Transfer (QC): 6 Car Transfer (QC): 6 Does the Patient Walk: Yes Walk 10 feet (QC): 6 (/c 4WW) Walk 10ft-Uneven Surface(QC): 6 (/c 4WW) Walk 50ft with 2 Turns (QC): 6 (/c 4WW) Walk 150 ft (QC): 6 (/c 4WW) Does the Pt use WC or Scooter?: No Wheel 50 feet with 2 turns (QC: 9 Wheel 150 feet: 9 1 Step (curb) (QC): 6 (/c 4WW) 4 Steps (QC): 6 (/c (B) rails) 12 Steps (QC): 6 (/c (B) rails) Picking up an Object (QC): 6 OT Fdc Goals Satellite Dish Technician Goals Time Frame: Jul 30, 2023 Acute change in mental status: 0 Inattention: 0 Disorganized thinkin Altered level of consciousness: 0 Eating (QC): 6 (met) Oral Hygiene (QC): 6 (met) Toileting Hygiene (QC): 6 (met) Shower/Bathe Self (QC): 6 (met) Upper Body Dressing (QC): 6 (met) Lower Body Dressing (QC): 6 (met) On/Off Footwear (QC): 6 (met) Additional Goals: 1-Demonstrate ADL Tasks, 2-Verbalize Understanding, 3- ImproveStrength/Gely 1=Demonstrate adherence to instructed precautions during ADL tasks. 2=Patient will verbalize/demonstrate understanding of assistive devices/modifications for ADL. 3=Patient will improve strength/tolerance for activity to enable patient to perform ADL's. Speech Satellite Dish Technician Goals Satellite Dish Technician Goals Pt will complete simple reasoning tasks to improve problem solving and orientation tasks with 80% accuracy and min cues. Pt will demonstrate recall of functional information following an immediate, short-term, and long-term delay with 80% accuracy and min cues. Pt will demonstrate the ability to follow multi-step directions related to functional living environment with 85% accuracy and min cues. VIKTOR MICHAELS OT Jul 16, 2023 11:16
--- NOTE | 2023-07-16 15:04 | Therapy Team Discharge Summary ---
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 She discharged on 07/16/23 (I) with all bed mobility and transfers with a FWW. She was able to ambulate 150' (I) with a FWW, was able to navigate a curb (I) /c a walker and 4 steps (I) with rails. She declined to climb 12 steps. She was able to retrieve an object from the floor (I). Roll Left to Right (QC): 6 Sit to Lying (QC): 6 Lying to Sitting/Side of Bed(Q: 6 Sit to Stand (QC): 6 Chair/Ixs-mf-Axcjb Xfer(QC): 6 Toilet Transfer (QC): 6 Car Transfer (QC): 6 Does the Patient Walk: Yes Walk 10 feet (QC): 6 Walk 50 ft with 2 Turns(QC): 6 Walk 150 ft (QC): 6 Walking 10ft on uneven surface: 6 Distance: over 175' consistently Gait Assistive Device: FWW Does the Pt Use a Wheelchair: No Wheel 50 ft with 2 turns (QC): 9 Wheel 150 ft (QC): 9 #of Steps: 4 1 Step (curb) (QC): 6 4 Steps (QC): 6 12 Steps (QC): 7 Balance Sitting Static: Good Balance Sitting Dynamic: Good Balance-Standing Static: Good Picking up an Object (QC): 6 Occupational Therapy Decreased UE Strength, Impaired Cognition, Impaired Funct Balance, Impaired I ADL's, Impaired Self-Care Skills Eating (QC): 6 (Pt. IND with eating with opening all containers/packages and uses regular untensils.) Oral Hygiene (QC): 6 (Pt. able to complete grooming/oral hygiene while standing at stink while resting R hand on counter to stabilize.) Shower/Bathe Self (QC): 6 (Pt. able to bathe all areas and stands to clean buttocks and kaushik areas using grabbars while sitting on shower bench 95% of time.) Upper Body Dressing (QC): 6 (Pt. able to don/doff UB dressing.) Lower Body Dressing (QC): 6 (Pt. able to don/doff LB dressing and stand to hike using 4WW) On/Off Footwear (QC): 6 (Pt. able to don/doff socks.) Toileting Hygiene (QC): 6 (Pt. 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 Truck Mounted Goals Time Frame: Jul 23, 2023 Roll Left to Right (QC): 6 Sit to Lying (QC): 6 Lying-Sitting on Side/Bed(QC): 6 Sit to Stand (QC): 6 Chair/Rib-gu-Pssin Xfer(QC): 6 Toilet/Commode Transfer (QC): 6 Car Transfer (QC): 6 Does the Patient Walk: Yes Walk 10 feet (QC): 6 (/c 4WW) Walk 10ft-Uneven Surface(QC): 6 (/c 4WW) Walk 50ft with 2 Turns (QC): 6 (/c 4WW) Walk 150 ft (QC): 6 (/c 4WW) Does the Pt use WC or Scooter?: No Wheel 50 feet with 2 turns (QC: 9 Wheel 150 feet: 9 1 Step (curb) (QC): 6 (/c 4WW) 4 Steps (QC): 6 (/c (B) rails) 12 Steps (QC): 6 (/c (B) rails) Picking up an Object (QC): 6 OT Con[employer] Loader Truck Mounted Goals Con[employer]er Loader Truck Mounted Goals Time Frame: Jul 30, 2023 Acute change in mental status: 0 Inattention: 0 Disorganized thinkin Altered level of consciousness: 0 Eating (QC): 6 (met) Oral Hygiene (QC): 6 (met) Toileting Hygiene (QC): 6 (met) Shower/Bathe Self (QC): 6 (met) Upper Body Dressing (QC): 6 (met) Lower Body Dressing (QC): 6 (met) On/Off Footwear (QC): 6 (met) Additional Goals: 1-Demonstrate ADL Tasks, 2-Verbalize Understanding, 3-ImproveStrength/Gely 1=Demonstrate adherence to instructed precautions during ADL tasks. 2=Patient will verbalize/demonstrate understanding of assistive devices/modifications for ADL. 3=Patient will improve strength/tolerance for activity to enable patient to perform ADL's. Speech [employer] Truck Mounted Goals Alf Goals Pt will complete simple reasoning tasks to improve problem solving and orientation tasks with 80% accuracy and min cues. Pt will demonstrate recall of functional information following an immediate, short-term, and long-term delay with 80% accuracy and min cues. Pt will demonstrate the ability to follow multi-step directions related to functional living environment with 85% accuracy and min cues. Nguyen Wilburn PT Jul 16, 2023 15:04
--- NOTE | 2023-07-19 10:46 | Therapy Team Discharge Summary ---
Therapy Discharge Summary Discharge Recommendations Date of Discharge Jul 16, 2023 at 10:50 Therapy D/C Recommendations: Occupational Therapy Home Care Physical Therapy Roll Left to Right (QC): 6 Sit to Lying (QC): 6 Lying to Sitting/Side of Bed(Q: 6 Sit to Stand (QC): 6 Chair/Olo-nq-Ldofo Xfer(QC): 6 Toilet Transfer (QC): 6 Car Transfer (QC): 6 Does the Patient Walk: Yes Walk 10 feet (QC): 6 Walk 50 ft with 2 Turns(QC): 6 Walk 150 ft (QC): 6 Walking 10ft on uneven surface: 6 Distance: over 175' consistently Gait Assistive Device: FWW Does the Pt Use a Wheelchair: No Wheel 50 ft with 2 turns (QC): 9 Wheel 150 ft (QC): 9 #of Steps: 4 1 Step (curb) (QC): 6 4 Steps (QC): 6 12 Steps (QC): 7 Balance Sitting Static: Good Balance Sitting Dynamic: Good Balance-Standing Static: Good Picking up an Object (QC): 6 Occupational Therapy Decreased UE Strength, Impaired Cognition, Impaired Funct Balance, Impaired I ADL's, Impaired Self-Care Skills Eating (QC): 6 (Pt. IND with eating with opening all containers/packages and uses regular untensils.) Oral Hygiene (QC): 6 (Pt. able to complete grooming/oral hygiene while standing at stink while resting R hand on counter to stabilize.) Shower/Bathe Self (QC): 6 (Pt. able to bathe all areas and stands to clean buttocks and kaushik areas using grabbars while sitting on shower bench 95% of time.) Upper Body Dressing (QC): 6 (Pt. able to don/doff UB dressing.) Lower Body Dressing (QC): 6 (Pt. able to don/doff LB dressing and stand to hike using 4WW) On/Off Footwear (QC): 6 (Pt. able to don/doff socks.) Toileting Hygiene (QC): 6 (Pt. able to complete clothing manipulation using 4WW and grabbars and cleanses self while sitting.) Speech-Language Pathology Pt admitted to ARU with critical illness myopathy. At [facility], pt was independent with ADLs and functional mobility using 4WW. Upon initial evaluation, pt demonst rated deficits in problem solving, orientation, immediate, ST, and LT recall, and following multi-step directions. ST tx focused on increasing independence with cognitive tasks. Pt made good progress, but did not reach max potential. Pt discharged home, d/c from ST. PT Collar Setter Overlock Goals Shelter Goals PT Collar Setter Overlock Goals Time Frame: Jul 23, 2023 Roll Left to Right (QC): 6 Sit to Lying (QC): 6 Lying-Sitting on Side/Bed(QC): 6 Sit to Stand (QC): 6 Chair/Yfl-gp-Qkrcr Xfer(QC): 6 Toilet/Commode Transfer (QC): 6 Car Transfer (QC): 6 Does the Patient Walk: Yes Walk 10 feet (QC): 6 (/c 4WW) Walk 10ft-Uneven Surface(QC): 6 (/c 4WW) Walk 50ft with 2 Turns (QC): 6 (/c 4WW) Walk 150 ft (QC): 6 (/c 4WW) Does the Pt use WC or Scooter?: No Wheel 50 feet with 2 turns (QC: 9 Wheel 150 feet: 9 1 Step (curb) (QC): 6 (/c 4WW) 4 Steps (QC): 6 (/c (B) rails) 12 Steps (QC): 6 (/c (B) rails) Picking up an Object (QC): 6 OT Collar Setter Overlock Goals Shelter Goals Time Frame: Jul 30, 2023 Acute change in mental status: 0 Inattention: 0 Disorganized thinkin Altered level of consciousness: 0 Eating (QC): 6 (met) Oral Hygiene (QC): 6 (met) Toileting Hygiene (QC): 6 (met) Shower/Bathe Self (QC): 6 (met) Upper Body Dressing (QC): 6 (met) Lower Body Dressing (QC): 6 (met) On/Off Footwear (QC): 6 (met) Additional Goals: 1-Demonstrate ADL Tasks, 2-Verbalize Understanding, 3- ImproveStrength/Gely 1=Demonstrate adherence to instructed precautions during ADL tasks. 2=Patient will verbalize/demonstrate understanding of assistive devices/modifications for ADL. 3=Patient will improve strength/tolerance for activity to enable patient to perform ADL's. Speech Collar Setter Overlock Goals Collar Setter Overlock Goals Pt will complete simple reasoning tasks to improve problem solving and orientat ion tasks with 80% accuracy and min cues. Pt will demonstrate recall of functional information following an immediate, short-term, and long-term delay with 80% accuracy and min cues. Pt will demonstrate the ability to follow multi-step directions related to functional living environment with 85% accuracy and min cues. Ayesha Richmond Jul 19, 2023 10:45
== END 2023-07-16 10:50 | disposition home health service (06) | DRG 91 ==
PROVIDERS: ADMIT Internal Medicine; ATTEND Internal Medicine
DX: G72.81 Critical illness myopathy (principal); I21.4 Non-ST elevation (NSTEMI) myocardial infarction; G93.40 Encephalopathy, unspecified; I50.32 Chronic diastolic (congestive) heart failure; N18.4 Chronic kidney disease, stage 4 (severe); F17.210 Nicotine dependence, cigarettes, uncomplicated; I25.10 Atherosclerotic heart disease of native coronary artery without angina pectoris; E78.00 Pure hypercholesterolemia, unspecified; J44.9 Chronic obstructive pulmonary disease, unspecified; K59.09 Other constipation; I70.1 Atherosclerosis of renal artery; I70.0 Atherosclerosis of aorta; I71.40 Abdominal aortic aneurysm, without rupture, unspecified; I27.20 Pulmonary hypertension, unspecified; D69.6 Thrombocytopenia, unspecified; I48.0 Paroxysmal atrial fibrillation; I08.3 Combined rheumatic disorders of mitral, aortic and tricuspid valves; I65.23 Occlusion and stenosis of bilateral carotid arteries; M19.90 Unspecified osteoarthritis, unspecified site; M54.9 Dorsalgia, unspecified; G89.29 Other chronic pain; Z99.81 Dependence on supplemental oxygen; Z86.711 Personal history of pulmonary embolism; Z88.0 Allergy status to penicillin; Z79.899 Other long term (current) drug therapy
CPT/HCPCS: 36415; 80053; 85007; 85025; 85027; 94640; 94760; 94761